=== PATIENT | male | born 1975 | race Two or more races ===

== ENCOUNTER 2020-09-11 15:27 | Outpatient (REF) | payer OTHER, SELFPAY ==
[2020-09-11 17:03] LABS: MANUAL DIFF FLAG NO
[2020-09-11 17:04] LABS: Basophils Absolute Auto 0.1 X10*3/uL (0.0-0.2); Basophils Percent Auto 0.7 % (0-2); Eosinophils Absolute Auto 0.2 X10*3/uL (0.0-0.4); Hemoglobin 14.4 g/dl (14.0-18.0); Imm Gran Abs Auto 0.04 X10*3/uL (0.00-0.03); Imm Gran Pct Auto 0.5 % (0.0-0.4); Lymphocytes Absolute Auto 2.8 X10*3/uL (1.2-4.9); Lymphocytes Percent Auto 37.5 % (20-40); Mean Corpuscular HGB Conc 33.5 g/dl (31.0-36.0); Mean Corpuscular Hemoglobin 28.1 pg (27.0-33.0); Mean Corpuscular Volume 83.8 fL (80-98); Mean Platelet Volume 10.4 fL (9.4-12.4); Monocytes Absolute Auto 0.6 X10*3/uL (0.1-1.2); Monocytes Percent Auto 8.3 % (2-11); Neutrophils Absolute Auto 3.8 X10*3/uL (2.0-8.3); Platelet Count 240 X10*3/uL (160-400); Red Blood Count 5.13 X10*6/uL (4.60-5.80); White Blood Count 7.4 X10*3/uL (4.8-10.8)
[2020-09-11 17:16] LABS: Estimated Average Glucose 286 mg/dL; Hemoglobin A1c % 11.6 %
[2020-09-11 17:28] LABS: Creatinine Urine 49.24 mg/dL
[2020-09-11 17:48] LABS: Vitamin D 25-OH Total 15.2 ng/mL (>30)
[2020-09-11 17:51] LABS: Vitamin B12 398 pg/mL (200-900)
[2020-09-11 17:52] LABS: Alanine Aminotransferase 38 U/L (0-40); Alkaline Phosphatase 160 U/L (39-117); Anion Gap 14 (12-20); Aspartate Amino Transferase 23 U/L (5-37); Bilirubin Total 0.4 mg/dL (0.0-1.0); Blood Urea Nitrogen 13 mg/dL (9-16); Calcium 8.5 mg/dL (8.4-10.2); Carbon Dioxide 25 mmol/L (22-29); Chloride 98 mmol/L (96-108); Cholesterol 179 mg/dL; Estimated Glomerular Filt Rate > 60; Glucose Fasting 486 mg/dL (60-99); HDL Cholesterol 27 mg/dL; Potassium 3.8 mmol/l (3.3-5.1); Sodium 133 mmol/L (135-145); Total Protein 7.3 g/dL (6.5-8.0); Triglycerides 754 mg/dL
[2020-09-12 22:13] LABS: LDL Cholesterol Direct 67 mg/dL (<100)
== END 2020-09-11 15:28 | disposition home or self-care (01) ==
LOC: HO.LABR 15:27
PROVIDERS: Visit Provider Internal Medicine Endocrinology, Diabetes & Metabolism
DX: E11.42 Type 2 diabetes mellitus with diabetic polyneuropathy (principal)
CPT/HCPCS: 36415; 80053; 80061; 82043; 82306; 82607; 83036; 83721; 85025

== ENCOUNTER 2020-10-10 13:29 | Emergency (ER) | payer OTHER, SELFPAY ==
[2020-10-10 16:08] VITALS: BP 141/77; PULSE 93; RESP 20; TEMP 36.8; O2SAT 96; BMI 34.5
--- NOTE | 2020-10-10 16:30 | ED_ITS ---
HPI - Dental/Oral General Chief complaint: Dental/Oral Stated complaint: FACIAL SWELLING Time Seen by Provider: 10/10/20 16:30 History of Present Illness HPI Narrative: Patient is a 45-year-old male presents today with having pain to the lower right molar number 32. Complaining of increasing pain over last 3 days. Swelling to the area. Patient has some dental work done by his dentist in the past. No fever no chills no systemic complaints. Tolerated PO. No change in voice. Otherwise well. Came in mainly for pain control. MD Complaint: tooth pain Related Data Previous Rx's Medication Instructions Recorded cholecalciferol (vitamin D3) 125 125 mcg PO DAILY 30 Days #30 cap 09/12/20 mcg (5,000 unit) capsule ibuprofen 400 mg PO Q6H PRN #20 tab 10/10/20 oxycodone-acetaminophen [Percocet] 1 tab PO Q6H #7 tab 10/10/20 penicillin V potassium 500 mg PO TID #21 tab 10/10/20 Allergies Allergy/AdvReac Type Severity Reaction Status Date / Time No Known Allergies Allergy Verified 10/10/20 16:12 Review of Systems Review of Systems: Constitutional: No Weight loss, No Fever, No Chills, No Night Sweats, No Fatigue, No Malaise ENT/Mouth: No Hearing loss, No Ear Pain, No Nasal Congestion, No Sinus Pain, No Hoarseness, No sore throat, No Rhinorrhea, No Swallowing Difficulty. Positive dental pain Eyes: No Eye Pain, No Swelling, No Redness, No Foreign Body, No Discharge, No Vision Changes Cardiovascular: No Chest Pain, No SOB, No Dyspnea on Exertion, No Orthopnea, No Edema, No Palpitations Respiratory: No Cough, No Sputum, No Wheezing, No Smoke Exposure, No Dyspnea Gastrointestinal: No Nausea, No Vomiting, No Diarrhea, No Constipation, No abdominal Pain, No Hematochezia, No Melena Genitourinary: no irregular bleeding, No Dysuria, No Urinary Frequency, No Hematuria, No Urinary Incontinence, No Urgency, No Flank Pain, No Urinary Flow Changes, No Hesitancy Musculoskeletal: No joint pain, No Myalgias, No Joint Swelling Skin: No Skin Lesions, No rash Neuro: No Weakness, No Numbness, No Paresthesias, No Loss of Consciousness, No Dizziness, No Headache Psych: No Anxiety/Panic, No Depression, No SI/HI/AH/VH, No Social Issues, Heme/Lymph: No Bruising, No Bleeding,No Lymphadenopathy Endocrine: No Polyuria, No Polydipsia, No Temperature Intolerance [facility] Past Medical History Attestation statement: The following information was validated with the patient. Medical History Diabetes Social History Social History Advance Directives: No Advance Directives Information Provided: No Physical Exam Vital Signs: Vital Signs: Last Vital Signs Temp 98.2 F 10/10/20 16:08 Pulse 93 10/10/20 16:08 Resp 20 10/10/20 16:08 BP 141/77 H 10/10/20 16:08 Pulse Ox 96 10/10/20 16:08 Body Mass Index 34.5 Appearance: Alert. Oriented X3. No acute distress. Eyes: Pupils equal, round and reactive to light. ENT: Pharynx normal. positive cavity noted in the tooth number 32. there is localized inflammation in the area. There is no abscess is palpable. The floor of the mouth is nontender no mass palpable. Posterior pharynx is normal. Neck: Normal inspection. Neck supple. No lymph nodes noted. No crepitus CVS: Normal heart rate and rhythm. Pulses normal. Normal S1 and S2 Respiratory: No respiratory distress. Breath sounds normal. No Wheezing. No rales Abdomen: Soft and nontender. No rigidity. No distention. good BS x4 Skin: Skin warm and dry. Normal skin color. Normal skin turgor. Extremities: No lower extremity edema. Neurovascular intact to all extremities. No Lacerations. No Rash Neuro: Oriented X 3. No motor deficit. No sensory deficit. Moving all extermities. No slurred speech Procedures Procedure Narrative Procedure Narrative: Landmarks were identified. 3 cc of 0.5% Marcaine was used. The inferior alveolar block was applied to the right lower jaw area. Good anesthesia was achieved. No bleeding no complications MDM - Dental/Oral MDM Narrative Medical decision making narrative: Patient wants a shot for his pain. We will go ahead and given inferior alveolar block to the area. Will have patient closely follow-up with his dentist tomorrow. Will give penicillin and additional Motrin for pain. Currently in stable condition. Discharge Plan Discharge Clinical Impression: Dental caries Patient Disposition: Home, Self-Care Instructions: Toothache (ED) Prescriptions: New ibuprofen 400 mg tablet 400 mg PO Q6H PRN (Reason: pain) Qty: 20 RF: 0 oxycodone-acetaminophen [Percocet] 5-325 mg tablet 1 tab PO Q6H Qty: 7 RF: 0 penicillin V potassium 500 mg tablet 500 mg PO TID Qty: 21 RF: 0 No Action cholecalciferol (vitamin D3) 125 mcg (5,000 unit) capsule 125 mcg PO DAILY 30 Days Qty: 30 RF: 3 Referrals: Physician,None [Primary Care Provider] - 1 day ( Follow-up with your dentist tomorrow) Print Language: Portuguese
[2020-10-10 17:19] VITALS: PULSE 98; RESP 16; TEMP 36.4; O2SAT 99
== END 2020-10-10 17:30 | disposition home or self-care (01) ==
PROVIDERS: Emergency Provider Emergency Medicine Emergency Medical Services
DX: K02.9 Dental caries, unspecified (principal); Z79.899 Other long term (current) drug therapy
CPT/HCPCS: 99283

== ENCOUNTER 2020-12-27 14:30 | Outpatient (REF) | payer OTHER, SELFPAY ==
[2020-12-27 17:06] LABS: Hematocrit 41.9 % (42-52); Hemoglobin 14.5 g/dl (14.0-18.0); Mean Corpuscular HGB Conc 34.6 g/dl (31.0-36.0); Mean Corpuscular Hemoglobin 28.7 pg (27.0-33.0); Mean Corpuscular Volume 82.8 fL (80-98); Mean Platelet Volume 10.6 fL (9.4-12.4); Platelet Count 229 X10*3/uL (160-400); Red Blood Count 5.06 X10*6/uL (4.60-5.80); Red Cell Distribution Width 12.9 % (11.0-16.0); White Blood Count 9.2 X10*3/uL (4.8-10.8)
[2020-12-27 17:34] LABS: Alanine Aminotransferase 50 U/L (0-40); Albumin Level 4.2 g/dL (3.5-5.0); Alkaline Phosphatase 102 U/L (39-117); Anion Gap 14 (12-20); Aspartate Amino Transferase 36 U/L (5-37); Bilirubin Total 0.8 mg/dL (0.0-1.0); Blood Urea Nitrogen 14 mg/dL (9-16); Calcium 8.7 mg/dL (8.4-10.2); Carbon Dioxide 26 mmol/L (22-29); Chloride 104 mmol/L (96-108); Cholesterol 147 mg/dL; Estimated Average Glucose 237 mg/dL; Estimated Glomerular Filt Rate > 60; Glucose Fasting 171 mg/dL (60-99); HDL Cholesterol 33 mg/dL; Hemoglobin A1c % 9.9 %; LDL Cholesterol Calculated 55 mg/dl; Potassium 3.8 mmol/l (3.3-5.1); Sodium 140 mmol/L (135-145); Total Protein 7.4 g/dL (6.5-8.0); Triglycerides 298 mg/dL
[2020-12-27 17:56] LABS: Vitamin D 25-OH Total 15.3 ng/mL (>30)
[2020-12-28 03:48] LABS: LDL Cholesterol Direct 73 mg/dL (<100)
== END 2020-12-27 14:31 | disposition home or self-care (01) ==
LOC: HO.LAB 14:30
PROVIDERS: Visit Provider Internal Medicine Endocrinology, Diabetes & Metabolism
DX: E11.65 Type 2 diabetes mellitus with hyperglycemia (principal); E11.42 Type 2 diabetes mellitus with diabetic polyneuropathy; E11.21 Type 2 diabetes mellitus with diabetic nephropathy; E55.9 Vitamin D deficiency, unspecified; E78.5 Hyperlipidemia, unspecified; I10 Essential (primary) hypertension; Z79.84 Long term (current) use of oral hypoglycemic drugs; Z79.899 Other long term (current) drug therapy
CPT/HCPCS: 36415; 80053; 80061; 82306; 82947; 83036; 83721; 85027; 99212

== ENCOUNTER → 2021-01-25 08:02 | Outpatient (BNVA) | payer OTHER, SELFPAY | PROVIDERS: Visit Provider Internal Medicine Endocrinology, Diabetes & Metabolism | CPT/HCPCS: Q3014 ==

== ENCOUNTER 2021-04-16 09:12 | Outpatient (REF) | payer OTHER, SELFPAY | END 2021-04-16 09:13 | disposition home or self-care (01) | LOC: HO.LAB 09:12 | PROVIDERS: Visit Provider Internal Medicine | DX: Z20.822 Contact with and (suspected) exposure to COVID-19 (principal) | CPT/HCPCS: C9803; U0003; U0005 ==

== ENCOUNTER 2021-05-27 15:38 | Emergency (ER) | payer OTHER, SELFPAY ==
--- NOTE | ~2021-05-27 | XR_ITS ---
EXAMINATION: XR CHEST CLINICAL INFORMATION: Chest pain COMPARISON: Previous chest x-ray most recent November 2019 TECHNIQUE: Frontal view of the chest was obtained. FINDINGS: The cardiac and mediastinal contours are normal. The lungs are clear. There is no pleural effusion or pneumothorax. There are mild degenerative changes of the spine. XR/XR chest 1V IMPRESSION: No evidence for acute disease in chest.
--- NOTE | 2021-05-27 15:46 | ECG_ITS ---
Test Reason : CHEST PAIN Blood Pressure : / mmHG Vent. Rate : 087 BPM Atrial Rate : 087 BPM P-R Int : 156 ms QRS Dur : 090 ms QT Int : 372 ms P-R-T Axes : 038 -22 033 degrees QTc Int : 447 ms Normal sinus rhythm Normal ECG When compared with ECG of 29-DEC-2019 16:42, No significant change was found Referred By: Generic ED Physician Electronically Signed By:SUMA ROSEN MD
[2021-05-27 15:47] VITALS: BP 139/75; PULSE 89; RESP 18; TEMP 36.8; O2SAT 97; BMI 37.8
[2021-05-27 15:57] LABS: Basophils Percent Auto 0.3 % (0-2); Eosinophils Absolute Auto 0.2 X10*3/uL (0.0-0.4); Eosinophils Percent Auto 1.8 % (0-4); Hematocrit 39.5 % (42-52); Hemoglobin 13.7 g/dl (14.0-18.0); Imm Gran Abs Auto 0.06 X10*3/uL (0.00-0.03); Imm Gran Pct Auto 0.5 % (0.0-0.4); Lymphocytes Absolute Auto 3.8 X10*3/uL (1.2-4.9); Lymphocytes Percent Auto 30.9 % (20-40); MANUAL DIFF FLAG NO; Mean Corpuscular HGB Conc 34.7 g/dl (31.0-36.0); Mean Corpuscular Hemoglobin 29.5 pg (27.0-33.0); Mean Corpuscular Volume 85.1 fL (80-98); Mean Platelet Volume 10.1 fL (9.4-12.4); Monocytes Percent Auto 7.9 % (2-11); Neutrophils Absolute Auto 7.2 X10*3/uL (2.0-8.3); Neutrophils Percent Auto 58.6 % (45-73); Platelet Count 224 X10*3/uL (160-400); Red Blood Count 4.64 X10*6/uL (4.60-5.80); Red Cell Distribution Width 13.2 % (11.0-16.0); White Blood Count 12.3 X10*3/uL (4.8-10.8)
[2021-05-27 16:24] LABS: Anion Gap 13 (12-20); Blood Urea Nitrogen 19 mg/dL (9-16); Calcium 9.2 mg/dL (8.4-10.2); Carbon Dioxide 24 mmol/L (22-29); Chloride 106 mmol/L (96-108); Creatinine Clr Calc Pharmacy 108.5; Estimated Glomerular Filt Rate > 60; Glucose Random 179 mg/dL (60-115); Sodium 139 mmol/L (135-145)
[2021-05-27 16:34] LABS: Troponin-I High Sensitivity 8.7 ng/L (<3.5-35.0)
--- NOTE | 2021-05-27 21:18 | ED_ITS ---
HPI - Chest Pain General Chief Complaint: Chest Pain Stated Complaint: chest pain Time Seen by Provider: 05/27/21 21:03 History of Present Illness HPI narrative: Patient is a 46-year-old male history of diabetes, hypertension. Presents today with having chest pain on the right side. It is fairly constant it is sharp in nature. Patient claims it is worse with bending to the right. Denies any worsening with ambulation. No diaphoresis. No fever no chills no cough no congestion or upper respiratory from flu symptoms. No recent travel. No leg swelling. No history of blood clots. The pain is been going on for 2 days. Related Data Home Medications Medication Instructions Recorded Confirmed alcohol swabs 0 pad TOPICAL 12/27/20 01/25/21 blood sugar diagnostic #10 ea 12/27/20 01/25/21 lancets 33 gauge #100 ea 12/27/20 01/25/21 bupropion HCl 150 mg 24 hr tablet, 150 mg PO DAILY tab 01/25/21 01/25/21 extended release Previous Rx's Medication Instructions Recorded ibuprofen 400 mg PO Q6H PRN #20 tab 10/10/20 oxycodone-acetaminophen [Percocet] 1 tab PO Q6H #7 tab 10/10/20 pen needle, diabetic 32 gauge x #100 ea 10/12/20 atorvastatin 20 mg tablet 20 mg PO DAILY 30 Days #30 tab 12/27/20 butenafine 1 % topical cream 1 appl TOPICAL BID 14 Days #30 g 12/27/20 dulaglutide 1.5 mg/0.5 mL 1.5 mg SUBCUT QWEEK 30 Days #2.5 ml 12/27/20 subcutaneous pen injector metformin 500 mg tablet,extended 500 mg PO BID 30 Days #60 tab 12/27/20 release 24 hr cholecalciferol (vitamin D3) 125 125 mcg PO DAILY 30 Days #30 cap 12/31/20 mcg (5,000 unit) capsule clotrimazole 1 % topical cream 1 appl TOPICAL BID 14 Days #45 g 01/02/21 insulin regular hum U-500 conc See Rx Instructions SUBCUT .Twice 01/25/21 a day 30 Days #15 ml blood sugar diagnostic #100 ea 02/05/21 lancets 33 gauge #100 ea 02/05/21 lisinopril 10 mg tablet 10 mg PO DAILY 30 Days #30 tab 02/11/21 ibuprofen 400 mg PO Q6H PRN #20 tab 05/27/21 Allergies Allergy/AdvReac Type Severity Reaction Status Date / Time No Known Allergies Allergy Verified 10/10/20 16:12 Review of Systems Review of Systems: Constitutional: No Weight loss, No Fever, No Chills, No Night Sweats, No Fatigue, No Malaise ENT/Mouth: No Hearing loss, No Ear Pain, No Nasal Congestion, No Sinus Pain, No Hoarseness, No sore throat, No Rhinorrhea, No Swallowing Difficulty Eyes: No Eye Pain, No Swelling, No Redness, No Foreign Body, No Discharge, No Vision Changes Cardiovascular: Positive chest pain, no shortness of breath no diaphoresis Respiratory: No Cough, No Sputum, No Wheezing, No Smoke Exposure, No Dyspnea Gastrointestinal: No Nausea, No Vomiting, No Diarrhea, No Constipation, No abdominal Pain, No Hematochezia, No Melena Genitourinary: no irregular bleeding, No Dysuria, No Urinary Frequency, No Hematuria, No Urinary Incontinence, No Urgency, No Flank Pain, No Urinary Flow Changes, No Hesitancy Musculoskeletal: No joint pain, No Myalgias, No Joint Swelling Skin: No Skin Lesions, No rash Neuro: No Weakness, No Numbness, No Paresthesias, No Loss of Consciousness, No Dizziness, No Headache Psych: No Anxiety/Panic, No Depression, No SI/HI/AH/VH, No Social Issues, Heme/Lymph: No Bruising, No Bleeding,No Lymphadenopathy Endocrine: No Polyuria, No Polydipsia, No Temperature Intolerance PMFSH Past Medical History Attestation statement: The following information was validated with the patient. Medical History Diabetes Diabetes type 2, uncontrolled Diabetic nephropathy associated with type 2 diabetes mellitus Diabetic polyneuropathy associated with type 2 diabetes mellitus Disc herniation Dyslipidemia Essential hypertension senior care (current) use of insulin Tinea pedis Vitamin D deficiency Surgical History History of ear surgery Hx of knee surgery Family History Family History Father Diabetes mellitus Heart disease Stroke Mother Epilepsy Social History Social History Alcohol intake: never Advance Directives: No Advance Directives Information Provided: Yes Physical Exam Vital Signs: Vital Signs: Last Vital Signs Temp 98.3 F 05/27/21 15:47 Pulse 89 05/27/21 15:47 Resp 18 05/27/21 15:47 BP 139/75 05/27/21 15:47 Pulse Ox 97 05/27/21 15:47 Body Mass Index 37.8 Appearance: Alert. Oriented X3. No acute distress. Eyes: Pupils equal, round and reactive to light. ENT: Pharynx normal. Neck: Normal inspection. Neck supple. No lymph nodes noted. No crepitus CVS: Normal heart rate and rhythm. Pulses normal. Normal S1 and S2 Respiratory: No respiratory distress. Breath sounds normal. No Wheezing. No rales Abdomen: Soft and nontender. No rigidity. No distention. good BS x4 Skin: Skin warm and dry. Normal skin color. Normal skin turgor. Extremities: No lower extremity edema. Neurovascular intact to all extremities. No Lacerations. No Rash Neuro: Oriented X 3. No motor deficit. No sensory deficit. Moving all extermities. No slurred speech MDM - Chest Pain MDM Narrative Medical decision making narrative: patient's chest x-ray showed no focal infiltrate. Patient's troponin was negative. We will get a 2nd set. Patient's EKG showed a sinus pattern no acute ST segment elevation. Patient does have 2 risk factors. He is 46 years old but history not consistent with [place]. Troponin negative. Heart score is still less than 3. Will discharge patient home if 2nd set enzymes negative. No risk factors for pulmonary emboli. No pneumonia noted on x-ray. No rib fractures noted on x-ray. No pneumothorax noted. Lab Data Result diagrams: 05/27/21 15:50 05/27/21 15:50 Labs: Lab Results 05/27/21 05/27/21 05/27/21 Range/Units 15:50 15:50 15:50 WBC 12.3 H (4.8-10.8) X10*3/uL RBC 4.64 (4.60-5.80) X10*6/uL Hgb 13.7 L (14.0-18.0) g/dl Hct 39.5 L (42-52) % MCV 85.1 (80-98) fL MCH 29.5 (27.0-33.0) pg MCHC 34.7 (31.0-36.0) g/dl RDW 13.2 (11.0-16.0) % Plt Count 224 (160-400) X10*3/uL MPV 10.1 (9.4-12.4) fL Immature Gran % (Auto) 0.5 H (0.0-0.4) % Neut % (Auto) 58.6 (45-73) % Lymph % (Auto) 30.9 (20-40) % Noble % (Auto) 7.9 (2-11) % Eos % (Auto) 1.8 (0-4) % Baso % (Auto) 0.3 (0-2) % Lymph # (Auto) 3.8 (1.2-4.9) X10*3/uL Noble # (Auto) 1.0 (0.1-1.2) X10*3/uL Eos # (Auto) 0.2 (0.0-0.4) X10*3/uL Baso # (Auto) 0.0 (0.0-0.2) X10*3/uL Abs Immat Gran (auto) 0.06 H (0.00-0.03) X10*3/uL Absolute Neuts (auto) 7.2 (2.0-8.3) X10*3/uL Absolute Nucleated RBC 0.000 (0.0-0.012) X10*3/uL Nucleated RBC % (auto) 0.0 (0.0-0.2) /100WBC Sodium 139 (135-145) mmol/L Potassium 4.0 (3.3-5.1) mmol/L Chloride 106 (96-108) mmol/L Carbon Dioxide 24 (22-29) mmol/L Anion Gap 13 (12-20) BUN 19 H (9-16) mg/dL Creatinine 1.08 (0.5-1.4) mg/dL Estim Creat Clear Calc 108.5 Estimated GFR > 60 Random Glucose 179 H (60-115) mg/dL Calcium 9.2 (8.4-10.2) mg/dL Troponin I High Sens 8.7 (<3.5-35.0) ng/L 05/27/ Range/Units 21:28 WBC (4.8-10.8) X10*3/uL RBC (4.60-5.80) X10*6/uL Hgb (14.0-18.0) g/dl Hct (42-52) % MCV (80-98) fL MCH (27.0-33.0) pg MCHC (31.0-36.0) g/dl RDW (11.0-16.0) % Plt Count (160-400) X10*3/uL MPV (9.4-12.4) fL Immature Gran % (Auto) (0.0-0.4) % Neut % (Auto) (45-73) % Lymph % (Auto) (20-40) % Noble % (Auto) (2-11) % Eos % (Auto) (0-4) % Baso % (Auto) (0-2) % Lymph # (Auto) (1.2-4.9) X10*3/uL Noble # (Auto) (0.1-1.2) X10*3/uL Eos # (Auto) (0.0-0.4) X10*3/uL Baso # (Auto) (0.0-0.2) X10*3/uL Abs Immat Gran (auto) (0.00-0.03) X10*3/uL Absolute Neuts (auto) (2.0-8.3) X10*3/uL Absolute Nucleated RBC (0.0-0.012) X10*3/uL Nucleated RBC % (auto) (0.0-0.2) /100WBC Sodium (135-145) mmol/L Potassium (3.3-5.1) mmol/L Chloride (96-108) mmol/L Carbon Dioxide (22-29) mmol/L Anion Gap (12-20) BUN (9-16) mg/dL Creatinine (0.5-1.4) mg/dL Estim Creat Clear Calc Estimated GFR Random Glucose (60-115) mg/dL Calcium (8.4-10.2) mg/dL Troponin I High Sens 7.6 (<3.5-35.0) ng/L Discharge Plan Discharge Clinical Impression: Chest pain Patient Disposition: Home, Self-Care Instructions: Chest Pain (ED) Prescriptions: New ibuprofen 400 mg tablet 400 mg PO Q6H PRN (Reason: pain) Qty: 20 RF: 0 No Action (DME) pen needle, diabetic [BD Dianelys 2nd Gen Pen Needle] 32 gauge x 5/32 needle See Rx Instructions .MEDSUPPLY Qty: 100 RF: 4 cholecalciferol (vitamin D3) 125 mcg (5,000 unit) capsule 125 mcg PO DAILY 30 Days Qty: 30 RF: 3 clotrimazole [Lotrimin AF (clotrimazole)] 1 % cream 1 appl topical BID 14 Days Qty: 45 RF: 1 (DME) FreeStyle Lite Strips Strip See Rx Instructions .ROUTE .MEDSUPPLY Qty: 100 RF: 3 (DME) lancets [TRUEplus Lancets] 33 gauge misc See Rx Instructions .ROUTE .MEDSUPPLY Qty: 100 RF: 3 lisinopril 10 mg tablet 10 mg PO DAILY 30 Days Qty: 30 RF: 4 ibuprofen 400 mg tablet 400 mg PO Q6H PRN (Reason: pain) Qty: 20 RF: 0 oxycodone-acetaminophen [Percocet] 5-325 mg tablet 1 tab PO Q6H Qty: 7 RF: 0 insulin regular hum U-500 conc 500 unit/mL (3 mL) insulin pen See Rx Instructions subcut .Twice a day 30 Days Qty: 15 RF: 6 (DME) lancets 33 gauge misc See Rx Instructions ea .ROUTE .MEDSUPPLY Qty: 100 RF: 0 alcohol swabs Pads, Medicated 0 pad topical RF: 0 (DME) FreeStyle Lite Strips Strip See Rx Instructions ea Not Applicable .MEDSUPPLY Qty: 10 RF: 0 atorvastatin 20 mg tablet 20 mg PO DAILY 30 Days Qty: 30 RF: 5 dulaglutide 1.5 mg/0.5 mL pen injector 1.5 mg subcut QWEEK 30 Days Qty: 2.5 RF: 6 metformin 500 mg tablet extended release 24 hr 500 mg PO BID 30 Days Qty: 60 RF: 6 butenafine [Lotrimin Ultra] 1 % cream 1 appl topical BID 14 Days Qty: 30 RF: 1 bupropion HCl 150 mg tablet extended release 24 hr 150 mg PO DAILY RF: 0 Referrals: Physician,Unknown [Primary Care Provider] - 2 days Print Language: Venezuelan
--- NOTE | 2021-05-27 21:28 | PC.NURSE ---
pt to room on monitor with MD at bedside. Repeat Trop obtained to lab. Will continue to monitor pt.
[2021-05-27 22:03] LABS: Troponin-I High Sensitivity 7.6 ng/L (<3.5-35.0)
== END 2021-05-27 22:23 | disposition home or self-care (01) ==
PROVIDERS: Emergency Provider Emergency Medicine Emergency Medical Services
DX: R07.9 Chest pain, unspecified (principal); E11.9 Type 2 diabetes mellitus without complications; I10 Essential (primary) hypertension; Z79.4 Long term (current) use of insulin; Z79.899 Other long term (current) drug therapy
CPT/HCPCS: 36415; 71045; 80048; 84484; 85025; 93005; 99283

== ENCOUNTER 2021-07-18 14:56 | Emergency (ER) | payer OTHER, SELFPAY ==
--- NOTE | ~2021-07-18 | US_ITS ---
EXAMINATION: US VENOUS ULTRASOUND WITH DOPPLER LOWER EXTREMITY, RIGHT CLINICAL INFORMATION: Calf pain COMPARISON: None TECHNIQUE: Ultrasound of the deep veins is performed from the hip to the calf with compression sonography and color and pulse Doppler assessment. Spectral analysis with color-flow imaging is performed. FINDINGS: There is normal venous compression and respiratory variation and augmented flow. The visualized common femoral vein, superficial femoral vein, profunda femoral vein, popliteal vein, and the trifurcation region shows no evidence of deep venous thrombosis. There is no significant popliteal fossa cyst. If the patient's symptoms persist, followup ultrasound in 5 days 7 days might be of value to exclude proximal propagation from a non-visualized calf vein. US/US venous duplex LE RT IMPRESSION: No DVT demonstrated in the right lower extremity.
--- NOTE | ~2021-07-18 | XR_ITS ---
EXAMINATION: XR CHEST CLINICAL INFORMATION: Cough COMPARISON: Chest radiographs 05/27/2021, 12/29/2019, 04/21/2019 TECHNIQUE: Portable upright AP view of the chest was obtained. FINDINGS: There is likely a small cysts are at the right lateral base similar to prior studies. The lungs otherwise clear. There is no hyperinflation, lobar or segmental airspace consolidation, or groundglass opacity. The heart is normal in size and the hilar and mediastinal contours are unremarkable. No visible acute bony abnormality. XR/XR chest 1V IMPRESSION: Small scar right lateral base similar to prior studies. Lungs otherwise clear.
[2021-07-18 15:02] VITALS: BP 124/73; BP 97/65; PULSE 85; PULSE 90; RESP 20; TEMP 36.4; O2SAT 96; O2SAT 99; BMI 38.4
[2021-07-18 15:19] VITALS: BP 101/66; PULSE 90; RESP 20
--- NOTE | 2021-07-18 15:23 | ECG_ITS ---
Test Reason : DIZZINESS Blood Pressure : / mmHG Vent. Rate : 089 BPM Atrial Rate : 089 BPM P-R Int : 144 ms QRS Dur : 090 ms QT Int : 392 ms P-R-T Axes : 047 -10 040 degrees QTc Int : 476 ms Normal sinus rhythm Normal ECG When compared with ECG of 27-MAY-2021 15:45, No significant change was found Referred By: Generic ED Physician Electronically Signed By:NANCI BROWN
--- NOTE | 2021-07-18 15:27 | PC.NURSE ---
Pt vomited small amount of bile. Will order fluids and zofran. While vomiting pt noted to be pale/diaphoretic. EKG being obtained at this time
[2021-07-18] MEDS: ondansetron HCL 4 MG/2 ML VIAL IVPUSH (15:35)
[2021-07-18] MEDS: 0.9 % Sodium Chloride 1,000 ML 999 ML IV (15:35)
[2021-07-18 15:42] LABS: MANUAL DIFF FLAG NO
[2021-07-18 15:43] LABS: Basophils Percent Auto 0.2 % (0-2); Hematocrit 46.5 % (42-52); Hemoglobin 15.9 g/dl (14.0-18.0); Imm Gran Abs Auto 0.31 X10*3/uL (0.00-0.03); Imm Gran Pct Auto 1.5 % (0.0-0.4); Lymphocytes Absolute Auto 1.7 X10*3/uL (1.2-4.9); Lymphocytes Percent Auto 8.2 % (20-40); Mean Corpuscular HGB Conc 34.2 g/dl (31.0-36.0); Mean Corpuscular Hemoglobin 28.6 pg (27.0-33.0); Mean Corpuscular Volume 83.6 fL (80-98); Mean Platelet Volume 10.8 fL (9.4-12.4); Monocytes Absolute Auto 1.1 X10*3/uL (0.1-1.2); Monocytes Percent Auto 5.4 % (2-11); Neutrophils Absolute Auto 17.8 X10*3/uL (2.0-8.3); Neutrophils Percent Auto 84.7 % (45-73); Platelet Count 261 X10*3/uL (160-400); Red Blood Count 5.56 X10*6/uL (4.60-5.80); Red Cell Distribution Width 13.2 % (11.0-16.0)
[2021-07-18 16:13] LABS: Anion Gap 18 (12-20); Blood Urea Nitrogen 18 mg/dL (9-16); Carbon Dioxide 22 mmol/L (22-29); Chloride 107 mmol/L (96-108); Creatinine Clr Calc Pharmacy 61.5; Estimated Glomerular Filt Rate 38; Glucose Random 109 mg/dL (60-115); Sodium 143 mmol/L (135-145)
[2021-07-18 16:15] LABS: Troponin-I High Sensitivity 5.1 ng/L (<3.5-35.0)
--- NOTE | 2021-07-18 16:21 | ED.GENADULT ---
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 Patient was instructed by his primary doctor to increase his lisinopril from 10 mg daily to 20 mg daily and today is the 1st day patient is taking 20 mg of lisinopril, patient felt generalized weakness, patient felt also that he is going to faint and patient fainted in the rain for unknown time, patient feels a lot of cramps in his right side of his chest, and right lower extremities. Patient emergency department after received 1 L of normal saline he feels better, patient is able to ambulate in the emergency department. Patient found to have elevated leukocytosis patient declined any fever, only complain of cough for the past few weeks. Related Data Home Medications Medication Instructions Recorded Confirmed alcohol swabs 0 pad TOPICAL 12/27/20 01/25/21 blood sugar diagnostic #10 ea 12/27/20 01/25/21 lancets 33 gauge #100 ea 12/27/20 01/25/21 bupropion HCl 150 mg 24 hr tablet, 150 mg PO DAILY tab 01/25/21 01/25/21 extended release Previous Rx's Medication Instructions Recorded ibuprofen 400 mg tablet 400 mg PO Q6H PRN #20 tab 10/10/20 oxycodone-acetaminophen 5 mg-325 1 tab PO Q6H #7 tab 10/10/20 mg tablet (Percocet) pen needle, diabetic 32 gauge x #100 ea 10/12/20 (BD Dianelys 2nd Gen Pen Needle) atorvastatin 20 mg tablet 20 mg PO DAILY 30 Days #30 tab 12/27/20 butenafine 1 % topical cream 1 appl TOPICAL BID 14 Days #30 g 12/27/20 (Lotrimin Ultra) dulaglutide 1.5 mg/0.5 mL 1.5 mg SUBCUT QWEEK 30 Days #2.5 ml 12/27/20 subcutaneous pen injector metformin 500 mg tablet,extended 500 mg PO BID 30 Days #60 tab 12/27/20 release 24 hr cholecalciferol (vitamin D3) 125 125 mcg PO DAILY 30 Days #30 cap 12/31/20 mcg (5,000 unit) capsule clotrimazole 1 % topical cream 1 appl TOPICAL BID 14 Days #45 g 01/02/21 (Lotrimin AF (clotrimazole)) insulin regular hum U-500 conc See Rx Instructions SUBCUT .Twice 01/25/21 a day 30 Days #15 ml blood sugar diagnostic (FreeStyle #100 ea 02/05/21 Lite Strips) lancets 33 gauge (TRUEplus Lancets) #100 ea 02/05/21 lisinopril 10 mg tablet 10 mg PO DAILY 30 Days #30 tab 02/11/21 ibuprofen 400 mg tablet 400 mg PO Q6H PRN #20 tab 05/27/21 Allergies Allergy/AdvReac Type Severity Reaction Status Date / Time No Known Allergies Allergy Verified 10/10/20 16:12 Review of Systems Review of Systems: All other systems are reviewed and are negative Constitutional: Reports as per HPI and Reports no additional constitutional complaints Eyes: Reports as per HPI and Reports no additional eye complaints Reports system reviewed and no additional complaints, except as documented Cardiovascular: Reports as per HPI and Reports no additional cardiovascular complaints Respiratory: Reports as per HPI and Reports no additional respiratory complaints Gastrointestinal: Reports as per HPI and Reports no additional gastrointestinal complaints Genitourinary: Reports no additional female genitourinary complaints Musculoskeletal: Reports no additional musculoskeletal complaints Skin/Breast: Reports system reviewed and no additional complaints, except as docu Psychiatric: Reports no additional psychiatric complaints Endocrine: Reports no additional endocrine complaints Hematologic/Lymphatic: Reports no additional hematologic/lymphatic complaints Allergic/Immunologic: Reports no additional allergic/immunologic complaints Reports system reviewed and no additional complaints, except as documented and Reports Abnormal speech present [facility] Past Medical History Medical History Diabetes Diabetes type 2, uncontrolled Diabetic nephropathy associated with type 2 diabetes mellitus Diabetic polyneuropathy associated with type 2 diabetes mellitus Disc herniation Dyslipidemia Essential hypertension 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 Tinea pedis Vitamin D deficiency Surgical History History of ear surgery Hx of knee surgery Family History Family History Father Diabetes mellitus Heart disease Stroke Mother Epilepsy Social History Social History Alcohol intake: never Patient Tobacco Use Status: Never used Tobacco Use of substances other than those prescribed or required for medical reasons: No Advance Directives: No Advance Directives Information Provided: No Physical Exam Vital Signs: Vital Signs: Last Vital Signs Temp 97.6 F 07/18/21 15:02 Pulse 89 07/18/21 18:25 Resp 16 07/18/21 18:25 BP 120/64 07/18/21 18:25 Pulse Ox 94 07/18/21 18:25 Body Mass Index 38.4 Vital signs have been reviewed as appeared to be correct. Blood pressure normal. Heart rate normal. Respiration rate normal. Temperature normal. Oxygen saturation normal. Appearance: Alert. Oriented X3. No acute distress. Head: Normal external exam. Normocephalic. Atraumatic. No Sharif signs noted. No raccoon eyes noted Eyes: PERRLA. EOMI. Conjunctiva and sclera normal. Eyelids normal. ENT: TM's Normal. Pharynx normal. Uvula midline. Moist mucous membranes. No trismus noted. No drooling noted. No muffled voice noted. Neck: Normal inspection. Neck supple. FROM. No adenopathy. Thyroid Normal. No meningeal signs. No neck mass noted. CVS: Normal heart rate and rhythm. Heart sound normal. No murmurs noted. Pulses normal throughout. Respiratory: No respiratory distress. Painless inspiration. Breath sounds normal. No wheezes/rales/rhonchi noted. Chest nontender. No accessory muscle usage noted or decreased air movement noted. Abdomen: Soft and nontender. Bowel sounds normal in all 4 quadrants. No distention noted. No organomegaly noted. No visible injury noted. Back: No CVA tenderness. Full range of motion noted. Skin: Skin warm and dry. Normal skin color. Normal skin turgor. No rashes/lesions/lacerations noted. Extremities: No lower extremity edema. Extremities exhibit normal range of motion. Extremities nontender. Neuro: Oriented X 3. Cranial nerve exam: II-XII are grossly intact No motor deficit. No sensory deficit. Reflexes normal. Course Course Course Narrative: Assessment and plan. 46-year-old male came in with syncopal episode after he had likely postural hypotension after PCP increased his lisinopril from 10 mg to 20 mg p.o. patient was leukocytosis nothing to explain it except stress. Patient been having cramps in the right lower extremities ultrasound showed no DVT. Patient will be discharged home and follow-up with PCP. Slightly elevated kidney function test was discussed with the patient to follow-up with PCP. Patient was instructed to resume 10 mg of lisinopril daily and discussed with his primary doctor for not taking the extra 10 mg daily. Medical Decision Making Lab Data Lab results reviewed: Yes I reviewed the patient's lab results. Result diagrams: 07/18/21 15:37 07/18/21 15:37 Labs: Lab Results 07/18/21 07/18/21 07/18/21 Range/Units 15:37 15:37 15:37 WBC 21.0 H (4.8-10.8) X10*3/uL RBC 5.56 (4.60-5.80) X10*6/uL Hgb 15.9 (14.0-18.0) g/dl Hct 46.5 (42-52) % MCV 83.6 (80-98) fL MCH 28.6 (27.0-33.0) pg MCHC 34.2 (31.0-36.0) g/dl RDW 13.2 (11.0-16.0) % Plt Count 261 (160-400) X10*3/uL MPV 10.8 (9.4-12.4) fL Immature Gran % (Auto) 1.5 H (0.0-0.4) % Neut % (Auto) 84.7 H (45-73) % Lymph % (Auto) 8.2 L (20-40) % Nelson % (Auto) 5.4 (2-11) % Eos % (Auto) 0.0 (0-4) % Baso % (Auto) 0.2 (0-2) % Lymph # (Auto) 1.7 (1.2-4.9) X10*3/uL Nelson # (Auto) 1.1 (0.1-1.2) X10*3/uL Eos # (Auto) 0.0 (0.0-0.4) X10*3/uL Baso # (Auto) 0.0 (0.0-0.2) X10*3/uL Abs Immat Gran (auto) 0.31 H (0.00-0.03) X10*3/uL Absolute Neuts (auto) 17.8 H (2.0-8.3) X10*3/uL Absolute Nucleated RBC 0.000 (0.0-0.012) X10*3/uL Nucleated RBC % (auto) 0.0 (0.0-0.2) /100WBC Sodium 143 (135-145) mmol/L Potassium 4.0 (3.3-5.1) mmol/L Chloride 107 (96-108) mmol/L Carbon Dioxide 22 (22-29) mmol/L Anion Gap 18 (12-20) BUN 18 H (9-16) mg/dL Creatinine 1.92 H (0.5-1.4) mg/dL Estim Creat Clear Calc 61.5 Estimated GFR 38 Random Glucose 109 D (60-115) mg/dL Calcium 10.8 H D (8.4-10.2) mg/dL Total Bilirubin 0.5 (0.0-1.0) mg/dL Direct Bilirubin 0.2 (0.0-0.5) mg/dL AST 34 (5-37) U/L ALT 44 H (0-40) U/L Alkaline Phosphatase 94 (39-117) U/L Troponin I High Sens 5.1 (<3.5-35.0) ng/L Total Protein 8.5 H (6.5-8.0) g/dL Albumin 4.8 (3.5-5.0) g/dL Lipase 44 (8-78) U/L Urine Color Urine Appearance Urine pH (5.0-8.0) Ur Specific [place] (1.005-1.025) Urine Protein (NEG-TRACE) MG/DL Urine Glucose (UA) (NEG) MG/DL Urine Ketones (NEG) MG/DL Urine Blood (NEG) Urine Nitrite (NEG) Ur Leukocyte Esterase (NEG) Urine RBC (0) /HPF Urine WBC (0-4) /HPF Ur Squamous Epith Cells /LPF Urine Bacteria /LPF 07/18/21 Range/Units 16:38 WBC (4.8-10.8) X10*3/uL RBC (4.60-5.80) X10*6/uL Hgb (14.0-18.0) g/dl Hct (42-52) % MCV (80-98) fL MCH (27.0-33.0) pg MCHC (31.0-36.0) g/dl RDW (11.0-16.0) % Plt Count (160-400) X10*3/uL MPV (9.4-12.4) fL Immature Gran % (Auto) (0.0-0.4) % Neut % (Auto) (45-73) % Lymph % (Auto) (20-40) % Nelson % (Auto) (2-11) % Eos % (Auto) (0-4) % Baso % (Auto) (0-2) % Lymph # (Auto) (1.2-4.9) X10*3/uL Nelson # (Auto) (0.1-1.2) X10*3/uL Eos # (Auto) (0.0-0.4) X10*3/uL Baso # (Auto) (0.0-0.2) X10*3/uL Abs Immat Gran (auto) (0.00-0.03) X10*3/uL Absolute Neuts (auto) (2.0-8.3) X10*3/uL Absolute Nucleated RBC (0.0-0.012) X10*3/uL Nucleated RBC % (auto) (0.0-0.2) /100WBC Sodium (135-145) mmol/L Potassium (3.3-5.1) mmol/L Chloride (96-108) mmol/L Carbon Dioxide (22-29) mmol/L Anion Gap (12-20) BUN (9-16) mg/dL Creatinine (0.5-1.4) mg/dL Estim Creat Clear Calc Estimated GFR Random Glucose (60-115) mg/dL Calcium (8.4-10.2) mg/dL Total Bilirubin (0.0-1.0) mg/dL Direct Bilirubin (0.0-0.5) mg/dL AST (5-37) U/L ALT (0-40) U/L Alkaline Phosphatase (39-117) U/L Troponin I High Sens (<3.5-35.0) ng/L Total Protein (6.5-8.0) g/dL Albumin (3.5-5.0) g/dL Lipase (8-78) U/L Urine Color LEONIDAS Urine Appearance HAZY Urine pH 5.5 (5.0-8.0) Ur Specific [place] >= 1.030 H (1.005-1.025) Urine Protein 2+ H (NEG-TRACE) MG/DL Urine Glucose (UA) 100 H (NEG) MG/DL Urine Ketones 15 (NEG) MG/DL Urine Blood NEG (NEG) Urine Nitrite NEG (NEG) Ur Leukocyte Esterase NEG (NEG) Urine RBC 0-2 (0) /HPF Urine WBC 0-2 (0-4) /HPF Ur Squamous Epith Cells 2+ /LPF Urine Bacteria NONE /LPF Imaging Data Chest x-ray: Radiologist's impression: Small scar right lateral base similar to prior studies. Lungs otherwise clear. ? Right lower extremities ultrasound: Radiologist's impression: No DVT. ECG Data Interpretation: Normal sinus rhythm at 89 beats per minute, normal intervals, no ST-T changes. Discharge Plan Discharge Clinical Impression: Orthostatic hypotension, Acute kidney insufficiency Patient Disposition: Home, Self-Care Instructions: Syncope (ED) Additional Instructions: Take only 1 pill (10 mg) lisinopril your blood pressure medication daily and please discusse with your primary doctor. Prescriptions: No Action (DME) pen needle, diabetic [BD Dianelys 2nd Gen Pen Needle] 32 gauge x 5/32 needle See Rx Instructions .MEDSUPPLY Qty: 100 RF: 4 cholecalciferol (vitamin D3) 125 mcg (5,000 unit) capsule 125 mcg PO DAILY 30 Days Qty: 30 RF: 3 clotrimazole [Lotrimin AF (clotrimazole)] 1 % cream 1 appl topical BID 14 Days Qty: 45 RF: 1 (DME) FreeStyle Lite Strips Strip See Rx Instructions .ROUTE .MEDSUPPLY Qty: 100 RF: 3 (DME) lancets [TRUEplus Lancets] 33 gauge misc See Rx Instructions .ROUTE .MEDSUPPLY Qty: 100 RF: 3 lisinopril 10 mg tablet 10 mg PO DAILY 30 Days Qty: 30 RF: 4 ibuprofen 400 mg tablet 400 mg PO Q6H PRN (Reason: pain) Qty: 20 RF: 0 oxycodone-acetaminophen [Percocet] 5-325 mg tablet 1 tab PO Q6H Qty: 7 RF: 0 ibuprofen 400 mg tablet 400 mg PO Q6H PRN (Reason: pain) Qty: 20 RF: 0 insulin regular hum U-500 conc 500 unit/mL (3 mL) insulin pen See Rx Instructions subcut .Twice a day 30 Days Qty: 15 RF: 6 (DME) lancets 33 gauge misc See Rx Instructions ea .ROUTE .MEDSUPPLY Qty: 100 RF: 0 alcohol swabs Pads, Medicated 0 pad topical RF: 0 (DME) FreeStyle Lite Strips Strip See Rx Instructions ea Not Applicable .MEDSUPPLY Qty: 10 RF: 0 atorvastatin 20 mg tablet 20 mg PO DAILY 30 Days Qty: 30 RF: 5 dulaglutide 1.5 mg/0.5 mL pen injector 1.5 mg subcut QWEEK 30 Days Qty: 2.5 RF: 6 metformin 500 mg tablet extended release 24 hr 500 mg PO BID 30 Days Qty: 60 RF: 6 butenafine [Lotrimin Ultra] 1 % cream 1 appl topical BID 14 Days Qty: 30 RF: 1 bupropion HCl 150 mg tablet extended release 24 hr 150 mg PO DAILY RF: 0 Referrals: [facility] [Primary Care Provider] - 2 days
[2021-07-18 16:28] LABS: Calcium 10.8 mg/dL (8.4-10.2)
[2021-07-18 16:31] VITALS: BP 103/56; PULSE 83; RESP 16; O2SAT 98
[2021-07-18 16:44] LABS: Color Urine AMBER; Glucose Urine UA 100 MG/DL (NEG); Leukocyte Esterase Urine NEG (NEG); Nitrite Urine NEG (NEG); PH 5.5 (5.0-8.0); Specific Gravity - Urine >= 1.030 (1.005-1.025); UACC Culture Trigger NO; Urine Blood NEG (NEG); Urine Ketones 15 MG/DL (NEG); Urine Protein 2+ MG/DL (NEG-TRACE)
[2021-07-18 16:45] LABS: Appearance Urine HAZY
[2021-07-18] MEDS: 0.9 % Sodium Chloride 1,000 ML 999 ML IVCONT (16:50)
[2021-07-18 16:51] LABS: RBC Urine 0-2 /HPF (0); Squamous Epithelial Cell Urine 2+ /LPF; WBC Urine 0-2 /HPF (0-4)
[2021-07-18 16:53] VITALS: BP 123/68; PULSE 89; RESP 16; O2SAT 100
[2021-07-18 16:53] LABS: Alanine Aminotransferase 44 U/L (0-40); Albumin Level 4.8 g/dL (3.5-5.0); Alkaline Phosphatase 94 U/L (39-117); Aspartate Amino Transferase 34 U/L (5-37); Bilirubin Direct 0.2 mg/dL (0.0-0.5); Bilirubin Total 0.5 mg/dL (0.0-1.0); Lipase 44 U/L (8-78); Total Protein 8.5 g/dL (6.5-8.0)
--- NOTE | 2021-07-18 16:53 | PC.NURSE ---
Additional NS bolus started. Pt ambulatory to bathroom limp gait on right side. Neuros unchanged since initial assessment. No further vomiting noted. at bedside. VSS
[2021-07-18 18:25] VITALS: BP 120/64; PULSE 89; RESP 16; O2SAT 94
== END 2021-07-18 21:03 | disposition home or self-care (01) ==
PROVIDERS: Emergency Provider Emergency Medicine
DX: I95.1 Orthostatic hypotension (principal); N28.9 Disorder of kidney and ureter, unspecified; R42 Dizziness and giddiness; E11.9 Type 2 diabetes mellitus without complications; I10 Essential (primary) hypertension; Z79.4 Long term (current) use of insulin
CPT/HCPCS: 36415; 71045; 80048; 80076; 81001; 83690; 84484; 85025; 93005; 93971; 96361; 96374; 99284; 99285; J2405

== ENCOUNTER → 2021-11-19 13:25 | Outpatient (BNVA) | payer OTHER, SELFPAY | PROVIDERS: Visit Provider Urology | DX: E11.69 Type 2 diabetes mellitus with other specified complication (principal); N52.1 Erectile dysfunction due to diseases classified elsewhere | CPT/HCPCS: Q3014 ==

== ENCOUNTER → 2022-03-04 12:57 | Outpatient (BNVA) | payer OTHER, SELFPAY | PROVIDERS: Visit Provider Nurse Practitioner Gerontology | DX: E11.65 Type 2 diabetes mellitus with hyperglycemia (principal); E11.42 Type 2 diabetes mellitus with diabetic polyneuropathy; E11.21 Type 2 diabetes mellitus with diabetic nephropathy; E78.5 Hyperlipidemia, unspecified; E55.9 Vitamin D deficiency, unspecified; I10 Essential (primary) hypertension; R23.4 Changes in skin texture; Z79.4 Long term (current) use of insulin | CPT/HCPCS: 82947; 83036; 99212 ==

== ENCOUNTER → 2022-05-06 14:06 | Outpatient (BNVA) | payer OTHER, SELFPAY | PROVIDERS: Visit Provider Registered Nurse Diabetes Educator | DX: E11.69 Type 2 diabetes mellitus with other specified complication (principal); N52.1 Erectile dysfunction due to diseases classified elsewhere | CPT/HCPCS: 99211 ==

== ENCOUNTER 2022-07-11 16:34 | Emergency (ER) | payer OTHER, SELFPAY ==
--- NOTE | ~2022-07-11 | CT_ITS ---
EXAMINATION: CT ABDOMEN AND PELVIS WITHOUT CONTRAST CLINICAL INFORMATION: Right upper quadrant pain. Rule out biliary etiology or kidney stone COMPARISON: CT abdomen and pelvis 04/20/2019 TECHNIQUE: Multidetector volumetric imaging was performed from the superior aspect of the liver through the pubic symphysis. Sagittal and coronal reformatted images were obtained on the technologist's workstation. This CT examination was performed using dose optimization techniques as appropriate, variously including the following: *Automated exposure control *Adjustment of mA and/or kV according to patient size (this includes techniques or standardized protocols for targeted exams where dose is matched to indication/reason for exam; i.e. extremities or head) *Use of iterative reconstruction technique DLP: 747 mGy-cm FINDINGS: LUNG BASES: 5 mm right middle lobe pulmonary nodule, series 4-9. Area was obscured on prior CT by airspace opacity. Sub-4 mm calcified bibasilar granulomas. Minimal basilar atelectasis. LIVER, GALLBLADDER, AND BILIARY TREE: Mild hepatic hypoattenuation suggesting mild steatosis. No liver lesion. No morphologic features of cirrhosis. The gallbladder is unremarkable with no evidence of radiopaque gallstones, gallbladder wall thickening, or obvious pericholecystic inflammatory changes. PANCREAS: Unremarkable. SPLEEN: Normal size. Small calcified splenic granuloma. No other splenic lesion. ADRENAL GLANDS: Unremarkable. KIDNEYS AND URETERS: 2 small nonobstructing right renal calculi, 2 mm upper pole calculus and 3 mm right lower pole calculus. 4 mm left mid to lower pole nonobstructing renal calculus. No ureteral calculi. No hydronephrosis. No perinephric stranding. Subtle small low-density focus in the posterior mid to upper pole left kidney, unchanged likely a tiny cyst. BLADDER: Unremarkable. GASTROINTESTINAL TRACT: The small and large bowel are unremarkable. The appendix is unremarkable. No ascites or free air. ABDOMINAL WALL: Possible small fat-containing left inguinal hernia. LYMPH NODES: Mildly enlarged portacaval lymph nodes, measuring 1.1 cm in short axis, nonspecific and unchanged. No additional lymphadenopathy. VASCULAR: Scant vascular calcification. Normal caliber abdominal aorta. PELVIC VISCERA: Unremarkable. OSSEOUS STRUCTURES: No acute fracture or suspicious osseous lesion. Mild multilevel degenerative disc disease. CT/CT abdomen pelvis wo con IMPRESSION: 1. Small nonobstructing bilateral renal calculi. No ureteral calculi or hydronephrosis. 2. Mild hepatic steatosis. 3. Unremarkable appearance of the gallbladder. No biliary ductal dilation. 4. No acute intra-abdominal process identified. 5. Small 5 mm right middle lobe pulmonary nodule. If high risk for primary lung malignancy, consider optional low-dose chest CT follow-up in 12 months time per Fleischner Society guidelines. If low risk, no follow-up required. Fleischner guidelines were followed.
[2022-07-11 16:52] VITALS: BP 111/58; PULSE 76; RESP 28; O2SAT 97; BMI 32.5
--- NOTE | 2022-07-11 17:11 | ED_ITS ---
HPI - General Adult General Chief complaint: General Medical Stated complaint: syncopal episode Time Seen by Provider: 07/11/22 16:52 Source: patient and family ([employer], patient's son who speaks Kyrgyz) Mode of arrival: EMS Limitations: language barrier (Latvian speaking only, rubber splicer used) History of Present Illness HPI narrative: 47-year-old male who presents emergency department for evaluation of a near syncopal episode, abdominal pain, nausea, vomiting and diarrhea. Patient states that he felt sick last night at around 23:00 hours. He states he developed abdominal pain he points to his epigastric area when asked to localize the pain. He states the pain is been a sharp, constant pain which is 10/10. The pain does not radiate shoulder, back or flank. He states that he woke up this morning at 05:00 hours he had nausea with multiple episodes of vomiting. He then went to a friend's house to help her with her yard work. He states that from 0730 till 11 30 hours he was working outside, he did not have breakfast, lunch or fluid to drink while he was working. He states that he was walking up the stairs in his friend's house when he felt lightheaded and dizzy as if he was going to pass out. He states that he lowered himself to the floor, he did not lose consciousness but had nausea and vomited multiple times. An ambulance was called and he was brought to the emergency department for evaluation. The patient is a diabetic and his glucose monitor had a reading of 133 and this was confirmed by the paramedics as well. MD complaint: Abdominal pain Onset (ago): hour(s) (18) Location: abdomen Radiation: non-radiation Severity: severe Severity scale (1-10): 10 Quality: sharp Pain Consistency: constant Relieving factors: none Exacerbating factors: none Associated symptoms: fever/chills (Subjective since last night), loss of appetite, nausea/vomiting and syncope (Near syncope prior to arrival) Treatments prior to arrival: none Related Data Home Medications Medication Instructions Recorded Confirmed alcohol swabs 0 pad topical 12/27/20 03/04/22 blood sugar diagnostic #10 ea 12/27/20 03/04/22 lancets 33 gauge #100 ea 12/27/20 03/04/22 bupropion HCl 150 mg 24 hr tablet, 150 mg PO DAILY 01/25/21 03/04/22 extended release Previous Rx's Medication Instructions Recorded oxycodone-acetaminophen 5 mg-325 1 tab PO Q6H #7 tabs 10/10/ mg tablet (Percocet) atorvastatin 20 mg tablet 20 mg PO DAILY 30 days #30 tabs 12/27/20 butenafine 1 % topical cream 1 appl topical BID 14 days #30 12/27/20 (Lotrimin Ultra) grams clotrimazole 1 % topical cream 1 appl topical BID 2 weeks #45 01/02/21 (Lotrimin AF (clotrimazole)) grams lisinopril 10 mg tablet 10 mg PO DAILY 30 days #30 tabs 02/11/21 ibuprofen 400 mg tablet 400 mg PO Q6H PRN pain #20 tabs 05/27/21 lancets 33 gauge (TRUEplus Lancets) #100 ea 08/07/21 insulin degludec 200 unit/mL (3 120 unit (0.6 mL) subcut DAILY 30 10/11/21 mL) subcutaneous pen (Tresiba #18 mL FlexTouch U-200 insulin) pen needle, diabetic 32 gauge x #150 ea 10/11/21 (BD Dianelys 2nd Gen Pen Needle) metformin 500 mg tablet,extended 500 mg PO BID 30 days #60 tabs 11/25/21 release 24 hr blood sugar diagnostic (FreeStyle #100 ea 03/04/22 Lite Strips) cholecalciferol (vitamin D3) 125 125 mcg PO DAILY 30 days #30 caps 03/04/22 mcg (5,000 unit) capsule dulaglutide 0.75 mg/0.5 mL 0.75 mg (0.5 mL) subcut QWEEK #2 mL 03/04/22 subcutaneous pen injector ([employer]) flash glucose scanning reader #1 ea 03/04/22 (FreeStyle Agnes 2 [place]) flash glucose sensor (FreeStyle #2 ea 03/04/22 Agnes 2 Sensor kit) insulin aspart U-100 100 unit/mL 40 unit (0.4 mL) subcut TID 90 03/04/22 (3 mL) subcutaneous pen (Novolog #110 mL Flexpen U-100 Insulin aspart) omeprazole 20 mg capsule,delayed 20 mg PO DAILY 30 days #30 caps 07/11/22 release ondansetron 4 mg disintegrating 4 mg PO Q6-8H PRN nausea and 07/11/22 tablet vomiting #14 tabs Allergies Allergy/AdvReac Type Severity Reaction Status Date / Time No Known Allergies Allergy Verified 03/04/22 13:30 Review of Systems Review of Systems: Yes all other systems are reviewed and are negative [facility] Past Medical History [facility] Narrative: Social history: The patient denies tobacco use. He denies alcohol use. He states that he smokes marijuana every night to help with his insomnia and his diabetic neuropathy pain. Medical History Diabetes Diabetes type 2, uncontrolled Diabetic nephropathy associated with type 2 diabetes mellitus Diabetic polyneuropathy associated with type 2 diabetes mellitus Disc herniation Dyslipidemia Essential hypertension long-term (current) use of insulin Tinea pedis Vitamin D deficiency Surgical History History of ear surgery Hx of knee surgery Family History Family History Father Diabetes mellitus Heart disease Stroke Mother Epilepsy Social History Social History Household Members: Family Alcohol intake: never Patient Tobacco Use Status: Never used Tobacco Substance Use Type: Marijuana Advance Directives: No Advance Directives Information Provided: No Physical Exam ED Vital Signs: Vital Signs - 24 hr 07/11/22 16:52 07/11/22 17:13 Temperature 96.9 F Pulse Rate 76 Respiratory Rate 28 H Blood Pressure 111/58 L Pulse Oximetry 97 Oxygen Delivery Method Nasal Cannula BMI result Body Mass Index 32.5 Const General: cooperative and no acute distress Orientation/consciousness: oriented to person and oriented to place Limitations: no limitations HENMT Head: Yes normal to inspection, Yes normocephalic and Yes atraumatic Ears: external ears normal General nose exam: Normal external nose present Face and sinus: Yes normal facial exam Mouth: Normal oral and palatal mucosa present Throat: Yes posterior oropharynx normal Eyes General: appearance normal, both eyes and all related structures Pupils: Equal, round and reactive pupils present Neck Neck: Yes normal visual inspection, Yes no lymphadenopathy, Yes trachea midline and Yes supple Chest Chest palpation & inspection: normal inspection of the chest and normal palpation of entire chest wall Resp Effort & Inspection: normal respiratory effort and able to speak in complete sentences Auscultation: clear to auscultation bilaterally Cardio Rate: regular rate Rhythm: regular rhythm Heart sounds: S1 normal heart sound present, S2 normal heart sound present and no murmurs GI Inspection: Yes normal to inspection Palpation (GI): Soft to palpation, Tenderness to palpation present (GI) in the epigastrum (Moderate) and no guarding Auscultation: normal bowel sounds General: Yes no CVA tenderness Back/Spine/Pelvis Back: no CVA tenderness Skin General skin exam: no rashes or lesions noted Neuro General: oriented to person and oriented to place Cranial nerves: Yes CN's II-XII intact bilaterally and Yes Equal, round and reactive pupils present Cognition (Neuro): normal cognition Motor exam (neuro): 5/5 motor strength present throughout Extrem General: Yes normal to inspection Psych Appearance: grossly normal Speech and movement: Normal speech and movement present Affect: normal affect Attitude: cooperative Thought process: Normal thought process present Thought content: Normal thought content present Course Course Course Narrative: 47-year-old male who presents emergency department for evaluation of epigastric pain which began last night around 23:00 hours associated with nausea vomiting subjective fever and chills . Patient also had nausea and vomiting this morning with persistent abdominal pain, he worked outside for multiple hours and then had a near syncopal episode when he was walking up stairs. At the time my evaluation the patient is complaining of nausea and epigastric pain which is a constant, sharp pain. Patient's vital signs did reveal blood pressure of 111/58 and respiratory rate of 28 otherwise were unremarkable. Patient does have epigastric tenderness otherwise exam was unremarkable. I did order a CBC, CMP, troponin, lipase, urinalysis, COVID-19 A. I will obtain an EKG and a CT scan of the abdomen pelvis without contrast. Patient was treated with Toradol 15 mg IV, Zofran 4 mg IV and normal saline IV x1 L. 2152: Patient's laboratory evaluation was unremarkable. COVID-[address] scan of the abdomen pelvis did not reveal a clear cause for the patient's symptoms patient most likely has gastritis/esophagitis causing his symptoms. Patient did not eat food today and was dehydrated this causes near syncopal episode. Patient be started on Prilosec and Zofran. He was given printed and verbal instructions and discharged home. Medical Decision Making Lab Data Result diagrams: 07/11/22 18:05 07/11/22 18:05 Labs: Lab Results 07/11/22 07/11/22 07/11/22 Range/Units 18:05 18:05 18:05 WBC 13.3 H (4.8-10.8) X10*3/uL RBC 5.35 (4.60-5.80) X10*6/uL Hgb 15.3 (14.0-18.0) g/dl Hct 44.1 (42.0-52.0) % MCV 82.4 (80.0-98.0) fL MCH 28.6 (27.0-33.0) pg MCHC 34.7 (31.0-36.0) g/dl RDW 13.5 (11.0-16.0) % Plt Count 230 (160-400) X10*3/uL MPV 9.9 (9.4-12.4) fL Immature Gran % (Auto) 1.1 H (0.0-0.4) % Neut % (Auto) 84.3 H (45-73) % Lymph % (Auto) 9.9 L (20-40) % [place] % (Auto) 4.2 (2-11) % Eos % (Auto) 0.1 (0-4) % Baso % (Auto) 0.4 (0-2) % Lymph # (Auto) 1.3 (1.2-4.9) X10*3/uL [place] # (Auto) 0.6 (0.1-1.2) X10*3/uL Eos # (Auto) 0.0 (0.0-0.4) X10*3/uL Baso # (Auto) 0.1 (0.0-0.2) X10*3/uL Abs Immat Gran (auto) 0.14 H (0.00-0.03) X10*3/uL Absolute Neuts (auto) 11.2 H (2.0-8.3) x10*3/uL Absolute Nucleated RBC 0.000 (0.0-0.012) X10*3/uL Nucleated RBC % (auto) 0.0 (0.0-0.2) /100WBC Sodium 141 (135-145) mmol/L Potassium 4.4 (3.3-5.1) mmol/L Chloride 106 (96-108) mmol/L Carbon Dioxide 23 (22-29) mmol/L Anion Gap 16 (12-20) BUN 14 (9-16) mg/dL Creatinine 0.90 (0.5-1.4) mg/dL Estim Creat Clear Calc 119.4 Estimated GFR > 60 Random Glucose 143 H (60-115) mg/dL Calcium 8.8 D (8.4-10.2) mg/dL Total Bilirubin 0.4 (0.0-1.0) mg/dL AST 19 D (5-37) U/L ALT 23 (0-40) U/L Alkaline Phosphatase 70 D (39-117) U/L Troponin I High Sens < 3.5 (<3.5-35.0) ng/L Total Protein 7.6 (6.5-8.0) g/dL Albumin 4.2 (3.5-5.0) g/dL Lipase 107 H (8-78) U/L Urine Color Urine Appearance Urine pH (5.0-8.0) Ur Specific [place] (1.005-1.025) Urine Protein (NEG-TRACE) MG/DL Urine Glucose (UA) (NEG) MG/DL Urine Ketones (NEG) MG/DL Urine Blood (NEG) Urine Nitrite (NEG) Ur Leukocyte Esterase (NEG) Urine RBC (0) /HPF Urine WBC (0-4) /HPF Ur Squamous Epith Cells /LPF Urine Bacteria /LPF COVID-19 (DARRYN) (Negative) COVID-19 Clin Com 07/11/22 07/11/22 Range/Units 18:05 18:27 WBC (4.8-10.8) X10*3/uL RBC (4.60-5.80) X10*6/uL Hgb (14.0-18.0) g/dl Hct (42.0-52.0) % MCV (80.0-98.0) fL MCH (27.0-33.0) pg MCHC (31.0-36.0) g/dl RDW (11.0-16.0) % Plt Count (160-400) X10*3/uL MPV (9.4-12.4) fL Immature Gran % (Auto) (0.0-0.4) % Neut % (Auto) (45-73) % Lymph % (Auto) (20-40) % [place] % (Auto) (2-11) % Eos % (Auto) (0-4) % Baso % (Auto) (0-2) % Lymph # (Auto) (1.2-4.9) X10*3/uL [place] # (Auto) (0.1-1.2) X10*3/uL Eos # (Auto) (0.0-0.4) X10*3/uL Baso # (Auto) (0.0-0.2) X10*3/uL Abs Immat Gran (auto) (0.00-0.03) X10*3/uL Absolute Neuts (auto) (2.0-8.3) x10*3/uL Absolute Nucleated RBC (0.0-0.012) X10*3/uL Nucleated RBC % (auto) (0.0-0.2) /100WBC Sodium (135-145) mmol/L Potassium (3.3-5.1) mmol/L Chloride (96-108) mmol/L Carbon Dioxide (22-29) mmol/L Anion Gap (12-20) BUN (9-16) mg/dL Creatinine (0.5-1.4) mg/dL Estim Creat Clear Calc Estimated GFR Random Glucose (60-115) mg/dL Calcium (8.4-10.2) mg/dL Total Bilirubin (0.0-1.0) mg/dL AST (5-37) U/L ALT (0-40) U/L Alkaline Phosphatase (39-117) U/L Troponin I High Sens (<3.5-35.0) ng/L Total Protein (6.5-8.0) g/dL Albumin (3.5-5.0) g/dL Lipase (8-78) U/L Urine Color YELLOW Urine Appearance CLEAR Urine pH 7.5 (5.0-8.0) Ur Specific [place] 1.015 (1.005-1.025) Urine Protein 2+ H (NEG-TRACE) MG/DL Urine Glucose (UA) NEG (NEG) MG/DL Urine Ketones 15 (NEG) MG/DL Urine Blood NEG (NEG) Urine Nitrite NEG (NEG) Ur Leukocyte Esterase NEG (NEG) Urine RBC 0 (0) /HPF Urine WBC 0 (0-4) /HPF Ur Squamous Epith Cells 1+ /LPF Urine Bacteria NONE /LPF COVID-19 (DARRYN) Negative (Negative) COVID-19 Clin Com See Note Discharge Plan Discharge Clinical Impression: Gastritis Qualifiers: Gastritis type: other gastritis Chronicity: acute Gastritis bleeding: without bleeding Qualified Code(s): K29.00 - Acute gastritis without bleeding Patient Disposition: Home, Self-Care Instructions: Gastritis (ED) Additional Instructions: Your symptoms are most likely caused by inflammation of your stomach and your food tube (gastritis and esophagitis). Take Prilosec (omeprazole) 20 mg pills, 1 pill once a day for 1 month. This medication shuts off your acid production and let us the inflammation in your esophagus and stomach heal. Take Zofran ODT 4 mg pills, 1 pill dissolved in your mouth every 8 hours as needed for nausea and vomiting. Your blood work was unremarkable. Your COVID-19 test was negative[address] Your CT scan of your abdomen pelvis did not reveal any clear cause for your pain. There are 3 incidental findings that you will need to follow-up with her doctor to look into further (fatty liver, bilateral kidney stones and pulmonary nodule in the right lung which will need follow-up in 6 months). The radiology impression is at the bottom of the Section in you should review this with your doctor at your next visit. Follow-up with your doctor in 2 days. Please return to the emergency department if your symptoms get worse or if you develop any symptoms that are concerning to you. IMPRESSION: 1. Small nonobstructing bilateral renal calculi. No ureteral calculi or hydronephrosis. 2. Mild hepatic steatosis. 3. Unremarkable appearance of the gallbladder. No biliary ductal dilation. 4. No acute intra-abdominal process identified. 5. Small 5 mm right middle lobe pulmonary nodule. If high risk for primary lung malignancy, consider optional low-dose chest CT follow-up in 12 months time per Fleischner Society guidelines. If low risk, no follow-up required. Fleischner guidelines were followed. Dictated By:Vincent Gonzalez Prescriptions: New omeprazole 20 mg capsule,delayed release(DR/EC) 20 mg PO DAILY 30 Days Qty: 30 0RF ondansetron 4 mg tablet,disintegrating 4 mg PO Q6-8H PRN (Reason: nausea and vomiting) Qty: 14 0RF No Action clotrimazole [Lotrimin AF (clotrimazole)] 1 % cream 1 appl topical BID 14 Days Qty: 45 1RF lisinopril 10 mg tablet 10 mg PO DAILY 30 Days Qty: 30 4RF (DME) lancets [TRUEplus Lancets] 33 gauge misc See Rx Instructions .ROUTE .MEDSUPPLY Qty: 100 0RF Rx Instructions: As directed 4 x/day Tresiba FlexTouch U-200 200 unit/mL (3 mL) insulin pen 120 unit subcut DAILY 30 Days Qty: 18 6RF (DME) pen needle, diabetic [BD Dianelys 2nd Gen Pen Needle] 32 gauge x needle See Rx Instructions .MEDSUPPLY Qty: 150 11RF Rx Instructions: four times a day metformin 500 mg tablet extended release 24 hr 500 mg PO BID 30 Days Qty: 60 6RF oxycodone-acetaminophen [Percocet] 5-325 mg tablet 1 tab PO Q6H Qty: 7 0RF ibuprofen 400 mg tablet 400 mg PO Q6H PRN (Reason: pain) Qty: 20 0RF (DME) lancets 33 gauge misc See Rx Instructions .ROUTE .MEDSUPPLY Qty: 100 Rx Instructions: As directed alcohol swabs Pads, Medicated 0 pad topical (DME) FreeStyle Lite Strips Strip See Rx Instructions Not Applicable .MEDSUPPLY Qty: 10 Rx Instructions: As directed atorvastatin 20 mg tablet 20 mg PO DAILY 30 Days Qty: 30 5RF butenafine [Lotrimin Ultra] 1 % cream 1 appl topical BID 14 Days Qty: 30 1RF Rx Instructions: apply to cleansed affected area and immediate surrounding areas bupropion HCl 150 mg tablet extended release 24 hr 150 mg PO DAILY cholecalciferol (vitamin D3) 125 mcg (5,000 unit) capsule 125 mcg PO DAILY 30 Days Qty: 30 3RF (DME) FreeStyle Lite Strips Strip See Rx Instructions .ROUTE .MEDSUPPLY Qty: 100 11RF Rx Instructions: As directed four times a day Trulicity 0.75 mg/0.5 mL pen injector 0.75 mg subcut QWEEK Qty: 2 6RF (DME) FreeStyle Agnes 2 [place] Misc See Rx Instructions .ROUTE .MEDSUPPLY Qty: 1 0RF Rx Instructions: As directed (DME) FreeStyle Agnes 2 Sensor Kit See Rx Instructions .ROUTE .MEDSUPPLY Qty: 2 11RF Rx Instructions: As directed every 2 weeks insulin aspart U-100 [Novolog Flexpen U-100 Insulin] 100 unit/mL (3 mL) insulin pen 40 unit subcut TID 90 Days Qty: 110 2RF
[2022-07-11 17:13] VITALS: TEMP 36.1
--- NOTE | 2022-07-11 17:30 | ECG_ITS ---
Test Reason : syncope Blood Pressure : / mmHG Vent. Rate : 069 BPM Atrial Rate : 069 BPM P-R Int : 158 ms QRS Dur : 094 ms QT Int : 424 ms P-R-T Axes : 053 -10 056 degrees QTc Int : 454 ms Normal sinus rhythm Normal ECG When compared with ECG of 18-JUL-2021 15:32, No significant change was found Referred By: Adolfo Devries Electronically Signed By:ANDREAS CONDE
[2022-07-11 18:12] LABS: MANUAL DIFF FLAG NO
[2022-07-11] MEDS: 0.9 % Sodium Chloride 1,000 ML 999 ML IV (18:12)
[2022-07-11] MEDS: Famotidine/PF 20 MG/2 ML VIAL IVPUSH (18:12)
[2022-07-11] MEDS: ondansetron HCL 4 MG/2 ML VIAL IVPUSH (18:12)
[2022-07-11] MEDS: Ketorolac Tromethamine 15 MG/ML VIAL IVPUSH (18:12)
[2022-07-11 18:18] LABS: Basophils Absolute Auto 0.1 X10*3/uL (0.0-0.2); Basophils Percent Auto 0.4 % (0-2); Eosinophils Percent Auto 0.1 % (0-4); Hematocrit 44.1 % (42.0-52.0); Hemoglobin 15.3 g/dl (14.0-18.0); Imm Gran Abs Auto 0.14 X10*3/uL (0.00-0.03); Imm Gran Pct Auto 1.1 % (0.0-0.4); Lymphocytes Absolute Auto 1.3 X10*3/uL (1.2-4.9); Lymphocytes Percent Auto 9.9 % (20-40); Mean Corpuscular HGB Conc 34.7 g/dl (31.0-36.0); Mean Corpuscular Hemoglobin 28.6 pg (27.0-33.0); Mean Corpuscular Volume 82.4 fL (80.0-98.0); Mean Platelet Volume 9.9 fL (9.4-12.4); Monocytes Absolute Auto 0.6 X10*3/uL (0.1-1.2); Monocytes Percent Auto 4.2 % (2-11); Neutrophils Absolute Auto 11.2 x10*3/uL (2.0-8.3); Neutrophils Percent Auto 84.3 % (45-73); Platelet Count 230 X10*3/uL (160-400); Red Blood Count 5.35 X10*6/uL (4.60-5.80); Red Cell Distribution Width 13.5 % (11.0-16.0); White Blood Count 13.3 X10*3/uL (4.8-10.8)
[2022-07-11 18:30] LABS: COVID-19 Test Negative (Negative)
[2022-07-11 18:31] LABS: Alanine Aminotransferase 23 U/L (0-40); Albumin Level 4.2 g/dL (3.5-5.0); Alkaline Phosphatase 70 U/L (39-117); Anion Gap 16 (12-20); Aspartate Amino Transferase 19 U/L (5-37); Bilirubin Total 0.4 mg/dL (0.0-1.0); Blood Urea Nitrogen 14 mg/dL (9-16); Calcium 8.8 mg/dL (8.4-10.2); Carbon Dioxide 23 mmol/L (22-29); Chloride 106 mmol/L (96-108); Creatinine Clr Calc Pharmacy 119.4; Estimated Glomerular Filt Rate > 60; Glucose Random 143 mg/dL (60-115); Lipase 107 U/L (8-78); Potassium 4.4 mmol/L (3.3-5.1); Sodium 141 mmol/L (135-145); Total Protein 7.6 g/dL (6.5-8.0)
[2022-07-11 18:33] LABS: Appearance Urine CLEAR; Color Urine YELLOW; Glucose Urine UA NEG (NEG); Leukocyte Esterase Urine NEG (NEG); Nitrite Urine NEG (NEG); PH 7.5 (5.0-8.0); Specific Gravity - Urine 1.015 (1.005-1.025); UACC Culture Trigger NO; Urine Blood NEG (NEG); Urine Ketones 15 MG/DL (NEG); Urine Protein 2+ MG/DL (NEG-TRACE)
[2022-07-11 18:37] LABS: Troponin-I High Sensitivity < 3.5 ng/L (<3.5-35.0)
[2022-07-11 18:48] LABS: RBC Urine 0 /HPF (0); Squamous Epithelial Cell Urine 1+ /LPF; WBC Urine 0 /HPF (0-4)
== END 2022-07-11 23:18 | disposition home or self-care (01) ==
PROVIDERS: Emergency Provider Emergency Medicine Emergency Medical Services
DX: K29.00 Acute gastritis without bleeding (principal); R10.13 Epigastric pain; E11.9 Type 2 diabetes mellitus without complications; I10 Essential (primary) hypertension; E78.5 Hyperlipidemia, unspecified; Z20.822 Contact with and (suspected) exposure to COVID-19; Z79.02 Long term (current) use of antithrombotics/antiplatelets; Z79.4 Long term (current) use of insulin; Z79.899 Other long term (current) drug therapy; R93.5 Abnormal findings on diagnostic imaging of other abdominal regions, including retroperitoneum; K76.0 Fatty (change of) liver, not elsewhere classified; N20.0 Calculus of kidney; R91.1 Solitary pulmonary nodule
CPT/HCPCS: 74176; 80053; 81001; 83690; 84484; 85025; 87635; 93005; 96374; 96375; 99284; J1885; J2405

== ENCOUNTER 2022-08-13 14:24 | Outpatient (REF) | payer OTHER, SELFPAY ==
--- NOTE | ~2022-08-13 | XR_ITS ---
EXAMINATION: XR ANKLE, LEFT CLINICAL INFORMATION: Pain COMPARISON: None TECHNIQUE: AP, lateral, and mortise views of the left ankle. FINDINGS: Bone alignment is normal. No fracture or dislocation is seen. The ankle mortise is normal. 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 There are small calcaneal spurs. Soft tissues are otherwise normal. XR/XR ankle LT min 3V IMPRESSION: Normal left ankle. Small calcaneal spurs. 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
== END 2022-08-13 14:25 | disposition home or self-care (01) ==
LOC: HO.XRAY 14:24
PROVIDERS: PCP General Practice; Visit Provider General Practice
DX: M25.572 Pain in left ankle and joints of left foot (principal)
CPT/HCPCS: 73610

== ENCOUNTER 2022-08-26 15:51 | Outpatient (RCR) | payer OTHER, SELFPAY | END 2022-09-26 16:07 | disposition home or self-care (01) | LOC: HO.PT 15:51 | PROVIDERS: PCP General Practice; Visit Provider General Practice | DX: M54.9 Dorsalgia, unspecified (principal) | CPT/HCPCS: 97110; 97161 ==

== ENCOUNTER → 2022-11-28 11:09 | Outpatient (BNVA) | payer OTHER, SELFPAY | PROVIDERS: PCP General Practice; Visit Provider Urology | DX: E11.69 Type 2 diabetes mellitus with other specified complication (principal); N52.1 Erectile dysfunction due to diseases classified elsewhere; N20.0 Calculus of kidney | CPT/HCPCS: 99212 ==

== ENCOUNTER 2023-06-22 14:35 | Outpatient (AMB) | payer OTHER, SELFPAY ==
--- NOTE | 2023-06-22 14:41 | MHC.OFFVIS ---
Intake Intake Visit Reasons: Stones- 6m follow up Intake Note: Patient presents for follow up nephrolithiasis/erectile dysfunction Urology Medications: tadalafil Blood Thinner: none Patient Carrier Required: Yes Patient Carrier Name: [place] Accompanied by: Self / Same As Patient Allergies No Known Allergies Allergy (Verified 06/22/23 20:00) Medication List - Last Reconciled 06/22/23 by ORLANDO Whitaker alcohol swabs 0 pad topical allopurinol 100 mg PO QAM atorvastatin 20 mg PO DAILY 30 days blood sugar diagnostic As directed blood sugar diagnostic (FreeStyle Lite Strips) As directed four times a day bupropion HCl 150 mg PO DAILY butenafine 1% (Lotrimin Ultra) 1 appl topical BID 14 days cholecalciferol (vitamin D3) 125 mcg PO DAILY 30 days clotrimazole 1% (Lotrimin AF (clotrimazole)) 1 appl topical BID 2 weeks dulaglutide (Trulicity) 0.75 mg (0.5 mL) subcut QWEEK dulaglutide (Trulicity) mg subcut flash glucose scanning reader (AloricaStyle Agnes 2 Lemmon) As directed flash glucose sensor (FreeStyle Agnes 2 Sensor kit) As directed every 2 weeks ibuprofen 400 mg PO Q6H PRN insulin aspart U-100 (Novolog FlexPen U-100 Insulin aspart) 40 units (0.4 mL) subcut TID 90 days insulin degludec (Tresiba FlexTouch U-200 insulin) 120 units (0.6 mL) subcut DAILY 30 days lancets As directed lancets (TRUEplus Lancets) As directed 4 x/day lisinopril 10 mg PO DAILY 30 days metformin ER 500 mg PO BID 30 days omeprazole 20 mg PO DAILY 30 days ondansetron 4 mg PO Q6-8H PRN oxycodone-acetaminophen 5-325 mg (Percocet) 1 tab PO Q6H pen needle, diabetic (BD Dianelys 2nd Gen Pen Needle) four times a day tadalafil 5 mg PO DAILY PRN 90 days HPI HPI Comments History of Present Illness Details Laron is a very pleasant Yakut-speaking patient of Dr. Mccray. He has a past medical history of diabetes type 2, diabetic neuropathy associated with type 2 diabetes, disc herniation, dyslipidemia, essential hypertension, and vitamin-D deficiency. He presents to the office today for follow-up of his erectile dysfunction and history of nephrolithiasis. In discussion with the patient today he reports to be doing and feeling well. When asked he reports no improvement in erectile dysfunction on current low-dose Cialis daily. Discussed at length importance of managing diabetes for improvement in erectile dysfunction and overall health and well-being. Discussed adequate sleep, weight management, and daily exercise in relation to improvement in erectile dysfunction and overall health and well-being. Patient reports at times having having low libido however reports this to be infrequent at times. However he does have a hard time maintaining and obtaining erections. He otherwise denies any issues with his urination. When asked he denies urinary urgency, urinary frequency, incontinence, nocturia, hematuria, dysuria, foul smelling urine, changes to urinary stream, flank pain, fever, and or chills. He is happy with his current voiding parameters. Discussed obtaining testosterone free and total, PSA, and renal ultrasound for further assessment evaluation. Also discussed increase in tadalafil as well as on demand therapy. Patient reports having trialed Viagra p.r.n. on demand with no improvement and erectile dysfunction. Discussed at length correlation of uncontrolled diabetes and erectile dysfunction. Discussed possible need for penile injection therapy for erectile dysfunction. Discussed penile implant however patient will need to lower A1c. This was discussed with the patient at length. In office urinalysis results reviewed with the patient today. PREVIOUS OFFICE VISIT Nephrolithiasis Had been seen in emergency room 07/21 Imaging - CT scan small 3 mm bilateral stones Erectile dysfunction in setting of insulin-dependent diabetes ? Long-term ED ?Diabetic ?On combination diabetes therapy ?Diabetes not well controlled with HbA1c of 8.8. Not suitable candidate for prostatic until HbA1c under better control. ? Symptoms have been present for/since?a number of years? Procedure(s)/Diagnosis causing dysfunction include?diabetes.? At this time he experiences erections?are partial and adequate for vaginal penetration, that undergo rapid detumesence after penetration, TOÑA 8-11 Moderate ED.? Nocturnal erections?do not occur.? Currently they are?in a stable relationship.? Associated problems? hypertension ?Yes ? diabetes ?Yes ? dyslipidemia ?Yes ? depression ?No ? stress ?No ? decreased libido ?No ? pelvic surgery ?No ? Overall he is ?is not satisfied with the current management.? 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 Tinea pedis Vitamin D deficiency Surgical History History of ear surgery Hx of knee surgery Family History Father Diabetes mellitus Heart disease Stroke Mother Epilepsy Social History Household Members: Family Alcohol intake: never Patient Tobacco Use Status: Never used Tobacco Substance Use Type: Marijuana Review of Systems Const Reports as per HPI Eyes Reports no additional complaints ENT Reports no additional complaints Card Reports as per HPI Resp Reports no additional complaints GI Reports no additional complaints Reports as per HPI Musc Reports no additional complaints Neuro Reports no additional complaints Psych Reports no additional complaints Endo Reports as per HPI Alejandro/Lymph Reports no additional complaints Aller/Immun Reports no additional complaints Physical Exam Const General: cooperative, healthy appearing, comfortable, no acute distress, well developed, alert and awake Nutritional Appearance: overweight Orientation/consciousness: patient oriented x3 Limitations: no limitations HEENT Head: Yes normal to inspection, Yes normocephalic and Yes atraumatic Ears: hearing grossly normal bilaterally Eyes General: appearance normal, both eyes and all related structures Neck Neck: Yes normal visual inspection and Yes trachea midline Chest Chest palpation & inspection: normal inspection of the chest Resp Effort & Inspection: normal respiratory effort and able to speak in complete sentences Cardio Rate: regular rate GI Inspection: Yes normal to inspection General: Yes no CVA tenderness Back/Spine/Pelvis Back: no CVA tenderness Skin General skin exam: no rashes or lesions noted Neuro General: patient oriented x3 Extrem General: Yes normal to inspection Psych Appearance: grossly normal and well kempt Mental Status: mental status grossly normal Speech and movement: Normal speech and movement present and Clear speech present Affect: normal affect Attitude: cooperative Thought process: Normal thought process present Thought content: Normal thought content present Insight: Fair insight present (Psych) Judgement: Fair judgement present (Psych) Results AMB Urinalysis, Automated UA Leukoctes 0 Riley/uL Last Edit by Chef Surfing on 06/22/23 14:49 UA Nitrite Last Edit by Chef Surfing on 06/22/23 14:49 UA Urobilinogen 0.2 mg/dL Last Edit by Chef Surfing on 06/22/23 14:49 UA Protein 15 mg/dL Last Edit by Chef Surfing on 06/22/23 14:49 UA pH 6.0 Last Edit by Chef Surfing on 06/22/23 14:49 UA Blood 0 Allen/uL Last Edit by Chef Surfing on 06/22/23 14:49 UA Specific [place] 1.030 Last Edit by Chef Surfing on 06/22/23 14:49 UA Ketone Last Edit by Chef Surfing on 06/22/23 14:49 UA Bilirubin 0 mg/dL Last Edit by Chef Surfing on 06/22/23 14:49 UA Glucose 0 mg/dL Last Edit by Chef Surfing on 06/22/23 14:49 Results Reviewed Results Reviewed: Laboratory Last Values Urine pH (Auto) 6.0 06/22/23 14:43 Specific [place] (Auto) 1.030 06/22/23 14:43 Urine Protein (Auto) 15 mg/dL 06/22/23 14:43 Glucose (UA)(Auto) 0 mg/dL 06/22/23 14:43 Urine Blood (Auto) 0 Allen/uL 06/22/23 14:43 Urine Bilirubin (Auto) 0 mg/dL 06/22/23 14:43 Urine Urobilinogen (Auto) 0.2 mg/dL 06/22/23 14:43 Leukocyte Esterase (Auto) 0 Riley/uL 06/22/23 14:43 Assessment & Plan Assessment & Plan (1) Nephrolithiasis: Code(s): N20.0 - Calculus of kidney (2) Erectile dysfunction associated with type 2 diabetes mellitus: Code(s): E11.69 - Type 2 diabetes mellitus with other specified complication; N52.1 - Erectile dysfunction due to diseases classified elsewhere (3) Low libido: Code(s): R68.82 - Decreased libido Plan In office urinalysis results reviewed with the patient today. Will obtain testosterone free and total and PSA for further assessment evaluation. Will obtain renal ultrasound for further assessment evaluation. Discussed at length affects of diabetes in relation to erectile dysfunction as well as overall health and well-being. Discussed patient is a poor candidate for penile prosthesis due to elevated A1c Discussed referral to dietitian/brush clearing laborer for further assessment evaluation as well as assistance with overall better eating habits in relation to uncontrolled diabetes. Patient denies any urinary issues or concerns at this time. Patient reports he is happy with current voiding parameters. Follow-up in 1-2 months with imaging and labs to be completed prior; or sooner with any issues, concerns, and or questions. Orders: Orders Testosterone, Free/Total Today E11.69 - Type 2 diabetes mellitus with other specified complication, N52.1 - Erectile dysfunction due to diseases classified elsewhere Prostate Specific Antigen Today E11.69 - Type 2 diabetes mellitus with other specified complication, N52.1 - Erectile dysfunction due to diseases classified elsewhere US renal BI Today N20.0 - Calculus of kidney AMB Urinalysis Automated Today Z13.9 - Encounter for screening, unspecified Patient Instructions: The patient had an opportunity to ask questions regarding the treatment plan. All questions were answered. Physical exam, labs, and imaging were discussed and reviewed in detail. As well as risks, benefits, and discussion of treatment choices. No major barriers to understanding were identified. The patient expressed understanding and agreement with the above treatment plan. The patient was made aware they should contact our office by phone for worsening of their current condition, the appearance of new symptoms, or with any questions or concerns. Compliance is encouraged with any medications and follow up testing that is ordered. It is a privilege to be allowed the opportunity to participate in? your urological care.? Again, if you have any questions or concerns If you have any questions or concerns please do not hesitate to contact me. The office is [phone]. This note is constructed using voice recognition software. While every effort has been made to ensure accuracy waste management specialist errors may have been included. Yours sincerely, ORLANDO Whitaker Coding Level of Care Code Est Pt Level 4 (72618) Diagnoses Nephrolithiasis N20.0 Erectile dysfunction associated with type 2 diabetes mellitus E11.69; N52.1 Low libido R68.82 Time Spent (min) 40
== END 2023-06-22 15:38 | disposition home or self-care (01) ==
PROVIDERS: PCP General Practice; Visit Provider Nurse Practitioner Family
DX: N20.0 Calculus of kidney (principal); E11.69 Type 2 diabetes mellitus with other specified complication; N52.1 Erectile dysfunction due to diseases classified elsewhere; R68.82 Decreased libido
CPT/HCPCS: 99214

== ENCOUNTER → 2023-06-22 14:35 | Outpatient (BNVA) | payer OTHER, SELFPAY | PROVIDERS: PCP General Practice; Visit Provider Nurse Practitioner Family | DX: E11.69 Type 2 diabetes mellitus with other specified complication (principal); N52.1 Erectile dysfunction due to diseases classified elsewhere; R68.82 Decreased libido; N20.0 Calculus of kidney | CPT/HCPCS: 99212 ==

== ENCOUNTER 2023-06-25 06:47 | Outpatient (REF) | payer OTHER, SELFPAY ==
[2023-06-25 08:40] LABS: Prostate Specific Antigen 0.35 ng/mL (<0.05-4.0)
[2023-06-30 12:28] LABS: Testosterone, Free 40.6 pg/mL (35.0-155.0); Testosterone, Total 203 ng/dL (250-1100)
== END 2023-06-25 06:48 | disposition home or self-care (01) ==
LOC: HO.LAB 06:47
PROVIDERS: PCP General Practice; Visit Provider Nurse Practitioner Family
DX: Z12.5 Encounter for screening for malignant neoplasm of prostate (principal); E11.69 Type 2 diabetes mellitus with other specified complication; N52.1 Erectile dysfunction due to diseases classified elsewhere
CPT/HCPCS: 36415; 84153; 84402; 84403

== ENCOUNTER 2023-06-26 19:21 | Emergency (ER) | payer OTHER, SELFPAY ==
--- NOTE | 2023-06-26 19:45 | ECG_ITS ---
Test Reason : CHEST PAIN Blood Pressure : / mmHG Vent. Rate : 098 BPM Atrial Rate : 098 BPM P-R Int : 134 ms QRS Dur : 086 ms QT Int : 358 ms P-R-T Axes : 063 -02 056 degrees QTc Int : 457 ms Normal sinus rhythm Normal ECG When compared with ECG of 11-JUL-2022 18:21, No significant change was found Referred By: Michelle Krishnamurthy Electronically Signed By:SUMA ROSEN MD
[2023-06-26 19:47] VITALS: BP 133/82; BP 136/78; PULSE 85; PULSE 90; RESP 12; TEMP 36.4; O2SAT 98; BMI 35.1
[2023-06-26 19:51] VITALS: BP 133/82; PULSE 85; RESP 20; TEMP 36.4; O2SAT 98
[2023-06-26 20:33] LABS: Eosinophils Absolute Auto 0.1 X10*3/uL (0.0-0.4); Eosinophils Percent Auto 0.4 % (0-4); Imm Gran Pct Auto 0.6 % (0.0-0.4); MANUAL DIFF FLAG SCAN; Mean Corpuscular Volume 82.8 fL (80.0-98.0); PLT CLUMP 1; SCAN SMEAR FLAG 1
[2023-06-26 20:35] LABS: Basophils Absolute Auto 0.1 X10*3/uL (0.0-0.2); Basophils Percent Auto 0.4 % (0-2); Hematocrit 42.9 % (42.0-52.0); Hemoglobin 14.6 g/dl (14.0-18.0); Imm Gran Abs Auto 0.08 X10*3/uL (0.00-0.03); Lymphocytes Absolute Auto 1.6 X10*3/uL (1.2-4.9); Lymphocytes Percent Auto 11.7 % (20-40); Mean Corpuscular Hemoglobin 28.2 pg (27.0-33.0); Mean Platelet Volume 10.4 fL (9.4-12.4); Monocytes Percent Auto 7.5 % (2-11); Neutrophils Percent Auto 79.4 % (45-73); Red Blood Count 5.18 X10*6/uL (4.60-5.80)
[2023-06-26 20:41] LABS: Glucose, Whole Blood 269 mg/dL (60-115)
[2023-06-26] MEDS: 0.9 % Sodium Chloride 1,000 ML 999 ML IV (20:44)
[2023-06-26 20:46] LABS: COVID-19 Test Negative (Negative); IDNOW Serial# 08D9AD1C
[2023-06-26] MEDS: ondansetron HCL 4 MG/2 ML VIAL IVPUSH (20:46)
[2023-06-26 20:47] LABS: Alanine Aminotransferase 35 U/L (0-40); Albumin Level 4.3 g/dL (3.5-5.0); Alkaline Phosphatase 82 U/L (39-117); Anion Gap 21 (12-20); Aspartate Amino Transferase 29 U/L (5-37); Bilirubin Total 0.5 mg/dL (0.0-1.0); Blood Urea Nitrogen 24 mg/dL (9-16); Calcium 9.9 mg/dL (8.4-10.2); Carbon Dioxide 17 mmol/L (22-29); Chloride 108 mmol/L (96-108); Creatinine Clr Calc Pharmacy 92.8; Estimated Glomerular Filt Rate > 60; Glucose Random 248 mg/dL (60-115); Magnesium 2.1 mg/dL (1.6-2.6); Potassium 3.9 mmol/L (3.3-5.1); Sodium 142 mmol/L (135-145); Total Protein 8.1 g/dL (6.5-8.0)
[2023-06-26 20:53] LABS: Platelet Count 198 X10*3/uL (160-400); Troponin-I High Sensitivity 4.5 ng/L (<3.5-35.0); White Blood Count 13.8 X10*3/uL (4.8-10.8)
[2023-06-26 20:54] LABS: SLIDE REVIEW VERIFIED
[2023-06-26 22:24] VITALS: BP 118/70; PULSE 90; RESP 17; TEMP 36.9; O2SAT 95
[2023-06-27 00:55] VITALS: BP 131/75; PULSE 85; RESP 17; TEMP 36.8; O2SAT 97
[2023-06-27 01:21] LABS: Appearance Urine Clear; Color Urine Yellow; Glucose Urine UA 100 mg/dL (Negative); Leukocyte Esterase Urine Negative (Negative); Nitrite Urine Negative (Negative); PH 6.5 (5.0-9.0); Specific Gravity - Urine >= 1.030 (1.005-1.025); UMIC TRIGGER UACC YES; Urine Blood Negative (Negative); Urine Ketones 15 mg/dL (Negative); Urine Protein 30 (1+) mg/dL (Neg-Trace)
--- NOTE | 2023-06-27 01:49 | ED_ITS ---
HPI - Weakness General Chief complaint: Weakness Stated complaint: heat exhaustion, dizzy per ems Time Seen by Provider: 06/27/23 01:37 Source: patient Mode of arrival: EMS Limitations: no limitations History of Present Illness HPI Narrative: Patient comes in the emergency room complaining of nausea vomiting and diffuse body pains. Patient states that earlier today he was doing heavy lifting and [employer] work. Patient has chest pain or shortness of breath. Patient complaining of right rib pain that is been present for 2-3 months. Patient states that he ran out of water while working in the [employer]. Patient did not pass out. Denies any other injury. Related Data Home Medications Medication Instructions Recorded Confirmed alcohol swabs 0 pad topical 12/27/20 03/04/22 blood sugar diagnostic #10 ea 12/27/20 03/04/22 lancets 33 gauge #100 ea 12/27/20 03/04/22 bupropion HCl 150 mg 24 hr tablet, 150 mg PO DAILY 01/25/21 03/04/22 extended release allopurinol 100 mg tablet 100 mg PO QAM 06/22/23 dulaglutide 1.5 mg/0.5 mL mg subcut 06/22/23 subcutaneous pen injector (Silatronix) Previous Rx's Medication Instructions Recorded oxycodone-acetaminophen 5 mg-325 1 tab PO Q6H #7 tabs 10/10/20 mg tablet (Percocet) atorvastatin 20 mg tablet 20 mg PO DAILY 30 days #30 tabs 12/27/20 butenafine 1 % topical cream 1 appl topical BID 14 days #30 12/27/20 (Lotrimin Ultra) grams clotrimazole 1 % topical cream 1 appl topical BID 2 weeks #45 01/02/21 (Lotrimin AF (clotrimazole)) grams lisinopril 10 mg tablet 10 mg PO DAILY 30 days #30 tabs 02/11/21 ibuprofen 400 mg tablet 400 mg PO Q6H PRN pain #20 tabs 05/27/21 lancets 33 gauge (TRUEplus Lancets) #100 ea 08/07/21 pen needle, diabetic 32 gauge x #150 ea 10/11/21 (BD Dianelys 2nd Gen Pen Needle) metformin 500 mg tablet,extended 500 mg PO BID 30 days #60 tabs 11/25/21 release 24 hr blood sugar diagnostic (FreeStyle #100 ea 03/04/22 Lite Strips) cholecalciferol (vitamin D3) 125 125 mcg PO DAILY 30 days #30 caps 03/04/22 mcg (5,000 unit) capsule dulaglutide 0.75 mg/0.5 mL 0.75 mg (0.5 mL) subcut QWEEK #2 mL 03/04/22 subcutaneous pen injector (TrulicLibraryThing) flash glucose scanning reader #1 ea 03/04/22 (FreeStyle Agnes 2 Gilmer) flash glucose sensor (FreeStyle #2 ea 03/04/22 Agnes 2 Sensor kit) insulin aspart U-100 100 unit/mL 40 unit (0.4 mL) subcut TID 90 03/04/22 (3 mL) subcutaneous pen (Novolog days #110 mL FlexPen U-100 Insulin aspart) omeprazole 20 mg capsule,delayed 20 mg PO DAILY 30 days #30 caps 07/11/22 release ondansetron 4 mg disintegrating 4 mg PO Q6-8H PRN nausea and 07/11/22 tablet vomiting #14 tabs insulin degludec 200 unit/mL (3 120 unit (0.6 mL) subcut DAILY 30 10/27/22 mL) subcutaneous pen (Tresiba #18 mL FlexTouch U-200 insulin) tadalafil 5 mg tablet 5 mg PO DAILY PRN sexual activity 11/28/22 90 days #90 tabs ondansetron 4 mg disintegrating 4 mg PO Q6H PRN nausea and 06/27/23 tablet vomiting #10 tabs Allergies Allergy/AdvReac Type Severity Reaction Status Date / Time No Known Allergies Allergy Verified 06/22/23 20:00 Review of Systems Review of Systems: Constitutional : No Weight loss, No Fever, No Chills, No Night Sweats, No Fatigue, complaining of malaise and diffuse muscular pains ENT/Mouth : No Hearing loss, No Ear Pain, No Nasal Congestion, No Sinus Pain, No Hoarseness, No sore throat, No Rhinorrhea, No Swallowing Difficulty Eyes: No Eye Pain, No Swelling, No Redness, No Foreign Body, No Discharge, No Vision Changes Cardiovascular : No Chest Pain, No SOB, No Dyspnea on Exertion, No Orthopnea, No Edema, No Palpitations Respiratory : No Cough, No Sputum, No Wheezing, No Smoke Exposure, No Dyspnea Gastrointestinal : Complaining of nausea vomiting, No Diarrhea, No Constip ation, No abdominal Pain, No Hematochezia, No Melena Genitourinary : no irregular bleeding, No Dysuria, No Urinary Frequency, No Hematuria, No Urinary Incontinence, No Urgency, No Flank Pain, No Urinary Flow Changes, No Hesitancy Musculoskeletal : No joint pain, No Myalgias, No Joint Swelling Skin : No Skin Lesions, No rash Neuro : No Weakness, No Numbness, No Paresthesias, No Loss of Consciousness, No Dizziness, No Headache Psych : No Anxiety/Panic, No Depression, No SI/HI/AH/VH, No Social Issues, Heme/Lymph: No Bruising, No Bleeding,No Lymphadenopathy Endocrine : No Polyuria, No Polydipsia, No Temperature Intolerance PMFSH Past Medical History Medical History Diabetes Diabetes type 2, uncontrolled Diabetic nephropathy associated with type 2 diabetes mellitus Diabetic polyneuropathy associated with type 2 diabetes mellitus Disc herniation Dyslipidemia Essential hypertension 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 Tinea pedis Vitamin D deficiency Surgical History History of ear surgery Hx of knee surgery Family History Family History Father Diabetes mellitus Heart disease Stroke Mother Epilepsy Social History Social History Household Members: Family Alcohol intake: never Patient Tobacco Use Status: Never used Tobacco Smoked in Last 30 Days: No Use of substances other than those prescribed or required for medical reasons: Yes Substance Use Type: Marijuana Advance Directives: No Advance Directives Information Provided: Yes Physical Exam Vital Signs: Vital Signs: Last Vital Signs Temp 98.3 F 06/27/23 00:55 Pulse 85 06/27/23 00:55 Resp 17 06/27/23 00:55 BP 131/75 06/27/23 00:55 Pulse Ox 97 06/27/23 00:55 O2 Del Method Room Air 06/27/23 00:55 BMI result Body Mass Index 35.1 Const: Other: Appearance: Alert. Oriented X3. No acute distress. Eyes: Pupils equal, round and reactive to light. ENT: Pharynx normal. Neck: Normal inspection. Neck supple. No lymph nodes noted. No crepitus CVS: Normal heart rate and rhythm. Pulses normal. Normal S1 and S2, mild pain to palpation over the intercostal muscles in the lateral aspect of the chest on the right Respiratory: No respiratory distress. Breath sounds normal. No Wheezing. No rales Abdomen: Soft and nontender. No rigidity. No distention. Skin: Skin warm and dry. Normal skin color. Normal skin turgor. Extremities: No lower extremity edema. No Lacerations. No Rash Neuro: Oriented X 3. No motor deficit. No sensory deficit. Moving all extremities. No slurred speech. CN 2 through 12 grossly intact Psych: calm, cooperative, normal affect Medications Administered Discontinued Medications Generic Name Dose Route Start Last Admin Trade Name Freq PRN Reason Stop Dose Admin Sodium Chloride 1,000 mls @ 999 mls/hr 06/26/23 20:45 06/26/23 20:44 Ns IV 06/26/23 21:45 999 mls/hr .Q1H1M CAMRON Administration Ondansetron HCl 4 mg 06/26/23 20:37 06/26/23 20:46 Ondansetron Hcl 4 Mg/2 Ml Vial IVPUSH 06/26/23 20:38 4 mg ONCE ONE Administration Medical Decision Making Medical Decision Making [facility] Narrative: -my interpretation of the labs: Patient has chronic leukocytosis, CPK 676, creatinine normal. Patient has mild rhabdo without renal involvement. -patient was given IV fluids, Zofran. Patient feels much better, back to baseline and ready to be discharged. -initially when patient came in, patient looked dehydrated, had diffuse pains, severe rhabdo was expected. Admission was considered -my interpretation of EKG: Normal sinus flow, heart rate 98, is no ST segment depression elevation, no T-wave inversion, QTC 457 Differential Diagnosis Differential Diagnoses: The differential diagnosis associated with the presentation includes (Rhabdomyolysis, musculoskeletal pain/injury, ACS) Admission/Observation Consideration of admission/observation: Escalation of care including admission/observation considered Lab Data [facility] Lab Attestation statement: I reviewed the patient's lab results. 06/26/23 20:27 06/26/23 20:28 Labs: Lab Results 06/26/23 06/26/23 06/26/23 Range/Units 20:25 20:27 20:27 WBC 13.8 H (4.8-10.8) X10*3/uL RBC 5.18 (4.60-5.80) X10*6/uL Hgb 14.6 (14.0-18.0) g/dl Hct 42.9 (42.0-52.0) % MCV 82.8 (80.0-98.0) fL MCH 28.2 (27.0-33.0) pg MCHC 34.0 (31.0-36.0) g/dl RDW 13.0 (11.0-16.0) % Plt Count 198 (160-400) X10*3/uL MPV 10.4 (9.4-12.4) fL Immature Gran % (Auto) 0.6 H (0.0-0.4) % Neut % (Auto) 79.4 H (45-73) % Lymph % (Auto) 11.7 L (20-40) % [place] % (Auto) 7.5 (2-11) % Eos % (Auto) 0.4 (0-4) % Baso % (Auto) 0.4 (0-2) % Lymph # (Auto) 1.6 (1.2-4.9) X10*3/uL [place] # (Auto) 1.0 (0.1-1.2) X10*3/uL Eos # (Auto) 0.1 (0.0-0.4) X10*3/uL Baso # (Auto) 0.1 (0.0-0.2) X10*3/uL Abs Immat Gran (auto) 0.08 H (0.00-0.03) X10*3/uL Absolute Neuts (auto) 11.0 H (2.0-8.3) x10*3/uL Absolute Nucleated RBC 0.000 (0.0-0.012) X10*3/uL Nucleated RBC % (auto) 0.0 (0.0-0.2) /100WBC Smear Tech's Comments VERIFIED Sodium (135-145) mmol/L Potassium (3.3-5.1) mmol/L Chloride (96-108) mmol/L Carbon Dioxide (22-29) mmol/L Anion Gap (12-20) BUN (9-16) mg/dL Creatinine (0.5-1.4) mg/dL Estim Creat Clear Calc Estimated GFR POC Glucose (60-115) mg/dL Random Glucose (60-115) mg/dL Calcium (8.4-10.2) mg/dL Magnesium (1.6-2.6) mg/dL Total Bilirubin (0.0-1.0) mg/dL AST (5-37) U/L ALT (0-40) U/L Alkaline Phosphatase (39-117) U/L Total Creatine Kinase (38-174) U/L Troponin I High Sens 4.5 (<3.5-35.0) ng/L Total Protein (6.5-8.0) g/dL Albumin (3.5-5.0) g/dL Urine Color Urine Appearance Urine pH (5.0-9.0) Ur Specific [place] (1.005-1.025) Urine Protein (Neg-Trace) mg/dL Urine Glucose (UA) (Negative) mg/dL Urine Ketones (Negative) mg/dL Urine Blood (Negative) Urine Nitrite (Negative) Ur Leukocyte Esterase (Negative) COVID-19 (DARRYN) Negative (Negative) COVID-19 Clin Com See Note 06/26/23 06/26/23 06/27/23 Range/Units 20:28 20:38 01:16 WBC (4.8-10.8) X10*3/uL RBC (4.60-5.80) X10*6/uL Hgb (14.0-18.0) g/dl Hct (42.0-52.0) % MCV (80.0-98.0) fL MCH (27.0-33.0) pg MCHC (31.0-36.0) g/dl RDW (11.0-16.0) % Plt Count (160-400) X10*3/uL MPV (9.4-12.4) fL Immature Gran % (Auto) (0.0-0.4) % Neut % (Auto) (45-73) % Lymph % (Auto) (20-40) % [place] % (Auto) (2-11) % Eos % (Auto) (0-4) % Baso % (Auto) (0-2) % Lymph # (Auto) (1.2-4.9) X10*3/uL [place] # (Auto) (0.1-1.2) X10*3/uL Eos # (Auto) (0.0-0.4) X10*3/uL Baso # (Auto) (0.0-0.2) X10*3/uL Abs Immat Gran (auto) (0.00-0.03) X10*3/uL Absolute Neuts (auto) (2.0-8.3) x10*3/uL Absolute Nucleated RBC (0.0-0.012) X10*3/uL Nucleated RBC % (auto) (0.0-0.2) /100WBC Smear Tech's Comments Sodium 142 (135-145) mmol/L Potassium 3.9 (3.3-5.1) mmol/L Chloride 108 (96-108) mmol/L Carbon Dioxide 17 L (22-29) mmol/L Anion Gap 21 H (12-20) BUN 24 H (9-16) mg/dL Creatinine 1.19 (0.5-1.4) mg/dL Estim Creat Clear Calc 92.8 Estimated GFR > 60 POC Glucose 269 H (60-115) mg/dL Random Glucose 248 H (60-115) mg/dL Calcium 9.9 D (8.4-10.2) mg/dL Magnesium 2.1 (1.6-2.6) mg/dL Total Bilirubin 0.5 (0.0-1.0) mg/dL AST 29 (5-37) U/L ALT 35 (0-40) U/L Alkaline Phosphatase 82 (39-117) U/L Total Creatine Kinase 676 H (38-174) U/L Troponin I High Sens (<3.5-35.0) ng/L Total Protein 8.1 H (6.5-8.0) g/dL Albumin 4.3 (3.5-5.0) g/dL Urine Color Yellow Urine Appearance Clear Urine pH 6.5 (5.0-9.0) Ur Specific [place] >= 1.030 H (1.005-1.025) Urine Protein 30 (1+) H (Neg-Trace) mg/dL Urine Glucose (UA) 100 H (Negative) mg/dL Urine Ketones 15 (Negative) mg/dL Urine Blood Negative (Negative) Urine Nitrite Negative (Negative) Ur Leukocyte Esterase Negative (Negative) COVID-19 (DARRYN) (Negative) COVID-19 Clin Com Critical Care Time Critical Care Time Critical Care Time: Yes Total Critical Care Time: 60 Attestation: I have personally provided critical care time. Time includes review of lab data, radiology results, discussion with consultants, and monitoring for potential decompensation. Intervention performed as documented. Discharge Plan Discharge Clinical Impression: Acute dehydration, Exertional rhabdomyolysis Patient Disposition: Home, Self-Care Instructions: Dehydration (ED), Rhabdomyolysis (ED) Additional Instructions: Please drink plenty fluids with electrolytes such as Gatorade, Powerade or Pedialyte. Please follow-up with your primary care physician tomorrow. If you have any worsening or new symptoms, please return to the emergency room or call 911 Prescriptions: New ondansetron 4 mg tablet,disintegrating 4 mg PO Q6H PRN (Reason: nausea and vomiting) Qty: 10 0RF No Action clotrimazole [Lotrimin AF (clotrimazole)] 1 % cream 1 appl topical BID 14 Days Qty: 45 1RF lisinopril 10 mg tablet 10 mg PO DAILY 30 Days Qty: 30 4RF (DME) lancets [TRUEplus Lancets] 33 gauge misc See Rx Instructions .ROUTE .MEDSUPPLY Qty: 100 0RF Rx Instructions: As directed 4 x/day (DME) pen needle, diabetic [BD Dianelys 2nd Gen Pen Needle] 32 gauge x 5/32 needle See Rx Instructions .MEDSUPPLY Qty: 150 11RF Rx Instructions: four times a day metformin 500 mg tablet extended release 24 hr 500 mg PO BID 30 Days Qty: 60 6RF Tresiba FlexTouch U-200 200 unit/mL (3 mL) insulin pen 120 unit subcut DAILY 30 Days Qty: 18 0RF oxycodone-acetaminophen [Percocet] 5-325 mg tablet 1 tab PO Q6H Qty: 7 0RF ibuprofen 400 mg tablet 400 mg PO Q6H PRN (Reason: pain) Qty: 20 0RF omeprazole 20 mg capsule,delayed release(DR/EC) 20 mg PO DAILY 30 Days Qty: 30 0RF ondansetron 4 mg tablet,disintegrating 4 mg PO Q6-8H PRN (Reason: nausea and vomiting) Qty: 14 0RF (DME) lancets 33 gauge misc See Rx Instructions .ROUTE .MEDSUPPLY Qty: 100 Rx Instructions: As directed alcohol swabs Pads, Medicated 0 pad topical (DME) FreeStyle Lite Strips Strip See Rx Instructions Not Applicable .MEDSUPPLY Qty: 10 Rx Instructions: As directed atorvastatin 20 mg tablet 20 mg PO DAILY 30 Days Qty: 30 5RF butenafine [Lotrimin Ultra] 1 % cream 1 appl topical BID 14 Days Qty: 30 1RF Rx Instructions: apply to cleansed affected area and immediate surrounding areas bupropion HCl 150 mg tablet extended release 24 hr 150 mg PO DAILY cholecalciferol (vitamin D3) 125 mcg (5,000 unit) capsule 125 mcg PO DAILY 30 Days Qty: 30 3RF (DME) FreeStyle Lite Strips Strip See Rx Instructions .ROUTE .MEDSUPPLY Qty: 100 11RF Rx Instructions: As directed four times a day Trulicity 0.75 mg/0.5 mL pen injector 0.75 mg subcut QWEEK Qty: 2 6RF (DME) FreeStyle Agnes 2 Gilmer Misc See Rx Instructions .ROUTE .MEDSUPPLY Qty: 1 0RF Rx Instructions: As directed (DME) FreeStyle Agnes 2 Sensor Kit See Rx Instructions .ROUTE .MEDSUPPLY Qty: 2 11RF Rx Instructions: As directed every 2 weeks insulin aspart U-100 [Novolog FlexPen U-100 Insulin] 100 unit/mL (3 mL) insulin pen 40 unit subcut TID 90 Days Qty: 110 2RF tadalafil 5 mg tablet 5 mg PO DAILY PRN (Reason: sexual activity) 90 Days Qty: 90 1RF Rx Instructions: Daily medication Trulicity 1.5 mg/0.5 mL pen injector subcut allopurinol 100 mg tablet 100 mg PO QAM
[2023-06-27 02:02] LABS: Bacteria Urine None Seen (None Seen); RBC Urine 0-2 /HPF (0-2); Squamous Epithelial Cell Urine 0-2 /HPF (0-2); WBC Urine 0-5 /HPF (0-5)
[2023-06-27 03:08] VITALS: BP 140/73; PULSE 79; RESP 17; TEMP 36.8; O2SAT 97
== END 2023-06-27 03:40 | disposition home or self-care (01) ==
PROVIDERS: Physician Assistant Medical; Emergency Provider Emergency Medicine; PCP General Practice
DX: R07.89 Other chest pain (principal); R42 Dizziness and giddiness; M79.10 Myalgia, unspecified site; Z20.822 Contact with and (suspected) exposure to COVID-19; Z20.828 Contact with and (suspected) exposure to other viral communicable diseases; Z79.899 Other long term (current) drug therapy
CPT/HCPCS: 80053; 81001; 82550; 82947; 83735; 84484; 85025; 87635; 93005; 96374; 99284; 99285; J2405

== ENCOUNTER → 2023-06-26 19:45 | Outpatient (BNV) | payer OTHER, SELFPAY | PROVIDERS: Emergency Provider Emergency Medicine; PCP General Practice; Visit Provider Internal Medicine Cardiovascular Disease | DX: R07.9 Chest pain, unspecified (principal) | CPT/HCPCS: 93010 ==

== ENCOUNTER 2023-07-13 16:42 | Outpatient (REF) | payer OTHER, SELFPAY ==
[2023-07-14 02:38] LABS: Alanine Aminotransferase 29 U/L (0-40); Albumin Level 4.4 g/dL (3.5-5.0); Alkaline Phosphatase 76 U/L (39-117); Anion Gap 12 (12-20); Aspartate Amino Transferase 31 U/L (5-37); Bilirubin Total 0.5 mg/dL (0.0-1.0); Blood Urea Nitrogen 16 mg/dL (9-16); Calcium 8.9 mg/dL (8.4-10.2); Carbon Dioxide 23 mmol/L (22-29); Chloride 109 mmol/L (96-108); Estimated Glomerular Filt Rate > 60; Glucose Random 108 mg/dL (60-115); Potassium 3.8 mmol/L (3.3-5.1); Sodium 140 mmol/L (135-145); Total Protein 7.8 g/dL (6.5-8.0); Uric Acid 6.5 mg/dL (3.4-7.0)
[2023-07-18 21:39] LABS: CK-BB None Detected (None Detected); CK-MB 0 % (<5); CK-MM 96 % (95-100); Creatine Kinase Isoenzyme Itrp MACRO CK TYPE 1; Creatine Kinase,Total,Serum 750 U/L (44-196)
== END 2023-07-13 16:43 | disposition home or self-care (01) ==
LOC: HO.HHCL 16:42
PROVIDERS: Visit Provider General Practice
DX: M10.9 Gout, unspecified (principal); M62.82 Rhabdomyolysis
CPT/HCPCS: 36415; 80053; 82552; 84550

== ENCOUNTER 2023-07-16 10:59 | Emergency (ER) | payer OTHER, SELFPAY ==
--- NOTE | ~2023-07-16 | US_ITS ---
EXAMINATION: US ABDOMEN LIMITED CLINICAL INFORMATION: Acute right upper quadrant pain. COMPARISON: CT scan of the abdomen and pelvis dated 11/18/2022. TECHNIQUE: Real-time imaging of the right upper quadrant abdominal viscera. FINDINGS: PANCREAS: Visualized portions unremarkable. LIVER: Diffuse increased echotexture without focal abnormality. GALLBLADDER: Unremarkable. COMMON BILE DUCT: Normal in caliber measuring 0.4 cm in diameter. RIGHT KIDNEY: 11.1 cm. Unremarkable. FREE FLUID: None. US/US abdomen limited IMPRESSION: Hepatic steatosis without other significant abnormality.
--- NOTE | ~2023-07-16 | XR_ITS ---
EXAMINATION: XR CHEST CLINICAL INFORMATION: Acute right chest pain. COMPARISON: None available. TECHNIQUE: Frontal view of the chest was obtained. FINDINGS: No significant abnormality is noted involving the heart, lungs, mediastinum, bony thorax or soft tissues. XR/XR chest 1V IMPRESSION: Unremarkable chest examination.
--- NOTE | 2023-07-16 11:01 | ECG_ITS ---
Test Reason : CHEST PAIN Blood Pressure : / mmHG Vent. Rate : 076 BPM Atrial Rate : 076 BPM P-R Int : 160 ms QRS Dur : 086 ms QT Int : 382 ms P-R-T Axes : 053 -24 055 degrees QTc Int : 429 ms Normal sinus rhythm Normal ECG When compared with ECG of 26-JUN-2023 20:01, No significant change was found Referred By: Generic ED Physician Electronically Signed By:NANCI BROWN
[2023-07-16 11:28] VITALS: BP 138/82; PULSE 90; RESP 19; TEMP 36.5; O2SAT 100; BMI 33.6
--- NOTE | 2023-07-16 11:28 | PC.NURSE ---
pt coming in with nausea and vomiting. pt cool and clammy skin. pinpoint pupils. pt hx of diabetes. pt reports smoking marijuana last night. pt reporting upper right quadrant pain. pt drowsy but abusable by name.
[2023-07-16 11:31] LABS: Glucose, Whole Blood 174 mg/dL (60-115)
[2023-07-16 11:49] LABS: MANUAL DIFF FLAG NO
[2023-07-16 11:50] LABS: Basophils Percent Auto 0.4 % (0-2); Eosinophils Percent Auto 0.4 % (0-4); Hematocrit 44.4 % (42.0-52.0); Hemoglobin 15.7 g/dl (14.0-18.0); Imm Gran Abs Auto 0.03 X10*3/uL (0.00-0.03); Imm Gran Pct Auto 0.3 % (0.0-0.4); Lymphocytes Absolute Auto 1.7 X10*3/uL (1.2-4.9); Lymphocytes Percent Auto 16.4 % (20-40); Mean Corpuscular HGB Conc 35.4 g/dl (31.0-36.0); Mean Corpuscular Volume 81.9 fL (80.0-98.0); Mean Platelet Volume 9.7 fL (9.4-12.4); Monocytes Absolute Auto 0.6 X10*3/uL (0.1-1.2); Monocytes Percent Auto 5.4 % (2-11); Neutrophils Absolute Auto 7.9 x10*3/uL (2.0-8.3); Neutrophils Percent Auto 77.1 % (45-73); Platelet Count 252 X10*3/uL (160-400); Red Blood Count 5.42 X10*6/uL (4.60-5.80); Red Cell Distribution Width 13.2 % (11.0-16.0); White Blood Count 10.2 X10*3/uL (4.8-10.8)
--- NOTE | 2023-07-16 11:51 | ED_ITS ---
HPI - Nausea/Vomiting/Diarrhea General Chief complaint: Nausea/Vomiting/Diarrhea Stated complaint: chest pain/ type 2 diabetic / Vomiting Time Seen by Provider: 07/16/23 11:39 Source: patient Limitations: no limitations History of Present Illness HPI Narrative: 48-year-old male presents with abdominal pain, nausea, vomiting. Symptoms sta rted 2 weeks ago. The symptoms are intermittent. There is no clear relieving or exacerbating features. The symptoms are currently severe. Patient reports that his pain is in the right upper quadrant right lower chest. The pain does not radiate. Patient is unable to describe pain but does feel occasional cramping. He denies any diarrhea, constipation. He denies any blood in the urine. Denies any frequency your urgency or dysuria. He denies any blood in stool or melanotic stool. Denies any blood in vomitus. Patient admits to using marijuana. Related Data Home Medications Medication Instructions Recorded Confirmed alcohol swabs 0 pad topical 12/27/20 03/04/22 blood sugar diagnostic #10 ea 12/27/20 03/04/22 lancets 33 gauge #100 ea 12/27/20 03/04/22 bupropion HCl 150 mg 24 hr tablet, 150 mg PO DAILY 01/25/21 03/04/22 extended release allopurinol 100 mg tablet 100 mg PO QAM 06/22/23 dulaglutide 1.5 mg/0.5 mL mg subcut 06/22/23 subcutaneous pen injector ([facility]) Previous Rx's Medication Instructions Recorded oxycodone-acetaminophen 5 mg-325 1 tab PO Q6H #7 tabs 10/10/ mg tablet (Percocet) atorvastatin 20 mg tablet 20 mg PO DAILY 30 days #30 tabs 12/27/20 butenafine 1 % topical cream 1 appl topical BID 14 days #30 12/27/20 (Lotrimin Ultra) grams clotrimazole 1 % topical cream 1 appl topical BID 2 weeks #45 01/02/21 (Lotrimin AF (clotrimazole)) grams lisinopril 10 mg tablet 10 mg PO DAILY 30 days #30 tabs 02/11/21 ibuprofen 400 mg tablet 400 mg PO Q6H PRN pain #20 tabs 05/27/21 lancets 33 gauge (TRUEplus Lancets) #100 ea 08/07/21 pen needle, diabetic 32 gauge x #150 ea 10/11/21 (BD Dianelys 2nd Gen Pen Needle) metformin 500 mg tablet,extended 500 mg PO BID 30 days #60 tabs 11/25/21 release 24 hr blood sugar diagnostic (FreeStyle #100 ea 03/04/22 Lite Strips) cholecalciferol (vitamin D3) 125 125 mcg PO DAILY 30 days #30 caps 03/04/22 mcg (5,000 unit) capsule dulaglutide 0.75 mg/0.5 mL 0.75 mg (0.5 mL) subcut QWEEK #2 mL 03/04/22 subcutaneous pen injector ([employer]) flash glucose scanning reader #1 ea 03/04/22 (FreeStyle Agnes 2 Hennessey) flash glucose sensor (FreeStyle #2 ea 03/04/22 Agnes 2 Sensor kit) insulin aspart U-100 100 unit/mL 40 unit (0.4 mL) subcut TID 90 03/04/22 (3 mL) subcutaneous pen (Novolog #110 mL FlexPen U-100 Insulin aspart) omeprazole 20 mg capsule,delayed 20 mg PO DAILY 30 days #30 caps 07/11/22 release ondansetron 4 mg disintegrating 4 mg PO Q6-8H PRN nausea and 07/11/22 tablet vomiting #14 tabs insulin degludec 200 unit/mL (3 120 unit (0.6 mL) subcut DAILY 30 10/27/22 mL) subcutaneous pen (Tresiba #18 mL FlexTouch U-200 insulin) tadalafil 5 mg tablet 5 mg PO DAILY PRN sexual activity 11/28/22 90 days #90 tabs ondansetron 4 mg disintegrating 4 mg PO Q6H PRN nausea and 06/27/23 tablet vomiting #10 tabs cyclobenzaprine 10 mg tablet 10 mg PO TID PRN muscle spasm #10 07/16/23 tabs naproxen 500 mg tablet 500 mg PO BID PRN pain #14 tabs 07/16/23 ondansetron 4 mg disintegrating 4 mg PO Q6H PRN nausea and 07/16/23 tablet vomiting #10 tabs Allergies Allergy/AdvReac Type Severity Reaction Status Date / Time No Known Allergies Allergy Verified 06/22/23 20:00 Review of Systems Review of Systems: CONSTITUTIONAL: Denies weight loss, fever and chills. HEENT: Denies changes in vision and hearing. RESPIRATORY: Denies SOB and cough. CV: Denies palpitations + CP. GI: + abdominal pain, nausea, vomiting : Denies dysuria and urinary frequency. MSK: Denies myalgia and joint pain. SKIN: Denies rash and pruritus. NEUROLOGICAL: Denies headache and syncope. PSYCHIATRIC: Denies recent changes in mood. Denies anxiety and depression. All other ROS are negative unless in HPI PMFSH Past Medical History Medical History Diabetes Diabetes type 2, uncontrolled Diabetic nephropathy associated with type 2 diabetes mellitus Diabetic polyneuropathy associated with type 2 diabetes mellitus Disc herniation Dyslipidemia Essential hypertension intermediate frame tender (current) use of insulin Tinea pedis Vitamin D deficiency Surgical History History of ear surgery Hx of knee surgery Family History Family History Father Diabetes mellitus Heart disease Stroke Mother Epilepsy Social History Social History Household Members: Family Alcohol intake: never Patient Tobacco Use Status: Never used Tobacco Substance Use Type: Marijuana Advance Directives: No Physical Exam Vital Signs: Vital Signs: Last Vital Signs Temp 97.7 F 07/16/23 11:28 Pulse 72 07/16/23 14:48 Resp 14 07/16/23 14:48 BP 145/72 H 07/16/23 14:48 Pulse Ox 99 07/16/23 14:48 O2 Del Method Room Air 07/16/23 14:48 O2 Flow Rate 2 07/16/23 12:05 BMI result Body Mass Index 33.6 GEN: Well developed, + acute distress, alert, oriented HEENT: Normocephalic, atraumatic, normal external ears, nose appears normal, no oropharyngeal edema or exudates Eyes: Normal to appearance Neck: Supple, no lymphadenopathy Respiratory: Talks in complete sentences, no respiratory distress, clear to auscultation bilaterally Cardiovascular: Regular rate and rhythm, no murmurs rubs or gallops Abdomen: Soft, right upper quadrant tenderness, nondistended, no guarding, no rebound Back: No CVA tenderness Extremities: No clubbing cyanosis or edema Neurologic: No focal neurologic deficits, cranial nerves 2-12 intact, strength is 5/5 bilaterally Skin: No rash Chest: Right lower anterior chest wall tenderness Course Reevaluation(s) Reevaluation #1: Patient became somnolent desaturated into the 70s. Will tried Narcan. Time: 12:02 Reevaluation #2: Patient's pain is controlled at this time. He describes the pain as a very sharp muscle cramps that comes and goes. He was told recently had a muscle tear of the chest wall. He was wondering if that had something to do with his symptoms. Patient's oxygen saturation for the last 30 minutes even while sleeping of maintain normally. He is alert, oriented. He is appropriate. Will discharge patient on analgesia, muscle relaxers and close follow-up. Time: 15:40 Medications Administered Discontinued Medications Generic Name Dose Route Start Last Admin Trade Name Freq PRN Reason Stop Dose Admin Famotidine 20 mg 07/16/23 11:48 07/16/23 11:54 Famotidine/Pf 20 Mg/2 Ml Vial IVPUSH 07/16/23 11:49 20 mg ONCE ONE Administration Ketorolac Tromethamine 15 mg 07/16/23 11:48 07/16/23 11:54 Ketorolac Tromethamine 15 Mg/Ml Vial IVPUSH 07/16/23 11:49 15 mg ONCE ONE Administration Naloxone HCl 4 mg 07/16/23 11:59 07/16/23 12:03 Naloxone Hcl Nasal 4 Mg Deloit NOSTRILALT 07/16/23 12:00 4 mg ONCE ONE Administration Ondansetron HCl 4 mg 07/16/23 11:48 07/16/23 11:54 Ondansetron Hcl 4 Mg/2 Ml Vial IVPUSH 07/16/23 11:49 4 mg ONCE ONE Administration Medical Decision Making Medical Decision Making MDM Narrative: 48-year-old male presents with abdominal pain, nausea, vomiting. Examination re vealed distress, diaphoretic. He has right upper quadrant tenderness questionable Carrillo sign, right lower chest wall tenderness to palpation. Differential is broad including acute cholecystitis, renal colic, diverticulitis, colitis, IBD, IBS, pancreatitis, pneumonia, musculoskeletal chest pain, pneumothorax. She will obtain an ultrasound of the right upper quadrant. Will obtain a chest x-ray of the to rule out. EKG reveals no acute ischemic changes. Will check laboratory analysis to rule out other differential diagnoses as well. Consider other imaging studies if needed. With may need to admit depending on his clinical picture and interpretation and medical data. Differential Diagnosis Differential Diagnoses: The differential diagnosis associated with the presentation includes (Above) Admission/Observation Consideration of admission/observation: Escalation of care including admission/observation considered Lab Data MDM Lab Attestation statement: I reviewed the patient's lab results. 07/16/23 11:41 07/16/23 11:41 Labs: Lab Results 07/16/23 07/16/23 07/16/23 Range/Units 11:27 11:41 11:41 WBC 10.2 (4.8-10.8) X10*3/uL RBC 5.42 (4.60-5.80) X10*6/uL Hgb 15.7 (14.0-18.0) g/dl Hct 44.4 (42.0-52.0) % MCV 81.9 (80.0-98.0) fL MCH 29.0 (27.0-33.0) pg MCHC 35.4 (31.0-36.0) g/dl RDW 13.2 (11.0-16.0) % Plt Count 252 D (160-400) X10*3/uL MPV 9.7 (9.4-12.4) fL Immature Gran % (Auto) 0.3 (0.0-0.4) % Neut % (Auto) 77.1 H (45-73) % Lymph % (Auto) 16.4 L (20-40) % Brule % (Auto) 5.4 (2-11) % Eos % (Auto) 0.4 (0-4) % Baso % (Auto) 0.4 (0-2) % Lymph # (Auto) 1.7 (1.2-4.9) X10*3/uL Brule # (Auto) 0.6 (0.1-1.2) X10*3/uL Eos # (Auto) 0.0 (0.0-0.4) X10*3/uL Baso # (Auto) 0.0 (0.0-0.2) X10*3/uL Abs Immat Gran (auto) 0.03 (0.00-0.03) X10*3/uL Absolute Neuts (auto) 7.9 (2.0-8.3) x10*3/uL Absolute Nucleated RBC 0.000 (0.0-0.012) X10*3/uL Nucleated RBC % (auto) 0.0 (0.0-0.2) /100WBC Sodium 140 (135-145) mmol/L Potassium 3.6 (3.3-5.1) mmol/L Chloride 104 (96-108) mmol/L Carbon Dioxide 26 (22-29) mmol/L Anion Gap 14 (12-20) BUN 14 (9-16) mg/dL Creatinine 1.04 (0.5-1.4) mg/dL Estim Creat Clear Calc 104.0 Estimated GFR > 60 POC Glucose 174 H (60-115) mg/dL Random Glucose 158 H (60-115) mg/dL Calcium 10.1 D (8.4-10.2) mg/dL Total Bilirubin 0.7 (0.0-1.0) mg/dL Direct Bilirubin 0.3 (0.0-0.5) mg/dL AST 27 (5-37) U/L ALT 27 (0-40) U/L Alkaline Phosphatase 78 (39-117) U/L Troponin I High Sens (<3.5-35.0) ng/L Total Protein 8.6 H (6.5-8.0) g/dL Albumin 4.6 (3.5-5.0) g/dL Lipase 65 (8-78) U/L Urine Color Urine Appearance Urine pH (5.0-9.0) Ur Specific [place] (1.005-1.025) Urine Protein (Neg-Trace) mg/dL Urine Glucose (UA) (Negative) mg/dL Urine Ketones (Negative) mg/dL Urine Blood (Negative) Urine Nitrite (Negative) Ur Leukocyte Esterase (Negative) 07/16/23 07/16/23 Range/Units 11:41 15:30 WBC (4.8-10.8) X10*3/uL RBC (4.60-5.80) X10*6/uL Hgb (14.0-18.0) g/dl Hct (42.0-52.0) % MCV (80.0-98.0) fL MCH (27.0-33.0) pg MCHC (31.0-36.0) g/dl RDW (11.0-16.0) % Plt Count (160-400) X10*3/uL MPV (9.4-12.4) fL Immature Gran % (Auto) (0.0-0.4) % Neut % (Auto) (45-73) % Lymph % (Auto) (20-40) % Brule % (Auto) (2-11) % Eos % (Auto) (0-4) % Baso % (Auto) (0-2) % Lymph # (Auto) (1.2-4.9) X10*3/uL Brule # (Auto) (0.1-1.2) X10*3/uL Eos # (Auto) (0.0-0.4) X10*3/uL Baso # (Auto) (0.0-0.2) X10*3/uL Abs Immat Gran (auto) (0.00-0.03) X10*3/uL Absolute Neuts (auto) (2.0-8.3) x10*3/uL Absolute Nucleated RBC (0.0-0.012) X10*3/uL Nucleated RBC % (auto) (0.0-0.2) /100WBC Sodium (135-145) mmol/L Potassium (3.3-5.1) mmol/L Chloride (96-108) mmol/L Carbon Dioxide (22-29) mmol/L Anion Gap (12-20) BUN (9-16) mg/dL Creatinine (0.5-1.4) mg/dL Estim Creat Clear Calc Estimated GFR POC Glucose (60-115) mg/dL Random Glucose (60-115) mg/dL Calcium (8.4-10.2) mg/dL Total Bilirubin (0.0-1.0) mg/dL Direct Bilirubin (0.0-0.5) mg/dL AST (5-37) U/L ALT (0-40) U/L Alkaline Phosphatase (39-117) U/L Troponin I High Sens < 2.7 (<3.5-35.0) ng/L Total Protein (6.5-8.0) g/dL Albumin (3.5-5.0) g/dL Lipase (8-78) U/L Urine Color Dark Yellow Urine Appearance Clear Urine pH 6.0 (5.0-9.0) Ur Specific [place] >= 1.030 H (1.005-1.025) Urine Protein 100 (2+) H (Neg-Trace) mg/dL Urine Glucose (UA) Negative (Negative) mg/dL Urine Ketones 40 (Negative) mg/dL Urine Blood Negative (Negative) Urine Nitrite Negative (Negative) Ur Leukocyte Esterase Negative (Negative) Independent Interpretation I performed an independent interpretation of an: EKG (Will sinus rhythm heart rate 76, normal intervals, no acute ST elevations depressions), Plain X-Ray (Chest no acute cardiopulmonary disease) and Ultrasound (No acute abnormality limited ultrasound) Radiology Impression Discussion of test interpretation with radiology: I have reviewed the radiologist's reading. Radiologist Impression: EXAMINATION: US ABDOMEN LIMITED CLINICAL INFORMATION: Acute right upper quadrant pain. COMPARISON: CT scan of the abdomen and pelvis dated 11/18/2022. TECHNIQUE: Real-time imaging of the right upper quadrant abdominal viscera. FINDINGS: PANCREAS: Visualized portions unremarkable. LIVER: Diffuse increased echotexture without focal abnormality. GALLBLADDER: Unremarkable. COMMON BILE DUCT: Normal in caliber measuring 0.4 cm in diameter. RIGHT KIDNEY: 11.1 cm. Unremarkable. FREE FLUID: None. IMPRESSION: Hepatic steatosis without other significant abnormality. Prescription Management I considered prescription management with: Pain Medication Chronic Conditions Patient?s care impacted by: Diabetes Critical Care Time Critical Care Time Critical Care Time: Yes Total Critical Care Time: 45 Attestation: Approximately 45 minutes of critical care time was spent on this patient comes direct patient care, reassessment, interpretation and medical data, intervention and potentially life-threatening or severe morbidity associated condition. This is all outside of any medical procedure. Distal time was spent with medical data interpretation, documentation. Discharge Plan Discharge Clinical Impression: Abdominal pain Patient Disposition: Home, Self-Care Instructions: Abdominal Pain (ED) Prescriptions: New naproxen 500 mg tablet 500 mg PO BID PRN (Reason: pain) Qty: 14 0RF cyclobenzaprine 10 mg tablet 10 mg PO TID PRN (Reason: muscle spasm) Qty: 10 0RF ondansetron 4 mg tablet,disintegrating 4 mg PO Q6H PRN (Reason: nausea and vomiting) Qty: 10 0RF No Action clotrimazole [Lotrimin AF (clotrimazole)] 1 % cream 1 appl topical BID 14 Days Qty: 45 1RF lisinopril 10 mg tablet 10 mg PO DAILY 30 Days Qty: 30 4RF (DME) lancets [TRUEplus Lancets] 33 gauge misc See Rx Instructions .ROUTE .MEDSUPPLY Qty: 100 0RF Rx Instructions: As directed 4 x/day (DME) pen needle, diabetic [BD Dianelys 2nd Gen Pen Needle] 32 gauge x /32 needle See Rx Instructions .MEDSUPPLY Qty: 150 11RF Rx Instructions: four times a day metformin 500 mg tablet extended release 24 hr 500 mg PO BID 30 Days Qty: 60 6RF Tresiba FlexTouch U-200 200 unit/mL (3 mL) insulin pen 120 unit subcut DAILY 30 Days Qty: 18 0RF oxycodone-acetaminophen [Percocet] 5-325 mg tablet 1 tab PO Q6H Qty: 7 0RF ibuprofen 400 mg tablet 400 mg PO Q6H PRN (Reason: pain) Qty: 20 0RF omeprazole 20 mg capsule,delayed release(DR/EC) 20 mg PO DAILY 30 Days Qty: 30 0RF ondansetron 4 mg tablet,disintegrating 4 mg PO Q6-8H PRN (Reason: nausea and vomiting) Qty: 14 0RF ondansetron 4 mg tablet,disintegrating 4 mg PO Q6H PRN (Reason: nausea and vomiting) Qty: 10 0RF (DME) lancets 33 gauge misc See Rx Instructions .ROUTE .MEDSUPPLY Qty: 100 Rx Instructions: As directed alcohol swabs Pads, Medicated 0 pad topical (DME) FreeStyle Lite Strips Strip See Rx Instructions Not Applicable .MEDSUPPLY Qty: 10 Rx Instructions: As directed atorvastatin 20 mg tablet 20 mg PO DAILY 30 Days Qty: 30 5RF butenafine [Lotrimin Ultra] 1 % cream 1 appl topical BID 14 Days Qty: 30 1RF Rx Instructions: apply to cleansed affected area and immediate surrounding areas bupropion HCl 150 mg tablet extended release 24 hr 150 mg PO DAILY cholecalciferol (vitamin D3) 125 mcg (5,000 unit) capsule 125 mcg PO DAILY 30 Days Qty: 30 3RF (DME) FreeStyle Lite Strips Strip See Rx Instructions .ROUTE .MEDSUPPLY Qty: 100 11RF Rx Instructions: As directed four times a day Trulicity 0.75 mg/0.5 mL pen injector 0.75 mg subcut QWEEK Qty: 2 6RF (DME) FreeStyle Agnes 2 Hennessey Misc See Rx Instructions .ROUTE .MEDSUPPLY Qty: 1 0RF Rx Instructions: As directed (DME) FreeStyle Agnes 2 Sensor Kit See Rx Instructions .ROUTE .MEDSUPPLY Qty: 2 11RF Rx Instructions: As directed every 2 weeks insulin aspart U-100 [Novolog FlexPen U-100 Insulin] 100 unit/mL (3 mL) insulin pen 40 unit subcut TID 90 Days Qty: 110 2RF tadalafil 5 mg tablet 5 mg PO DAILY PRN (Reason: sexual activity) 90 Days Qty: 90 1RF Rx Instructions: Daily medication Trulicity 1.5 mg/0.5 mL pen injector subcut allopurinol 100 mg tablet 100 mg PO QAM Referrals: Gemma Mccray MD [Primary Care Provider] - 2 days
[2023-07-16] MEDS: Famotidine/PF 20 MG/2 ML VIAL IVPUSH (11:54)
[2023-07-16] MEDS: Ketorolac Tromethamine 15 MG/ML VIAL IVPUSH (11:54)
[2023-07-16] MEDS: ondansetron HCL 4 MG/2 ML VIAL IVPUSH (11:54)
[2023-07-16 12:02] VITALS: PULSE 54; O2SAT 77
--- NOTE | 2023-07-16 12:02 | PC.NURSE ---
pt desat to 77%o2. put pt on 5L nasal cannula pt sating at 97%.
[2023-07-16] MEDS: Naloxone HCl Nasal 4 MG SPRAY NOSTRILALT (12:03)
--- NOTE | 2023-07-16 12:04 | PC.NURSE ---
pt o2 sat 100% 5L nasal cannula. narcan given
[2023-07-16 12:05] VITALS: BP 132/72; PULSE 59; RESP 17; O2SAT 100
--- NOTE | 2023-07-16 12:06 | PC.NURSE ---
respiratory at bedside, pt put on capanography 2L
[2023-07-16 12:07] LABS: Alanine Aminotransferase 27 U/L (0-40); Albumin Level 4.6 g/dL (3.5-5.0); Alkaline Phosphatase 78 U/L (39-117); Anion Gap 14 (12-20); Aspartate Amino Transferase 27 U/L (5-37); Bilirubin Direct 0.3 mg/dL (0.0-0.5); Bilirubin Total 0.7 mg/dL (0.0-1.0); Blood Urea Nitrogen 14 mg/dL (9-16); Calcium 10.1 mg/dL (8.4-10.2); Carbon Dioxide 26 mmol/L (22-29); Chloride 104 mmol/L (96-108); Estimated Glomerular Filt Rate > 60; Glucose Random 158 mg/dL (60-115); Lipase 65 U/L (8-78); Potassium 3.6 mmol/L (3.3-5.1); Sodium 140 mmol/L (135-145); Total Protein 8.6 g/dL (6.5-8.0)
--- NOTE | 2023-07-16 12:10 | PC.NURSE ---
not much improvement after the narcan, pt continuos on being very drowsy, wakes up to touch respiration ranges from 11-13 and capnography at 38 and sating 100% on 2l, sinus on the monitor at 56
[2023-07-16 12:15] LABS: Troponin-I High Sensitivity < 2.7 ng/L (<3.5-35.0)
[2023-07-16 12:59] VITALS: BP 136/73; PULSE 62; RESP 16; O2SAT 100
--- NOTE | 2023-07-16 12:59 | PC.NURSE ---
pt arousable to name, but becomes drowsy after conversation is over. vss. o2 100 2L nasal cannula. normal sinus on tele.
--- NOTE | 2023-07-16 13:18 | PC.NURSE ---
daughter at bedside. update given to daughter.
[2023-07-16 14:48] VITALS: BP 145/72; PULSE 72; RESP 14; O2SAT 99
[2023-07-16 15:38] LABS: Appearance Urine Clear; Color Urine Dark Yellow; Glucose Urine UA Negative (Negative); Leukocyte Esterase Urine Negative (Negative); Nitrite Urine Negative (Negative); Specific Gravity - Urine >= 1.030 (1.005-1.025); UMIC TRIGGER UACC YES; Urine Blood Negative (Negative); Urine Ketones 40 mg/dL (Negative); Urine Protein 100 (2+) mg/dL (Neg-Trace)
[2023-07-16 15:40] LABS: Bacteria Urine None Seen (None Seen); Hyaline Casts Urine 0-2 /LPF (0-2); RBC Urine 0-2 /HPF (0-2); Squamous Epithelial Cell Urine 0-2 /HPF (0-2); WBC Urine 0-5 /HPF (0-5)
[2023-07-16 15:45] LABS: Amphetamine Screen Urine Not Detected (Not Detect); Barbiturates, Urine Not Detected (Not Detect); Benzodiazepines Screen Urine Not Detected (Not Detect); Cannabinoid Screen Urine POSITIVE (Not Detect); Cocaine Screen Urine Not Detected (Not Detect); Fentanyl, urine Not Detected (Not Detect); Opiate Screen Urine Not Detected (Not Detect); Phencyclidine Screen Urine Not Detected (Not Detect)
--- NOTE | 2023-07-16 16:07 | PC.NURSE ---
pt a&ox3. respirations even and unlabored. pt reports no pain at this time. pt alert and answering questions. o2 sats 98%.
[2023-07-18 09:49] LABS: Acetone NONE DETECTED (NONE DETECTED); Analysis performed on: WHOLE BLOOD; Ethyl Alcohol g/dL (%) NONE DETECTED g/dL(%) (NONE DETECTED); Ethyl Alcohol mg/dL NONE DETECTED (NONE DETECTED); Isopropanol NONE DETECTED (NONE DETECTED)
[2023-07-25 14:34] LABS: Methyl Alcohol NONE DETECTED
== END 2023-07-16 16:10 | disposition home or self-care (01) ==
PROVIDERS: Physician Assistant Medical; Emergency Provider Emergency Medicine; PCP General Practice
DX: R10.11 Right upper quadrant pain (principal); R11.2 Nausea with vomiting, unspecified; I10 Essential (primary) hypertension; E11.9 Type 2 diabetes mellitus without complications; E78.5 Hyperlipidemia, unspecified; F12.90 Cannabis use, unspecified, uncomplicated; Z79.899 Other long term (current) drug therapy; Z79.4 Long term (current) use of insulin
CPT/HCPCS: 36415; 71045; 76705; 80048; 80076; 80307; 80320; 81001; 82947; 83690; 84484; 85025; 93005; 96374; 96375; 99284; 99285; J1885; J2405

== ENCOUNTER 2023-07-24 16:49 | Outpatient (REF) | payer OTHER, SELFPAY ==
[2023-07-24 18:04] LABS: Appearance Urine Clear; Color Urine Yellow; Glucose Urine UA Negative (Negative); Leukocyte Esterase Urine Negative (Negative); Nitrite Urine Negative (Negative); Specific Gravity - Urine 1.025 (1.005-1.025); Urine Blood Negative (Negative); Urine Ketones Negative (Negative); Urine Protein Negative (Neg-Trace)
[2023-07-24 19:16] LABS: Alanine Aminotransferase 28 U/L (0-40); Albumin Level 4.1 g/dL (3.5-5.0); Alkaline Phosphatase 77 U/L (39-117); Anion Gap 12 (12-20); Aspartate Amino Transferase 30 U/L (5-37); Bilirubin Total < 0.5 mg/dL (0.0-1.0); Blood Urea Nitrogen 15 mg/dL (9-16); Calcium 9.6 mg/dL (8.4-10.2); Carbon Dioxide 29 mmol/L (22-29); Chloride 106 mmol/L (96-108); Estimated Glomerular Filt Rate > 60; Glucose Random 75 mg/dL (60-115); Potassium 3.8 mmol/L (3.3-5.1); Sodium 143 mmol/L (135-145); Total Protein 7.5 g/dL (6.5-8.0)
[2023-07-31 19:38] LABS: CK-BB None Detected (None Detected); CK-MB 0 % (<5); CK-MM 97 % (95-100); Creatine Kinase Isoenzyme Itrp MACRO CK TYPE 1; Creatine Kinase,Total,Serum 442 U/L (44-196)
== END 2023-07-24 16:50 | disposition home or self-care (01) ==
LOC: HO.HHCL 16:49
PROVIDERS: Visit Provider General Practice
DX: M62.82 Rhabdomyolysis (principal)
CPT/HCPCS: 36415; 80053; 81003; 82552

== ENCOUNTER 2023-08-07 14:28 | Outpatient (AMB) | payer OTHER, SELFPAY ==
--- NOTE | 2023-08-07 14:33 | A.OFFVIS_ITS ---
Intake Intake Visit Reasons: 2 month us/labs Intake Note: Patient presents for follow up erectile dysfunction (psa 0.35) (test 203) Urology Medications: tadalafil Blood Thinner: none Insurance Plan Specialist Required: Yes Insurance Plan Specialist Name: Padma Accompanied by: Self / Same As Patient Allergies No Known Allergies Allergy (Verified 08/07/23 15:19) Medication List - Last Reconciled 08/07/23 by ORLANDO Whitaker alcohol swabs 0 pad topical allopurinol 100 mg PO QAM atorvastatin 20 mg PO DAILY 30 days blood sugar diagnostic As directed blood sugar diagnostic (FreeStyle Lite Strips) As directed four times a day bupropion HCl 150 mg PO DAILY butenafine 1% (Lotrimin Ultra) 1 appl topical BID 14 days cholecalciferol (vitamin D3) 125 mcg PO DAILY 30 days clotrimazole 1% (Lotrimin AF (clotrimazole)) 1 appl topical BID 2 weeks cyclobenzaprine 10 mg PO TID PRN dulaglutide (Trulicity) 0.75 mg (0.5 mL) subcut QWEEK dulaglutide (Trulicity) mg subcut flash glucose scanning reader ([employer] Agnes 2 Enterprise) As directed flash glucose sensor (FreeStyle Agnes 2 Sensor kit) As directed every 2 weeks ibuprofen 400 mg PO Q6H PRN insulin aspart U-100 (Novolog FlexPen U-100 Insulin aspart) 40 units (0.4 mL) subcut TID 90 days insulin degludec (Tresiba FlexTouch U-200 insulin) 120 units (0.6 mL) subcut DAILY 30 days lancets As directed lancets (TRUEplus Lancets) As directed 4 x/day lisinopril 10 mg PO DAILY 30 days metformin ER 500 mg PO BID 30 days naproxen 500 mg PO BID PRN omeprazole 20 mg PO DAILY 30 days ondansetron 4 mg PO Q6-8H PRN ondansetron 4 mg PO Q6H PRN ondansetron 4 mg PO Q6H PRN oxycodone-acetaminophen 5-325 mg (Percocet) 1 tab PO Q6H pen needle, diabetic (BD Dianelys 2nd Gen Pen Needle) four times a day tadalafil 5 mg PO DAILY PRN 90 days HPI HPI Comments History of Present Illness Details Laron is a very pleasant Estonian-speaking patient of Dr. Mccray. He has a past medical history of diabetes type 2, diabetic neuropathy associated with type 2 diabetes, disc herniation, dyslipidemia, essential hypertension, and vitamin-D deficiency. He presents to the office today for follow-up of his erectile dysfunction and history of nephrolithiasis. Of note, patient was seen approximately 6 weeks ago at which time a renal ultrasound was ordered as well as labs for further assessment evaluation. However, in discussion with the patient today he reports to not have had imaging and or labs performed due to his ongoing other health issues. He reports to be following up with his PCP regarding right upper quadrant and rib pain he has been experiencing for over a month now. Discussed and stressed the importance of obtaining labs and imaging for further assessment evaluation as well as to be able to better assist the patient with urological concerns he has reported. When asked he continues to report no improvement in erectile dysfunction however he has not initiated low- dose Cialis daily as discussed and prescribed. Discussed at length importance of managing diabetes for improvement in erectile dysfunction and overall health and well-being. Discussed adequate sleep, weight management, and daily exercise in relation to improvement in erectile dysfunction and overall health and well- being. Patient reports at times having low libido however reports this to be infrequent at times. However he does have a hard time maintaining and obtaining erections. He otherwise denies any issues with his urination. When asked he denies urinary urgency, urinary frequency, incontinence, nocturia, hematuria, dysuria, foul smelling urine, changes to urinary stream, flank pain, fever, and or chills. He is happy with his current voiding parameters. Discussed obtaining testosterone free and total after low dose cialis treatment for 3 months as well as obtaining renal ultrasound for further assessment evaluation given patient's history of nephrolithiasis. Discussed at length correlation of uncontrolled diabetes and erectile dysfunction. Discussed possible need for penile injection therapy for erectile dysfunction. Discussed penile implant however patient will need to lower A1c. This was discussed with the patient at length. In office urinalysis results reviewed with the patient today. PSA 06/21--0.4 Total Testosterone 06/21--203 PREVIOUS OFFICE VISIT-------- Nephrolithiasis Had been seen in emergency room 07/21 Imaging - CT scan small 3 mm bilateral stones Erectile dysfunction in setting of insulin-dependent diabetes ? Long-term ED ?Diabetic ?On combination diabetes therapy ?Diabetes not well controlled with HbA1c of 8.8. Not suitable candidate for prostatic until HbA1c under better control. ? Symptoms have been present for/since?a number of years? Procedure(s)/Diagnosis causing dysfunction include?diabetes.? At this time he experiences erections?are partial and adequate for vaginal penetration, that undergo rapid detumesence after penetration, TOÑA 8- Moderate ED.? Nocturnal erections?do not occur.? Currently they are?in a stable relationship.? Associated problems? hypertension ?Yes ? diabetes ?Yes ? dyslipidemia ?Yes ? depression ?No ? stress ?No ? decreased libido ?No ? pelvic surgery ?No ? Overall he is ?is not satisfied with the current management.? 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 Diabetes type 2, uncontrolled Diabetes Surgical History Hx of knee surgery History of ear surgery Family History Father Diabetes mellitus Heart disease Stroke Mother Epilepsy Social History Household Members: Family Alcohol intake: never Patient Tobacco Use Status: Never used Tobacco Substance Use Type: Marijuana Review of Systems Const Reports as per HPI Eyes Reports no additional complaints ENT Reports no additional complaints Card Reports as per HPI Resp Reports no additional complaints GI Reports no additional complaints Reports as per HPI Musc Reports no additional complaints Neuro Reports no additional complaints Psych Reports no additional complaints Endo Reports as per HPI Alejandro/Lymph Reports no additional complaints Aller/Immun Reports no additional complaints Physical Exam Const General: cooperative, healthy appearing, comfortable, no acute distress, well developed, alert and awake Nutritional Appearance: overweight Orientation/consciousness: patient oriented x3 Limitations: no limitations HEENT Head: Yes normal to inspection, Yes normocephalic and Yes atraumatic Ears: hearing grossly normal bilaterally Eyes General: appearance normal, both eyes and all related structures Neck Neck: Yes normal visual inspection and Yes trachea midline Chest Chest palpation & inspection: normal inspection of the chest Resp Effort & Inspection: normal respiratory effort and able to speak in complete sentences Cardio Rate: regular rate GI Inspection: Yes normal to inspection General: Yes no CVA tenderness Back/Spine/Pelvis Back: no CVA tenderness Skin General skin exam: no rashes or lesions noted Neuro General: patient oriented x3 Extrem General: Yes normal to inspection Psych Appearance: grossly normal and well kempt Mental Status: mental status grossly normal Speech and movement: Normal speech and movement present and Clear speech present Affect: normal affect Attitude: cooperative Thought process: Normal thought process present Thought content: Normal thought content present Insight: Fair insight present (Psych) Judgement: Fair judgement present (Psych) Results AMB Urinalysis, Automated UA Leukoctes 0 Riley/uL Last Edit by Damien Lee on 08/07/23 15:01 UA Nitrite Negative Last Edit by [employer] Jesus on 08/07/23 15:01 UA Urobilinogen 0.2 mg/dL Last Edit by [facility] [facility] [employer] [facility] Lee on 08/07/23 15:01 UA Protein 30 mg/dL Last Edit by Damien Lee on 08/07/23 15:01 UA pH 5.5 Last Edit by [facility] [facility] Lee on 08/07/23 15:01 UA Blood 0 Allen/uL Last Edit by [employer] Lee on 08/07/23 15:01 UA Specific Jolon 1.030 Last Edit by Damien Lee on 08/07/23 15:01 UA Ketone Negative Last Edit by Damien Lee on 08/07/23 15:01 UA Bilirubin 0 mg/dL Last Edit by Damien Salehmarion on 08/07/23 15:01 UA Glucose 0 mg/dL Last Edit by Damien Salehmarion on 08/07/23 15:01 Results Reviewed Results Reviewed: Laboratory Last Values Urine pH (Auto) 5.5 08/07/23 14:54 Specific Jolon (Auto) 1.030 08/07/23 14:54 Urine Protein (Auto) 30 mg/dL 08/07/23 14:54 Glucose (UA)(Auto) 0 mg/dL 08/07/23 14:54 Urine Ketones (Auto) Negative 08/07/23 14:54 Urine Blood (Auto) 0 Allen/uL 08/07/23 14:54 Urine Nitrite (Auto) Negative 08/07/23 14:54 Urine Bilirubin (Auto) 0 mg/dL 08/07/23 14:54 Urine Urobilinogen (Auto) 0.2 mg/dL 08/07/23 14:54 Leukocyte Esterase (Auto) 0 Riley/uL 08/07/23 14:54 Assessment & Plan Assessment & Plan (1) Hypogonadism in male: Code(s): E29.1 - Testicular hypofunction (2) Low libido: Code(s): R68.82 - Decreased libido (3) Erectile dysfunction associated with type 2 diabetes mellitus: Code(s): E11.69 - Type 2 diabetes mellitus with other specified complication; N52.1 - Erectile dysfunction due to diseases classified elsewhere Plan In office urinalysis results reviewed with the patient today; as noted above. Recent PSA and testosterone results from last office visit reviewed with the patient today. Start low-dose 5 mg Cialis daily Will reassess testosterone free and total in 3 months with initiation of low- dose Cialis daily. Will obtain renal ultrasound for further assessment evaluation. Discussed at length affects of diabetes in relation to erectile dysfunction as well as overall health and well-being. Discussed patient is a poor candidate for penile prosthesis due to elevated A1c Patient denies any urinary issues or concerns at this time. Patient reports he is happy with current voiding parameters. Follow up in 3 months with labs and imaging to be completed prior; or sooner with any issues, concerns, and or questions. Orders: Orders AMB Urinalysis Automated 08/07/23 Z13.9 - Encounter for screening, unspecified Testosterone, Free/Total 3 Months E29.1 - Testicular hypofunction Medications: Refilled tadalafil Daily medication 5 mg PO DAILY 90 days PRN 90 tabs 1RF sexual activity E11.69 - Type 2 diabetes mellitus with other specified complication, N52.1 - Erectile dysfunction due to diseases classified elsewhere Coding Level of Care Code Est Pt Level 3 (54649) Diagnoses Hypogonadism in male E29.1 Low libido R68.82 Erectile dysfunction associated with type 2 diabetes mellitus E11.69; N52.1
== END 2023-08-07 15:24 | disposition home or self-care (01) ==
PROVIDERS: PCP General Practice; Visit Provider Nurse Practitioner Family
DX: Z13.9 Encounter for screening, unspecified (principal)
CPT/HCPCS: 99213

== ENCOUNTER → 2023-08-07 14:28 | Outpatient (BNVA) | payer OTHER, SELFPAY | PROVIDERS: PCP General Practice; Visit Provider Nurse Practitioner Family | DX: E29.1 Testicular hypofunction (principal); R68.82 Decreased libido; E11.69 Type 2 diabetes mellitus with other specified complication; N25.1 Nephrogenic diabetes insipidus | CPT/HCPCS: 81003; 99212 ==

== ENCOUNTER 2023-08-24 16:18 | Outpatient (REF) | payer OTHER, SELFPAY ==
--- NOTE | ~2023-08-24 | XR_ITS ---
EXAMINATION: XR RIBS, RIGHT CLINICAL INFORMATION: Pain COMPARISON: 07/16/2023 TECHNIQUE: A frontal chest and 4 views of the right ribs were obtained. FINDINGS: Lungs are clear. No consolidation, pneumothorax, or pleural effusion. The cardiomediastinal silhouette and pulmonary vasculature are normal. Osseous structures are unremarkable. Ribs are intact. No fractures are identified. XR/XR ribs RT min 3V w CXR1V IMPRESSION: Unremarkable examination.
== END 2023-08-24 16:19 | disposition home or self-care (01) ==
LOC: HO.HHCX 16:18
PROVIDERS: Visit Provider Internal Medicine
DX: R07.82 Intercostal pain (principal); R07.89 Other chest pain
CPT/HCPCS: 71101

== ENCOUNTER 2023-09-03 14:11 | Outpatient (REF) | payer OTHER, SELFPAY | END 2023-09-03 14:12 | disposition home or self-care (01) | LOC: HO.MAMMO 14:11 | PROVIDERS: PCP Internal Medicine; Visit Provider Internal Medicine | DX: N64.4 Mastodynia (principal) | CPT/HCPCS: 76642; 77062; 77066 ==

== ENCOUNTER → 2023-09-03 14:30 | Outpatient (BNV) | payer OTHER, SELFPAY | PROVIDERS: PCP Internal Medicine; Visit Provider Radiology Diagnostic Radiology | DX: R92.313 Mammographic fatty tissue density, bilateral breasts (principal); N64.4 Mastodynia | CPT/HCPCS: 76642; 77062; 77066 ==

== ENCOUNTER 2023-09-16 09:41 | Outpatient (REF) | payer OTHER, SELFPAY ==
--- NOTE | ~2023-09-16 | CT_ITS ---
EXAMINATION: CT ABDOMEN AND PELVIS WITHOUT AND WITH CONTRAST CLINICAL INFORMATION: Right upper quadrant abdominal pain. COMPARISON: Abdominal ultrasound 07/16/2023. CT abdomen and pelvis 07/11/2022. TECHNIQUE: Multidetector volumetric imaging was performed of the abdomen and pelvis before and after the IV administration of 85 mL of Omnipaque 350 intravenous contrast. Sagittal and coronal reformatted images were obtained on the technologist's workstation. This CT examination was performed using dose optimization techniques as appropriate, variously including the following: *Automated exposure control *Adjustment of mA and/or kV according to patient size (this includes techniques or standardized protocols for targeted exams where dose is matched to indication/reason for exam; i.e. extremities or head) *Use of iterative reconstruction technique DLP: 1228 mGy-cm FINDINGS: LUNG BASES: Calcified granuloma right lung base. No follow-up imaging is recommended as per Fleischner Society guidelines per LIVER, GALLBLADDER, AND BILIARY TREE: The liver and spleen are similar attenuation on noncontrast imaging. There is no suspicious liver mass. No biliary ductal dilatation . The gallbladder is contracted. No radiopaque gallstones. PANCREAS: No discrete pancreatic mass. No pancreatic ductal dilatation SPLEEN: Normal, no mass. ADRENAL GLANDS: Normal, no mass. KIDNEYS AND URETERS: Symmetric nephrograms. 2 mm nonobstructing calculus lower pole right kidney 10.6 cm from posterolateral skin surface. 3 mm nonobstructing calculus lower pole left kidney 8.8 cm from posterolateral skin surface. No hydroureteronephrosis. No suspicious renal mass. Simple cyst in the mid left kidney for which no follow-up imaging is recommended. BLADDER: The bladder is decompressed and not well evaluated. No bladder calculus or discrete mass. GASTROINTESTINAL TRACT: The small bowel is normal in caliber. The appendix appears normal. The large bowel is normal in caliber. No acute inflammatory changes ABDOMINAL WALL: No significant hernia is appreciated. LYMPH NODES: No lymphadenopathy. VASCULAR: Mild aortoiliac atherosclerosis. No aortic aneurysm. PELVIC VISCERA: Unremarkable OSSEOUS STRUCTURES: Moderate degenerative changes in the lower thoracic spine. Mild degenerative changes in the lumbar spine. CT/CT abdomen pelvis wo/w IV con IMPRESSION: Bilateral nonobstructing renal calculi. Fleischner guidelines were followed.
[2023-09-16] MEDS: iohexoL 350 MG/ML 75 ML INFUS..BTL 85 ML IV (10:15)
== END 2023-09-16 09:42 | disposition home or self-care (01) ==
LOC: HO.CT 09:41
PROVIDERS: PCP Internal Medicine; Visit Provider General Practice
DX: R10.11 Right upper quadrant pain (principal); M62.82 Rhabdomyolysis
CPT/HCPCS: 74178; Q9967

== ENCOUNTER 2023-10-05 16:52 | Outpatient (REF) | payer OTHER, SELFPAY ==
[2023-10-05 18:11] LABS: Anion Gap 11 (12-20); Blood Urea Nitrogen 15 mg/dL (9-16); Calcium 9.3 mg/dL (8.4-10.2); Carbon Dioxide 28 mmol/L (22-29); Chloride 104 mmol/L (96-108); Estimated Glomerular Filt Rate > 60; Glucose Random 181 mg/dL (60-115); Potassium 3.8 mmol/L (3.3-5.1); Sodium 139 mmol/L (135-145)
== END 2023-10-05 16:53 | disposition home or self-care (01) ==
LOC: HO.HHCL 16:52
PROVIDERS: Visit Provider General Practice
DX: E11.65 Type 2 diabetes mellitus with hyperglycemia (principal); Z79.4 Long term (current) use of insulin
CPT/HCPCS: 36415; 80048; 82550; 84550

== ENCOUNTER 2023-10-19 07:21 | Outpatient (REF) | payer OTHER, SELFPAY | END 2023-10-19 07:22 | disposition home or self-care (01) | LOC: HO.LAB 07:21 | PROVIDERS: PCP General Practice; Visit Provider Nurse Practitioner Family | DX: Z13.89 Encounter for screening for other disorder (principal) | CPT/HCPCS: 36415; 84402; 84403 ==

== ENCOUNTER 2023-11-10 14:02 | Outpatient (AMB) | payer OTHER, SELFPAY ==
[2023-11-10 14:06] VITALS: BP 132/70; PULSE 83; TEMP 36.6; O2SAT 98; BMI 35.6
--- NOTE | 2023-11-10 14:06 | MHC.OFFVIS ---
Intake Vital Signs 11/10/23 14:06 Height 5 ft 9 in Weight 241 lb 6.499 oz BMI 35.6 BP 132/70 Blood Pressure Location Rt brachial Position Sitting Pulse 83 Pulse Source Pulse Oximeter Temp 97.9 F Temp Source Skin Pulse Oximetry (%) 98 Oxygen Delivery Method Room Air Intake Visit Reasons: non-traumatic rhabdomyolysis Intake Note: New patient presents to office today for non-traumatic rhabdomyolysis. No prior eye technician. Psychological Assistant Required: Yes Psychological Assistant Language: Marketing Information Analyst Name: Sae [email or web address] Information Interpreted: clinical only Allergies No Known Allergies Allergy (Verified 08/07/23 15:19) HPI HPI Comments History of Present Illness Details Mr. Larry, 48-year-old male, is a very pleasant Lithuanian-speaking patient. He has a medical history of diabetes type 2, diabetic neuropathy associated with type 2 diabetes, disc herniation, dyslipidemia, essential hypertension, nephrolithiasis and vitamin-D deficiency. He presents to the office today for evaluation markedly elevated CK, muscle pain and weakness. He reports that approximately 2 weeks ago he went to the ER because he was having headaches and heat all over his body. He had body aches and was not able to lift his hands above his head. At the ER he was tested positive for COVID, given an IV to relax my muscle and then sent home. Since then he has improved and is able to lift his hand over his head but they feel weak and fatigue when he left or carries objects over 10 lbs. The AC joints and lateral elbows are the areas that lucio and hurts the most. He feels he is getting weaker, especially in upper arms and feels tired most days. When asked, patient denies Raynaud's phenomenon, butterfly rash on face or other rashes. He reports his hand and feet gets dry, calloused and cracks in the winter months. He denies photosensitivity - getting sick or developing a rash from being out in the sun; denies blood or froth in urine. He does have increased urination sometimes at night. Patient denies hx of SOB or chest pain. Patient denies hx of Carditis or Pleuritis. Patient denies any history of DVT/PE. The patient reports never have had to take aspirin or a blood thinner. Denies fevers, unexplained weight-loss or weight-gain. Denies: thinning hair or hair loss. Denies: dry, itchy eyes, red burning eyes needing steroids to treat; dry mouth, mouth sores or ulcers; nose bleed; ringing in the ear Denies blood or mucous in stool; nausea, vomiting and diarrhea, difficulty swallowing or heartburn. For the some time, he has been having right upper quadrant abdominal/Hypochondriac pain. Denies morning stiffness lasting more than 20 mins. 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 Diabetes type 2, uncontrolled Diabetes Surgical History Hx of knee surgery History of ear surgery Family History (Updated 11/10/23 @ 14:08 by PABLO Fernandez) Father Diabetes mellitus Heart disease Stroke Arthritis Mother Epilepsy Social History (Updated 11/10/23 @ 14:09 by PABLO Fernandez) Household Members: Spouse, Family and Children Alcohol intake: never Patient Tobacco Use Status: Never used Tobacco Substance Use Type: Marijuana Current occupational status: unemployed Physical Exam Vital Signs: Last Vital Signs Temp 97.9 F 11/10/23 14:06 Pulse 83 11/10/23 14:06 BP 132/70 11/10/23 14:06 Pulse Ox 98 11/10/23 14:06 Oxygen Delivery Method Room Air 11/10/23 14:06 BMI result Body Mass Index 35.6 APPEARANCE: Patient in acute distress secondary to right upper quadrant pain, facial wincing and gaurding. Adequately groomed EYES no redness, pupils equal and reactive to light, eyelids normal EARS:? External ear normal, canal clear and tympanic membrane normal. NOSE/SINUS:? Airflow through both nares, no nasal discharge, no bleeding THROAT:? Oral mucosa moist, no ulcerations NECK:? No thyromegaly or masses, no adenopathy, trachea midline. HEART:? Regular rhythm, S1-S2 heard, no murmurs, rubs or gallops. LUNG:? Clear to percussion and auscultation ABD:? Normal bowel sounds, no organomegaly, masses. Marked tenderness right upper quandrant/Hypochndriac region, tenderness to flanks. EXTREMITIES:? No edema, no calf tenderness, normal peripheral pulses. NEURO:? Oriented and alert x3.? No focal weakness.? Reflexes symmetric.? Gait antalgic SKIN:? Dryness, cracked, fissures on fingers and left great toe. No objective signs of Raynaud's phenomenon. JOINT EXAM: Cervical Spine:.? Full range of motion without pain; no tenderness. Thoracic Spine:.? No scoliosis.? No tenderness on palpation. Lumbar Spine:.? Alignment normal.? Full range of motion without pain, no tenderness. Chest Wall:.? No tenderness, swelling, increased warmth or erythema. Hands:.? Normal pain-free range of motion without tenderness, swelling, increased warmth or erythema. Able to make a full fist and has a good project economist strength. Wrists:.? Normal pain-free range of motion without tenderness, swelling, increased warmth or erythema. Elbows:. Decreased range of motion with pain. marked tenderness and swelling, to bilateral lateral epicondyle. no warmth or erythema Shoulders:.?? Full range of motion without pain. No tenderness, weakness, swelling, increased warmth or erythema. Able to lift arms above head. decreased strength may be due to pain at [place]. Hips:.? Full range of motion with mild pain. Hip bursa:.? No tenderness. Knees:.?? Normal pain-free range of motion without tenderness, swelling, increased warmth or erythema.? There is no effusion or crepitation Ankles:.? Normal pain-free range of motion without tenderness, swelling, increased warmth or erythema. Feet:.? Normal pain-free range of motion without tenderness, swelling, increased warmth or erythema. Tender points:? No tenderness to digital palpation at the occiput, trapezius, second rib, lateral epicondyle, knees, greater trochanter and gluteal area bilaterally. ? Results Reviewed Results Reviewed: Laboratory Tests 06/26/23 07/13/23 07/24/23 20:28 16:47 16:51 Total Creatine Kinase 676 H 750 H 442 H 10/05/23 11/10/23 16:56 15:44 Total Creatine Kinase 1189 H 306 H Assessment & Plan Assessment & Plan (1) Non-traumatic rhabdomyolysis: Code(s): M62.82 - Rhabdomyolysis (2) Elevated CK: Code(s): R74.8 - Abnormal levels of other serum enzymes (3) Upper extremity weakness: Code(s): R29.898 - Other symptoms and signs involving the musculoskeletal system (4) Pain in joint involving multiple sites: Code(s): M25.50 - Pain in unspecified joint (5) Abdominal tenderness in flank: Code(s): R10.819 - Abdominal tenderness, unspecified site Plan #Non-Traumatic Rhabdo/Elevated CK/Weakness: Based on the medical and lab records that I have personally reviewed, the patient had CK =200 the 1st available recording of the elevated CK was May 2023. Since then it has remained elevated with fluctuations. The available liver and Kidney studies have been within normal limits and so has his ESR and CRP. Given the elevation in the CK, and complaint of muscle weakness and fatigue, it is reasonable to assume there is an active myopathic processes. I will do some additional evaluation to to determine if this is autoimmune, inflammatory or drug-induced. Among the differentials are nontraumatic rhabdomyolysis, polymyositis/dermatomyositis. Patient was admitted to ER on 10/17/2023 and CK was 658 down from 1189(10/05/2023). Based on CK I had ordered and patient obtain after visit, at the time of this writing, the CK is further trended down to 306. Upon review of his ER records, Patient comes in the emergency room complaining of nausea vomiting and diffuse body pains. 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 Patient has chest pain or shortness of breath. Patient complaining of right rib pain that is been present for 2-3 months. Patient states that he ran out of water while working in the Echodiod. Patient did not pass out. Denies any other injury. At this time I am considering this to be nontraumatic rhabdomyolysis secondary to dehydration. Nontraumatic rhabdomyolysis causes can also include the use of alcohol or illegal drugs such as heroin, cocaine or amphetamines. However, the patient denies use of all these. This could also be due to statin use. I have instructed the patient to hold atorvastatin for now. I will obtain additional labs, muscle biopsy, EMG studies and CT of the abdomen to evaluate further and rule out inflammatory or autoimmune process. I have also reiterated to him to keep hydrated which he also admits he has not be drinking enough water daily, whereby some days has none. #Abdominal Tenderness in Flank: Patient sees Urology for History of Kidney stones which he has currently bilaterally. He denies associated urinary symptoms. He has upcoming appointment with Urology. I will order a CT of the abdomen. Orders: Orders Aldolase 11/10/23 R29.898 - Other symptoms and signs involving the musculoskeletal system, R74.8 - Abnormal levels of other serum enzymes Erythrocyte Sedimentation Rate 11/10/23 R29.898 - Other symptoms and signs involving the musculoskeletal system, R74.8 - Abnormal levels of other serum enzymes ANCA Vasculitides 11/10/23 R29.898 - Other symptoms and signs involving the musculoskeletal system, R74.8 - Abnormal levels of other serum enzymes Complement C3 11/10/23 R29.898 - Other symptoms and signs involving the musculoskeletal system, R74.8 - Abnormal levels of other serum enzymes C Reactive Protein 11/10/23 R29.898 - Other symptoms and signs involving the musculoskeletal system, R74.8 - Abnormal levels of other serum enzymes Creatine Kinase Total 11/10/23 R29.898 - Other symptoms and signs involving the musculoskeletal system, R74.8 - Abnormal levels of other serum enzymes Complete Blood Count Auto Diff 11/10/23 R29.898 - Other symptoms and signs involving the musculoskeletal system, R74.8 - Abnormal levels of other serum enzymes T Spot TB 11/10/23 R29.898 - Other symptoms and signs involving the musculoskeletal system, R74.8 - Abnormal levels of other serum enzymes UA w Microscopic 11/10/23 R29.898 - Other symptoms and signs involving the musculoskeletal system, R74.8 - Abnormal levels of other serum enzymes Other Ref Test - Misc 11/10/23 R29.898 - Other symptoms and signs involving the musculoskeletal system, R74.8 - Abnormal levels of other serum enzymes Lactate Dehydrogenase 11/10/23 R29.898 - Other symptoms and signs involving the musculoskeletal system, R74.8 - Abnormal levels of other serum enzymes NE electromyogram (EMG) 11/10/23 R29.898 - Other symptoms and signs involving the musculoskeletal system, R74.8 - Abnormal levels of other serum enzymes Cyclic Citrullinated Peptide 11/10/23 M25.50 - Pain in unspecified joint LILIAN Reflex Titer and Pattern 11/10/23 R29.898 - Other symptoms and signs involving the musculoskeletal system, R74.8 - Abnormal levels of other serum enzymes Complement C4 11/10/23 R29.898 - Other symptoms and signs involving the musculoskeletal system, R74.8 - Abnormal levels of other serum enzymes Comprehensive Met. Panel 11/10/23 R29.898 - Other symptoms and signs involving the musculoskeletal system, R74.8 - Abnormal levels of other serum enzymes Thyroid Stimulating Hormone 11/10/23 R29.898 - Other symptoms and signs involving the musculoskeletal system, R74.8 - Abnormal levels of other serum enzymes Hepatitis A,B,C Profile 11/10/23 R29.898 - Other symptoms and signs involving the musculoskeletal system, R74.8 - Abnormal levels of other serum enzymes Uric Acid 11/10/23 R29.898 - Other symptoms and signs involving the musculoskeletal system, R74.8 - Abnormal levels of other serum enzymes Rheumatoid Factor 11/10/23 M25.50 - Pain in unspecified joint CT abdomen wo/w IV con 11/10/23 R10.819 - Abdominal tenderness, unspecified site, R74.8 - Abnormal levels of other serum enzymes Referrals General Surgery Referral R29.898 - Other symptoms and signs involving the musculoskeletal system, R74.8 - Abnormal levels of other serum enzymes Medications: On Hold atorvastatin Hold Comment: Doctor's Order 20 mg PO DAILY 30 days 30 tabs 5RF E78.5 - Hyperlipidemia, unspecified Coding Level of Care Code Est Pt Level 5 (44256) Diagnoses Non-traumatic rhabdomyolysis M62.82 Elevated CK R74.8 Upper extremity weakness R29.898 Pain in joint involving multiple sites M25.50 Abdominal tenderness in flank R10.819
== END 2023-11-10 15:15 | disposition home or self-care (01) ==
LOC: HO.RHE 14:02
PROVIDERS: PCP General Practice; Visit Provider Nurse Practitioner Family
DX: M62.82 Rhabdomyolysis (principal); R74.8 Abnormal levels of other serum enzymes; R29.898 Other symptoms and signs involving the musculoskeletal system; M25.50 Pain in unspecified joint; R10.819 Abdominal tenderness, unspecified site
CPT/HCPCS: 99214

== ENCOUNTER 2023-11-10 14:02 | Outpatient (REF) | payer OTHER, SELFPAY ==
[2023-11-10 15:47] LABS: MANUAL DIFF FLAG NO
[2023-11-10 17:03] LABS: Basophils Absolute Auto 0.1 X10*3/uL (0.0-0.2); Basophils Percent Auto 0.6 % (0-2); Eosinophils Absolute Auto 0.1 X10*3/uL (0.0-0.4); Eosinophils Percent Auto 1.5 % (0-4); Hematocrit 41.2 % (42.0-52.0); Hemoglobin 14.2 g/dl (14.0-18.0); Imm Gran Abs Auto 0.03 X10*3/uL (0.00-0.03); Imm Gran Pct Auto 0.4 % (0.0-0.4); Lymphocytes Absolute Auto 2.9 X10*3/uL (1.2-4.9); Lymphocytes Percent Auto 36.4 % (20-40); Mean Corpuscular HGB Conc 34.5 g/dl (31.0-36.0); Mean Corpuscular Hemoglobin 28.9 pg (27.0-33.0); Mean Corpuscular Volume 83.9 fL (80.0-98.0); Mean Platelet Volume 10.1 fL (9.4-12.4); Monocytes Absolute Auto 0.7 X10*3/uL (0.1-1.2); Neutrophils Absolute Auto 4.2 x10*3/uL (2.0-8.3); Neutrophils Percent Auto 52.1 % (45-73); Platelet Count 219 X10*3/uL (160-400); Red Blood Count 4.91 X10*6/uL (4.60-5.80); Red Cell Distribution Width 12.6 % (11.0-16.0)
[2023-11-10 17:40] LABS: Alanine Aminotransferase 27 U/L (0-40); Albumin Level 4.2 g/dL (3.5-5.0); Alkaline Phosphatase 96 U/L (39-117); Anion Gap 12 (12-20); Aspartate Amino Transferase 20 U/L (5-37); Bilirubin Total 0.3 mg/dL (0.0-1.0); Blood Urea Nitrogen 14 mg/dL (9-16); C Reactive Protein 0.21 mg/dL (< or = 0.50); Calcium 9.3 mg/dL (8.4-10.2); Carbon Dioxide 25 mmol/L (22-29); Chloride 104 mmol/L (96-108); Estimated Glomerular Filt Rate > 60; Glucose Random 276 mg/dL (60-115); Lactate Dehydrogenase 173 U/L (118-273); Potassium 3.9 mmol/L (3.3-5.1); Sodium 137 mmol/L (135-145); Total Protein 7.8 g/dL (6.5-8.0); Uric Acid 4.1 mg/dL (3.4-7.0)
[2023-11-10 17:47] LABS: Thyroid Stimulating Hormone 0.98 uIU/mL (0.32-4.0)
[2023-11-10 18:00] LABS: Erythrocyte Sedimentation Rate 12 MM/HR (0-15)
[2023-11-10 20:22] LABS: Rheumatoid Factor < 13.0 IU/mL (<15.0)
[2023-11-11 08:42] LABS: HBS Num1 1.75 mIU/mL (0-7.99); HBc Num1 0.37 S/CO (0.00-0.79); HBsAGNum1 0.29 S/CO (0.00-0.99); Hepatitis A Antibody IgM 0.25 Index (0-0.79); Hepatitis B Core Antibody Nonreactive (Nonreactive); Hepatitis B Surface Antigen Negative (Negative); ~HepC Num1 0.63 S/CO (0.00-0.79); ~Hepatitis A Antibody IgM Nonreactive (Nonreactive); ~Hepatitis B Surface Antibody NONREACTIVE (Nonreactive); ~Hepatitis C Antibody Nonreactive (Nonreactive)
[2023-11-11 14:54] LABS: Myeloperoxidase Antibody <1.0 AI; Proteinase 3 PR3 Antibodies <1.0 AI
[2023-11-12 11:23] LABS: Complement C3 94 mg/dL (82-185)
[2023-11-12 13:29] LABS: Cyclic Citrullinated Peptide <16 UNITS
[2023-11-13 07:59] LABS: TS Negative Control Passed; TS Panel A 2; TS Panel B 0; TS Positive Control Passed; TSpotTB Negative (Negative)
[2023-11-13 08:23] LABS: Anti Nuclear Antibody Screen NEGATIVE (NEGATIVE)
[2023-11-15 11:24] LABS: Aldolase 5.9 U/L (<=8.1)
== END 2023-11-10 14:03 | disposition home or self-care (01) ==
LOC: HO.LAB 14:02
PROVIDERS: PCP General Practice; Visit Provider Nurse Practitioner Family
DX: R29.898 Other symptoms and signs involving the musculoskeletal system (principal); M25.50 Pain in unspecified joint; M62.82 Rhabdomyolysis; R74.8 Abnormal levels of other serum enzymes; R10.819 Abdominal tenderness, unspecified site; E78.5 Hyperlipidemia, unspecified
CPT/HCPCS: 80053; 82085; 82550; 83516; 83520; 83615; 84182; 84443; 84550; 85025; 85652; 86021; 86038; 86140; 86160; 86200; 86235; 86431; 86481; 86704; 86706; 86709; 86803; 87340; 99212

== ENCOUNTER 2023-11-20 13:37 | Outpatient (REF) | payer OTHER, SELFPAY ==
[2023-11-20 15:22] LABS: Alanine Aminotransferase 22 U/L (0-40); Albumin Level 4.3 g/dL (3.5-5.0); Alkaline Phosphatase 89 U/L (39-117); Anion Gap 11 (12-20); Aspartate Amino Transferase 19 U/L (5-37); Bilirubin Total 0.4 mg/dL (0.0-1.0); Blood Urea Nitrogen 14 mg/dL (9-16); Calcium 9.7 mg/dL (8.4-10.2); Carbon Dioxide 29 mmol/L (22-29); Chloride 104 mmol/L (96-108); Estimated Glomerular Filt Rate > 60; Glucose Random 92 mg/dL (60-115); Potassium 3.7 mmol/L (3.3-5.1); Sodium 140 mmol/L (135-145)
[2023-11-20 15:52] LABS: Appearance Urine Clear; Color Urine Dark Yellow; Glucose Urine UA Negative (Negative); Leukocyte Esterase Urine Trace (Negative); Nitrite Urine Negative (Negative); Specific Gravity - Urine 1.025 (1.005-1.025); UMIC TRIGGER UA YES; Urine Blood Negative (Negative); Urine Ketones Trace mg/dL (Negative); Urine Protein 30 (1+) mg/dL (Neg-Trace)
[2023-11-20 15:57] LABS: Bacteria Urine None Seen (None Seen); Hyaline Casts Urine 0-2 /LPF (0-2); Squamous Epithelial Cell Urine 0-2 /HPF (0-2); WBC Urine 0-5 /HPF (0-5)
== END 2023-11-20 13:38 | disposition home or self-care (01) ==
LOC: HO.LAB 13:37
PROVIDERS: Absent Provider Nurse Practitioner Family; PCP General Practice; Visit Provider Nurse Practitioner Family
DX: R74.8 Abnormal levels of other serum enzymes (principal); R29.898 Other symptoms and signs involving the musculoskeletal system
CPT/HCPCS: 36415; 80053; 81001

== ENCOUNTER 2023-11-25 13:21 | Outpatient (AMB) | payer OTHER, SELFPAY ==
[2023-11-25 13:24] VITALS: BP 132/78; PULSE 82; BMI 33.8
--- NOTE | 2023-11-25 13:24 | MHC.OFFVIS ---
Intake Vital Signs 11/25/23 13:24 Height 5 ft 9 in Weight 229 lb BMI 33.8 BP 132/78 Blood Pressure Location Lt brachial Position Sitting Pulse 82 Intake Visit Reasons: Discuss muscle bx Intake Note: This patient presents for to discuss muscle biopsy. Patient c/o; reports pain, reports limited ROM, right breast. Academic Interventionist Required: Yes Academic Interventionist Language: Product Safety Technical Assistant Name: Shaun Information Interpreted: non-clinical & clinical Accompanied by: Other Relationship Allergies No Known Allergies Allergy (Verified 11/25/23 13:34) Medication List - Last Reconciled 11/25/23 by Chevy Omalley MD alcohol swabs 0 pad topical allopurinol 100 mg PO QAM atorvastatin 20 mg PO DAILY 30 days blood sugar diagnostic As directed blood sugar diagnostic (FreeStyle Lite Strips) As directed four times a day bupropion HCl 150 mg PO DAILY butenafine 1% (Lotrimin Ultra) 1 appl topical BID 14 days cholecalciferol (vitamin D3) 125 mcg PO DAILY 30 days clotrimazole 1% (Lotrimin AF (clotrimazole)) 1 appl topical BID 2 weeks cyclobenzaprine 10 mg PO TID PRN diclofenac sodium 1% topical BID dulaglutide (Trulicity) mg subcut flash glucose scanning reader (CellfireStyle Agnes 2 Kismet) As directed flash glucose sensor (FreeStyle Agnes 2 Sensor kit) As directed every 2 weeks ibuprofen 400 mg PO Q6H PRN insulin aspart U-100 (Novolog FlexPen U-100 Insulin aspart) 40 units (0.4 mL) subcut TID 90 days insulin degludec (Tresiba FlexTouch U-200 insulin) 120 units (0.6 mL) subcut DAILY 30 days ketoconazole 2% topical lancets As directed lancets (TRUEplus Lancets) As directed 4 x/day lisinopril 5 mg PO DAILY metformin ER 500 mg PO BID 30 days naproxen 250 mg PO BID omeprazole 20 mg PO DAILY 30 days ondansetron 4 mg PO Q6H PRN oxycodone-acetaminophen 5-325 mg (Percocet) 1 tab PO Q6H pen needle, diabetic (BD Dianelys 2nd Gen Pen Needle) four times a day tadalafil 5 mg PO DAILY PRN 90 days tamsulosin mg PO DAILY triamcinolone acetonide 0.1% 1 appl topical BID-TID HPI Discuss muscle bx HPI Details 48-year-old male referred for a muscle biopsy. He is being followed by the [facility] just because of muscle weakness. Been to the emergency room more than a month ago because of had aches, malaise, along with weakness of his upper extremities. He had difficulty with lifting his arms above the shoulder level at that time. He says he felt weak and fatigued as well. He has creatinine levels were markedly elevated. This was 1189 although this had improved to 306 2 weeks ago. He has had elevated creatinine kinase since May,. According to his , he has had problems with weakness, malaise for over a year now. 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 Diabetes type 2, uncontrolled Diabetes Surgical History Hx of knee surgery History of ear surgery Family History Father Diabetes mellitus Heart disease Stroke Arthritis Mother Epilepsy Social History Household Members: Spouse, Family and Children Alcohol intake: never Patient Tobacco Use Status: Never used Tobacco Substance Use Type: Marijuana Current occupational status: unemployed Review of Systems Const Denies chills and Denies fever(s) Card Denies chest pain, Denies dyspnea and Denies dyspnea on exertion Resp Denies cough, Denies dyspnea and Denies dyspnea on exertion GI Denies hematochezia and Denies change in bowel habits Denies hematuria and Denies difficulty urinating Musc Denies back pain, Reports myalgias, Reports arthralgias, Denies limited range of motion and Reports muscle weakness Neuro Denies focal weakness and Denies convulsions Psych Denies depression and Denies mood swings Physical Exam Vital Signs: Last Vital Signs Pulse 82 11/25/23 13:24 BP 132/78 11/25/23 13:24 BMI result Body Mass Index 33.8 Const General: comfortable and no acute distress Orientation/consciousness: patient oriented x3 Neck Neck: Yes no lymphadenopathy Resp Auscultation: clear to auscultation bilaterally Cardio Rhythm: regular rhythm GI Palpation (GI): Soft to palpation, nontender and no guarding Neuro Other: No obvious motor or sensory deficits; he is able to move all extremities General: patient oriented x3 Assessment & Plan Assessment & Plan (1) Rhabdomyolysis: Code(s): M62.82 - Rhabdomyolysis Plan: He has had this chronic rhabdomyolysis, along with muscle weakness mostly of the upper extremities. His mill machinist had recommended a muscle biopsy as part of workup for his rhabdomyolysis. I explained to him the technique of muscle biopsy under anesthesia. We are planning to do so biopsy of the left biceps as he appears to have more weakness with the arms than the legs. I discussed the risks including but not limited to bleeding, infection, postop pain, poor healing, as well as the benefits and alternatives. This will be done under anesthesia. I explained to him what to expect postoperatively. Coding Level of Care Code New Pt Level 3 (58903) Diagnoses Rhabdomyolysis M62.82
== END 2023-11-25 13:54 | disposition home or self-care (01) ==
PROVIDERS: PCP General Practice; Referring Provider Nurse Practitioner Family; Visit Provider Surgery
DX: M62.82 Rhabdomyolysis (principal)
CPT/HCPCS: 99203

== ENCOUNTER → 2023-11-25 13:21 | Outpatient (BNVA) | payer OTHER, SELFPAY | PROVIDERS: PCP General Practice; Referring Provider Nurse Practitioner Family; Visit Provider Surgery | DX: M62.82 Rhabdomyolysis (principal) | CPT/HCPCS: 99202 ==

== ENCOUNTER 2023-12-24 07:35 | Outpatient (REF) | payer OTHER, SELFPAY ==
--- NOTE | ~2023-12-24 | CT_ITS ---
EXAMINATION: CT ABDOMEN WITHOUT AND WITH CONTRAST CLINICAL INFORMATION: Abnormal serum enzymes. COMPARISON: 09/16/2023 and 07/11/2022 TECHNIQUE: Contiguous axial thin section helical images of the abdomen were performed before and after the administration of oral contrast and 85 mL of Omnipaque 350 intravenous contrast. The data set was reformatted in the coronal and sagittal planes and reviewed on an independent workstation. This CT examination was performed using dose optimization techniques as appropriate, variously including the following: *Automated exposure control *Adjustment of mA and/or kV according to patient size (this includes techniques or standardized protocols for targeted exams where dose is matched to indication/reason for exam; i.e. extremities or head) *Use of iterative reconstruction technique DLP: 691 mGy-cm FINDINGS: LUNG BASES: 5 mm right middle lobe nodule on image 1 of series 8. This nodule has been stable since 07/11/2022. LIVER, GALLBLADDER, AND BILIARY TREE: The liver is enlarged and diffusely decreased in attenuation. No biliary ductal dilatation. The gallbladder is unremarkable. PANCREAS: No ductal dilatation. SPLEEN: Not enlarged. ADRENAL GLANDS AND KIDNEYS: No adrenal mass. Kidneys are symmetric in size and enhancement. 5 mm nonobstructing calculus mid to lower pole left kidney. 4 mm nonobstructing calculus lower pole right kidney. 2 mm nonobstructing calculus midpole right kidney. No hydronephrosis or perinephric stranding. BOWEL LOOPS: The stomach is underdistended. Imaged loops of small and large bowel are not obstructed. LYMPH NODES: Subcentimeter little hepatis and retroperitoneal lymph nodes. VASCULAR: Normal caliber abdominal aorta. BONES: No destructive bone lesions. CT/CT abdomen wo/w IV con IMPRESSION: Bilateral nonobstructing renal calculi. No hydronephrosis. Hepatomegaly and hepatic steatosis. Stable 5 mm right middle lobe pulmonary nodule.
[2023-12-24] MEDS: iohexoL 350 MG/ML 100 ML INFUS..BTL IV (08:23)
--- NOTE | 2023-12-24 14:50 | EMG_ITS ---
Chief complaint: Cymro-speaking patient. History of diabetes type 2, diabetic neuropathy associated with type 2 diabetes, disc herniation, dyslipidemia, essential hypertension, nephrolithiasis and vitamin-D deficiency. Presented with markedly elevated CK, muscle pain and weakness. Bilateral arm pain and weakness. Reason for referral: Evaluate for myopathy Referred by: Crystal Mercado CYCLE LIAISON Procedure done: Bilateral upper extremities/bilateral lower extremity NCS; right upper extremity/right lower extremity needle EMG Precautions and/or limitations: Cymro speaking, seen with typer The limb temperature was monitored continuously and remained between 32-36 degrees C during the performance of the NCS. Nerve Conduction Studies Anti Sensory Summary Table ?Stim Site NR Onset (ms) Norm Onset (ms) Peak (ms) Norm Peak (ms) O-P Amp (?V) Norm O-P Amp Site1 Site2 Delta-0 (ms) Dist (cm) Edwardo (m/s) Norm Edwardo (m/s) Left Median Anti Sensory (2nd Digit) Wrist ? 3.8 4.9 <3.6 10.4 >10 Wrist 2nd Digit 3.8 14.0 37 Right Median Anti Sensory (2nd Digit) Wrist ? 3.8 5.4 <3.6 7.4 >10 Wrist 2nd Digit 3.8 14.0 37 Right Radial Anti Sensory (Thumb) Forearm ? 1.4 1.9 <3.1 8.6 Forearm Thumb 1.4 0.0 Left Sural Anti Sensory (Lat Mall) Calf ? 3.1 4.0 <4.0 15.1 >5.0 Calf Lat Mall 3.1 14.0 45 Right Sural Anti Sensory (Lat Mall) Calf ? 2.2 3.2 <4.0 6.7 >5.0 Calf Lat Mall 2.2 14.0 64 Left Ulnar Anti Sensory (5th Digit) Wrist ? 2.2 3.4 <3.7 11.2 >15.0 Wrist 5th Digit 2.2 14.0 64 Right Ulnar Anti Sensory (5th Digit) Wrist ? 1.9 3.1 <3.7 15.5 >15.0 Wrist 5th Digit 1.9 14.0 74 Motor Summary Table ?Stim Site NR Onset (ms) Norm Onset (ms) O-P Amp (mV) Norm O-P Amp iAmp (mV) Amp (1st) (%) Site1 Site2 Delta-0 (ms) Dist (cm) Edwardo (m/s) Norm Edwardo (m/s) Left Median Motor (Abd Poll Brev) Wrist ? 5.2 <3.9 7.0 >4.5 8.8 100.0 Elbow Wrist 4.8 23.0 48 >45 Elbow ? 10.0 5.4 6.7 77.1 Right Median Motor (Abd Poll Brev) Wrist ? 5.7 <3.9 11.5 >4.5 13.4 100.0 Elbow Wrist 4.6 23.0 50 >45 Elbow ? 10.3 10.7 12.7 93.0 Left Peroneal Motor (Ext Dig Brev) Ankle ? 4.9 <4.0 4.6 >2.5 5.6 100.0 Ankle Ext Dig Brev 4.9 0.0 B Fib ? 12.6 6.3 7.6 137.0 B Fib Ankle 7.7 36.0 47 >40 Poplt ? 13.8 6.4 7.6 139.1 Poplt B Fib 1.2 5.0 42 >40 Right Peroneal Motor (Ext Dig Brev) Ankle ? 4.4 <4.0 7.2 >2.5 9.4 100.0 Ankle Ext Dig Brev 4.4 0.0 B Fib ? 12.8 5.1 6.4 70.8 B Fib Ankle 8.4 35.0 42 >40 Poplt ? 13.8 5.7 7.2 79.2 Poplt B Fib 1.0 5.0 50 >40 Right Tibial Motor (Abd Leal Brev) Ankle ? 4.6 <5 6.4 >2.5 9.4 100.0 Ankle Abd Leal Brev 4.6 0.0 Knee ? 13.8 0.7 1.1 10.9 Knee Ankle 9.2 44.0 48 >40 Left Ulnar Motor (Abd Dig Minimi) Wrist ? 3.0 <3.0 7.9 >5 10.6 100.0 B Elbow Wrist 4.0 22.0 55 >45 B Elbow ? 7.0 7.2 9.7 91.1 A Elbow B Elbow 1.9 10.0 53 >45 A Elbow ? 8.9 6.5 9.1 82.3 Right Ulnar Motor (Abd Dig Minimi) Wrist ? 2.9 <3.0 8.5 >5 11.2 100.0 B Elbow Wrist 4.1 22.0 54 >45 B Elbow ? 7.0 8.0 10.5 94.1 A Elbow B Elbow 1.8 10.0 56 >45 A Elbow ? 8.8 7.6 10.1 89.4 EMG ?Side Muscle Nerve Root Ins Act Fibs Psw Amp Dur Poly Recrt Int Pat Comment Right 1stDorInt Ulnar C8-T1 Nml Nml Nml Nml Nml 0 Nml Complete Right FlexCarRad Median C6-7 Nml Nml Nml Nml Nml 0 Nml Complete Right Biceps Musculocut C5-6 Nml Nml Nml Nml Nml 0 Nml Complete Right Triceps Radial C6-7-8 Nml Nml Nml Nml Nml 0 Nml Complete Right Deltoid Axillary C5-6 Nml Nml Nml Nml Nml 0 Nml Complete Right AbdHallucis MedPlantar S1-2 Nml Nml Nml Nml Nml 0 Nml Complete Right AntTibialis Dp Br Peron L4-5 Nml Nml Nml Nml Nml 0 Nml Complete Right PostTibialis Tibial L5, S1 Nml Nml Nml Nml Nml 0 Nml Complete Right MedGastroc Tibial S1-2 Nml Nml Nml Decr Nml 0 Rapid Complete Right VastusMed Femoral L2-4 Nml Nml Nml Decr Nml 0 Rapid Complete Paraspinal EMG ?Side Muscle Nerve Root Ins Act Fibs Psw Comment Right Cervical Upper Rami Nml Nml Nml Right Cervical Mid Rami Nml Nml Nml Right Cervical Lower Rami Nml Nml Nml Right Lumbar Upper Rami Nml Nml Nml Right Lumbar Mid Rami Nml Nml Nml Right Lumbar Lower Rami Nml Nml Nml FINDINGS: Bilateral median motor nerves showed prolonged distal latency, normal amplitude and normal conduction velocity. Bilateral peroneal nerves showed prolonged distal latency, normal amplitude and normal conduction velocity. No conduction block seen Right tibial nerve showed normal distal latency, drop in amplitude proximally and normal conduction velocity. Bilateral median sensory nerves showed prolonged peak latency. All other nerves tested were within normal. Concentric needle EMG was performed in selected muscles of the right upper extremity, lower extremity, cervical paraspinals, lumbar paraspinals. Study revealed signs of electric abnormalities as shown in the table below. No abnormal spontaneous activity seen on any muscles tested. Small size MUAPs seen on right vastus medialis and medial gastrocnemius, question early recruitment pattern. IMPRESSION: 1. This is an abnormal study. 2. There is electrodiagnostic findings suggestive for a myopathic process. 3. Incidental finding of bilateral median neuropathy at the wrist, consistent with Carpal Tunnel Syndrome. CLINICAL COMMENT: Muscle biopsy would help with diagnosis. Please do biopsy on left upper or left lower extremity, not on the right where EMG was done. Thank you for your kind referral. Adrienne Early MD, FREDO Board Certified, [place] [employer] and [employer] (ABPMR) Board Certified, [place] [employer] Electro[employer]ostic [employer] (ABEM) CODIN [id number] x2 MTDD
== END 2023-12-24 07:36 | disposition home or self-care (01) ==
LOC: HO.CT 07:35
PROVIDERS: PCP General Practice; Visit Provider Nurse Practitioner Family
DX: R29.898 Other symptoms and signs involving the musculoskeletal system (principal); R74.8 Abnormal levels of other serum enzymes; R10.819 Abdominal tenderness, unspecified site
CPT/HCPCS: 74170; 95886; 95913; Q9967

== ENCOUNTER → 2023-12-24 14:50 | Outpatient (BNV) | payer OTHER, SELFPAY | PROVIDERS: PCP General Practice; Visit Provider Physical Medicine & Rehabilitation | DX: G56.03 Carpal tunnel syndrome, bilateral upper limbs (principal); G72.89 Other specified myopathies | CPT/HCPCS: 95886; 95913 ==

== ENCOUNTER 2023-12-29 06:05 | Day surgery (SDC) | payer OTHER, SELFPAY ==
[2023-12-25 11:20] VITALS: BMI 34.4
[2023-12-29 06:34] VITALS: BP 167/77; PULSE 86; RESP 16; TEMP 36.6; O2SAT 98; BMI 35.5
[2023-12-29 06:56] LABS: Glucose, Whole Blood 178 mg/dL (60-115)
--- NOTE | 2023-12-29 07:21 | MHC.SHP ---
Pre-Procedural Eval Section A - 24 Hr Update-Section A only Date of Service: 12/29/23 Section B - Complete if H&P > 30 days Chief Complaint: Rhabdomyolysis Details of Present Illness: Has had has had muscle weakness, elevated creatinine kinase, presumed rhabdomyolysis referred for muscle biopsy by neurology Relevant Family History (Specify if Yes): No Relevant Social History: None Present Medications: see Short Stay Collaborative assessment Medical History: Significant History (Diabetes, hypertension, neuropathy, dyslipidemia) Allergies: Allergies Allergy/AdvReac Type Severity Reaction Status Date / Time No Known Allergies Allergy Verified 12/29/23 06:25 Review of Systems Sugical H&P ROS: Negative: Constitution, Cardiovascular, Respiratory, Neurological, Psychiatric, Hem-Onc, Allergic/Immunologic, Gastrointestinal, Genitourinary, Musculoskeletal, Integumentary, Endocrine and Eyes/Ears/Nose/Throat Exam Surgical H&P Exam: Normal: HEENT, Normal: Heart, Normal: Lungs, Normal: Extremities, Normal: Abdomen, Normal: Skin and Normal: Neurological Exam Comment: Chronic muscle weakness Plan Diagnosis/Plan: Unchanged I have reviewed the history and physical and performed a pertinent physical examination on my patient. No changes have occurred unless specified. Time Spent With Patient Time: Total time managing care of this patient today ____ minutes.
--- NOTE | 2023-12-29 07:24 | P.CONAN_ITS ---
HPI - Anesthesia Eval Consult details Narrative: for muscle biopsy PMFSH Active Problems Active Problems: All Active Problems (Updated 11/25/23 @ 13:54 by Chevy Omalley MD) Rhabdomyolysis (Acute) Abdominal pain (Acute) Abdominal tenderness in flank (Acute) Pain in joint involving multiple sites (Acute) Upper extremity weakness (Acute) Elevated CK (Acute) Hypogonadism in male (Acute) Low libido (Acute) Nephrolithiasis (Acute) Cracked skin on feet (Acute) Erectile dysfunction associated with type 2 diabetes mellitus (Acute) Tinea pedis (Acute) Essential hypertension (Acute) Vitamin D deficiency (Acute) Dyslipidemia (Acute) Diabetic nephropathy associated with type 2 diabetes mellitus (Acute) Diabetic polyneuropathy associated with type 2 diabetes mellitus (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 (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) Diabetes type 2, uncontrolled (Acute) Past Medical History Medical History Rhabdomyolysis Abdominal tenderness in flank Pain in joint involving multiple sites Upper extremity weakness Elevated CK Disc herniation Tinea pedis Essential hypertension Vitamin D deficiency Dyslipidemia Diabetic nephropathy associated with type 2 diabetes mellitus Diabetic polyneuropathy associated with type 2 diabetes mellitus 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 Diabetes type 2, uncontrolled Diabetes Family History Family History Father Diabetes mellitus Heart disease Stroke Arthritis Mother Epilepsy Family history of problems with anesthesia: No Surgical History Surgical History Hx of knee surgery History of ear surgery History of Problems with Anesthesia: No Social History Social History Household Members: Spouse, Family and Children Alcohol intake: never Patient Tobacco Use Status: Former Tobacco user Quit Date: 2009 Tobacco use type: Cigarette Smoked in Last 30 Days: No Use of substances other than those prescribed or required for medical reasons: Yes Substance Use Type: Marijuana Substance Use Frequency: Daily Are you DNR?: No Advance Directives: No Advance Directives Information Provided: Yes Current occupational status: unemployed Meds Allergies Allergy/AdvReac Type Severity Reaction Status Date / Time No Known Allergies Allergy Verified 12/29/23 06:25 Home Medications Medication Instructions Recorded Confirmed Last Taken Type alcohol swabs 0 pad topical 12/27/20 11/25/23 Unknown History blood sugar diagnostic #10 ea 12/27/20 11/25/23 Unknown History lancets 33 gauge #100 ea 12/27/20 11/25/23 Unknown History bupropion HCl 150 mg 24 hr tablet, 150 mg PO DAILY 01/25/21 11/25/23 Unknown History extended release allopurinol 100 mg tablet 100 mg PO QAM 06/22/23 11/25/23 Unknown History dulaglutide 1.5 mg/0.5 mL mg subcut 06/22/23 11/25/23 12/15/23 History subcutaneous pen injector (Trulicity) diclofenac sodium 1 % topical gel topical BID 11/10/23 11/25/23 Unknown History ketoconazole 2 % shampoo topical 11/10/23 11/25/23 Unknown History lisinopril 5 mg tablet 5 mg PO DAILY 11/10/23 11/25/23 12/22/23 History naproxen 250 mg tablet 250 mg PO BID 11/10/23 11/25/23 12/22/23 History tamsulosin 0.4 mg capsule mg PO DAILY 11/10/23 11/25/23 Unknown History triamcinolone acetonide 0.1 % 1 appl topical BID-TID 11/10/23 11/25/23 Unknown History topical cream Exam Height,Weight and Vital Signs: Height 5 ft 9 in Weight 109.044 kg Last Vital Signs Temp 97.8 F 12/29/23 06:34 Pulse 86 12/29/23 06:34 Resp 16 12/29/23 06:34 BP 167/77 H 12/29/23 06:34 Pulse Ox 98 12/29/23 06:34 O2 Del Method Room Air 12/29/23 06:34 Pertinent Lab Results Pertinent Lab Results: Laboratory Tests 12/29/23 06:22 POC Glucose 178 H Airway Mallampati Class: II TM Dist: <=3cm Neck ROM: Full Loose/Missing/Broken Teeth: No Heart: ok Lungs: ok Assessment and Plan Assessment Anesthesia Assessment: Anesthesia Plan Discussed Final Anesthetic Review Family History of Problems with Anesthesia: No History of Problems with Anesthesia: No NPO: Yes ASA Class: III Final Preanesthetic Review: No Changes in Pt Med Stat, Meds/Allgs Chart Reviewed, Consent Obtained/Reviewed and Anes Risks/Benef Reviewed Patient Risk: Intermediate Procedure Risk: Low Anesthetic Plan Anesthetic Plan: MAC: and Agree w/ Assess. and Plan Disposition: Standard PACU
--- NOTE | 2023-12-29 07:45 | PC.NURSE ---
Patient ate small amount of nutella at 1am due to low blood sugar of 50. Blood sugar now stable. Dr. White and Dr. Ronquillo made aware. Okay to proceed. Patient also voiced in preop that he stopped all of his medications bedsides insulin for a week due to confusion of which ones to stop and which ones to continue. Okay to proceed per anesthesia.
--- NOTE | 2023-12-29 08:15 | P.OP_ITS ---
Operative Note Operative Note Date of Service: 12/29/23 Narrative: Preop diagnosis: Muscle weakness, elevated creatinine kinase levels Postop diagnosis: The same Procedure: Muscle biopsy, left biceps, under anesthesia Surgeon: Chevy Omalley MD Addictions Recovery Specialist: LARY Hdez The patient is a 48-year-old male referred by the neurologist for muscle biopsy because of muscle weakness and rhabdomyolysis. He understood the technique of the planned procedure as well as the risks, benefits, and alternatives He was brought to the operating room and placed supine under monitored anesthesia care. The left biceps area was prepped and draped in the usual sterile fashion. A surgical time-out was done. The patient received cefazolin 2 g IV preoperatively I made a short incision on the skin using a blade 15. This was carried down with electrocautery through the full-thickness of the skin and subcutaneous fat until I visualized the fascia. The fascia was incised. The muscle fibers of the biceps were identified and we proceeded to isolate a 1 cm band of these muscles. I applied right angle clamps proximal and distal. I divided this muscle fibers and position this on the muscle biopsy clamp. I irrigated. I tied both divided ends of the muscle fibers with Polysorb 3-0 ties. Hemostasis was confirmed. I closed the fascia with a running Polysorb 3- 0 stitch The subcutaneous layer was reapposed with Polysorb 3-0 interrupted sutures. Skin closure was achieved with Polysorb 4-0 subcuticular running sutures. Dressings were applied. The area was infiltrated with Marcaine 0.5% for postop analgesia. The procedure was completed. The patient tolerated procedure well. There were no immediate complications. Initial and final counts of sponges and instruments were correct. Estimated blood loss was less than 5 cc. The patient was transferred to the recovery room with stable vital signs.
[2023-12-29 08:26] VITALS: BP 152/83; PULSE 99; RESP 18; TEMP 36.3; O2SAT 97
[2023-12-29] MEDS: oxyCODONE HCl Immed Release 5 MG TABLET PO (08:40)
[2023-12-29 08:41] VITALS: BP 137/84; PULSE 84; RESP 20; TEMP 36.6; O2SAT 97
[2023-12-29] MEDS: Acetaminophen 325 MG TABLET 650 MG PO (08:42)
== END 2023-12-29 09:27 | disposition home or self-care (01) ==
PROVIDERS: PCP General Practice; Visit Provider Surgery
PROC: (CPT 20205; principal; 2023-12-29 07:30)
DX: M62.82 Rhabdomyolysis (principal); M62.81 Muscle weakness (generalized); R74.8 Abnormal levels of other serum enzymes; I10 Essential (primary) hypertension; E11.21 Type 2 diabetes mellitus with diabetic nephropathy; E11.42 Type 2 diabetes mellitus with diabetic polyneuropathy; Z79.4 Long term (current) use of insulin; Z79.84 Long term (current) use of oral hypoglycemic drugs; Z79.85 Long-term (current) use of injectable non-insulin antidiabetic drugs; Z79.899 Other long term (current) drug therapy; Z79.1 Long term (current) use of non-steroidal anti-inflammatories (NSAID); F12.90 Cannabis use, unspecified, uncomplicated
CPT/HCPCS: 20205; 82947; 88300; 88305; 88313; 88319; 88348; J0690; J2250; J2704; J2795; J3010

== ENCOUNTER → 2023-12-29 06:05 | Outpatient (BNV) | payer OTHER, SELFPAY | PROVIDERS: PCP General Practice; Visit Provider Surgery | DX: M62.82 Rhabdomyolysis (principal) | CPT/HCPCS: 20205 ==

== ENCOUNTER 2024-01-11 13:49 | Outpatient (AMB) | payer OTHER, SELFPAY ==
--- NOTE | 2024-01-11 13:51 | A.OFFVIS_ITS ---
Intake Vital Signs 01/11/24 13:57 Height 5 ft 9 in BP 146/79 H Blood Pressure Location Rt brachial Position Sitting Pulse 99 Intake Visit Reasons: S/P muscle bx Lt bicep Intake Note: This patient presents for a post-op assessment status post muscle biopsy of the left bicep. Pt c/o; reports no complaints at this time. Game Operator Required: Yes Game Operator Language: Tourist Information Officer Name: Shaun Information Interpreted: non-clinical & clinical Accompanied by: Spouse Allergies No Known Allergies Allergy (Verified 01/11/24 13:52) HPI S/P muscle bx Lt bicep HPI Details He underwent biopsy of the left biceps last 12/29/2023 for question of myositis. He tolerated procedure well. He denies significant complaints at this time. [facility] Medical History Rhabdomyolysis Abdominal tenderness in flank Pain in joint involving multiple sites Upper extremity weakness Elevated CK Disc herniation Tinea pedis Essential hypertension Vitamin D deficiency Dyslipidemia Diabetic nephropathy associated with type 2 diabetes mellitus Diabetic polyneuropathy associated with type 2 diabetes mellitus halfway (current) use of insulin Diabetes type 2, uncontrolled Diabetes Surgical History History of biopsy (~12/29/23) Hx of knee surgery History of ear surgery Family History Father Diabetes mellitus Heart disease Stroke Arthritis Mother Epilepsy Social History Household Members: Spouse, Family and Children Alcohol intake: never Patient Tobacco Use Status: Former Tobacco user Quit Date: 2009 Tobacco use type: Cigarette Substance Use Type: Marijuana Current occupational status: unemployed Review of Systems Const Denies chills and Denies fever(s) Physical Exam Const General: comfortable and no acute distress Resp Effort & Inspection: normal respiratory effort and No prolonged expiratory phase Extrem Other: Excision site on the left biceps area is well healed, no signs of infection Assessment & Plan Assessment & Plan (1) Rhabdomyolysis: Code(s): M62.82 - Rhabdomyolysis Plan: Status post muscle biopsy. Incision is well healed. His sutures are subcuticular. The final path report is still pending. 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 Coding Level of Care Code Global (32231) Diagnoses Rhabdomyolysis M62.82
[2024-01-11 13:57] VITALS: BP 146/79; PULSE 99
== END 2024-01-11 14:03 | disposition home or self-care (01) ==
PROVIDERS: PCP General Practice; Visit Provider Surgery
DX: M62.82 Rhabdomyolysis (principal)
CPT/HCPCS: 99212

== ENCOUNTER → 2024-01-11 13:49 | Outpatient (BNVA) | payer OTHER, SELFPAY | PROVIDERS: PCP General Practice; Visit Provider Surgery | DX: M62.82 Rhabdomyolysis (principal) | CPT/HCPCS: 99212 ==

== ENCOUNTER 2024-01-29 09:57 | Outpatient (REF) | payer OTHER, SELFPAY ==
--- NOTE | ~2024-01-29 | US_ITS ---
EXAMINATION: US RETROPERITONEAL LIMITED (RENAL ONLY) CLINICAL INFORMATION: Calculus of kidney. COMPARISON: CT abdomen 12/24/2023. Ultrasound abdomen limited 07/16/2023. Ultrasound abdomen complete 10/07/2019. TECHNIQUE: Real-time imaging of the kidneys. FINDINGS: RIGHT KIDNEY: 13.5 x 7.2 x 6.6 cm (SAG x AP x TRV). The kidney is normal in size, contour, and echogenicity. Renal cortical thickness is normal. No calculi or focal parenchymal lesions. No hydronephrosis. LEFT KIDNEY: 12.4 x 7.5 x 5.6 cm (SAG x AP x TRV). The kidney is normal in size, contour, and echogenicity. Renal cortical thickness is normal. No renal calculi or hydronephrosis. There is cyst in the lateral aspect of left kidney parenchyma measured 1.0 cm US/US renal BI IMPRESSION: Nonvisualization of nephrolithiasis..
== END 2024-01-29 09:58 | disposition home or self-care (01) ==
LOC: HO.US 09:57
PROVIDERS: PCP General Practice; Visit Provider Nurse Practitioner Family
DX: N20.0 Calculus of kidney (principal)
CPT/HCPCS: 76775

== ENCOUNTER 2024-02-29 09:55 | Outpatient (REF) | payer OTHER, SELFPAY ==
[2024-02-29 11:49] LABS: Alanine Aminotransferase 41 U/L (0-40); Albumin Level 4.2 g/dL (3.5-5.0); Alkaline Phosphatase 89 U/L (39-117); Anion Gap 13 (12-20); Aspartate Amino Transferase 66 U/L (5-37); Bilirubin Total 0.4 mg/dL (0.0-1.0); Blood Urea Nitrogen 17 mg/dL (9-16); Calcium 9.5 mg/dL (8.4-10.2); Carbon Dioxide 25 mmol/L (22-29); Chloride 109 mmol/L (96-108); Estimated Glomerular Filt Rate > 60; Glucose Random 94 mg/dL (60-115); Sodium 143 mmol/L (135-145); Total Protein 7.8 g/dL (6.5-8.0)
[2024-03-03 19:52] LABS: CK-BB None Detected (None Detected); CK-MB 2 % (<5); CK-MM 94 % (95-100); Creatine Kinase Isoenzyme Itrp MACRO CK TYPE 1; Creatine Kinase,Total,Serum 2521 U/L (44-196)
== END 2024-02-29 09:56 | disposition home or self-care (01) ==
LOC: HO.HHCL 09:55
PROVIDERS: Visit Provider General Practice
DX: M62.82 Rhabdomyolysis (principal)
CPT/HCPCS: 36415; 80053; 82552

== ENCOUNTER 2024-03-11 09:25 | Outpatient (AMB) | payer OTHER, SELFPAY ==
--- NOTE | 2024-03-11 09:28 | MHC.OFFVIS ---
Vital Signs 03/11/24 09:41 Height 5 ft 9 in Weight 240 lb 11.916 oz BMI 35.5 BP 110/62 Blood Pressure Location Rt brachial Position Sitting Pulse 98 Pulse Source Pulse Oximeter Pulse Oximetry (%) 96 Oxygen Delivery Method Room Air Intake Visit Reasons: Myopathy, Elevated CK. Weakness Intake Note: Patient presents to office today to review abnormal labs. Safety Manager Required: Yes Safety Manager Language: Circulation Director Name: Yvrose [id number] Accompanied by: Self / Same As Patient Allergies No Known Allergies Allergy (Verified 03/11/24 09:36) HPI Comments Details: Mr. Larry 49-year-old male returns for follow-up for evaluation of highly elevated CK, muscle pain and weakness. He continue with upper extremity pain and weakness and more specifically swelling to his lateral elbows. He has been meeting with his PCP whom is also monitoring this process. Since last visit: --rash around neck for 1 week. First occurred some years ago, returned 1 week ago. --swelling to bilateral lateral elbow --started using inhaler pump for wheezing, sometimes very tired and feels like he needs more air. --Bilateral flank pain, very sensitive to touch, and very painful with cough and sneeze --New elevation in AST/ALT, CT shows Enlarged and fatty liver on CT Scan --Kidney US with no adverse findings for the Kidney Initial History 10/2023: Mr. Larry, 48-year-old male, is a very pleasant Hungarian-speaking patient. He has a medical history of diabetes type 2, diabetic neuropathy associated with type 2 diabetes, disc herniation, dyslipidemia, essential hypertension, nephrolithiasis and vitamin-D deficiency. He presents to the office today for evaluation markedly elevated CK, muscle pain and weakness. He reports that approximately 2 weeks ago he went to the ER because he was having headaches and heat all over his body. He had body aches and was not able to lift his hands above his head. At the ER he was tested positive for COVID, given an IV to relax my muscle and then sent home. Since then he has improved and is able to lift his hand over his head but they feel weak and fatigue when he left or carries objects over 10 lbs. The AC joints and lateral elbows are the areas that lucio and hurts the most. He feels he is getting weaker, especially in upper arms and feels tired most days. When asked, patient denies Raynaud's phenomenon, butterfly rash on face or other rashes. He reports his hand and feet gets dry, calloused and cracks in the winter months. He denies photosensitivity - getting sick or developing a rash from being out in the sun; denies blood or froth in urine. He does have increased urination sometimes at night. Patient denies hx of SOB or chest pain. Patient denies hx of Carditis or Pleuritis. Patient denies any history of DVT/PE. The patient reports never have had to take aspirin or a blood thinner. Denies fevers, unexplained weight-loss or weight-gain. Denies: thinning hair or hair loss. Denies: dry, itchy eyes, red burning eyes needing steroids to treat; dry mouth, mouth sores or ulcers; nose bleed; ringing in the ear Denies blood or mucous in stool; nausea, vomiting and diarrhea, difficulty swallowing or heartburn. For the some time, he has been having right upper quadrant abdominal/Hypochondriac pain. Denies morning stiffness lasting more than 20 mins. Nephrolithiasis Had been seen in emergency room 07/21 Imaging - CT scan small 3 mm bilateral stones [facility] [place] Medical History (Updated 03/11/24 @ 15:50 by CLEMENTINA Chappell-) Rash and nonspecific skin eruption Dermatomyositis with myopathy, adult onset Rhabdomyolysis Abdominal tenderness in flank Pain in joint involving multiple sites Upper extremity weakness Elevated CK Disc herniation Tinea pedis Essential hypertension Vitamin D deficiency Dyslipidemia Diabetic nephropathy associated with type 2 diabetes mellitus Diabetic polyneuropathy associated with type 2 diabetes mellitus intermediate (current) use of insulin Diabetes type 2, uncontrolled Diabetes Surgical History History of biopsy (~12/29/23) Hx of knee surgery History of ear surgery Family History Father Diabetes mellitus Heart disease Stroke Arthritis Mother Epilepsy Social History Household Members: Spouse, Family and Children Alcohol intake: never Patient Tobacco Use Status: Former Tobacco user Quit Date: 2009 Tobacco use type: Cigarette Substance Use Type: Marijuana Current occupational status: unemployed Review of Systems Const All systems reviewed & are unremarkable except as noted in HPI and below Physical Exam Vital Signs: Last Vital Signs Pulse 98 03/11/24 09:41 BP 110/62 03/11/24 09:41 Pulse Ox 96 03/11/24 09:41 Oxygen Delivery Method Room Air 03/11/24 09:41 BMI result Body Mass Index 35.5 APPEARANCE: No acute distress Adequately groomed and nourished EYES no redness, pupils equal and reactive to light, eyelids normal EARS:? External ear normal, canal clear and tympanic membrane normal. NOSE/SINUS:? Airflow through both nares, no nasal discharge, no bleeding THROAT:? Oral mucosa moist, no ulcerations NECK:? No thyromegaly or masses, no adenopathy, trachea midline. HEART:? Regular rhythm, S1-S2 heard, no murmurs, rubs or gallops. LUNG:? Clear to percussion and auscultation ABD:? Normal bowel sounds, no organomegaly, masses. Marked tenderness right upper quandrant/Hypochndriac region, tenderness to flanks. EXTREMITIES:? No edema, no calf tenderness, normal peripheral pulses. NEURO:? Oriented and alert x3.? No focal weakness.? Reflexes symmetric.? Gait antalgic SKIN:? Rash in Shawl presentation occurring form around upper chest, none to the back or shoulders. Dryness, cracked, fissures on fingers and left great toe. Tender to palpation at flanks/hurts with cough and sneeze No objective signs of Raynaud's phenomenon. JOINT EXAM: Cervical Spine:.? Full range of motion without pain; no tenderness. Thoracic Spine:.? No scoliosis.? No tenderness on palpation. Lumbar Spine:.? Alignment normal.? Full range of motion without pain, no tenderness. Chest Wall:.? No tenderness, swelling, increased warmth or erythema. Hands:.? Normal pain-free range of motion without tenderness, swelling, increased warmth or erythema. 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 Wrists:.? Normal pain-free range of motion without tenderness, swelling, increased warmth or erythema. Elbows:. Decreased range of motion with pain. marked tenderness and swelling, to bilateral lateral epicondyle. no warmth or erythema Shoulders:.?? Full range of motion without pain. No tenderness, weakness, swelling, increased warmth or erythema. Able to lift arms above head. decreased strength may be due to pain at albows. Hips:.? Full range of motion with mild pain. Hip bursa:.? No tenderness. Knees:.?? Normal pain-free range of motion without tenderness, swelling, increased warmth or erythema.? There is no effusion or crepitation Ankles:.? Normal pain-free range of motion without tenderness, swelling, increased warmth or erythema. Feet:.? Normal pain-free range of motion without tenderness, swelling, increased warmth or erythema. Tender points:? No tenderness to digital palpation at the occiput, trapezius, second rib, lateral epicondyle, knees, greater trochanter and gluteal area bilaterally. ? Results Reviewed Results Reviewed: EXAMINATION: CT ABDOMEN WITHOUT AND WITH CONTRAST CLINICAL INFORMATION: Abnormal serum enzymes. COMPARISON: 09/16/2023 and 07/11/2022 TECHNIQUE: Contiguous axial thin section helical images of the abdomen were performed before and after the administration of oral contrast and 85 mL of Omnipaque 350 intravenous contrast. The data set was reformatted in the coronal and sagittal planes and reviewed on an independent workstation. This CT examination was performed using dose optimization techniques as appropriate, variously including the following: *Automated exposure control *Adjustment of mA and/or kV according to patient size (this includes techniques or standardized protocols for targeted exams where dose is matched to indication/reason for exam; i.e. extremities or head) *Use of iterative reconstruction technique DLP: 691 mGy-cm FINDINGS: LUNG BASES: 5 mm right middle lobe nodule on image 1 of series 8. This nodule has been stable since 07/11/2022. LIVER, GALLBLADDER, AND BILIARY TREE: The liver is enlarged and diffusely decreased in attenuation. No biliary ductal dilatation. The gallbladder is unremarkable. PANCREAS: No ductal dilatation. SPLEEN: Not enlarged. ADRENAL GLANDS AND KIDNEYS: No adrenal mass. Kidneys are symmetric in size and enhancement. 5 mm nonobstructing calculus mid to lower pole left kidney. 4 mm nonobstructing calculus lower pole right kidney. 2 mm nonobstructing calculus midpole right kidney. No hydronephrosis or perinephric stranding. BOWEL LOOPS: The stomach is underdistended. Imaged loops of small and large bowel are not obstructed. LYMPH NODES: Subcentimeter little hepatis and retroperitoneal lymph nodes. VASCULAR: Normal caliber abdominal aorta. BONES: No destructive bone lesions. CT/CT abdomen wo/w IV con IMPRESSION: Bilateral nonobstructing renal calculi. No hydronephrosis. Hepatomegaly and hepatic steatosis. Stable 5 mm right middle lobe pulmonary nodule. EXAMINATION: US RETROPERITONEAL LIMITED (RENAL ONLY) CLINICAL INFORMATION: Calculus of kidney. COMPARISON: CT abdomen 12/24/2023. Ultrasound abdomen limited 07/16/2023. Ultrasound abdomen complete 10/07/2019. TECHNIQUE: Real-time imaging of the kidneys. FINDINGS: RIGHT KIDNEY: 13.5 x 7.2 x 6.6 cm (SAG x AP x TRV). The kidney is normal in size, contour, and echogenicity. Renal cortical thickness is normal. No calculi or focal parenchymal lesions. No hydronephrosis. LEFT KIDNEY: 12.4 x 7.5 x 5.6 cm (SAG x AP x TRV). The kidney is normal in size, contour, and echogenicity. Renal cortical thickness is normal. No renal calculi or hydronephrosis. There is cyst in the lateral aspect of left kidney parenchyma measured 1.0 cm US/US renal BI IMPRESSION: Nonvisualization of nephrolithiasis.. Laboratory Tests 02/29/24 09:58 AST 66 H ALT 41 H Total Creatine Kinase 2521 H CK-MM (CK-3) 94 L CK-BB (CK-1) None Detected CK Isoenzymes Interp MACRO CK TYPE 1 Total Protein 7.8 Albumin 4.2 Assessment & Plan Assessment & Plan (1) Non-traumatic rhabdomyolysis: Code(s): M62.82 - Rhabdomyolysis (2) Elevated CK: Code(s): R74.8 - Abnormal levels of other serum enzymes Category: Medical (3) Upper extremity weakness: Code(s): R29.898 - Other symptoms and signs involving the musculoskeletal system Category: Medical (4) Abdominal tenderness in flank: Code(s): R10.819 - Abdominal tenderness, unspecified site Category: Medical (5) Dermatomyositis with myopathy, adult onset: Code(s): M33.12 - Other dermatomyositis with myopathy Category: Medical (6) Diabetes type 2, uncontrolled: Code(s): E11.65 - Type 2 diabetes mellitus with hyperglycemia Category: Medical Qualifiers: Glycemic state: with hyperglycemia Qualified Code(s): E11.65 - Type 2 diabetes mellitus with hyperglycemia (7) Rash and nonspecific skin eruption: Code(s): R21 - Rash and other nonspecific skin eruption Category: Medical Plan #Dermatomyositis:CK>2000: At this time, I will start treatment for polymyositis dermatomyositis with Prednisone. On PE today patient has rash around his chest and neck mimicking a Shawl (helitropic)rash. He had started to treat with topical creams. Recent labs for his CK is greater than 2000. The patient did not initially present with a rash and had denied and occurrence. His CK was initially less than a 1000, except for the time he was sick with COVID. He is currently on inhaler due to wheezing and short of breath. He also continues with persistent of bilateral flank pain, which hurts to the touch. However imaging has ruled out kidney and pancreatic pathology and stones. I will start him at 60 mg of prednisone. It is concerning given that he has T2DM. We discussed that he will need to adjust the insulin Novolog accordingly to compensate for blood sugar spikes. I know his concerned, especially since he has recently gained control. He does have glucose monitoring device so hopefully that will continue to be helpful. I reiterate the patient the importance of monitoring his blood sugar and adjust insulin as needed. I will reach out to primary to discuss further. Dermatomyositis sometimes can be seen in the context of malignancy. Therefore, I recommend any relevant screenings to evaluate. Patient denies colonoscopy. Initial assessment: 10/2023 #Non-Traumatic Rhabdo/Elevated CK/Weakness: Based on the medical and lab records that I have personally reviewed, the patient had CK =200 the 1st available recording of the elevated CK was May 2023. Since then it has remained elevated with fluctuations. The available liver and Kidney studies have been within normal limits and so has his ESR and CRP. Given the elevation in the CK, and complaint of muscle weakness and fatigue, it is reasonable to assume there is an active myopathic processes. I will do some additional evaluation to to determine if this is autoimmune, inflammatory or drug-induced. Among the differentials are nontraumatic rhabdomyolysis, polymyositis/dermatomyositis. Patient was admitted to ER on 10/17/2023 and CK was 658 down from 1189(10/05/2023). Based on CK I had ordered and patient obtain after visit, at the time of this writing, the CK is further trended down to 306. Upon review of his ER records, Patient comes in the emergency room complaining of nausea vomiting and diffuse body pains. Patient states that earlier today he was doing heavy lifting and yd work. Patient has chest pain or shortness of breath. Patient complaining of right rib pain that is been present for 2-3 months. Patient states that he ran out of water while working in the yd. Patient did not pass out. Denies any other injury. At this time I am considering this to be nontraumatic rhabdomyolysis secondary to dehydration. Nontraumatic rhabdomyolysis causes can also include the use of alcohol or illegal drugs such as heroin, cocaine or amphetamines. However, the patient denies use of all these. This could also be due to statin use. I have instructed the patient to hold atorvastatin for now. I will obtain additional labs, muscle biopsy, EMG studies and CT of the abdomen to evaluate further and rule out inflammatory or autoimmune process. I have also reiterated to him to keep hydrated which he also admits he has not be drinking enough water daily, whereby some days has none. #Abdominal Tenderness in Flank: Patient sees Urology for History of Kidney stones which he has currently bilaterally. He denies associated urinary symptoms. He has upcoming appointment with Urology. I will order a CT of the abdomen. Orders: Orders C Reactive Protein 03/11/24 M33.12 - Other dermatomyositis with myopathy Erythrocyte Sedimentation Rate 03/11/24 M33.12 - Other dermatomyositis with myopathy Creatine Kinase Total 03/11/24 M33.12 - Other dermatomyositis with myopathy Medications: New prednisone orally daily; 3 tablets per day x 7 days 2 tablets per day x 7 days 1 1/2 tablet per day 90 tabs 0RF M62.82 - Rhabdomyolysis, M33.12 - Other dermatomyositis with myopathy Coding Level of Care Code Est Pt Level 4 (09774) Diagnoses Non-traumatic rhabdomyolysis M62.82 Elevated CK R74.8 Upper extremity weakness R29.898 Abdominal tenderness in flank R10.819 Dermatomyositis with myopathy, adult onset M33.12 Uncontrolled type 2 diabetes mellitus with hyperglycemia E11.65 Glycemic state: with hyperglycemia Rash and nonspecific skin eruption R21
[2024-03-11 09:41] VITALS: BP 110/62; PULSE 98; O2SAT 96; BMI 35.5
== END 2024-03-11 10:04 | disposition home or self-care (01) ==
LOC: HO.RHE 09:25
PROVIDERS: PCP General Practice; Visit Provider Nurse Practitioner Family
DX: M62.82 Rhabdomyolysis (principal); R74.8 Abnormal levels of other serum enzymes; R29.898 Other symptoms and signs involving the musculoskeletal system; R10.819 Abdominal tenderness, unspecified site; M33.12 Other dermatomyositis with myopathy; E11.65 Type 2 diabetes mellitus with hyperglycemia; R21 Rash and other nonspecific skin eruption
CPT/HCPCS: 99214

== ENCOUNTER → 2024-03-11 09:25 | Outpatient (BNVA) | payer OTHER, SELFPAY | PROVIDERS: PCP General Practice; Visit Provider Nurse Practitioner Family | DX: R74.8 Abnormal levels of other serum enzymes (principal); M62.82 Rhabdomyolysis; R29.898 Other symptoms and signs involving the musculoskeletal system; R10.819 Abdominal tenderness, unspecified site; R21 Rash and other nonspecific skin eruption; M33.12 Other dermatomyositis with myopathy; E11.65 Type 2 diabetes mellitus with hyperglycemia | CPT/HCPCS: 99212 ==

== ENCOUNTER 2024-03-31 06:38 | Outpatient (REF) | payer OTHER, SELFPAY ==
[2024-03-31 07:50] LABS: C Reactive Protein 0.21 mg/dL (< or = 0.50)
[2024-03-31 08:00] LABS: Erythrocyte Sedimentation Rate 8 MM/HR (0-15)
[2024-04-04 19:14] LABS: Testosterone, Free 42.1 pg/mL (35.0-155.0); Testosterone, Total 184 ng/dL (250-1100)
== END 2024-03-31 06:39 | disposition home or self-care (01) ==
LOC: HO.LAB 06:38
PROVIDERS: Nurse Practitioner Family; PCP General Practice; Visit Provider Nurse Practitioner Family
DX: M33.12 Other dermatomyositis with myopathy (principal); E29.1 Testicular hypofunction
CPT/HCPCS: 36415; 82550; 84402; 84403; 85652; 86140

== ENCOUNTER 2024-05-10 08:15 | Outpatient (AMB) | payer OTHER, SELFPAY ==
--- NOTE | 2024-05-10 08:40 | A.OFFVIS_ITS ---
Vital Signs 05/10/24 08:50 Height 5 ft 9 in Weight 230 lb 2.601 oz BMI 34.0 BP 130/80 Blood Pressure Location Rt brachial Position Sitting Pulse 81 Pulse Source Pulse Oximeter Pulse Oximetry (%) 96 Oxygen Delivery Method Room Air Intake Visit Reasons: Myopathy Intake Note: Patient last seen 03/11/24, presents today for myopathy follow up and test results. Union Representative Required: Yes Union Representative Language: Historic Clothing And Costume Maker Name: Alfonzo [id number] Accompanied by: Self / Same As Patient Allergies No Known Allergies Allergy (Verified 05/10/24 08:51) HPI Comments Details: Mr. Larry 49-year-old male returns for follow-up for evaluation of highly elevated CK, muscle pain and weakness, Myopathy. He has been on a prednisone taper since mid February. He does feel improved on the prednisone but is concerned about uncontrolled blood sugar. He is now taking the prednisone only as needed . He continues with upper extremity pain but he only feels weakness if he tries to lift over 50lbs. His PCP whom is also monitoring this process. The rash to his neck is fading. 03/11/2024: Mr. Larry 49-year-old male returns for follow-up for evaluation of highly elevated CK, muscle pain and weakness. He continue with upper extremity pain and weakness and more specifically swelling to his lateral elbows. He has been meeting with his PCP whom is also monitoring this process. Since last visit: --rash around neck for 1 week. First occurred some years ago, returned 1 week ago. --swelling to bilateral lateral elbow --started using inhaler pump for wheezing, sometimes very tired and feels like he needs more air. --Bilateral flank pain, very sensitive to touch, and very painful with cough and sneeze --New elevation in AST/ALT, CT shows Enlarged and fatty liver on CT Scan --Kidney US with no adverse findings for the Kidney Initial History 10/2023: Mr. Larry, 48-year-old male, is a very pleasant Italian-speaking patient. He has a medical history of diabetes type 2, diabetic neuropathy associated with type 2 diabetes, disc herniation, dyslipidemia, essential hypertension, nephrolithiasis and vitamin-D deficiency. He presents to the office today for evaluation markedly elevated CK, muscle pain and weakness. He reports that approximately 2 weeks ago he went to the ER because he was having headaches and heat all over his body. He had body aches and was not able to lift his hands above his head. At the ER he was tested positive for COVID, given an IV to relax my muscle and then sent home. Since then he has improved and is able to lift his hand over his head but they feel weak and fatigue when he left or carries objects over 10 lbs. The AC joints and lateral elbows are the areas that lucio and hurts the most. He feels he is getting weaker, especially in upper arms and feels tired most days. When asked, patient denies Raynaud's phenomenon, butterfly rash on face or other rashes. He reports his hand and feet gets dry, calloused and cracks in the winter months. He denies photosensitivity - getting sick or developing a rash from being out in the sun; denies blood or froth in urine. He does have increased urination sometimes at night. Patient denies hx of SOB or chest pain. Patient denies hx of Carditis or Pleuritis. Patient denies any history of DVT/PE. The patient reports never have had to take aspirin or a blood thinner. Denies fevers, unexplained weight-loss or weight-gain. Denies: thinning hair or hair loss. Denies: dry, itchy eyes, red burning eyes needing steroids to treat; dry mouth, mouth sores or ulcers; nose bleed; ringing in the ear Denies blood or mucous in stool; nausea, vomiting and diarrhea, difficulty swallowing or heartburn. For the some time, he has been having right upper quadrant abdominal/Hypochondriac pain. Denies morning stiffness lasting more than 20 mins. Nephrolithiasis Had been seen in emergency room 07/21 Imaging - CT scan small 3 mm bilateral stones [facility] Medical History (Updated 05/10/24 @ 10:03 by CLEMENTINA Chappell-) Rash and nonspecific skin eruption Dermatomyositis with myopathy, adult onset Rhabdomyolysis Abdominal tenderness in flank Pain in joint involving multiple sites Upper extremity weakness Elevated CK Disc herniation Tinea pedis Essential hypertension Vitamin D deficiency Dyslipidemia Diabetic nephropathy associated with type 2 diabetes mellitus Diabetic polyneuropathy associated with type 2 diabetes 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 Diabetes type 2, uncontrolled Diabetes Surgical History History of biopsy (~12/29/23) Hx of knee surgery History of ear surgery Family History Father Diabetes mellitus Heart disease Stroke Arthritis Mother Epilepsy Social History Household Members: Spouse, Family and Children Alcohol intake: never Patient Tobacco Use Status: Former Tobacco user Tobacco use type: Cigarette Substance Use Type: Marijuana Current occupational status: unemployed Physical Exam Vital Signs: Last Vital Signs Pulse 81 05/10/24 08:50 BP 130/80 05/10/24 08:50 Pulse Ox 96 05/10/24 08:50 Oxygen Delivery Method Room Air 05/10/24 08:50 BMI result Body Mass Index 34.0 APPEARANCE: No acute distress Adequately groomed and nourished EYES no redness, eyelids normal EARS:? External ear normal, canal clear and tympanic membrane normal. NOSE/SINUS:? Airflow through both nares, no nasal discharge, no bleeding THROAT:? Oral mucosa moist, no ulcerations NECK:? No thyromegaly or masses, no adenopathy, trachea midline. HEART:? Regular rhythm, S1-S2 heard, no murmurs, rubs or gallops. LUNG:? Clear to percussion and auscultation ABD:? Normal bowel sounds, no organomegaly, masses. Marked tenderness right upper quandrant/Hypochndriac region, tenderness to flanks. EXTREMITIES:? No edema, no calf tenderness, normal peripheral pulses. NEURO:? Oriented and alert x3.? No focal weakness.? Reflexes symmetric.? Gait normal SKIN:? Rash in Shawl presentation occurring form around upper chest, none to the back or shoulders. Dryness, cracked, fissures on fingers and left great toe. Tender to palpation at flanks/hurts with cough and sneeze No objective signs of Raynaud's phenomenon. JOINT EXAM: Cervical Spine:.? Full range of motion without pain; no tenderness. Thoracic Spine:.? No scoliosis.? No tenderness on palpation. Lumbar Spine:.? Alignment normal.? Full range of motion without pain, no tenderness. Chest Wall:.? No tenderness, swelling, increased warmth or erythema. Hands:.? Normal pain-free range of motion without tenderness, swelling, increased warmth or erythema. Able to make a full fist and has a good clinical research manager strength. Wrists:.? Normal pain-free range of motion without tenderness, swelling, increased warmth or erythema. Elbows:. Improved range of motion with slight pain. marked tenderness and swelling, to bilateral lateral epicondyle now resolved. no warmth or erythema. Forearm not painful on palpation Shoulders:.?? Full range of motion without pain. No tenderness, weakness, swelling, increased warmth or erythema. Able to lift arms above head. decreased strength may be due to pain at albows. Hips:.? Full range of motion with mild pain. Hip bursa:.? No tenderness. Knees:.?? Normal pain-free range of motion without tenderness, swelling, increased warmth or erythema.? There is no effusion or crepitation Ankles:.? Normal pain-free range of motion without tenderness, swelling, increased warmth or erythema. Feet:.? Normal pain-free range of motion without tenderness, swelling, increased warmth or erythema. Tender points:? No tenderness to digital palpation at the occiput, trapezius, second rib, lateral epicondyle, knees, greater trochanter and gluteal area bilaterally. ? Results Reviewed Results Reviewed: Laboratory Tests 03/31/24 06:49 Total Creatine Kinase 697 H Assessment & Plan Assessment & Plan (1) Dermatomyositis with myopathy, adult onset: Code(s): M33.12 - Other dermatomyositis with myopathy Category: Medical (2) Rash and nonspecific skin eruption: Code(s): R21 - Rash and other nonspecific skin eruption Category: Medical (3) Rhabdomyolysis: Code(s): M62.82 - Rhabdomyolysis Category: Medical Qualifiers: Rhabdomyolysis type: non-traumatic Qualified Code(s): M62.82 - Rhabdomyolysis (4) Non-traumatic rhabdomyolysis: Code(s): M62.82 - Rhabdomyolysis (5) Elevated CK: Code(s): R74.8 - Abnormal levels of other serum enzymes Category: Medical (6) Upper extremity weakness: Code(s): R29.898 - Other symptoms and signs involving the musculoskeletal system Category: Medical (7) Diabetes type 2, uncontrolled: Code(s): E11.65 - Type 2 diabetes mellitus with hyperglycemia Category: Medical Qualifiers: Glycemic state: with hyperglycemia Qualified Code(s): E11.65 - Type 2 diabetes mellitus with hyperglycemia Plan #Dermatomyositis/Rhabdo/Rash:CK>2000: His diagnosis still remains unclear at this time. The rash was more fungal than the shawl rash typically associated with DM. We had started treatment with Prednisone at last visit. On PE today patient the rash is still around his chest and neck mimicking a Shawl (helitropic)rashm but less prominent compared to last visit. There is no other concerning rash. We will need updated labs, most recent labs (03/30/24), his CK was in the 600s. He is stronger on exam today but does whince when with active resistance during exam. T2DM: He is taking the prednisone as needed at this time. I know the prednisone is concerning given that he has T2DM. His insulin Novolog was adjus magdalene per patient accordingly to compensate for blood sugar spikes. I know his concerned, especially since he has recently gained control. He does have glucose monitoring device so hopefully that will continue to be helpful. I reiterate the patient the importance of monitoring his blood sugar and adjust insulin as needed. Initial assessment: 10/2023 #Non-Traumatic Rhabdo/Elevated CK/Weakness: Based on the medical and lab records that I have personally reviewed, the patient had CK =200 the 1st available recording of the elevated CK was May 2023. Since then it has remained elevated with fluctuations. The available liver and Kidney studies have been within normal limits and so has his ESR and CRP. Given the elevation in the CK, and complaint of muscle weakness and fatigue, it is reasonable to assume there is an active myopathic processes. I will do some additional evaluation to to determine if this is autoimmune, inflammatory or drug-induced. Among the differentials are nontraumatic rhabdomyolysis, polymyositis/dermatomyositis. Patient was admitted to ER on 10/17/2023 and CK was 658 down from 1189(10/05/2023). Based on CK I had ordered and patient obtain after visit, at the time of this writing, the CK is further trended down to 306. Upon review of his ER records, Patient comes in the emergency room complaining of nausea vomiting and diffuse body pains. Patient states that earlier today he was doing heavy lifting and yd work. Patient has chest pain or shortness of breath. Patient complaining of right rib pain that is been present for 2-3 months. Patient states that he ran out of water while working in the yd. Patient did not pass out. Denies any other injury. At this time I am considering this to be nontraumatic rhabdomyolysis secondary to dehydration. Nontraumatic rhabdomyolysis causes can also include the use of alcohol or illegal drugs such as heroin, cocaine or amphetamines. However, the patient denies use of all these. This could also be due to statin use. I have instructed the patient to hold atorvastatin for now. I will obtain additional labs, muscle biopsy, EMG studies and CT of the abdomen to evaluate further and rule out inflammatory or autoimmune process. I have also reiterated to him to keep hydrated which he also admits he has not be drinking enough water daily, whereby some days has none. #Abdominal Tenderness in Flank: Patient sees Urology for History of Kidney stones which he has currently bilaterally. He denies associated urinary symptoms. He has upcoming appointment with Urology. I will order a CT of the abdomen. Orders: Orders Erythrocyte Sedimentation Rate Today M33.12 - Other dermatomyositis with myopathy, R21 - Rash and other nonspecific skin eruption Creatine Kinase Total Today M33.12 - Other dermatomyositis with myopathy, R21 - Rash and other nonspecific skin eruption Immunofixation Pnl, Serum Today M33.12 - Other dermatomyositis with myopathy, R21 - Rash and other nonspecific skin eruption Complete Blood Count Auto Diff Today M33.12 - Other dermatomyositis with myopathy, R21 - Rash and other nonspecific skin eruption Comprehensive Met. Panel Today M33.12 - Other dermatomyositis with myopathy, R21 - Rash and other nonspecific skin eruption C Reactive Protein Today M33.12 - Other dermatomyositis with myopathy, R21 - Rash and other nonspecific skin eruption Immunoglobulins,IgG IgA IgM Today M33.12 - Other dermatomyositis with myopathy, R21 - Rash and other nonspecific skin eruption Protein Electrophoresis, Serum Today M33.12 - Other dermatomyositis with myopathy, R21 - Rash and other nonspecific skin eruption Medications: Discontinued prednisone Discontinued Reason: Patient Completed Course orally daily; 3 tablets per day x 7 days 2 tablets per day x 7 days 1 1/2 tablet per day 90 tabs 0RF M33.12 - Other dermatomyositis with myopathy, M62.82 - Rhabdomyolysis Coding Level of Care Code Est Pt Level 4 (16900) Complex EM visit Add On G2211 Diagnoses Dermatomyositis with myopathy, adult onset M33.12 Rash and nonspecific skin eruption R21 Non-traumatic rhabdomyolysis M62.82 Rhabdomyolysis type: non-traumatic Non-traumatic rhabdomyolysis M62.82 Elevated CK R74.8 Upper extremity weakness R29.898 Uncontrolled type 2 diabetes mellitus with hyperglycemia E11.65 Glycemic state: with hyperglycemia
[2024-05-10 08:50] VITALS: BP 130/80; PULSE 81; O2SAT 96; BMI 34.0
== END 2024-05-10 10:14 | disposition home or self-care (01) ==
LOC: HO.RHE 08:15
PROVIDERS: PCP General Practice; Visit Provider Nurse Practitioner Family
DX: M33.12 Other dermatomyositis with myopathy (principal); R21 Rash and other nonspecific skin eruption; R74.8 Abnormal levels of other serum enzymes; R29.898 Other symptoms and signs involving the musculoskeletal system; E11.65 Type 2 diabetes mellitus with hyperglycemia
CPT/HCPCS: 99214; G2211

== ENCOUNTER → 2024-05-10 08:15 | Outpatient (BNVA) | payer OTHER, SELFPAY | PROVIDERS: PCP General Practice; Visit Provider Nurse Practitioner Family | DX: M33.12 Other dermatomyositis with myopathy (principal); M62.82 Rhabdomyolysis; R21 Rash and other nonspecific skin eruption; R74.8 Abnormal levels of other serum enzymes; R29.898 Other symptoms and signs involving the musculoskeletal system; E11.65 Type 2 diabetes mellitus with hyperglycemia | CPT/HCPCS: 99212 ==

== ENCOUNTER 2024-05-10 10:26 | Outpatient (REF) | payer OTHER, SELFPAY ==
[2024-05-10 10:58] LABS: MANUAL DIFF FLAG NO
[2024-05-10 11:11] LABS: Basophils Absolute Auto 0.1 X10*3/uL (0.0-0.2); Basophils Percent Auto 0.5 % (0-2); Eosinophils Absolute Auto 0.2 X10*3/uL (0.0-0.4); Eosinophils Percent Auto 2.5 % (0-4); Imm Gran Abs Auto 0.03 X10*3/uL (0.00-0.03); Imm Gran Pct Auto 0.3 % (0.0-0.4); Lymphocytes Absolute Auto 2.9 X10*3/uL (1.2-4.9); Lymphocytes Percent Auto 31.2 % (20-40); Mean Corpuscular HGB Conc 34.1 g/dl (31.0-36.0); Mean Corpuscular Hemoglobin 29.2 pg (27.0-33.0); Mean Corpuscular Volume 85.4 fL (80.0-98.0); Mean Platelet Volume 9.6 fL (9.4-12.4); Monocytes Absolute Auto 0.8 X10*3/uL (0.1-1.2); Monocytes Percent Auto 8.2 % (2-11); Neutrophils Absolute Auto 5.3 x10*3/uL (2.0-8.3); Neutrophils Percent Auto 57.3 % (45-73); Platelet Count 247 X10*3/uL (160-400); Red Cell Distribution Width 12.8 % (11.0-16.0); White Blood Count 9.2 X10*3/uL (4.8-10.8)
[2024-05-10 12:03] LABS: Erythrocyte Sedimentation Rate 14 MM/HR (0-15)
[2024-05-10 12:28] LABS: Alanine Aminotransferase 26 U/L (0-40); Albumin Level 4.2 g/dL (3.5-5.0); Alkaline Phosphatase 88 U/L (39-117); Anion Gap 11 (12-20); Aspartate Amino Transferase 21 U/L (5-37); Bilirubin Total 0.2 mg/dL (0.0-1.0); Blood Urea Nitrogen 13 mg/dL (9-16); C Reactive Protein 0.43 mg/dL (< or = 0.50); Calcium 9.4 mg/dL (8.4-10.2); Carbon Dioxide 29 mmol/L (22-29); Chloride 103 mmol/L (96-108); Estimated Glomerular Filt Rate > 60; Glucose Random 185 mg/dL (60-115); Sodium 139 mmol/L (135-145); Total Protein 7.5 g/dL (6.5-8.0)
[2024-05-12 15:18] LABS: IgA 378 mg/dL (47-310); IgG 1338 mg/dL (600-1640); IgM 101 mg/dL (50-300)
[2024-05-13 17:03] LABS: Prot Elec - Alpha1 0.3 g/dL (0.2-0.3); Prot Elec - Alpha2 0.7 g/dL (0.5-0.9); Prot Elec - Beta 1 0.5 g/dL (0.4-0.6); Prot Elec - Beta 2 0.4 g/dL (0.2-0.5); Prot Elec - Gamma 1.2 g/dL (0.8-1.7); Prot Elec - Total Protein 7.1 g/dL (6.1-8.1)
== END 2024-05-10 10:27 | disposition home or self-care (01) ==
LOC: HO.10HDL 10:26
PROVIDERS: Visit Provider Nurse Practitioner Family
DX: M33.12 Other dermatomyositis with myopathy (principal); R21 Rash and other nonspecific skin eruption
CPT/HCPCS: 36415; 80053; 82550; 82784; 84165; 85025; 85652; 86140; 86334

== ENCOUNTER 2024-06-21 08:20 | Outpatient (AMB) | payer OTHER, SELFPAY ==
--- NOTE | 2024-06-21 08:32 | MHC.OFFVIS ---
Intake Visit Reasons: follow up/US/Labs(set) Intake Note: Patient presents today for follow up on: Erectile Dysfunction, ultrasound and lab results Imaging completed: 01/29/24 Testosterone: 184 Free Testosterone: 42.1 Urology Medications: tadalafil Blood Thinner: none Office Rental Clerk Required: Yes Office Rental Clerk Name: [id number] Accompanied by: Self / Same As Patient Allergies No Known Allergies Allergy (Verified 06/21/24 20:26) Medication List - Last Reconciled 06/21/24 by ORLANDO Whitaker albuterol sulfate 90 mcg/actuation (Ventolin HFA) inhalation alcohol swabs 0 pad topical allopurinol 100 mg PO QAM atorvastatin 20 mg PO DAILY 30 days blood sugar diagnostic As directed blood sugar diagnostic (FreeStyle Lite Strips) As directed four times a day bupropion HCl XL 150 mg PO DAILY butenafine 1% (Lotrimin Ultra) 1 appl topical BID 14 days cholecalciferol (vitamin D3) 125 mcg PO DAILY 30 days clotrimazole 1% (Lotrimin AF (clotrimazole)) 1 appl topical BID 2 weeks cyclobenzaprine 10 mg PO TID PRN diclofenac sodium 1% topical BID dulaglutide (Trulicity) mg subcut flash glucose scanning reader (Vee24Style Agnes 2 [place]) As directed flash glucose sensor (FreeStyle Agnes 2 Sensor kit) As directed every 2 weeks ibuprofen 400 mg PO Q6H PRN insulin aspart U-100 (Novolog FlexPen U-100 Insulin aspart) 40 units (0.4 mL) subcut TID 90 days insulin degludec (Tresiba FlexTouch U-200 insulin) 120 units (0.6 mL) subcut DAILY 30 days ketoconazole 2% topical lancets As directed lancets (TRUEplus Lancets) As directed 4 x/day lisinopril 5 mg PO DAILY metformin ER 500 mg PO BID 30 days naproxen 250 mg PO BID omeprazole 20 mg PO DAILY 30 days ondansetron 4 mg PO Q6H PRN pen needle, diabetic (BD Dianelys 2nd Gen Pen Needle) four times a day prednisone 10 mg PO Q OTHER DAY tadalafil 5 mg PO DAILY PRN 90 days tamsulosin mg PO DAILY tramadol 25 mg PO Q6H PRN triamcinolone acetonide 0.1% 1 appl topical BID-TID HPI Comments Details: Laron is a very pleasant 49 year old Malay-speaking patient of Dr. Mccray. He has a past medical history of diabetes type 2, diabetic neuropathy associated with type 2 diabetes, disc herniation, dyslipidemia, essential hypertension, and vitamin-D deficiency. He presents to the office today for follow-up of his erectile dysfunction, hypogonadism and nephrolithiasis. In discussion with the patient today he continues to report issues with obtaining and maintaining his erections. He reports noting no improvement with low-dose Cialis daily with p.r.n. additional dosing for on demand sexual activity. Discussed at length potential causes of erectile dysfunction. Discussed at length importance of managing diabetes for improvement in erectile dysfunction and overall health and well-being. Discussed adequate sleep, weight management, and daily exercise in relation to improvement in erectile dysfunction and overall health and well-being. He otherwise denies any issues with his urination. When asked he denies urinary urgency, urinary frequency, incontinence, nocturia, hematuria, dysuria, foul smelling urine, changes to urinary stream, flank pain, fever, and or chills. He is happy with his current voiding parameters. Discussed at length correlation of uncontrolled diabetes and erectile dysfunction. Discussed possible need for penile injection therapy for erectile dysfunction. Discussed penile implant however patient will need to lower A1c. This was discussed with the patient at length. In office urinalysis results reviewed with the patient today. Recent renal imaging results reviewed with the patient today bilateral kidneys with no calculi and or hydronephrosis. There is a cyst in the lateral aspect of the left kidney measuring 1.0 cm. Labs are as follows: PSA: 06/21 0.4 Total Testosterone: 06/21 203, 04/22 184 Free Testosterone:06/21 40.6, 04/22 42.1 PREVIOUS OFFICE VISIT Nephrolithiasis Had been seen in emergency room 07/21 Imaging - CT scan small 3 mm bilateral stones Erectile dysfunction in setting of insulin-dependent diabetes ? Long-term ED ?Diabetic ?On combination diabetes therapy ?Diabetes not well controlled with HbA1c of 8.8. Not suitable candidate for prostatic until HbA1c under better control. ? Symptoms have been present for/since?a number of years? Procedure(s)/Diagnosis causing dysfunction include?diabetes.? At this time he experiences erections?are partial and adequate for vaginal penetration, that undergo rapid detumesence after penetration, TOÑA 8-11 Moderate ED.? Nocturnal erections?do not occur.? Currently they are?in a stable relationship.? Associated problems? hypertension ?Yes ? diabetes ?Yes ? dyslipidemia ?Yes ? depression ?No ? stress ?No ? decreased libido ?No ? pelvic surgery ?No ? Overall he is ?is not satisfied with the current management.? Therapeutic plan includes?the management of his diabetes to HBA1c less than 7.5% [facility] Medical History Rash and nonspecific skin eruption Dermatomyositis with myopathy, adult onset Rhabdomyolysis Abdominal tenderness in flank Pain in joint involving multiple sites Upper extremity weakness Elevated CK Disc herniation Tinea pedis Essential hypertension Vitamin D deficiency Dyslipidemia Diabetic nephropathy associated with type 2 diabetes mellitus Diabetic polyneuropathy associated with type 2 diabetes mellitus long term (current) use of insulin Diabetes type 2, uncontrolled Diabetes Surgical History History of biopsy (~12/29/23) Hx of knee surgery History of ear surgery Family History Father Diabetes mellitus Heart disease Stroke Arthritis Mother Epilepsy Social History Household Members: Spouse, Family and Children Alcohol intake: never Patient Tobacco Use Status: Former Tobacco user Tobacco use type: Cigarette Substance Use Type: Marijuana Current occupational status: unemployed Review of Systems Const Reports as per HPI Eyes Reports no additional complaints ENT Reports no additional complaints Card Reports as per HPI Resp Reports no additional complaints GI Reports no additional complaints Reports as per HPI Musc Reports no additional complaints Neuro Reports no additional complaints Psych Reports no additional complaints Endo Reports as per HPI Alejandro/Lymph Reports no additional complaints Aller/Immun Reports no additional complaints Physical Exam Const General: cooperative, healthy appearing, comfortable, no acute distress, well developed, alert and awake Nutritional Appearance: overweight Orientation/consciousness: patient oriented x3 Limitations: no limitations HEENT Head: Yes normal to inspection, Yes normocephalic and Yes atraumatic Ears: hearing grossly normal bilaterally Eyes General: appearance normal, both eyes and all related structures Neck Neck: Yes normal visual inspection and Yes trachea midline Chest Chest palpation & inspection: normal inspection of the chest Resp Effort & Inspection: normal respiratory effort and able to speak in complete sentences Cardio Rate: regular rate GI Inspection: Yes normal to inspection General: Yes no CVA tenderness Back/Spine/Pelvis Back: no CVA tenderness Skin General skin exam: no rashes or lesions noted Neuro General: patient oriented x3 Extrem General: Yes normal to inspection Psych Appearance: grossly normal and well kempt Mental Status: mental status grossly normal Speech and movement: Normal speech and movement present and Clear speech present Affect: normal affect Attitude: cooperative Thought process: Normal thought process present Thought content: Normal thought content present Insight: Fair insight present (Psych) Judgement: Fair judgement present (Psych) Results AMB Urinalysis, Automated UA Leukoctes 0 Riley/uL Last Edit by [employer] on 06/21/24 08:46 UA Nitrite Negative Last Edit by [employer] on 06/21/24 08:46 UA Urobilinogen 0.2 mg/dL Last Edit by [employer] on 06/21/24 08:46 UA Protein 30 mg/dL Last Edit by [employer] on 06/21/24 08:46 UA pH 6.0 Last Edit by [employer] on 06/21/24 08:46 UA Blood 0 Allen/uL Last Edit by [employer] on 06/21/24 08:46 UA Specific Mccomb 1.025 Last Edit by [employer] on 06/21/24 08:46 UA Ketone Negative Last Edit by Damien Theresemarion on 06/21/24 08:46 UA Bilirubin 0 mg/dL Last Edit by Damien Theresemarion on 06/21/24 08:46 UA Glucose 500 mg/dL Last Edit by Damien Theresemarion on 06/21/24 08:46 Results Reviewed Results Reviewed: Laboratory Last Values Urine pH (Auto) 6.0 06/21/24 08:41 Specific Mccomb (Auto) 1.025 06/21/24 08:41 Urine Protein (Auto) 30 mg/dL 06/21/24 08:41 Glucose (UA)(Auto) 500 mg/dL 06/21/24 08:41 Urine Ketones (Auto) Negative 06/21/24 08:41 Urine Blood (Auto) 0 Allen/uL 06/21/24 08:41 Urine Nitrite (Auto) Negative 06/21/24 08:41 Urine Bilirubin (Auto) 0 mg/dL 06/21/24 08:41 Urine Urobilinogen (Auto) 0.2 mg/dL 06/21/24 08:41 Leukocyte Esterase (Auto) 0 Riley/uL 06/21/24 08:41 Date of Service: 01/29/24 Procedure(s): US renal BI FINDINGS: RIGHT KIDNEY: 13.5 x 7.2 x 6.6 cm (SAG x AP x TRV). The kidney is normal in size, contour, and echogenicity. Renal cortical thickness is normal. No calculi or focal parenchymal lesions. No hydronephrosis. LEFT KIDNEY: 12.4 x 7.5 x 5.6 cm (SAG x AP x TRV). The kidney is normal in size, contour, and echogenicity. Renal cortical thickness is normal. No renal calculi or hydronephrosis. There is cyst in the lateral aspect of left kidney parenchyma measured 1.0 cm IMPRESSION: Nonvisualization of nephrolithiasis.. Assessment & Plan Assessment & Plan (1) Hypogonadism in male: Code(s): E29.1 - Testicular hypofunction Category: Medical (2) Low libido: Code(s): R68.82 - Decreased libido Category: Medical (3) Nephrolithiasis: Code(s): N20.0 - Calculus of kidney Category: Medical (4) Erectile dysfunction associated with type 2 diabetes mellitus: Code(s): E11.69 - Type 2 diabetes mellitus with other specified complication; N52.1 - Erectile dysfunction due to diseases classified elsewhere Category: Medical Plan In office urinalysis results reviewed with the patient today; as noted above. Discussed at length potential causes of hypogonadism, erectile dysfunction, and nephrolithiasis. Discussed, educated, and stressed the importance of management of diabetes for urological issues as well as overall health and well-being. Discussed further treatment options for hypogonadism as well as erectile dysfunction; this was discussed at length; risks and benefits of these interventions were discussed; all questions were answered. He currently denies any bothersome urinary issues. He reports be happy with current voiding parameters. Will obtain SHBG, testosterone free and total, prolactin, FSH, LH, estradiol, and A1c for further assessment evaluation. Follow-up in 1-3 months with labs to be completed prior; or sooner with any issues, concerns, and or questions. Orders: Orders Sex Hormone Binding Globulin Today E29.1 - Testicular hypofunction Testosterone, Free/Total Today E29.1 - Testicular hypofunction Prolactin Today E29.1 - Testicular hypofunction Follicle Stimulating Hormone Today E29.1 - Testicular hypofunction Lutenizing Hormone Today E29.1 - Testicular hypofunction Estradiol Ultra Sensitive Today E29.1 - Testicular hypofunction AMB Urinalysis Automated Today Z13.9 - Encounter for screening, unspecified Hemoglobin A1c Today E11.9 - Type 2 diabetes mellitus without complications Patient Instructions: The patient had an opportunity to ask questions regarding the treatment plan. All questions were answered. Physical exam, labs, and imaging were discussed and reviewed in detail. As well as risks, benefits, and discussion of treatment choices. No major barriers to understanding were identified. The patient expressed understanding and agreement with the above treatment plan. The patient was made aware they should contact our office by phone for worsening of their current condition, the appearance of new symptoms, or with any questions or concerns. Compliance is encouraged with any medications and follow up testing that is ordered. It is a privilege to be allowed the opportunity to participate in? your urological care.? Again, if you have any questions or concerns If you have any questions or concerns please do not hesitate to contact me. The office is [phone]. This note is constructed using voice recognition software. While every effort has been made to ensure accuracy weight tester errors may have been included. Yours sincerely, CLEMENTINA Whitaker-TERRY Coding Level of Care Code Est Pt Level 4 (61201) Diagnoses Hypogonadism in male E29.1 Low libido R68.82 Nephrolithiasis N20.0 Erectile dysfunction associated with type 2 diabetes mellitus E11.69; N52.1 Time Spent (min) 30
== END 2024-06-21 09:37 | disposition home or self-care (01) ==
PROVIDERS: PCP General Practice; Visit Provider Nurse Practitioner Family
DX: E29.1 Testicular hypofunction (principal); R68.82 Decreased libido; N20.0 Calculus of kidney; E11.69 Type 2 diabetes mellitus with other specified complication; N52.1 Erectile dysfunction due to diseases classified elsewhere; Z13.9 Encounter for screening, unspecified
CPT/HCPCS: 99214

== ENCOUNTER → 2024-06-21 08:20 | Outpatient (BNVA) | payer OTHER, SELFPAY | PROVIDERS: PCP General Practice; Visit Provider Nurse Practitioner Family | DX: E29.1 Testicular hypofunction (principal); R68.82 Decreased libido; N20.0 Calculus of kidney; E11.69 Type 2 diabetes mellitus with other specified complication; N52.1 Erectile dysfunction due to diseases classified elsewhere | CPT/HCPCS: 81003; 99212 ==

== ENCOUNTER 2024-09-05 07:34 | Outpatient (REF) | payer OTHER, SELFPAY ==
[2024-09-05 08:40] LABS: Estimated Average Glucose 237 mg/dL; Hemoglobin A1C 308.9555 umol/L; Hemoglobin A1c % 9.9 % (<6.0); Total Hemoglobin (HGBA1C) 3645.8338 umol/L
[2024-09-06 08:49] LABS: Sex Hormone Binding Globulin 17 nmol/L (10-50)
[2024-09-06 09:04] LABS: Follicle Stimulating Hormone 8.7 mIU/mL (1.4-12.8); Lutenizing Hormone 5.8 mIU/mL (1.5-9.3); Prolactin 6.5 ng/mL (2.0-18.0)
[2024-09-12 02:19] LABS: Estradiol Ultra Sensitive 24 pg/mL (< OR = 29)
[2024-09-12 14:57] LABS: Testosterone, Free 45.6 pg/mL (35.0-155.0); Testosterone, Total 200 ng/dL (250-1100)
== END 2024-09-05 07:35 | disposition home or self-care (01) ==
LOC: HO.LAB 07:34
PROVIDERS: PCP General Practice; Visit Provider Nurse Practitioner Family
DX: E29.1 Testicular hypofunction (principal); E11.9 Type 2 diabetes mellitus without complications
CPT/HCPCS: 36415; 82670; 83001; 83002; 83036; 84146; 84270; 84402; 84403

== ENCOUNTER 2024-10-03 11:28 | Outpatient (AMB) | payer OTHER, SELFPAY ==
--- NOTE | 2024-10-03 11:32 | MHC.OFFVIS ---
Intake Visit Reasons: 3 month follow up/ Labs Intake Note: Patient presents today for follow up on: Erectile Dysfunction, Hypogonadism Testosterone: 200 Free Testosterone: 45.6 HGB A1C: 9.9 Urology Medications: tadalafil, tamsulosin Blood Thinner: none Process Planner Required: Yes Process Planner Name: [id number] Accompanied by: Self / Same As Patient Allergies No Known Allergies Allergy (Verified 10/03/24 20:36) Medication List - Last Reconciled 10/03/24 by ORLANDO Whitaker albuterol sulfate 90 mcg/actuation (Ventolin HFA) inhalation alcohol swabs 0 pad topical allopurinol 100 mg PO QAM atorvastatin 20 mg PO DAILY 30 days blood sugar diagnostic As directed blood sugar diagnostic (FreeStyle Lite Strips) As directed four times a day bupropion HCl XL 150 mg PO DAILY butenafine 1% (Lotrimin Ultra) 1 appl topical BID 14 days cholecalciferol (vitamin D3) 125 mcg PO DAILY 30 days clotrimazole 1% (Lotrimin AF (clotrimazole)) 1 appl topical BID 2 weeks cyclobenzaprine 10 mg PO TID PRN diclofenac sodium 1% topical BID dulaglutide (Trulicity) mg subcut flash glucose scanning reader (Tangible PlayStyle Agnes 2 [place]) As directed flash glucose sensor (FreeStyle Agnes 2 Sensor kit) As directed every 2 weeks ibuprofen 400 mg PO Q6H PRN insulin aspart U-100 (Novolog FlexPen U-100 Insulin aspart) 40 units (0.4 mL) subcut TID 90 days insulin degludec (Tresiba FlexTouch U-200 insulin) 120 units (0.6 mL) subcut DAILY 30 days ketoconazole 2% topical lancets As directed lancets (TRUEplus Lancets) As directed 4 x/day lisinopril 5 mg PO DAILY metformin ER 500 mg PO BID 30 days naproxen 250 mg PO BID omeprazole 20 mg PO DAILY 30 days ondansetron 4 mg PO Q6H PRN pen needle, diabetic (BD Dianelys 2nd Gen Pen Needle) four times a day prednisone 10 mg PO Q OTHER DAY tadalafil 5 mg PO DAILY PRN 90 days tamsulosin 0.4 mg PO DAILY 90 days testosterone 1 packet transdermal DAILY 30 days tramadol 25 mg PO Q6H PRN triamcinolone acetonide 0.1% 1 appl topical BID-TID HPI Comments Details: Laron is 49 year old Greenlandic-speaking patient of Dr. Mccray. He has a past medical history of diabetes type 2, diabetic neuropathy associated with type 2 diabetes, disc herniation, dyslipidemia, essential hypertension, and vitamin-D deficiency. He presents to the office today for follow-up of his erectile dysfunction, hypogonadism and nephrolithiasis. In discussion with the patient today he continues to report issues with obtaining and maintaining his erections. He reports noting no improvement with low-dose Cialis daily with p.r.n. additional dosing for on demand sexual activity. Discussed at length potential causes of erectile dysfunction. Discussed at length importance of managing diabetes for improvement in erectile dysfunction and overall health and well-being. Discussed adequate sleep, weight management, and daily exercise in relation to improvement in erectile dysfunction and overall health and well-being. He otherwise denies any issues with his urination. When asked he denies urinary urgency, urinary frequency, incontinence, nocturia, hematuria, dysuria, foul smelling urine, changes to urinary stream, flank pain, fever, and or chills. He is happy with his current voiding parameters. Discussed at length correlation of uncontrolled diabetes and erectile dysfunction. Discussed further treatment options to include penile injection therapy verses penile implant however most recent A1c 09/22 9.9. This was discussed with the patient at length. In office urinalysis results reviewed with the patient today. Previous imaging 02/20 as patient with a history of nephrolithiasis noted bilateral kidneys with no calculi and or hydronephrosis. There is a cyst in the lateral aspect of the left kidney measuring 1.0 cm. Labs are as follows: PSA: 06/21 0.4 Total Testosterone: 06/21 203, 04/22 184, 09/22 200 Free Testosterone:06/21 40.6, 04/22 42.1, 09/22 45.6 Estradiol 09/22 24 FSH 09/22 8.7 LH 09/22 5.8 Prolactin 09/22 6.5 SHBG 09/22 17 PREVIOUS OFFICE VISIT Nephrolithiasis Had been seen in emergency room 07/21 Imaging - CT scan small 3 mm bilateral stones Erectile dysfunction in setting of insulin-dependent diabetes ? Long-term ED ?Diabetic ?On combination diabetes therapy ?Diabetes not well controlled with HbA1c of 8.8. Not suitable candidate for prostatic until HbA1c under better control. ? Symptoms have been present for/since?a number of years? Procedure(s)/Diagnosis causing dysfunction include?diabetes.? At this time he experiences erections?are partial and adequate for vaginal penetration, that undergo rapid detumesence after penetration, TOÑA 8- Moderate ED.? Nocturnal erections?do not occur.? Currently they are?in a stable relationship.? Associated problems? hypertension ?Yes ? diabetes ?Yes ? dyslipidemia ?Yes ? depression ?No ? stress ?No ? decreased libido ?No ? pelvic surgery ?No ? Overall he is ?is not satisfied with the current management.? 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 Diabetes type 2, uncontrolled Diabetes Surgical History History of biopsy (~12/29/23) Hx of knee surgery History of ear surgery Family History Father Diabetes mellitus Heart disease Stroke Arthritis Mother Epilepsy Social History Household Members: Spouse, Family and Children Alcohol intake: never Patient Tobacco Use Status: Former Tobacco user Tobacco use type: Cigarette Substance Use Type: Marijuana Current occupational status: unemployed Review of Systems Const Reports as per HPI Eyes Reports no additional complaints ENT Reports no additional complaints Card Reports as per HPI Resp Reports no additional complaints GI Reports no additional complaints Reports as per HPI Musc Reports no additional complaints Neuro Reports no additional complaints Psych Reports no additional complaints Endo Reports as per HPI Alejandro/Lymph Reports no additional complaints Aller/Immun Reports no additional complaints Physical Exam Const General: cooperative, healthy appearing, comfortable, no acute distress, well developed, alert and awake Nutritional Appearance: overweight Orientation/consciousness: patient oriented x3 Limitations: no limitations HEENT Head: Yes normal to inspection, Yes normocephalic and Yes atraumatic Ears: hearing grossly normal bilaterally Eyes General: appearance normal, both eyes and all related structures Neck Neck: Yes normal visual inspection and Yes trachea midline Chest Chest palpation & inspection: normal inspection of the chest Resp Effort & Inspection: normal respiratory effort and able to speak in complete sentences Cardio Rate: regular rate GI Inspection: Yes normal to inspection General: Yes no CVA tenderness Back/Spine/Pelvis Back: no CVA tenderness Skin General skin exam: no rashes or lesions noted Neuro General: patient oriented x3 Extrem General: Yes normal to inspection Psych Appearance: grossly normal and well kempt Mental Status: mental status grossly normal Speech and movement: Normal speech and movement present and Clear speech present Affect: normal affect Attitude: cooperative Thought process: Normal thought process present Thought content: Normal thought content present Insight: Fair insight present (Psych) Judgement: Fair judgement present (Psych) Results AMB Urinalysis, Automated UA Leukoctes 0 Riley/uL Last Edit by Damien Lee on 10/03/24 11:44 UA Nitrite Last Edit by Damien Lee on 10/03/24 11:44 UA Urobilinogen 0.2 mg/dL Last Edit by Damien Lee on 10/03/24 11:44 UA Protein 0 mg/dL Last Edit by Damien Lee on 10/03/24 11:44 UA pH 6.0 Last Edit by Damien Lee on 10/03/24 11:44 UA Blood 0 Allen/uL Last Edit by Briansergiomarycarmen Salehmarion on 10/03/24 11:44 UA Specific Colbert 1.010 Last Edit by Briansergiomarycarmen Salehmarion on 10/03/24 11:44 UA Ketone Negative Last Edit by Rosendomarycarmen Theresemarion on 10/03/24 11:44 UA Bilirubin 0 mg/dL Last Edit by Damien Salehmarion on 10/03/24 11:44 UA Glucose 1000 mg/dL Last Edit by Rosendomarycarmen Theresemarion on 10/03/24 11:44 Results Reviewed Results Reviewed: Laboratory Last Values Urine pH (Auto) 6.0 10/03/24 11:41 Specific Colbert (Auto) 1.010 10/03/24 11:41 Urine Protein (Auto) 0 mg/dL 10/03/24 11:41 Glucose (UA)(Auto) 1000 mg/dL 10/03/24 11:41 Urine Ketones (Auto) Negative 10/03/24 11:41 Urine Blood (Auto) 0 Allen/uL 10/03/24 11:41 Urine Bilirubin (Auto) 0 mg/dL 10/03/24 11:41 Urine Urobilinogen (Auto) 0.2 mg/dL 10/03/24 11:41 Leukocyte Esterase (Auto) 0 Riley/uL 10/03/24 11:41 Assessment & Plan Assessment & Plan (1) Hypogonadism in male: Code(s): E29.1 - Testicular hypofunction Category: Medical (2) Low libido: Code(s): R68.82 - Decreased libido Category: Medical (3) Erectile dysfunction associated with type 2 diabetes mellitus: Code(s): E11.69 - Type 2 diabetes mellitus with other specified complication; N52.1 - Erectile dysfunction due to diseases classified elsewhere Category: Medical (4) Nephrolithiasis: Code(s): N20.0 - Calculus of kidney Category: Medical Plan In office urinalysis results reviewed with the patient today; as noted above. Recent hypogonadism labs reviewed with the patient today; as noted above. Continue Flomax Continue low-dose Cialis 5 mg daily Discussed at length potential causes of hypogonadism and erectile dysfunction Discussed, educated, and stressed the importance of management of diabetes for urological issues as well as overall health and well-being. Discussed further treatment options for hypogonadism as well as erectile dysfunction; this was discussed at length; risks and benefits of these interventions were discussed; all questions were answered. Start testosterone as discussed and prescribed. He currently denies any bothersome urinary issues. He reports be happy with current voiding parameters. Will obtain PSA, CBC, testosterone, and free testosterone in 3 months Follow-up in 3 months with labs to be completed prior; or sooner with any issues, concerns, and or questions. Orders: Orders Testosterone, Free/Total 3 Months E11.69 - Type 2 diabetes mellitus with other specified complication, N52.1 - Erectile dysfunction due to diseases classified elsewhere AMB Urinalysis Automated Today Z13.9 - Encounter for screening, unspecified Complete Blood Count no Diff 3 Months E29.1 - Testicular hypofunction Prostate Specific Antigen 3 Months E29.1 - Testicular hypofunction Medications: New testosterone 1 packet transdermal DAILY 150 grams 5RF 30 days Changed From tamsulosin PO DAILY To tamsulosin 0.4 mg PO DAILY 90 caps 0RF 90 days Refilled tadalafil Daily medication 5 mg PO DAILY PRN 90 tabs 1RF sexual activity 90 days E11.69 - Type 2 diabetes mellitus with other specified complication, N52.1 - Erectile dysfunction due to diseases classified elsewhere Patient Instructions: The patient had an opportunity to ask questions regarding the treatment plan. All questions were answered. Physical exam, labs, and imaging were discussed and reviewed in detail. As well as risks, benefits, and discussion of treatment choices. No major barriers to understanding were identified. The patient expressed understanding and agreement with the above treatment plan. The patient was made aware they should contact our office by phone for worsening of their current condition, the appearance of new symptoms, or with any questions or concerns. Compliance is encouraged with any medications and follow up testing that is ordered. It is a privilege to be allowed the opportunity to participate in? your urological care.? Again, if you have any questions or concerns If you have any questions or concerns please do not hesitate to contact me. The office is [phone]. This note is constructed using voice recognition software. While every effort has been made to ensure accuracy sales marketing coordinator errors may have been included. Yours sincerely, ORLANDO Whitaker Coding Level of Care Code Est Pt Level 4 (67530) Complex EM visit Add On G2211 Diagnoses Hypogonadism in male E29.1 Low libido R68.82 Erectile dysfunction associated with type 2 diabetes mellitus E11.69; N52.1 Nephrolithiasis N20.0 Time Spent (min) 35
== END 2024-10-03 12:09 | disposition home or self-care (01) ==
LOC: HO.HUSH 11:29
PROVIDERS: PCP General Practice; Visit Provider Nurse Practitioner Family
DX: E29.1 Testicular hypofunction (principal); R68.82 Decreased libido; E11.69 Type 2 diabetes mellitus with other specified complication; N52.1 Erectile dysfunction due to diseases classified elsewhere; N20.0 Calculus of kidney; Z13.9 Encounter for screening, unspecified
CPT/HCPCS: 99214; G2211

== ENCOUNTER → 2024-10-03 11:28 | Outpatient (BNVA) | payer OTHER, SELFPAY | PROVIDERS: PCP General Practice; Visit Provider Nurse Practitioner Family | DX: E29.1 Testicular hypofunction (principal); E11.69 Type 2 diabetes mellitus with other specified complication; N52.1 Erectile dysfunction due to diseases classified elsewhere; N20.0 Calculus of kidney; R68.82 Decreased libido | CPT/HCPCS: 81003; 99212 ==

== ENCOUNTER 2024-12-30 09:48 | Outpatient (REF) | payer OTHER, SELFPAY ==
--- OUTSIDE RECORDS SUMMARY | 2024-12-30 10:28 | XMS_ITS | Encounter Summary ---
Author Organization [facility] Address [address] [place] [address] Care Team Providers Care Fleet Operations Manager Name Role Phone Gemma Mccray MD Primary Care Provider [phone] Reason for Visit * Reason Onset Date Comments PCP Appt 04/09/2023 Encounter Details Date Type Department Care Team (Late st Contact Info) Description 04/09/2023 Telephone [facility] [address] [place] [address] Gemma Mccray MD [address] [place] [address] PCP Appt Social History Tobacco Use Types Packs/Day Years Used Date Smoking Tobacco: Never Smokeless Tobacco: Never Alcohol Use Standard Drinks/Week Comments Never 0 (1 standard drink = 0.6 oz pur e alcohol) Sex and Gender Information Value Date Recorded Sex Assigned at Male 09/29/2022 10:21 AM EDT Legal Sex Male 10:21 AM EDT Gender Identity Male 09/29/2022 10:21 AM EDT Sexual Orientation Straight 09/29/2022 10 :21 AM EDT documented as of this encounter Plan of Treatment Upcoming Encounters Date Type Department Care Team (Late st Contact Info) Description 12/30/2024 11:30 AM EST Medication Management [facility] [address] [place] [address] Ivis Jauregui, PharmD [address] [place] [address] 04/10/2025 9:00 AM EDT Office Visit [facility] [address] [place], [place] [phone] Crystal De Santiago, OD [address] [place] [address] documented as of this encounter Visit Diagnoses Not on filedocumented in this encounter Care Teams Fleet Operations Manager Relationship Specialty Start Date End Date Gemma Mccray MD [address] [place] [address] PCP - General Family Medicine 10/10/20 documented as of this encounter
--- OUTSIDE RECORDS SUMMARY | 2024-12-30 10:28 | XMS_ITS | Encounter Summary ---
Author Organization [employer] Address [address] [place] [address] Care Team Providers Care Lead Sales Consultant Name Role Phone Gemma Mccray MD Primary Care Provider [phone] Reason for Visit * Reason Onset Date Comments Appointment Request 01/20/2024 Encounter Details Date Type Department Care Team ([facility] st Contact Info) Description 01/20/2024 Telephone [facility] [address], [place] [phone] Gemma Mccray MD [address] [place], [place] [phone] Appointment Request Social History Tobacco Use Types Packs/Day Years Used Date Smoking Tobacco: Never Smokeless Tobacco: Never Alcohol Use Standard Drinks/Week Comments Never 0 (1 standard drink = 0.6 oz pur e alcohol) Depression Answer Date Recorded Patient Health Questionnaire-9 Score 10 07/13/2023 Housing Stability Answer Date Recorded What is your housing situation today? I have leftykathy lentz 09/22/[address] you li ve. Do you have problems with any of the following? None of the above 09/22/2023 Food Insecurity Answer Date Recorded Within the past 12 months, y ou worried that your food would run out before you got money to buy more: Never True 09/22/2023 Within the past 12 months,th e food you bought just didn't last and you didn't have enough money to get more: Never True Transportation Answer Date Recorded In the past 12 months, has l ack of transportation kept you from medical appts, meetings, work or from getting things needed for daily living? Yes, it has kept me from medical appointments or getting medications. 09/08/2023 Utilities Answer Date Recorded In the past 12 months, has t he electric, gas, oil or water company threatened to shut off services in your home? No 09/22/2023 Depression Answer Date Recorded Patient Health Questionnaire-2 Score 4 07/13/2023 Sex and Gender Information Value Date Recorded Sex Assigned at Male 09/29/2022 10:21 AM EDT Legal Sex Male 10:21 AM EDT Gender Identity Male 09/29/2022 10:21 AM EDT Sexual Orientation Straight 09/29/2022 10 :21 AM EDT documented as of this encounter Miscellaneous Notes * Telephone Encounter - Olman Swain - 01/20/2024 1:48 PM EST Tc from pt requesting an appt with PCP for a follow up in regards for his Shoulder surgery and would also like to discuss upcoming test . Please contact pt @ [phone] documented in this encounter Plan of Treatment Upcoming Encounters Date Type Department Care Team (Late st Contact Info) Description 12/30/2024 11:30 AM EST Medication Management [facility] [address] [place] [address] Ivis Jauregui, PharmD [address] [place] [address] 04/10/2025 9:00 AM EDT Office Visit [facility] OPTOMETRY [address] [place] [address] Crystal De Santiago, OD [address] [place] [address] documented as of this encounter Visit Diagnoses Not on filedocumented in this encounter Additional Health Concerns Assessment Noted Time PHQ-9 Depression Total Score: 10 023 3:51 PM EDT documented as of this encounter Care Teams Lead Sales Consultant Relationship Specialty Start Date End Date Gemma Mccray MD [address] [place] [address] PCP - General Family Medicine 10/10/20 documented as of this encounter
--- OUTSIDE RECORDS SUMMARY | 2024-12-30 10:28 | XMS_ITS | Encounter Summary ---
Author Organization [employer] [facility] Address [address] [place] [address] Care Team Providers Care Staff Field Engineer Name Role Phone Gemma Mccray MD Primary Care Provider [phone] Encounter Details Date Type Department Care Team (Late Contact Info) Description 07/16/2023 Orders Only [facility] MED[facility] [address], [place] [phone] Gemma Mccray MD [address] [place] [address] Social History Tobacco Use Types Packs/Day Years Used Date Smoking Tobacco: Never Smokeless Tobacco: Never Alcohol Use Standard Drinks/Week Comments Never 0 (1 standard drink = 0.6 oz pur e alcohol) Depression Answer Date Recorded Patient Health Questionnaire-9 Score 10 07/13/2023 Depression Answer Date Recorded Patient Health Questionnaire-2 Score 4 07/13/2023 Sex and Gender Information Value Date Recorded Sex Assigned at Male 09/29/2022 10:21 AM EDT Legal Sex Male 10:21 AM EDT Gender Identity Male 09/29/2022 10:21 AM EDT Sexual Orientation Straight 09/29/2022 10 :21 AM EDT documented as of this encounter Plan of Treatment Upcoming Encounters Date Type Department Care Team (Late Contact Info) Description 12/30/2024 11:30 AM EST Medication Management [facility] [address] [place] [address] Ivis Jauregui, PharmD [address] [place] [address] 04/10/2025 9:00 AM EDT Office Visit [facility] OPTOM[facility] [address] [place] [id number] Crystal De Santiago, OD [address] [place] [address] documented as of this encounter Procedures Procedure Name Priority Date/Time Associated Diagnosis Comments URINALYSIS, COMPLETE, WITH REFLEX TO CULTURE Routine 07/16/2023 3:30 PM EDT DRUG MONITOR, PANEL 1, SCREEN, URINE Routine 07/16/2023 3:30 PM EDT VOLATILES Routine 07/16/2023 11:41 AM EDT documented in this encounter Results * (ABNORMAL) Drug Monitoring, Panel 1, Screen, Urine (07/16/2023 3:30 PM EDT) Opiate Screen Urine Not Detected Not Detect [facility] Comment:Opiate cut-off is 30 0 ng/mL.Positive results are unconfirmed and should not be used fornon-medical purposes. Barbiturates, Urine Not Detected Not Detect [facility] Comment:Barbiturate cut-off is 200 ng/mL.Positive results are unconfirmed and should not be used fornon-medical purposes. Phencyclidine Screen Urine Not Detected Not Detect [facility] Comment:Phencyclidine cut-of f is 25 ng/mL.Positive results are unconfirmed and should not be used fornon-medical purposes. Amphetamine Screen Urine Not Detected Not Detect [facility] Comment:Amphetamine cut-off is 1000 ng/mL.Positive results are unconfirmed and should not be used fornon-medical purposes. Benzodiazepines Screen Urine Not Detected Not Detect [facility] Comment:Benzodiazepine cut-o ff is 200 ng/mL.Positive results are unconfirmed and should not be used fornon-medical purposes. Cocaine Screen Urine Not Detected Not Detect [facility] Comment:Cocaine cut-off is 3 00 ng/mL.Positive results are unconfirmed and should not be used fornon-medical purposes. Cannabinoid Screen Urine POSITIVE(A) Not Detect [facility] Comment:Cannabinoid cut-off is 50 ng/mL.Positive results are unconfirmed and should not be used fornon-medical purposes. FENTANYL URINE Not Detected Not Detect [facility] Comment:Fentanyl cut-off is 1 ng/mL.Positive results are unconfirmed and should not be used fornon-medical purposes. 07/16/2023 3:30 PM EDT 07/16/2023 3:32 PM EDT [facility] External Provider LAB URI NE ORDERABLES Final Result [facility] [address] [place] [address] [phone] * (ABNORMAL) Urinalysis, Complete, with Reflex to Culture (07/16/2023 3:30 PM EDT) Color Urine Dark Yellow [facility] Appearance Urine Clear [facility] PH 6.0 5.0 - 9.0 [facility] Glucose Urine UA Negative Negative mg/dL [facility] Urine Blood Negative Negative [facility] Specific Antoine - Urine >=1.030(H) 1.005 - 1.025 [facility] Urine Protein 100 (2+)(A) Neg-Trace mg/dL [facility] Urine Ketones 40 Negative mg/dL [facility] Nitrite Urine Negative Negative [facility] Leukocyte Esterase Urine Negative Negative [facility] RBC Urine 0-2 0 - 2 /HPF [facility] Urine WBC 0-5 0 - 5 /HPF [facility] Urine Squamous Epithelial Cell 0-2 0 - 2 /HPF [facility] Urine Bacteria None Seen None Seen [facility] Hyaline Casts, Urine 0-2 0 - 2 /LPF [facility] 07/16/2023 3:30 PM EDT 07/16/2023 3:32 PM EDT Narrative [facility] - 07/16/2023 3:47 PM EDT [id number], Clean Catch [facility] External Provider LAB URI NE ORDERABLES Final Result [facility] [address] [place] [address] [phone] * Volatiles (07/16/2023 11:41 AM EDT) Alcohol, Methyl NONE DETECTED [facility] Comment:Reportable Limit: 5 mg/dLThis test was developed and its analytical performancecharacteristics have been determined by [employer]. It has not been cleared or approved by theFDA. This assay has been validated pursuant to the CLIAregulations and is used for clinical purposes. Alcohol, Ethyl NONE DETECTED NONE DETECTED mg/dL [facility] Comment:100 mg/dL = 0.100 g% (g/dL)Reportable Limit: 10 mg/dLThis test was developed and its analytical performancecharacteristics have been determined by [employer]. It has not been cleared or approved by theFDA. This assay has been validated pursuant to the CLIAregulations and is used for clinical purposes. Alcohol, Ethyl NONE DETECTED NONE DETECTED g/dL(%) [facility] Comment:Reportable limit: 0. 010 g/dLThis test was developed and its analytical performancecharacteristics have been determined by [employer]. It has not been cleared or approved by theFDA. This assay has been validated pursuant to the CLIAregulations and is used for clinical purposes. ACETONE NONE DETECTED NONE DETECTED mg/dL [facility] Comment:Reportable Limit: 5 mg/dLThis test was developed and its analytical performancecharacteristics have been determined by [employer]. It has not been cleared or approved by theFDA. This assay has been validated pursuant to the CLIAregulations and is used for clinical purposes. Alcohol, Isopropyl NONE DETECTED NONE DETECTED mg/dL [facility] Comment:Reportable Limit: 5 mg/dLThis test was developed and its analytical performancecharacteristics have been determined by [employer]. It has not been cleared or approved by theFDA. This assay has been validated pursuant to the CLIAregulations and is used for clinical purposes. Volatile Analysis Performed On: WHOLE BLOOD [facility] Comment:THIS TEST WAS PERFOR MED AT:[employer] [place] [phone] BOWERS MD 07/16/2023 11:4 1 AM EDT 07/16/2023 11:46 AM EDT us [facility] External Provider LAB BLO OD ORDERABLES Final Result [facility] [address] [place] [address] [phone] documented in this encounter Visit Diagnoses Not on filedocumented in this encounter Additional Health Concerns Assessment Noted Time PHQ-9 Depression Total Score: 10 07/13/ 023 3:51 PM EDT documented as of this encounter Care Teams Staff Field Engineer Relationship Specialty Start Date End Date Gemma Mccray MD [address] [place] [phone] PCP - General Family Medicine 10/10/20 documented as of this encounter
--- OUTSIDE RECORDS SUMMARY | 2024-12-30 10:28 | XMS_ITS | Encounter Summary ---
Author Organization [employer] [facility] Address [address] [place] [address] Care Team Providers Care Pediatrics Physician Name Role Phone Gemma Mccray MD Primary Care Provider [phone] Encounter Details Date Type Department Care Team (Latest Contact Info) Description 04/05/2019 Abstract [facility] Dental, Provider, DDS Social History Tobacco Use Types Packs/Day Years Used Date Smoking Tobacco: Never Assessed Sex and Gender Information Value Date Recorded Sex Assigned at Male 09/29/2022 10:21 AM EDT Legal Sex Male 10:21 AM EDT Gender Identity Male 09/29/2022 10:21 AM EDT Sexual Orientation Straight 09/29/2022 10 :21 AM EDT documented as of this encounter Plan of Treatment Upcoming Encounters Date Type Department Care Team (Late st Contact Info) Description 12/30/2024 11:30 AM EST Medication Management [facility] MEDICINE [address] [place] [address] Ivis Jauregui, PharmD [address] [place] [address] 04/10/2025 9:00 AM EDT Office Visit [facility] [address] [place] [address] Crystal De Santiago, OD [address] [place] [address] documented as of this encounter Visit Diagnoses Not on filedocumented in this encounter Care Teams Pediatrics Physician Relationship Specialty Start Date End Date Gemma Mccray MD [address] [place] [address] PCP - General Family Medicine 10/10/20 documented as of this encounter
--- OUTSIDE RECORDS SUMMARY | 2024-12-30 10:28 | XMS_ITS | Clinical Summary ---
Author Organization [employer] [facility] [facility] Address [address] [place] [address] Care Team Providers Care Encyclopedia Research Worker Name Role Phone Unavailable Primary Care Provider Unavailabl e Social History Tobacco Use Types Packs/Day Years Used Date Smoking Tobacco: Never Assessed Sex and Gender Information Value Date Recorded Sex Assigned at Not on file Gender Identity Not on file Sexual Orientation Not on file Plan of Treatment Health Maintenance Due Date Last Done Comments DTaP,Tdap,and Td Vaccines (1 - Tdap) 02/15/1995 Hepatitis B Vaccines (1 of 3 - 19+ 3-dose series) 02/15/1995 Cholesterol Screening (Lipid Panel) 11/02/2022 Colorectal Cancer Screening: Colonoscopy 11/02/2022 Depression Screening 11/02/2022 HIV Screening 11/02/2022 Hepatitis C Screening 11/02/2022 Social Influencers of Health Screening 11/02/2022 COVID-19 Vaccine (2023-2 5 season) 2024 Influenza Vaccine (#1) 2024 HIB Vaccines Aged Out No longer eligi ble based on patient's age to complete this topic HPV Vaccines Aged Out No longer eligi ble based on patient's age to complete this topic Hepatitis A Vaccines Aged Out No long er eligible based on patient's age to complete this topic IPV Vaccines Aged Out No longer eligi ble based on patient's age to complete this topic MMR Vaccines Aged Out No longer eligi ble based on patient's age to complete this topic Meningococcal ACWY Vaccine Aged Out N o longer eligible based on patient's age to complete this topic Pneumococcal Vaccine: Pediat rics (0 to 5 Years) and At-Risk Patients (6 to 64 Years) Aged Out No longer eligible b ased on patient's age to complete this topic RSV Immunization Patients Un ed 20 months Aged Out No longer eligible b ased on patient's age to complete this topic Varicella Vaccines Aged Out No longer eligible based on patient's age to complete this topic
--- OUTSIDE RECORDS SUMMARY | 2024-12-30 10:28 | XMS_ITS | Encounter Summary ---
Author Organization [facility] Address [address] [place] [address] Care Team Providers Care Upper Caser Name Role Phone Gemma Mccray MD Primary Care Provider [phone] Reason for Referral * Imaging (Routine) - Closed Specialty Diagnoses / Procedures Referred By Contac t Referred To Contact Radiology Diagnoses Right upper quadrant abdominal pain Procedures CT Abdomen Pelvis w/ and w/o Contrast Gemma Mccray MD [address] [place] [address] Phone: tel: fax: [address] Phone: tel: fax: Referral ID Status Reason Start Date Expiration Date Visits Re quested Visits Authorized [id number] Closed 08/14/2023 08/13/2024 1 1 Encounter Details Date Type Department Care Team (Late st Contact Info) Description 08/14/2023 Orders Only [facility] [address] [place], [place] [phone] Gemma Mccray MD [address], [place] [phone] Right upper quadrant abdominal pain (Primary Dx) Social History Tobacco Use Types Packs/Day Years [...] as of this encounter Miscellaneous Notes * Result Encounter Note - Kamila Sidhu MD - 08/14/2023 8:48 AM EDT Results are c/w gynecomastia which is likely related to previous ETOH intake, unlikely to be the cause of ml at recent visit with me. He is to fu with PCP re gynecomastia, only if painful. * Result Encounter Note - Kamila Sidhu MD - 08/14/2023 8:48 AM EDT US and mammogram are c/w gynecomastia which turns to be tender at times. No evidence of malignancy.Still the reason for his CP was most likely muscular. Patient can fu with PCP at upcoming appt. No need for urgent call re this dx. * Result Encounter Note - Kamila Sidhu MD - 08/14/2023 8:[address] scan of abd/pelvis on 09/16 showed small kidney stones which had been suspected by PCP a their recent appt. Please call patient to see how is he doing re back pain/urine sxs and have him fu with PCP, he had cancelled yesterday's appt. Please fu with PCP for addtl POC documented in this encounter Plan of Treatment Upcoming Encounters Date Type Department Care Team (Late st Contact Info) Description 12/30/2024 11:30 AM EST Medication Management [facility] [address] [place] [address] Ivis Jauregui, PharmD [address] [place] [address] 04/10/2025 9:00 AM EDT Office Visit [facility] [address] [place] [address] Crystal De Santiago, OD [address] [place] [address] documented as of this encounter Procedures Procedure Name Priority Date/Time Associated Diagnosis Comments CT ABDOMEN PELVIS W AND WO CONTRAST Routine 09/16/2023 10:26 AM EDT Right upper quadrant abdominal pain BI US BREAST COMPLETE RIGHT Routine 09/03/2023 3:38 PM EDT BI MAMMOGRAM DIAGNOSTIC TOMOSYNTHESIS BILATERAL Routine 09/03/2023 3:10 PM EDT documented in this encounter Results * CT Abdomen Pelvis w/ and w/o Contrast (09/16/2023 10:26 AM EDT) Anatomical Region Laterality Modality Body, Pelvis, Abdomen Computed T omography 09/16/2023 10:2 6 AM EDT Narrative 09/22/2023 10:08 AM EDT ? [facility] ?[address] ?[place] [address] ? [address] Scan Report ? Signed ? Patient: Laron Riley ?MR#: ?? [id number] ? : 1975 ?Acct:[id number] ? Age/Sex: 48 / M ?ADM Date: 10/18/23 ? Loc: HO.CT ? Attending Dr: Gemma Mccray MD ? Ordering Physician: Gemma Mccray ?? Date of Service: 09/16/23 ?? Procedure(s): CT abdomen pelvis wo/w IV con ?? Accession Number(s): [id number] ? cc: Kamila Sidhu MD; Gemma Mccray ? EXAMINATION: ?? CT ABDOMEN AND PELVIS WITHOUT AND WITH CONTRAST ? CLINICAL INFORMATION: ?? Right upper quadrant abdominal pain. ? COMPARISON: ?? Abdominal ultrasound 07/16/2023. CT abdomen and pelvis 07/11/2022. ? TECHNIQUE: ?? Multidetector volumetric imaging was performed of the abdomen and ?? pelvis before and after the IV administration of 85 mL of Omnipaque 350 ?? intravenous contrast. Sagittal and coronal reformatted images were ?? obtained on the technologist's workstation. ? This CT examination was performed using dose optimization techniques as ?? appropriate, variously including the following: ?? *Automated exposure control ?? *Adjustment of mA and/or kV according to patient size (this includes ?? techniques or standardized protocols for targeted exams where dose is ?? matched to indication/reason for exam; i.e. extremities or head) ?? *Use of iterative reconstruction technique ? DLP: ?? 1228 mGy-cm ? FINDINGS: ?? LUNG BASES: Calcified granuloma right lung base. No follow-up imaging ?? is recommended as per Fleischner Society guidelines per ? LIVER, GALLBLADDER, AND BILIARY TREE: The liver and spleen are similar ?? attenuation on noncontrast imaging. There is no suspicious liver mass. ?? No biliary ductal dilatation . The gallbladder is contracted. No ?? radiopaque gallstones. ? PANCREAS: No discrete pancreatic mass. No pancreatic ductal dilatation ? SPLEEN: Normal, no mass. ? ADRENAL GLANDS: Normal, no mass. ? KIDNEYS AND URETERS: Symmetric nephrograms. 2 mm nonobstructing ?? calculus lower pole right kidney 10.6 cm from posterolateral skin ?? surface. 3 mm nonobstructing calculus lower pole left kidney 8.8 cm ?? from posterolateral skin surface. No hydroureteronephrosis. No ?? suspicious renal mass. Simple cyst in the mid left kidney for which no ?? follow-up imaging is recommended. ? BLADDER: The bladder is decompressed and not well evaluated. No bladder ?? calculus or discrete mass. ? GASTROINTESTINAL TRACT: The small bowel is normal in caliber. The ?? appendix appears normal. The large bowel is normal in caliber. No acute ?? inflammatory changes ? ABDOMINAL WALL: No significant hernia is appreciated. ? LYMPH NODES: No lymphadenopathy. ? VASCULAR: Mild aortoiliac atherosclerosis. No aortic aneurysm. ? PELVIC VISCERA: Unremarkable ? OSSEOUS STRUCTURES: Moderate degenerative changes in the lower thoracic ?? spine. Mild degenerative changes in the lumbar spine. ? CT/CT abdomen pelvis wo/w IV con ?? IMPRESSION: ?? Bilateral nonobstructing renal calculi. ? Fleischner guidelines were followed. ? Dictated By: ?Mundo Thayer MD ? Signed By: ?<Electronically signed by Mundo Thayer MD in OV> ?09/22/23 1004 ? DD/ 1026 ? TD/TT: ? Event Decorator And Designer: JK ? Procedure Note Donpashater, Image - 09/22/[address] [place] [address] [address] Scan Report Signed Patient: Laron RileyMR#: [id number] : 1975Acct:[id number] Age/Sex: 48 / MADM Date: 09/16/23 Loc: HO.CT Attending Dr: Gemma Mccray MD Ordering Physician: Gemma Mccray Date of Service: 09/16/23 Procedure(s): CT abdomen pelvis wo/w IV con Accession Number(s): [id number] cc: Kamila Sidhu MD; Gemma Mccray EXAMINATION: CT ABDOMEN AND PELVIS WITHOUT AND WITH CONTRAST CLINICAL INFORMATION: Right upper quadrant abdominal pain. COMPARISON: Abdominal ultrasound 07/16/2023. CT abdomen and pelvis 07/11/2022. TECHNIQUE: Multidetector volumetric imaging was performed of the abdomen and pelvis before and after the IV administration of 85 mL of Omnipaque 350 intravenous contrast. Sagittal and coronal reformatted images were obtained on the technologist's workstation. This CT examination was performed using dose optimization techniques as appropriate, variously including the following: *Automated exposure control *Adjustment of mA and/or kV according to patient size (this includes techniques or standardized protocols for targeted exams where dose is matched to indication/reason for exam; i.e. extremities or head) *Use of iterative reconstruction technique DLP: 1228 mGy-cm FINDINGS: LUNG BASES: Calcified granuloma right lung base. No follow-up imaging is recommended as per Fleischner Society guidelines per LIVER, GALLBLADDER, AND BILIARY TREE: The liver and spleen are similar attenuation on noncontrast imaging. There is no suspicious liver mass. No biliary ductal dilatation . The gallbladder is contracted. No radiopaque gallstones. PANCREAS: No discrete pancreatic mass. No pancreatic ductal dilatation SPLEEN: Normal, no mass. ADRENAL GLANDS: Normal, no mass. KIDNEYS AND URETERS: Symmetric nephrograms. 2 mm nonobstructing calculus lower pole right kidney 10.6 cm from posterolateral skin surface. 3 mm nonobstructing calculus lower pole left kidney 8.8 cm from posterolateral skin surface. No hydroureteronephrosis. No suspicious renal mass. Simple cyst in the mid left kidney for which no follow-up imaging is recommended. BLADDER: The bladder is decompressed and not well evaluated. No bladder calculus or discrete mass. GASTROINTESTINAL TRACT: The small bowel is normal in caliber. The appendix appears normal. The large bowel is normal in caliber. No acute inflammatory changes ABDOMINAL WALL: No significant hernia is appreciated. LYMPH NODES: No lymphadenopathy. VASCULAR: Mild aortoiliac atherosclerosis. No aortic aneurysm. PELVIC VISCERA: Unremarkable OSSEOUS STRUCTURES: Moderate degenerative changes in the lower thoracic spine. Mild degenerative changes in the lumbar spine. CT/CT abdomen pelvis wo/w IV con IMPRESSION: Bilateral nonobstructing renal calculi. Fleischner guidelines were followed. Dictated By: Mundo Thayer MD Signed By: <Electronically signed by Mundo Thayer MD in OV> 09/22/23 1004 DD/ 1026 TD/TT: Event Decorator And Designer: ROQUE us Gemma Mccray MD IMG CT PROCEDURES Final Result * BI US Breast Complete Right (09/03/2023 3:38 PM EDT) Anatomical Region Laterality Modality Breast Right Ultrasound 09/03/2023 3:38 PM EDT Narrative 09/03/2023 5:37 PM EDT ? [facility] ? [address] ?[place] [address] ? Ultrasound Report ? Signed ? Patient: Haseeb Mendenhall,Latter-Day ?MR#: ?? [id number] ? : 1975 ?Acct:[id number] ? Age/Sex: 48 / M ?ADM Date: 09/03/23 ? Loc: HO.MAMMO ? Attending Dr: Kamila Sidhu MD ? Ordering Physician: Kamila Sidhu MD ?? Date of Service: 09/03/23 ?? Procedure(s): US breast RT limited mamm only ?? Accession Number(s): [id number] ? cc: Kamila Sidhu MD ? EXAMINATION: ?? MM DIAGNOSTIC DIGITAL BREAST TOMOSYNTHESIS, BILATERAL ?? US BREAST LIMITED, RIGHT ? MAMMOGRAPHY: ?? CLINICAL INFORMATION: ? Right breast pain and swelling, 48-year-old male. ? COMPARISON: ?? Mammography: None. ? TECHNIQUE: ?? Digital breast tomosynthesis is performed in both the craniocaudal and ?? mediolateral oblique views along with computer-aided detection (CAD). ?? Synthesized 2D images are generated from the tomosynthesis. ? FINDINGS: ?? The breasts are almost entirely fatty (ACR BI-RADS breast composition ?? Category a). ? There is moderate right and mild left retroareolar breast tissue ?? development consistent with benign male gynecomastia. ??There are no ?? suspicious masses, suspicious grouped calcifications, or areas of ?? architectural distortion in either breast. ? ULTRASOUND: ?? CLINICAL INFORMATION: ?? Right breast pain and swelling, 48-year-old male. ? COMPARISON: ?? None ? TECHNIQUE: ?? Targeted sonographic right breast evaluation was performed using a high ?? frequency linear transducer. Images of the left breast were obtained ?? for comparison purposes. Selected archived documentation. ? FINDINGS: ? RIGHT BREAST: There is normal moderate breast tissue development in the ?? retroareolar region. Findings are consistent with benign male ?? gynecomastia. No mass, cystic abnormality, abnormal shadowing, or edema ?? within the soft tissue planes. ? LEFT BREAST: There is normal mild breast tissue development in the ?? retroareolar region. No mass, cystic abnormality, abnormal shadowing, ?? or edema within the soft tissue planes. ? US/US breast RT limited mamm only ?? IMPRESSION: ?? There is no evidence of malignancy in either breast. ? There is moderate right and mild left benign male gynecomastia. ? Recommend clinical management. ? OVERALL ASSESSMENT: ?? Mammography: BI-RADS 2 - Benign Findings ?? Ultrasound: BI-RADS 2 - Benign Findings ? RECOMMENDATION: ?? 1. Patient should be managed based on the clinical impression. ? Results were provided to the patient at time of visit by the ?? technologist. ? Dictated By: ?Samm Yu MD ? Signed By: ?<Electronically signed by Samm Yu MD in OV> ?10/23 1733 ? DD/ 1538 ? TD/TT: ? Event Decorator And Designer: ? Procedure Note Donpashater, Image - 09/03/[address] [place] [address] Ultrasound Report Signed Patient: Laron RileyMR#: [id number] : 1975Acct:[id number] Age/Sex: 48 / MADM Date: 09/03/23 Loc: HO.MAMMO Attending Dr: Kamila Sidhu MD Ordering Physician: Kamila Sidhu MD Date of Service: 09/03/23 Procedure(s): US breast RT limited mamm only Accession Number(s): [id number] cc: Kamila Sidhu MD EXAMINATION: MM DIAGNOSTIC DIGITAL BREAST TOMOSYNTHESIS, BILATERAL US BREAST LIMITED, RIGHT MAMMOGRAPHY: CLINICAL INFORMATION: Right breast pain and swelling, 48-year-old male. COMPARISON: Mammography: None. TECHNIQUE: Digital breast tomosynthesis is performed in both the craniocaudal and mediolateral oblique views along with computer-aided detection (CAD). Synthesized 2D images are generated from the tomosynthesis. FINDINGS: The breasts are almost entirely fatty (ACR BI-RADS breast composition Category a). There is moderate right and mild left retroareolar breast tissue development consistent with benign male gynecomastia. There are no suspicious masses, suspicious grouped calcifications, or areas of architectural distortion in either breast. ULTRASOUND: CLINICAL INFORMATION: Right breast pain and swelling, 48-year-old male. COMPARISON: None TECHNIQUE: Targeted sonographic right breast evaluation was performed using a high frequency linear transducer. Images of the left breast were obtained for comparison purposes. Selected archived documentation. FINDINGS: RIGHT BREAST: There is normal moderate breast tissue development in the retroareolar region. Findings are consistent with benign male gynecomastia. No mass, cystic abnormality, abnormal shadowing, or edema within the soft tissue planes. LEFT BREAST: There is normal mild breast tissue development in the retroareolar region. No mass, cystic abnormality, abnormal shadowing, or edema within the soft tissue planes. US/US breast RT limited mamm only IMPRESSION: There is no evidence of malignancy in either breast. There is moderate right and mild left benign male gynecomastia. Recommend clinical management. OVERALL ASSESSMENT: Mammography: BI-RADS 2 - Benign Findings Ultrasound: BI-RADS 2 - Benign Findings RECOMMENDATION: 1. Patient should be managed based on the clinical impression. Results were provided to the patient at time of visit by the technologist. Dictated By: Samm Yu MD Signed By: <Electronically signed by Samm Yu MD in OV> 09/03/23 1733 DD/ 1538 TD/TT: Event Decorator And Designer: us Kamila Sidhu MD IMG US PROCEDURES Final Result * BI Mammogram Diagnostic Tomosynthesis Bilateral (09/03/2023 3:10 PM EDT) Anatomical Region Laterality Modality Breast Bilateral Mammography 09/03/2023 3:10 PM EDT Narrative 09/03/2023 5:37 PM EDT ? [facility] ? [address] ?[place] [address] ? Mammography Report ? Signed ? Patient: Haseeb Mendenhall,Latter-Day ?MR#: ?? [id number] ? : 1975 ?Acct:[id number] ? Age/Sex: 48 / M ?ADM Date: 10/05/23 ? Loc: HO.MAMMO ? Attending Dr: Kamila Sidhu MD ? Ordering Physician: Kamila Sidhu MD ?Results: 2Be ?? nign Findings ? Date of Service: 09/03/23 ?Follow Up: 1 Year From Orig ?? inal Mammogram ? Procedure(s): MM tomosynthesis diagnostic BI ?? Accession Number(s): [id number] ? cc: Kamila Sidhu MD ? EXAMINATION: ?? MM DIAGNOSTIC DIGITAL BREAST TOMOSYNTHESIS, BILATERAL ?? US BREAST LIMITED, RIGHT ? MAMMOGRAPHY: ?? CLINICAL INFORMATION: ? Right breast pain and swelling, 48-year-old male. ? COMPARISON: ?? Mammography: None. ? TECHNIQUE: ?? Digital breast tomosynthesis is performed in both the craniocaudal and ?? mediolateral oblique views along with computer-aided detection (CAD). ?? Synthesized 2D images are generated from the tomosynthesis. ? FINDINGS: ?? The breasts are almost entirely fatty (ACR BI-RADS breast composition ?? Category a). ? There is moderate right and mild left retroareolar breast tissue ?? development consistent with benign male gynecomastia. ??There are no ?? suspicious masses, suspicious grouped calcifications, or areas of ?? architectural distortion in either breast. ? ULTRASOUND: ?? CLINICAL INFORMATION: ?? Right breast pain and swelling, 48-year-old male. ? COMPARISON: ?? None ? TECHNIQUE: ?? Targeted sonographic right breast evaluation was performed using a high ?? frequency linear transducer. Images of the left breast were obtained ?? for comparison purposes. Selected archived documentation. ? FINDINGS: ? RIGHT BREAST: There is normal moderate breast tissue development in the ?? retroareolar region. Findings are consistent with benign male ?? gynecomastia. No mass, cystic abnormality, abnormal shadowing, or edema ?? within the soft tissue planes. ? LEFT BREAST: There is normal mild breast tissue development in the ?? retroareolar region. No mass, cystic abnormality, abnormal shadowing, ?? or edema within the soft tissue planes. ? MM/MM tomosynthesis diagnostic BI ?? IMPRESSION: ?? There is no evidence of malignancy in either breast. ? There is moderate right and mild left benign male gynecomastia. ? Recommend clinical management. ? OVERALL ASSESSMENT: ?? Mammography: BI-RADS 2 - Benign Findings ?? Ultrasound: BI-RADS 2 - Benign Findings ? RECOMMENDATION: ?? 1. Patient should be managed based on the clinical impression. ? Results were provided to the patient at time of visit by the ?? technologist. ? Dictated By: ?Samm Yu MD ? Signed By: ?<Electronically signed by Samm Yu MD in OV> ?09/03/23 1733 ? DD/ 1510 ? TD/TT: ? Event Decorator And Designer: ? Procedure Note Rocío, Image - 09/03/2023 [place] [facility] [address] [place] [address] Mammography Report Signed Patient: Laron RileyMR#: [id number] : 1975Acct:[id number] Age/Sex: 48 / MADM Date: 09/03/23 Loc: HO.MAMMO Attending Dr: Kamila Sidhu MD Ordering Physician: Kamila Sidhu MDResults: 2Be nign Findings Date of Service: 09/03/23Follow Up: 1 Year From Orig inal Mammogram Procedure(s): MM tomosynthesis diagnostic BI Accession Number(s): [id number] cc: Kamlia Sidhu MD EXAMINATION: MM DIAGNOSTIC DIGITAL BREAST TOMOSYNTHESIS, BILATERAL US BREAST LIMITED, RIGHT MAMMOGRAPHY: CLINICAL INFORMATION: Right breast pain and swelling, 48-year-old male. COMPARISON: Mammography: None. TECHNIQUE: Digital breast tomosynthesis is performed in both the craniocaudal and mediolateral oblique views along with computer-aided detection (CAD). Synthesized 2D images are generated from the tomosynthesis. FINDINGS: The breasts are almost entirely fatty (ACR BI-RADS breast composition Category a). There is moderate right and mild left retroareolar breast tissue development consistent with benign male gynecomastia. There are no suspicious masses, suspicious grouped calcifications, or areas of architectural distortion in either breast. ULTRASOUND: CLINICAL INFORMATION: Right breast pain and swelling, 48-year-old male. COMPARISON: None TECHNIQUE: Targeted sonographic right breast evaluation was performed using a high frequency linear transducer. Images of the left breast were obtained for comparison purposes. Selected archived documentation. FINDINGS: RIGHT BREAST: There is normal moderate breast tissue development in the retroareolar region. Findings are consistent with benign male gynecomastia. No mass, cystic abnormality, abnormal shadowing, or edema within the soft tissue planes. LEFT BREAST: There is normal mild breast tissue development in the retroareolar region. No mass, cystic abnormality, abnormal shadowing, or edema within the soft tissue planes. MM/MM tomosynthesis diagnostic BI IMPRESSION: There is no evidence of malignancy in either breast. There is moderate right and mild left benign male gynecomastia. Recommend clinical management. OVERALL ASSESSMENT: Mammography: BI-RADS 2 - Benign Findings Ultrasound: BI-RADS 2 - Benign Findings RECOMMENDATION: 1. Patient should be managed based on the clinical impression. Results were provided to the patient at time of visit by the technologist. Dictated By: Samm Yu MD Signed By: <Electronically signed by Samm Yu MD in OV> 09/03/23 1731 DD/ 1510 TD/TT: Event Decorator And Designer: us Kamila Sidhu MD IMG BI PROCEDURES Final Result documented in this encounter Visit Diagnoses Diagnosis Right upper quadrant abdominal pain- Primary documented in this encounter Additional Health Concerns Assessment Noted Time PHQ-9 Depression Total Score: 10 07/13/2 023 3:51 PM EDT documented as of this encounter Care Teams [place] Relationship Specialty Start Date End Date Gemma Mccray MD [address] [place] [address] PCP - General Family Medicine 10/10/20 documented as of this encounter
--- OUTSIDE RECORDS SUMMARY | 2024-12-30 10:28 | XMS_ITS | Encounter Summary ---
Author Organization [facility] Address [address] [place] [address] [address] [place] [address] Care Team Providers Care Condenser Winder Name Role Phone Gemma Mccray MD Primary Care Provider [phone] Reason for Visit * Reason Onset Date Comments Med Refill 02/05/2023 Encounter Details Date Type Department Care Team (Late st Contact Info) Description 02/05/2023 Refill [facility] [address] [place], [place] [phone] Gemma Mccray MD [address] [place], [place] [phone] Social History Tobacco Use Types Packs/Day Years [...] encounter Miscellaneous Notes * Telephone Encounter - Ricco Garcia - 02/05/2023 10:43 AM EST Tc from pt requesting med refill Pen needles documented in this encounter Plan of Treatment Upcoming Encounters Date Type Department Care Team (Late st Contact Info) Description 12/30/2024 11:30 AM EST Medication Management [facility] [address] [place], [place] [phone] Ivis Jauregui, PharmD [address] [place] [address] 04/10/2025 9:00 AM EDT Office Visit [facility] [address] [place], [place] [phone] Crystal De Santiago, OD [address] [place] [address] documented as of this encounter Visit Diagnoses Not on filedocumented in this encounter Care Teams Condenser Winder Relationship Specialty Start Date End Date Gemma Mccray MD [address] [place], [place] [phone] PCP - General Family Medicine 10/10/20 documented as of this encounter
--- OUTSIDE RECORDS SUMMARY | 2024-12-30 10:28 | XMS_ITS | Encounter Summary ---
Author Organization [email or web address] Address [address] [place] [address] Care Team Providers Care Data Warehousing Engineer Name Role Phone Gemma Mccray MD Primary Care Provider [phone] Reason for Visit * Reason Onset Date Comments Nurse Triage 12/31/2023 Encounter Details Date Type Department Care Team ([facility] st Contact Info) Description 12/31/2023 Telephone [facility] MEDICINE [address] [place], [place] [phone] Gemma Mccray MD [address] [place], [place] [phone] Nurse Triage Social History Tobacco Use Types Packs/Day Years Used Date Smoking Tobacco: Never Smokeless Tobacco: Never Alcohol Use Standard Drinks/Week Comments Never 0 (1 standard drink = 0.6 oz pur e alcohol) Alcohol Answer Date Recorded Frequency of Alcohol Consumption Not on file 10/04/2024 Average Number of Drinks Not on file 024 Frequency of Binge Drinking Not on file 03/2024 Score 0 10/04/2024 Depression Answer Date Recorded Patient Health Questionnaire-9 Score 10 10/04/2024 Patient Health Questionnaire-9 Score 10 10/04/2024 Last PHQ-9: Questionnaire Data Not on file 1 12/04/2023 Housing Stability Answer Date Recorded What is your housing situation today? I have lefty lentz 02/18/[address] you li ve. Do you have problems with any of the following? None of the above 02/18/2024 Food Insecurity Answer Date Recorded Within the past 12 months, y ou worried that your food would run out before you got money to buy more: Never True 02/18/2024 Within the past 12 months,th e food you bought just didn't last and you didn't have enough money to get more: Never True Transportation Answer Date Recorded In the past 12 months, has l ack of transportation kept you from medical appts, meetings, work or from getting things needed for daily living? No 02/18/2024 Utilities Answer Date Recorded In the past 12 months, has t he electric, gas, oil or water company threatened to shut off services in your home? No 02/18/2024 Depression Answer Date Recorded Patient Health Questionnaire-2 Score 3 10/04/2024 Internet Access Answer Date Recorded Internet Access Q1 No 10/04/2024 Internet Access Q2 I do not want or need it 03/2024 Sex and Gender Information Value Date Recorded Sex Assigned at Male 09/29/2022 10:21 AM EDT Legal Sex Male 10:21 AM EDT Gender Identity Male 09/29/2022 10:21 AM EDT Sexual Orientation Straight 09/29/2022 10 :21 AM EDT documented as of this encounter Miscellaneous Notes * Telephone Encounter - Jaya Post - 12/31/2023 10:14 AM EST Patient calling to report they have arm surgery ( brachioplasty ) Date: Hospital: [facility] Patient is requesting a post - op appt , states they are in severe pain has been prescribed 6 tabs of oxycodone 5-325 mg only, pt was advised to contact PCP for refills if possible. Please contact at [phone] Beninese documented in this encounter Plan of Treatment Upcoming Encounters Date Type Department Care Team (Late st Contact Info) Description 12/30/2024 11:30 AM EST Medication Management [facility] MEDICINE [address] [place], [place] [phone] Ivis Jauregui, PharmD [address] [place] [address] 04/10/2025 9:00 AM EDT Office Visit [facility] OPTOMETRY [address] [place], [place] [phone] Crystal De Santiago, OD [address] [place] [address] documented as of this encounter Visit Diagnoses Not on filedocumented in this encounter Additional Health Concerns Assessment Noted Time PHQ-9 Depression Total Score: 10 07/13/ 023 3:51 PM EDT documented as of this encounter Care Teams Data Warehousing Engineer Relationship Specialty Start Date End Date Gmema Mccray MD [address] [place] [phone] PCP - General Family Medicine 10/10/20 documented as of this encounter
--- OUTSIDE RECORDS SUMMARY | 2024-12-30 10:28 | XMS_ITS | Clinical Summary ---
Author Organization [employer] Address [address] [facility] [place] [address] Care Team Providers Care Electrical Checkout Mechanic Name Role Phone Gemma Mccray MD Primary Care Provider [phone] Allergies No known active allergies Medications buPROPion XL (Wellbutrin XL) 150 MG 24 hr tablet Take 1 tablet by mouth 1 (one) time each day. 05/29/20 21 Active sildenafil (Viagra) 100 MG tablet Take 1 tablet by mouth if needed each day. Approximately 1 hour before sexual activity 09/19/20 22 Active Blood Pressure kit Extra large cuff. Use as directed Active lisinopril 5 MG tabletIndications: Essential hypertension Take 1 tablet (5 mg) by mouth in the morning. 90 tablet 3 01/02/20 23 Active cholecalciferol (Vitamin D-3) 125 MCG (5000 UT) capsuleIndications :Vitamin D deficiency Take 1 capsule (125 mcg) by mouth in the morning. 90 capsule 3 01/06/20 23 Active Continuous Blood Gluc Roll Form Operator (FreeStyle Agnes 2 [place]) deviceIndications: Type 2 diabetes mellitus with diabetic polyneuropathy (CMS/HCC) USE DIRECTED 1 each 1 03/18/20 23 Active tamsulosin (Flomax) 0.4 MG 24 hr capsule TAKE 1 CAPSULE BY MOUTH DAILY 30 MINUTES AFTER THE SAME MEAL EVERY DAY 30 capsule 1 06/19/20 23 Active ketoconazole (NIZOral) 2 % shampoo Apply topically 2 (two) times a week. 120 mL 3 10/05/20 23 Active Continuous Blood Gluc Sensor (FreeStyle Agnes 2 Sensor) miscIndications:Ty pe 2 diabetes mellitus without complication, with long-term current use of insulin (CMS/HCC) USE DIRECTED AND CHANGE EVERY 2 WEEKS 2 each 3 11/17/20 23 Active glucose blood (FREESTYLE TEST STRIPS) test strip USE TO TEST BLOOD SUGAR FOUR TIMES A DAY 100 each 3 11/17/20 23 Active albuterol 108 (90 Base) MCG/ACT inhalerIndications :Shortness of breath Inhale 2 puffs every 6 (six) hours if needed for wheezing. 18 g 02/29/20 24 025 Active dulaglutide (Trulicity) 3 MG/0.5ML solution pen-injector Inject 3 mg under the skin 1 (one) time per week. 4 each 02/29/20 24 Active insulin degludec (Tresiba FlexTouch) 200 UNIT/ML injectionIndicatio ns:Type 2 diabetes mellitus with hyperglycemia, with long-term current use of insulin ([facility]) INJECT 120 UNITS SUBCUTANEOUSLY EVERY DAY 18 mL 03/30/20 24 Active insulin aspart (NovoLOG FLEXPEN) 100 UNIT/ML penIndications:Typ e 2 diabetes mellitus with hyperglycemia, with long-term current use of insulin ([facility]) Inject 35-40 units subcutaneously three times daily 90 mL 03/30/20 24 Active Diclofenac Sodium 1 % gel Apply 2 g topically if needed in the morning and at bedtime (muscle soreness). 100 g 3 05/04/20 24 Active UltiGuard SafePack Pen Needle 32G X 4 MM miscIndications:Ty pe 2 diabetes mellitus with hyperglycemia, with long-term current use of insulin ([facility]) USE FOUR TIMES DAILY 100 each 06/28/20 24 Active Alcohol Swabs (Alcohol Prep) pads With blood sugar testing 6 times per dayWith blood sugar testing 6 times per day 200 each 06/28/20 24 Active TRUEplus Lancets 33G miscIndications:Ty pe 2 diabetes mellitus with diabetic nephropathy ([facility]) TEST BLOOD SUGAR 4 TIMES A DAY 100 each 06/28/20 24 Active triamcinolone (Kenalog) 0.1 % cream Apply topically 2 times daily. 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 24 Assessment & Plan (05/04/2024 9:27 AM EDT): On prednisone taper for myositis, unclear etiology Most recent labs show decline again in CK followup with rheum in 10-14 days at [facility] I will attempt to find neurology note for 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 Will have workup for cancer, needs colon cancer screening Assessment & Plan (03/30/2024 12:51 PM EDT): On prednisone taper for myositis, has labs today and followup with rheum in 10 days at [facility] Will have workup for cancer, needs colon cancer screening Tinea versicolor 10/05/2023 Non-traumatic rhabdomyolysis 07/13/2023 Assessment & Plan (02/29/2024 1:01 PM EDT): Will speak with record clerk salesperson about muscle biopsy results and get back to patient about what are the next plans of action - kidney function normal today - liver function slightly elevated AST/ALT 50s - continue off statin Assessment & Plan (10/08/2023 12:01 PM EST): Continue hydration, can use free water and very dilute gatorade as well - CK increased to 1100 today and patient's pain is more severe - normal kidney and liver function - can take Motrin or Tylenol for pain, though he is reluctant because of his kidney stones - will refer to rheum for persistent CK elevation, and PT for range of motion Assessment & Plan (07/27/2023 2:15 AM EDT): Continue hydration, can use free water and very dilute gatorade as well - UA with SP gr down to 1.025 and no more ketones, protein, or glucose as compared to the last two UAs - normal kidney and liver function obtained - can take Motrin for pain, though he is reluctant because of his kidney stones - await CK result, if rising, may send to ER or WIC for fluids Assessment & Plan (07/20/2023 1:11 PM EDT): Rising CK without kidney injury Increase hydration Zofran three times daily pedialyte all day F/u on Thursday07/24/23 to recheck UA and CK Hold Atorvastatin until further notice, resolution of rhabdo Assessment & Plan (07/14/2023 10:24 AM EDT): Recheck CK levels today Liver and kidney function are normal He is TTP in right lower intercostal spaces arguing for costochondritis, as well as in RUQ Know history of fatty liver disease, will image to rule out other causes Gout of foot 03/09/2023 Assessment & Plan (07/14/2023 10:23 AM EDT): Will trial Allopurinol, start 100mg daily Cr 1.03, egFR> 60 Uric acid 6.5 Will increase to 200mg daily targeting uric acid <6 Assessment & Plan (03/09/2023 5:27 AM EDT): Will trial Allopurinol, start 100mg daily Monitor Cr in 4 weeks Increase as tolerated Essential hypertension 01/05/2023 Assessment & Plan (03/09/2023 5:27 AM EDT): Not at goal, consider increasing Lisinopril to 10mg Assessment & Plan (01/05/2023 6:24 AM EST): Continue Lisinopril 5mg daily Monitor daily Will increase to 10mg if continues >140/90 Athlete's foot on left 11/03/2022 Localized swelling of toe of left foot 2 Assessment & Plan (01/05/2023 6:25 AM EST): podiatry referral stat Diagnosis is unclear, uric acid level normal, but no joint aspiration has been conducted Polyneuropathy due to type 2 diabetes mellitus 1 12/15/2021 Multiple nodules of lung 09/03/2022 Impotence due to erectile dysfunction 06/22/2020 Urge incontinence of urine 01/08/2016 Type 2 diabetes mellitus 09/26/2015 Assessment & Plan (05/04/2024 9:27 AM EDT): NOVOLOG at 35-40 units with meals, from 30 units baseline. Speak with rheum provider about him skipping insulin Tresiba 120 units in the morning Trulicity 3mg Current A1c: Lab Results Component Value Date HGBA1C 9.2 (A) 02/29/2024 HGBA1C 8.2 (H) 05/31/2021 BMP: Lab Results Component Value Date CREATININE 0.93 02/29/2024 CREATININE 0.90 07/11/2022 K 4.0 02/29/2024 Microalbumin: Foot Exam: Complete at follow up Eye Exam: Discuss at follow up Lipid panel: ASCVD: Calculate pending updated labs Statin: Yes ASA: No LIAN/ARB: Lisinopril 5mg daily Encouraged regular aerobic exercise for improved glycemic control Encouraged daily foot checks Encouraged lean protein snacks and to avoid foods high in sugar and simple carbohydrates Treatment Goals: A1c goal: <7% FBG goal: <130 2 hour post prandial goal: <180 Assessment & Plan (03/30/2024 12:54 PM EDT): INCREASE NOVOLOG to 35-40 units with meals, from 30 units he is currently taking to cover high sugars from prednisone Tresiba 120 units in the morning Trulicity 3mg Current A1c: Lab Results Component Value Date HGBA1C 9.2 (A) 02/29/2024 HGBA1C 8.2 (H) 05/31/2021 BMP: Lab Results Component Value Date CREATININE 0.93 02/29/2024 CREATININE 0.90 07/11/2022 K 4.0 02/29/2024 Microalbumin: Foot Exam: Complete at follow up Eye Exam: Discuss at follow up Lipid panel: ASCVD: Calculate pending updated labs Statin: Yes ASA: No LIAN/ARB: Lisinopril 5mg daily Encouraged regular aerobic exercise for improved glycemic control Encouraged daily foot checks Encouraged lean protein snacks and to avoid foods high in sugar and simple carbohydrates Treatment Goals: A1c goal: <7% FBG goal: <130 2 hour post prandial goal: <180 Assessment & Plan (02/29/2024 1:00 PM EDT): Increase Trulicity to 3mg weekly Assessment & Plan (10/08/2023 12:00 PM EST): Ideally would increase Trulicty to 3mg now, but patient wants to focus on muscle/rib pain first Assessment & Plan (07/14/2023 10:25 AM EDT): Continue Metformin, Trulicity, Tresibia, and Aspart with more regularity Current A1c: 8.9 BMP: Cr 1.0 (06/2023) Microalbumin: due Foot Exam: today, abnormal Eye Exam: due Lipid panel: ASCVD: Calculate pending updated labs Statin: Yes ASA: No LIAN/ARB: yes Encouraged regular aerobic exercise for improved glycemic control Encouraged daily foot checks Encouraged lean protein snacks and to avoid foods high in sugar and simple carbohydrates Treatment Goals: A1c goal: <7% FBG goal: <130 2 hour post prandial goal: <180 Assessment & Plan (03/09/2023 5:26 AM EDT): administrative support technician Tresibia and Trulicity Sensor not available today, recommend we check again next week, will notify him when it becomes available Current A1c: 9.7 BMP: Cr 0.8 (06/2022) Microalbumin: due Foot Exam: today, abnormal Eye Exam: due Lipid panel: ASCVD: Calculate pending updated labs Statin: Yes ASA: No LIAN/ARB: yes Encouraged regular aerobic exercise for improved glycemic control Encouraged daily foot checks Encouraged lean protein snacks and to avoid foods high in sugar and simple carbohydrates Treatment Goals: A1c goal: <7% FBG goal: <130 2 hour post prandial goal: <180 Assessment & Plan (01/05/2023 6:23 AM EST): administrative support technician medications today, Metformin and Trulicity Restart them Call if blood sugars do not start to decrease to <300 Podiatry appointment stat for L toe, not sure why previous referral have not been filled/coordinated Precordial pain 09/19/2015 Backache 06/03/2012 Depression, recurrent 06/03/2012 Pinguecula 06/03/2012 Pure hypercholesterolemia 06/03/2012 Encounters Date Type Department Care Team Description 10/10/2024 9:00 AM EST Office Visit [facility] OPTOMETRY [address] [place] [address] Crystal De Santiago OD Controlled type 2 diabetes mellitus without complication, with long-term current use of insulin ([facility]) (Primary Dx); Presbyopia; Pinguecula of both eyes 10/10/2024 Travel 10/04/2024 11:30 AM EST Office Visit [facility] MEDICINE [address] [place] [address] Gemma Mccray MD Interstitial myositis of multiple sites (Primary Dx); Type 2 diabetes mellitus with hyperglycemia, with long-term current use of insulin ([facility]) 10/04/2024 Travel from Last 3 Months Immunizations Name Administration Dates Next Due Hep B, adult 12/29/2011,08/01/2011,06/17/2011 Influenza Injectable Quadriv alant Preservative Free IIV4 MDCK 10/01/2020 Influenza injectable quadriv alent preservative free 11/08/2019 Influenza, IIV3, injectable 08/16/2014 Pfizer Covid-19 Vaccine 12+ 07/25/2022,,08/02/2021 Pneumococcal Polysaccharide PPSV23 09/01/2011 Td (adult), 5 Lf tetanus tox oid, preservative free, adsorbed 09/13/2015 Tdap 09/13/2010 Social History Tobacco Use Types Packs/Day Years Used Date Smoking Tobacco: Never Smokeless Tobacco: Never Tobacco Cessation:Counseling Given: Not Answered Alcohol Use Standard Drinks/Week Comments Never 0 [...] Orientation Straight 09/29/2022 10 :21 AM EDT Last Filed Vital Signs Vital Sign Reading Time Taken Comments Blood Pressure 138/92 10/04/2024 11:31 AM EST Pulse 88 10/04/2024 11:31 AM EST Temperature 36.5 ??C (97.7 ??F) 10/04/2024 11:[address] Respiratory Rate 18 10/04/2024 11:31 AM EST Oxygen Saturation 98% 02/29/2024 9:26 AM EDT Inhaled Oxygen Concentration - - Weight 103 kg (226 lb) 10/04/2024 11:31 AM EST Height 170.2 cm (5' 7 ) 10/04/2024 11:31 AM EST Body Mass Index 35.4 10/04/2024 11:31 AM EST Plan of Treatment Upcoming Encounters Date Type Department Care Team (Late st Contact Info) Description 12/30/2024 11:30 AM EST Medication Management [facility] MEDICINE [address] [place] [address] Ivis Jauregui, PharmD [address] [place] [address] 04/10/2025 9:00 AM EDT Office Visit [facility] OPTOMETRY [address] [place] [address] Crystal De Santiago, OD [address] [place] [address] Health Maintenance Due Date Last Done Comments CT Colonography 1976 Colonoscopy 1976 Colorectal Cancer Screening 1976 FIT DNA/Cologuard 1976 FIT 1976 FOBT 1976 HIV Screening 1976 Sigmoidoscopy 1976 Diabetes: Foot Exam 02/15/1986 Family Planning (PISQ) 02/15/1991 Pneumococcal Vaccine: Pediatrics (0 to 5 Years) and At-Risk Patients (6 to 49) Years) (2 of 2 - PCV) 09/01/2012 09/01/2011 Lipid Panel 05/31/2022 05/31/2021 COVID-19 Vaccine ( season) 2024 07/25/2022, 08/23/2021, 08/02/2021 Influenza Vaccine (#1) 2024 , 11/08/2019, 08/16/2014 Diabetes: Hemoglobin A1C 01/04/2025 024, 09/05/2024, 02/29/2024, Additional history exists SDOH Screening 02/17/2025 02/18/2024 Depression Monitoring (PHQ-9) 04/03/2025 10/04/2024, 10/04/2024 DTaP/Tdap/Td Vaccines (3 - Td or Tdap) 09/13/2025 09/13/2015, 09/13/2010 Alcohol/Substance Use Screening 10/04/2025 10/04/2024 Depression Screening 10/04/2025 10/04/2024, 10/04/20 24 Tobacco Screening 10/10/2025 10/10/2024 Zoster Vaccines (1 of 2) 02/15/2026 Eye Exam 10/10/2026 10/10/2024, 09/30, 10/10/2024, Additional history exists RSV Patients and Patients Aged 60 years or older (1 - 1-dose 75+ series) 02/15/2051 Hepatitis B Vaccines Completed 12/29/2011, 08/01/2011, 06/17/2011 Hepatitis C Screening Completed 11/10/2023 HIB Vaccines Aged Out No longer eligi [...] patient's age to complete this topic Meningococcal Vaccine Aged Out No jacy yanni eligible based on patient's age to complete this topic RSV under 20 months Aged Out No longe r eligible based on patient's age to complete this topic Rotavirus Vaccines Aged Out No longer eligible based on patient's age to complete this topic Procedures Procedure Name Priority Date/Time Associated Diagnosis Comments POCT GLYCATED HEMOGLOBIN, TOTAL Routine 10/04/2024 11:35 AM EST Type 2 diabetes mellitus with hyperglycemia, with long-term current use of insulin (CMS/HCC) POCT GLUCOSE Routine 10/04/2024 11:33 AM EST Type 2 diabetes mellitus with hyperglycemia, with long-term current use of insulin (CMS/HCC) HEPATITIS PANEL, GENERAL Routine 11/10/2023 12:00 AM EST LIPID PANEL, STANDARD Routine 05/31/2021 3:38 PM EDT from Last 3 Months or Most Recently Relevant to Health Maintenance Results * (ABNORMAL) POCT A1C (10/04/2024 11:35 AM EST) Hemoglobin A1C 11.2(A) 4.0 - 6.0 % QC Media Lot # [id number] Lot# Expiration Date ,913,845 Blood 10/04/2024 11:3 5 AM EST Gemma Mccray MD POINT OF CARE TEST ENTER/EDIT ORDERABLES Final Result * (ABNORMAL) POCT glucose manually resulted (10/04/2024 11:33 AM EST) Glucose Blood, POC 368(A) 60 - 200 mg/dL Comment:Random QC Media Lot # [id number] Lot# Expiration Date [id number] Blood Capillary blood specimen / Unknown 10/04/2024 11:33 AM EST Gemma Mccray MD POINT OF CARE TEST ENTER/EDIT ORDERABLES Final Result * Hepatitis Panel, General (11/10/2023 12:00 AM EST) [facility] Hepatitis A IgM Nonreactive Nonreactive [facility] Comment:IgM antibodies to ASHBY V not detected; does not exclude earlyacute or recovered HAV infection. ~Hepatitis B Surface Antibody NONREACTIVE Nonreactive [facility] Comment:Nonreactive: < 8.00 mIU/mL Hepatitis B Core Antibody Nonreactive Nonreactive [facility] Hepatitis C Antibody Nonreactive Nonreactive [facility] Comment:Antibodies to HCV no t detected; does not exclude early acuteHCV infection. Hepatitis B Surface Ag Negative Negative [facility] 11/10/2023 11/10/2023 Generic External Data Provider LAB BLOOD ORDERAB LES Final Result Performing Organization Address City/State/[facility] Co de Phone Number [facility] [address] [place] [phone] * (ABNORMAL) LIPID PANEL, STANDARD (05/31/2021 3:38 PM EDT) [facility] Chol/HDLC Ratio 4.8 <5.0 (calc) [facility] Cholesterol, Total 144 <200 mg/dL [facility] HDL Cholesterol 30(L) > OR = 40 mg/dL [facility] LDL Cholesterol 74 mg/dL (calc) [facility] Comment: Reference range: <100 ?? Desirable range <100 mg/dL for primary prevention; ?? <70 mg/dL for patients with CHD or diabetic patients ?? with > or = 2 CHD risk factors. ?? LDL-C is now calculated using the Good-[place] ?? calculation, which is a validated novel method providing ?? better accuracy than the Friedewald equation in the ?? estimation of LDL-C. ?? Good SS et al. LEONID. 2013;310(19): 1699-8653 ?? (http://ParkWhiz.51wan/faq/VBF197) Non-HDL Cholesterol 114 <130 mg/dL (calc) [facility] Comment: For patients with diabetes plus 1 major ASCVD risk ?? factor, treating to a non-HDL-C goal of <100 mg/dL ?? (LDL-C of <70 mg/dL) is considered a therapeutic ?? option. Triglycerides 400(H) <150 mg/dL [facility] Comment: ?? If a non-fasting specimen was collected, consider repeat triglyceride testing on a fasting specimen if clinically indicated. ?? Lauro et al. J. of Clin. Lipidol. 2015;9:129-169. ?? 05/31/2021 3:38 PM EDT us Gemma Mccray MD LAB BLOOD ORDERABLES Final Res ult [facility] [address] from Last 3 Months or Most Recently Relevant to Health Maintenance Insurance [facility] Care Teams Electrical Checkout Mechanic Relationship Specialty Start Date End Date Gemma Mccray MD [address] [place] [id number] PCP - General Family Medicine 10/10/20
--- OUTSIDE RECORDS SUMMARY | 2024-12-30 10:28 | XMS_ITS | Encounter Summary ---
Author Organization [employer] [facility] Address [address] [place] [address] Care Team Providers Care Auto Salvage Worker Name Role Phone Gemma Mccray MD Primary Care Provider [phone] Reason for Visit * Reason Comments Med Refill Encounter Details Date Type Department Care Team (Late st Contact Info) Description 02/05/2023 Refill [facility] MEDICINE [address] [place], [place] [phone] Gemma Mccray MD [address] [place] [address] Type 2 diabetes mellitus with hyperglycemia, with long-term current use of insulin ([facility]) Social History Tobacco Use Types Packs/Day Years [...] Description 12/30/2024 11:30 AM EST Medication Management [facility] MEDICINE [address] [place] [address] Ivis Jauregui, PharmD [address] [place] [address] 04/10/2025 9:00 AM EDT Office Visit [facility] OPTOMETRY [address] [place], [place] [phone] Crystal De Santiago, OD [address] [place] [address] documented as of this encounter Visit Diagnoses Diagnosis Type 2 diabetes mellitus with hyperglycemia, with long-term current use of insulin ([facility]) documented in this encounter Care Teams Auto Salvage Worker Relationship Specialty Start Date End Date Gemma Mccray MD [address] [place] [address] PCP - General Family Medicine 10/10/20 documented as of this encounter
--- OUTSIDE RECORDS SUMMARY | 2024-12-30 10:28 | XMS_ITS | Encounter Summary ---
Author Organization [employer] Address [address] [facility] 7[address] [place] [address] Care Team Providers Care Kindergartner Name Role Phone Gemma Mccray MD Primary Care Provider [phone] Reason for Visit * Reason Onset Date Comments Prior Authorization 02/05/2023 Encounter Details Date Type Department Care Team (Late st Contact Info) Description 02/05/[address] [facility] MEDICINE [address] [place], [place] [phone] Gemma Mccray MD [address] [place], [place] [phone] Prior Authorization Social History Tobacco Use Types Packs/Day Years [...] Orientation Straight 09/29/2022 10 :21 AM EDT COVID-19 Exposure Response Date Recorded In the last 10 days, have yo u been in contact with someone who was confirmed or suspected to have Coronavirus/COVID-19? No / Unsure 03/06/2023 1:10 PM EDT documented as of this encounter Miscellaneous Notes * Telephone Encounter - Helena Hand - 02/05/2023 2:11 PM EST Please transfer to [id number] when patient calls, thank you * Telephone Encounter - Nereyda Shepherd - 02/05/2023 2:02 PM EST Tc from pt returning call * Telephone Encounter - Jeannie Self - 02/05/2023 1:11 PM EST Tc from patient returning call back, regarding message below. * Telephone Encounter - Helena Hand - 02/05/2023 12:58 PM EST TC to patient regarding message below. Patient has never filled this in [facility] pharmacy. No answer andvoicemail full, unable to leave a message. * Telephone Encounter - Jaya Dhillonjia - 02/05/2023 12:23 PM EST Tc from pt stating needs a PA for freestyle donald sensor, reader and pen needles. Please contact at [phone] documented in this encounter Plan of Treatment Upcoming Encounters Date Type Department Care Team (Late st Contact Info) Description 12/30/2024 11:30 AM EST Medication Management [facility] MEDICINE [address] [place] [address] Ivis Jauregui, PharmD [address] [place] [address] 04/10/2025 9:00 AM EDT Office Visit [facility] OPTOMETRY [address] [place] [address] Crystal De Santiago, OD [address] [place] [address] documented as of this encounter Visit Diagnoses Not on filedocumented in this encounter Care Teams Kindergartner Relationship Specialty Start Date End Date Gemma Mccray MD [address] [place] [address] PCP - General Family Medicine 10/10/20 documented as of this encounter
--- OUTSIDE RECORDS SUMMARY | 2024-12-30 10:28 | XMS_ITS | Encounter Summary ---
Author Organization [employer] Address [address] [facility] [address] [place] [address] Care Team Providers Care Workers' Compensation Mediator Name Role Phone Gemma Mccray MD Primary Care Provider [phone] Reason for Visit * Reason Onset Date Comments Prior Authorization 02/19/2023 Encounter Details Date Type Department Care Team (Late st Contact Info) Description 02/19/[address] [facility] MEDICINE [address] [place], [place] [phone] Gemma Mccray MD [address] [place], [place] [phone] Prior Authorization Social History Tobacco Use Types [...] * Telephone Encounter - Helena Hand - 02/20/2023 12:01 PM EDT Waiting on providers signature * Telephone Encounter - Jeannie Self - 02/20/2023 11:22 AM EDT Tc from patient requesting the status, regarding message below. * Telephone Encounter - Jaya Post - 02/19/2023 11:36 AM EDT Tc from pt stating needs PA for freestyle donald 2 sensor. Please contact at [phone] Welsh documented in this encounter Plan of Treatment Upcoming Encounters Date Type Department Care Team (Late st Contact Info) Description 12/30/2024 11:30 AM EST Medication Management [facility] MEDICINE [address] [place] [address] Ivis Jauregui, PharmD [address] [place] [address] 04/10/2025 9:00 AM EDT Office Visit [facility] OPTOMETRY [address] [place] [address] Crystal De Santiago, OD [address] [place] [address] documented as of this encounter Visit Diagnoses Not on filedocumented in this encounter Care Teams Workers' Compensation Mediator Relationship Specialty Start Date End Date Gemma Mccray MD [address] [place] [address] PCP - General Family Medicine 10/10/20 documented as of this encounter
--- OUTSIDE RECORDS SUMMARY | 2024-12-30 10:28 | XMS_ITS | Encounter Summary ---
Author Organization [employer] Address [address] 7[address] [place] [address] Care Team Providers Care Truck Caterer Name Role Phone Gemma Mccray MD Primary Care Provider [phone] Reason for Visit * Reason Comments Med Refill Encounter Details Date Type Department Care Team ([facility] st Contact Info) Description 06/27/2024 Refill [facility] MEDICINE [address] [place], [place] [phone] Gemma Mccray MD [address] [place], [place] [phone] Type 2 diabetes mellitus with hyperglycemia, with long-term current use of insulin ([facility]) Social History Tobacco Use Types Packs/Day Years Used Date Smoking Tobacco: Never Smokeless Tobacco: Never Alcohol Use Standard Drinks/Week Comments Never 0 (1 standard drink = 0.6 oz pur e alcohol) Depression Answer Date Recorded Patient Health Questionnaire-9 Score 16 02/29/2024 Patient Health Questionnaire-9 Score 16 02/29/2024 Last PHQ-9: Questionnaire Data Not on file 0 02/29/2024 Housing Stability Answer Date Recorded What is [...] Answer Date Recorded Patient Health Questionnaire-2 Score 6 02/29/2024 Sex and Gender Information Value Date Recorded Sex Assigned at Male 09/29/2022 10:21 AM EDT Legal Sex Male 10:21 AM EDT Gender Identity Male 09/29/2022 10:21 AM EDT Sexual Orientation Straight 09/29/2022 10 :21 AM EDT documented as of this encounter Plan of Treatment Upcoming Encounters Date Type Department Care Team (Late st Contact Info) Description 12/30/2024 11:30 AM EST Medication Management [facility] MEDICINE [address] [place] [address] Ivis Jauregui, PharmD [address] [place] [address] 04/10/2025 9:00 AM EDT Office Visit [facility] OPTOMETRY [address] [place] [address] Crystal De Santiago OD [address] [place] [address] documented as of this encounter Visit Diagnoses Diagnosis Type 2 diabetes mellitus with hyperglycemia, with long-term current use of insulin ([facility]) documented in this encounter Additional Health Concerns Assessment Noted Time PHQ-9 Depression Total Score: 16 024 9:57 AM EDT documented as of this encounter Care Teams Truck Caterer Relationship Specialty Start Date End Date Gemma Mccray MD [address] [place], [place] [phone] PCP - General Family Medicine 10/10/20 documented as of this encounter
--- OUTSIDE RECORDS SUMMARY | 2024-12-30 10:28 | XMS_ITS | Encounter Summary ---
Author Organization [employer] [facility] Address [address] [facility] [address] [place] [address] Care Team Providers Care Counselor Camp Name Role Phone Gemma Mccray MD Primary Care Provider [phone] Encounter Details Date Type Department Care Team (Latest Contact Info) Description 04/16/2021 Abstract [facility] CONVERSIONS Dental, Provider, DDS Social History Tobacco [...] Description 12/30/2024 11:30 AM EST Medication Management [facility] MEDICINE [address] [place] [address] Ivis Jauregui, PharmD [address] [place] [address] 04/10/2025 9:00 AM EDT Office Visit [facility] OPTOMETRY [address] [place] [address] Crystal De Santiago, OD [address] [place] [address] documented as of this encounter Visit Diagnoses Not on filedocumented in this encounter Care Teams Counselor Camp Relationship Specialty Start Date End Date Gemma Mccray MD [address] [place] [address] PCP - General Family Medicine 10/10/20 documented as of this encounter
[2024-12-30 10:39] LABS: Mean Corpuscular Hemoglobin 28.7 pg (27.0-33.0); Mean Platelet Volume 9.6 fL (9.4-12.4); Platelet Count 264 X10*3/uL (160-400); Red Blood Count 4.88 X10*6/uL (4.60-5.80); Red Cell Distribution Width 13.1 % (11.0-16.0); White Blood Count 9.4 X10*3/uL (4.8-10.8)
[2024-12-30 11:25] LABS: Prostate Specific Antigen 0.69 ng/mL (<0.05-4.0)
[2025-01-04 19:14] LABS: Testosterone, Free 62.6 pg/mL (35.0-155.0); Testosterone, Total 264 ng/dL (250-1100)
[2025-01-04 21:39] LABS: CK-BB None Detected (None Detected); CK-MB 0 % (<5); CK-MM 100 % (95-100); Creatine Kinase,Total,Serum 145 U/L (26-366)
== END 2024-12-30 09:49 | disposition home or self-care (01) ==
LOC: HO.LAB 09:48
PROVIDERS: PCP General Practice; Visit Provider Nurse Practitioner Family
DX: M60.19 Interstitial myositis, multiple sites (principal); E11.69 Type 2 diabetes mellitus with other specified complication; N52.1 Erectile dysfunction due to diseases classified elsewhere; E29.1 Testicular hypofunction; Z12.5 Encounter for screening for malignant neoplasm of prostate
CPT/HCPCS: 36415; 82552; 84153; 84402; 84403; 85027

== ENCOUNTER 2025-01-26 14:27 | Outpatient (AMB) | payer OTHER, SELFPAY ==
--- NOTE | 2025-01-26 14:29 | A.OFFVIS_ITS ---
Intake Visit Reasons: 3m/labs(set) Intake Note: Patient presents today for follow up on: Erectile Dysfunction, Hypogonadism Testosterone: 264 Free Testosterone: 62.6 Psa:0.69 Urology Medications: tadalafil, tamsulosin, testosterone Blood Thinner: none Imaging Technician Required: Yes Imaging Technician Name: [id number] Accompanied by: Self / Same As Patient Allergies No Known Allergies Allergy (Verified 01/26/25 15:04) Medication List - Last Reconciled 01/26/25 by ORLANDO Whitaker albuterol sulfate 90 mcg/actuation (Ventolin HFA) inhalation alcohol swabs 0 pad topical allopurinol 100 mg PO QAM atorvastatin 20 mg PO DAILY 30 days blood sugar diagnostic As directed blood sugar diagnostic (FreeStyle Lite Strips) As directed four times a day bupropion HCl XL 150 mg PO DAILY butenafine 1% (Lotrimin Ultra) 1 appl topical BID 14 days cholecalciferol (vitamin D3) 125 mcg PO DAILY 30 days clotrimazole 1% (Lotrimin AF (clotrimazole)) 1 appl topical BID 2 weeks cyclobenzaprine 10 mg PO TID PRN diclofenac sodium 1% topical BID dulaglutide (Trulicity) mg subcut flash glucose scanning reader (FreeStyle Agnes 2 [place]) As directed flash glucose sensor (FreeStyle Agnes 2 Sensor kit) As directed every 2 weeks ibuprofen 400 mg PO Q6H PRN insulin aspart U-100 (Novolog FlexPen U-100 Insulin aspart) 40 units (0.4 mL) subcut TID 90 days insulin degludec (Tresiba FlexTouch U-200 insulin) 120 units (0.6 mL) subcut DAILY 30 days ketoconazole 2% topical lancets As directed lancets (TRUEplus Lancets) As directed 4 x/day lisinopril 5 mg PO DAILY metformin ER 500 mg PO BID 30 days naproxen 250 mg PO BID omeprazole 20 mg PO DAILY 30 days ondansetron 4 mg PO Q6H PRN pen needle, diabetic (BD Dianelys 2nd Gen Pen Needle) four times a day prednisone 10 mg PO Q OTHER DAY tadalafil 5 mg PO DAILY PRN 90 days tamsulosin 0.4 mg PO DAILY 90 days testosterone 1 packet transdermal DAILY 30 days tramadol 25 mg PO Q6H PRN triamcinolone acetonide 0.1% 1 appl topical BID-TID HPI Comments Details: Laron is 49 year old Mohawk-speaking patient of Dr. Mccray. He has a past medical history of diabetes type 2, diabetic neuropathy associated with type 2 diabetes, disc herniation, dyslipidemia, essential hypertension, and vitamin-D deficiency. He presents to the office today for follow-up of his erectile dysfunction, hypogonadism and nephrolithiasis. In discussion with the patient today he continues to report issues with obtaining and maintaining his erections. He reports noting no improvement with low-dose Cialis daily with p.r.n. additional dosing for on demand sexual activity. Discussed at length potential causes of erectile dysfunction. Discussed at length importance of managing diabetes for improvement in erectile dysfunction and overall health and well-being. Discussed adequate sleep, weight management, and daily exercise in relation to improvement in erectile dysfunction and overall health and well- being. When asked he reports compliance with testosterone as prescribed recent hypogonadism labs reviewed with the patient today as noted and trended below. He otherwise denies any issues with his urination. When asked he denies urinary urgency, urinary frequency, incontinence, nocturia, hematuria, dysuria, foul smelling urine, changes to urinary stream, flank pain, fever, and or chills. He is happy with his current voiding parameters. Discussed at length correlation of uncontrolled diabetes and erectile dysfunction. Discussed further treatment options to include penile injection therapy verses penile implant however most recent A1c 09/22 9.9. This was discussed with the patient at length. In office urinalysis results reviewed with the patient today. Previous imaging 02/20 as patient with a history of nephrolithiasis noted bilateral kidneys with no calculi and or hydronephrosis. There is a cyst in the lateral aspect of the left kidney measuring 1.0 cm. Labs are as follows: H/H 12/24 14/40.0 PSA: 06/21 0.4, 12/24 0.7 Total Testosterone: 06/21 203, 04/22 184, 09/22 200, 1/25 264 Free Testosterone:06/21 40.6, 04/22 42.1, 09/22 45.6, 12/24 62.6 Estradiol 09/22 24 FSH 09/22 8.7 LH 09/22 5.8 Prolactin 09/22 6.5 SHBG 09/22 17 PREVIOUS OFFICE VISIT ----- Nephrolithiasis Had been seen in emergency room 07/21 Imaging - CT scan small 3 mm bilateral stones Erectile dysfunction in setting of insulin-dependent diabetes ? Long-term ED ?Diabetic ?On combination diabetes therapy ?Diabetes not well controlled with HbA1c of 8.8. Not suitable candidate for prostatic until HbA1c under better control. ? Symptoms have been present for/since?a number of years? Procedure(s)/Diagnosis causing dysfunction include?diabetes.? At this time he experiences erections?are partial and adequate for vaginal penetration, that undergo rapid detumesence after penetration, TOÑA 8- 11 Moderate ED.? Nocturnal erections?do not occur.? Currently they are?in a stable relationship.? Associated problems? hypertension ?Yes ? diabetes ?Yes ? dyslipidemia ?Yes ? depression ?No ? stress ?No ? decreased libido ?No ? pelvic surgery ?No ? Overall he is ?is not satisfied with the current management.? 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 Diabetes type 2, uncontrolled Diabetes Surgical History History of biopsy (~12/29/23) Hx of knee surgery History of ear surgery Family History Father Diabetes mellitus Heart disease Stroke Arthritis Mother Epilepsy Social History Household Members: Spouse, Family and Children Alcohol intake: never Patient Tobacco Use Status: Former Tobacco user Tobacco use type: Cigarette Substance Use Type: Marijuana Current occupational status: unemployed Review of Systems Const Reports as per HPI Eyes Reports no additional complaints ENT Reports no additional complaints Card Reports as per HPI Resp Reports no additional complaints GI Reports no additional complaints Reports as per HPI Musc Reports no additional complaints Neuro Reports no additional complaints Psych Reports no additional complaints Endo Reports as per HPI Alejandro/Lymph Reports no additional complaints Aller/Immun Reports no additional complaints Physical Exam Const General: cooperative, healthy appearing, comfortable, no acute distress, well developed, alert and awake Nutritional Appearance: overweight Orientation/consciousness: patient oriented x3 Limitations: no limitations HEENT Head: Yes normal to inspection, Yes normocephalic and Yes atraumatic Ears: hearing grossly normal bilaterally Eyes General: appearance normal, both eyes and all related structures Neck Neck: Yes normal visual inspection and Yes trachea midline Chest Chest palpation & inspection: normal inspection of the chest Resp Effort & Inspection: normal respiratory effort and able to speak in complete sentences Cardio Rate: regular rate GI Inspection: Yes normal to inspection General: Yes no CVA tenderness Back/Spine/Pelvis Back: no CVA tenderness Skin General skin exam: no rashes or lesions noted Neuro General: patient oriented x3 Extrem General: Yes normal to inspection Psych Appearance: grossly normal and well kempt Mental Status: mental status grossly normal Speech and movement: Normal speech and movement present and Clear speech present Affect: normal affect Attitude: cooperative Thought process: Normal thought process present Thought content: Normal thought content present Insight: Fair insight present (Psych) Judgement: Fair judgement present (Psych) Assessment & Plan Assessment & Plan (1) Hypogonadism in male: Code(s): E29.1 - Testicular hypofunction Category: Medical Plan Recent lab results reviewed with the patient today; as noted above. Will increase testosterone; refill provided. Continue Cialis as discussed and prescribed; we discussed usage daily verses p.r.n. prior to sexual activity. We discussed at length potential causes of urological issues as well as further interventions and risks and benefits of these interventions. We discussed penile injection therapy at length; information provided Will obtain PSA, A1c, testosterone, and CBC in 3 months. Patient currently denies any bothersome urinary issues. He reports be happy with current voiding parameters. Follow-up in 3 months with labs to be completed prior; or sooner with any issues, concerns, and or questions. Orders: Orders Prostate Specific Antigen 3 Months E29.1 - Testicular hypofunction Testosterone, Free/Total 3 Months E11.69 - Type 2 diabetes mellitus with other specified complication, N52.1 - Erectile dysfunction due to diseases classified elsewhere Hemoglobin A1c 3 Months E11.9 - Type 2 diabetes mellitus without complications Complete Blood Count no Diff 3 Months E29.1 - Testicular hypofunction Medications: Changed From testosterone 1 packet transdermal DAILY 30 days 150 grams 5RF To testosterone this is an increase in dose 2 packets transdermal DAILY 150 grams 5RF 30 days From tadalafil Daily medication 5 mg PO DAILY 90 days PRN 90 tabs 1RF sexual activity E11.69 - Type 2 diabetes mellitus with other specified complication, N52.1 - Erectile dysfunction due to diseases classified elsewhere To tadalafil [facility] [id number] 10 mg (2 x 5 mg) PO DAILY 90 tabs 1RF sexual activity 90 days E11.69 - Type 2 diabetes mellitus with other specified complication, N52.1 - Erectile dysfunction due to diseases classified elsewhere Patient Instructions: The patient had an opportunity to ask questions regarding the treatment plan. All questions were answered. Physical exam, labs, and imaging were discussed and reviewed in detail. As well as risks, benefits, and discussion of treatment choices. No major barriers to understanding were identified. The patient expressed understanding and agreement with the above treatment plan. The patient was made aware they should contact our office by phone for worsening of their current condition, the appearance of new symptoms, or with any questions or concerns. Compliance is encouraged with any medications and follow up testing that is ordered. It is a privilege to be allowed the opportunity to p articipate in? your urological care.? Again, if you have any questions or concerns If you have any questions or concerns please do not hesitate to contact me. The office is [phone]. This note is constructed using voice recognition software. While every effort has been made to ensure accuracy facilities maintenance worker errors may have been included. Yours sincerely, ORLANDO Whitaker Coding Level of Care Code Est Pt Level 4 (65990) Diagnoses Hypogonadism in male E29.1 Time Spent (min) 25
--- OUTSIDE RECORDS SUMMARY | 2025-01-26 17:40 | XMS_ITS | Encounter Summary ---
Author Organization [employer] Address [address] [facility] 7t [place] [address] Care Team Providers Care Cable Assembler Name Role Phone Gemma Mccray MD Primary Care Provider [phone] Ivis Jauregui PharmD Unavailable [phone] Reason for Referral * Imaging (Routine) - Closed Specialty Diagnoses / Procedures Referred By Contac t Referred To Contact Radiology Diagnoses Right upper quadrant abdominal pain Procedures CT Abdomen Pelvis w/ and w/o Contrast Gemma Mccray MD [address] [place] [address] Phone: tel: fax: [address] Phone: tel: fax: Referral ID Status Reason Start Date Expiration Date Visits Re quested Visits Authorized [id number] Closed 08/14/2023 08/13/2024 1 1 Encounter Details Date Type Department Care Team (Late st Contact Info) Description 08/14/2023 Orders Only [facility] [address] [place], [place] [phone] Gemma Mccray MD [address] [place], [place] [phone] Right upper quadrant abdominal pain (Primary Dx) [...] Care Team (Late st Contact Info) Description 01/27/2025 9:00 AM EST Medication Management [facility] [address] [place] [address] Ivis Jauregui, Katherin [address] [place] [address] 03/14/2025 10:15 AM EDT Office Visit [facility] [address] [place] [address] Gemma Mccray MD [address] [place] [address] 04/10/2025 9:00 AM EDT Office Visit [facility] [address] [place] [address] Crystal De Santiago, OD [address] [place] [address] documented as of this encounter Procedures Procedure [...] EDT Narrative 09/22/2023 10:08 AM EDT ? [facility] ?[address] ?[place] [address] ? CT Scan Report ? Signed ? Patient: Haseeb Mendenhall,Baptist ?MR#: ?? [id number] ? : 1975 ?Acct:[id number] ? Age/Sex: 48 / M ?ADM Date: 10/18/23 ? Loc: HO.CT ? Attending Dr: Gemma Mccray MD ? Ordering Physician: Gemma Mccray ?? Date of Service: 09/16/23 ?? Procedure(s): CT abdomen pelvis wo/w IV con ?? Accession Number(s): [id number] ? cc: Kamila Sidhu MD; Gemma Mccray [...] 1004 ? DD/ 1026 ? TD/TT: ? Manufacturing Controller: SofíaK ? Procedure Note Fawnter, Image - 09/22/[address] [place] [address] [address] Scan Report Signed Patient: Anayeli Riley#: [id number] : 1975Acct:[id number] Age/Sex: 48 / MADM Date: 09/16/23 Loc: HO.CT Attending Dr: Gemma Mccray MD Ordering Physician: Gemma Mccray Date of Service: 09/16/23 Procedure(s): CT abdomen pelvis wo/w IV con Accession Number(s): [id number] cc: Kamila Sidhu MD; Gemma Mccray EXAMINATION: [...] in OV> 09/22/23 1004 DD/ 1026 TD/TT: Manufacturing Controller: ROQUE us Gemma Mccray MD IMG CT PROCEDURES Final Result * BI US Breast Complete Right (09/03/2023 3:38 PM EDT) Anatomical Region Laterality Modality Breast Right Ultrasound 09/03/2023 3:38 PM EDT Narrative 09/03/2023 5:37 PM EDT ? [facility] ? [address] ?[place] [address] ? Ultrasound Report ? Signed ? Patient: Haseeb Mendenhall,Baptist ?MR#: ?? [id number] ? : 1975 ?Acct:[id number] ? Age/Sex: 48 / M ?ADM Date: 09/03/23 ? Loc: HO.MAMMO ? Attending Dr: Kamila Sidhu MD ? Ordering Physician: Kamila Sidhu MD ?? Date of Service: 09/03/23 ?? Procedure(s): US breast RT limited mamm only ?? Accession Number(s): [id number] ? cc: Kamila Sidhu MD ? EXAMINATION: [...] signed by Samm Yu MD in OV> ?10 1733 ? DD/ 1538 ? TD/TT: ? Manufacturing Controller: ? Procedure Note Rocío, Image - 09/03/2023 [place] [facility] [address] [place] [address] Ultrasound Report Signed Patient: Anayeli Riley#: [id number] : 1975Acct:[id number] Age/Sex: 48 / MADM Date: 09/03/23 Loc: HO.MAMMO Attending Dr: Kamila Sidhu MD Ordering Physician: Kamila Sidhu MD Date of Service: 09/03/23 Procedure(s): US breast RT limited mamm only Accession Number(s): [id number] cc: Kamila Sidhu MD EXAMINATION: MM DIAGNOSTIC [...] in OV> 09/03/23 1733 DD/ 1538 TD/TT: Manufacturing Controller: us Kamila Sidhu MD IMG US PROCEDURES Final Result * BI Mammogram Diagnostic Tomosynthesis Bilateral (09/03/2023 3:10 PM EDT) Anatomical Region Laterality Modality Breast Bilateral Mammography 09/03/2023 3:10 PM EDT Narrative 09/03/2023 5:37 PM EDT ? [place] [facility] ? [address] ?[place] [address] ? Mammography Report ? Signed ? Patient: Haseeb Mendenhall,Baptist ?MR#: ?? [id number] ? : 1975 ?Acct:[id number] ? Age/Sex: 48 / M ?ADM Date: 09/03/23 ? Loc: HO.MAMMO ? Attending Dr: Kamila Sidhu MD ? Ordering Physician: Kamila Sidhu MD ?Results: 2Be ?? nign Findings ? Date of Service: 09/03/23 ?Follow Up: 1 Year From Orig ?? inal Mammogram ? Procedure(s): MM tomosynthesis diagnostic BI ?? Accession Number(s): [id number] ? cc: Kamila Sidhu MD ? EXAMINATION: [...] 1733 ? DD/ 1510 ? TD/TT: ? Manufacturing Controller: ? Procedure Note Rocío, Image - 09/03/2023 [facility] [address] [place] [address] Dr. Choi, [place] [address] Mammography Report Signed Patient: Laron Riley#: [id number] : 1975Acct:[id number] Age/Sex: 48 / MADM Date: 09/03/23 Loc: HO.MAMMO Attending Dr: Kamila Sidhu MD Ordering Physician: Kamila Sidhu MDResults: 2Be nign Findings Date of Service: 09/03/23Follow Up: 1 Year From [facility] Mammogram Procedure(s): MM tomosynthesis diagnostic BI Accession Number(s): [id number] cc: Kamila Sidhu MD EXAMINATION: MM DIAGNOSTIC [...] by Samm Yu MD in OV> 09/03/23 1874 DD/ 1510 TD/TT: Manufacturing Controller: Kamila Sidhu MD IMG BI PROCEDURES Final Result documented in this encounter Visit Diagnoses Diagnosis Right upper quadrant abdominal pain- Primary documented in this encounter Additional Health Concerns Assessment Noted Time PHQ-9 Depression Total Score: 10 07/13/ 023 3:51 PM EDT documented as of this encounter Care Teams Cable Assembler Relationship Specialty Start Date End Date Gemma Mccray MD [address] [place], [place] [phone] PCP - General Family Medicine 10/10/20 Ivis Jauregui PharmD [address] [place], [place] [phone] Pharmacist Internal Medicine 12/30/24 documented as of this encounter
--- OUTSIDE RECORDS SUMMARY | 2025-01-26 17:40 | XMS_ITS | Encounter Summary ---
Author Organization [employer] Address 75 [facility] 7t [place] [address] Care Team Providers Care Cap Maker Name Role Phone Gemma Mccray MD Primary Care Provider [phone] Puia Ivis PharmD Unavailable [phone] Reason for Visit * Reason Onset Date Comments Prior Authorization 01/02/2025 Agnes 3 read er, 3 plus sensors, bita test strips Encounter Details Date Type Department Care Team (Late st Contact Info) Description 01/02/2025 Telephone [facility] [address] [place] [address] Puia, Ivis, PharmD [address] [place] [address] Prior Authorization (Agnes 3 reader, 3 plus sensors, bita test strips ) Social History Tobacco Use Types Packs/Day Years [...] t he electric, gas, oil or water [employer] threatened to shut off services in your [...] encounter Miscellaneous Notes * Telephone Encounter - Ivis Jauregui PharmD - 01/02/2025 4:35 PM EST Incoming call from pharmacy - Agnes 3 CGM requires PA. [facility] prepared & faxed PA to plan today; awaiting response at this time & patient is aware. PA packet sent to HIM for upload into EHR. FYI to PA team - this request is all set. documented in this encounter Plan of Treatment Upcoming Encounters Date Type Department Care Team (Late st Contact Info) Description 01/27/2025 9:00 AM EST Medication Management [facility] [address] [place] [address] Ivis Jauregui PharmD [address] [place] [address] 03/14/2025 10:15 AM EDT Office Visit [facility] [address] [place] [address] Gemma Mccray MD [address] [place] [address] 04/10/2025 9:00 AM EDT Office Visit [facility] [address] [place] [address] Crystal De Santiago, OD [address] [place] [address] documented as of this encounter Visit Diagnoses Not on filedocumented in this encounter Additional Health Concerns Assessment Noted Time PHQ-9 Depression Total Score: 10 024 11:42 AM EST documented as of this encounter Care Teams Cap Maker Relationship Specialty Start Date End Date Gemma Mccray MD [address] [place] [address] PCP - General Family Medicine 10/10/20 Ivis Jauregui PharmD [address] [place] [address] Pharmacist Internal Medicine 12/30/24 documented as of this encounter
--- OUTSIDE RECORDS SUMMARY | 2025-01-26 17:40 | XMS_ITS | Encounter Summary ---
Author Organization [employer] Address [address] [facility] 7t [place] [address] Care Team Providers Care Medical Cost Consultant Name Role Phone Gemma Mccray MD Primary Care Provider Ivis Jauregui PharmD Unavailable [phone] Reason for Referral * Consultation (Routine) - Pending Review Specialty Diagnoses / Procedures Referred By Sirena castellano Referred To Contact Rheumatology Diagnoses Interstitial myositis of multiple sites Gemma Mccray MD [address] [place] [address] Phone: tel: fax: Referral ID Status Reason Start Date Expiration Date Visits Requested Visits Authorized [id number] Pending Review Specialty Services Required 01/19/2025 01/19/2026 1 1 Encounter Details Date Type Department Care Team (Late st Contact Info) Description 01/17/2025 11:00 AM EST Telemedicine [facility] [address] [place], [place] [phone] Gemma Mccray MD [address] [place], [place] [phone] Tinea versicolor (Primary Dx); Dietary counseling; Exercise counseling; Class 2 severe obesity due to excess calories with serious comorbidity and body mass index (BMI) of 35.0 to 35.9 in adult (CMS/HCC); Depression, recurrent (CMS/HCC); Type 2 diabetes mellitus with hyperglycemia, with long-term current use of insulin (CMS/HCC); Polyneuropathy due to type 2 diabetes mellitus (CMS/HCC); Interstitial myositis of multiple sites Social History Tobacco Use Types Packs/Day Years [...] your housing situation today? I have lefty mary carmen 02/18/[address] you li [...] AM EDT documented as of this encounter Progress Notes * Gemma Mccray MD - 01/17/2025 11:00 AM EST SUBJECTIVE: Laron Mendenhall is a 49 y.o. year old male who presents for acute visit. Denies recent illness, ER visit, or hospitalization. Acute Concerns: Rash on the chest and arms and back that is flaky and itchy. Trialed triamcinolone after seeing me 10/04/24 as rash appearance consistent with eczema. He reports that this made things worse. He notes that his has the same rash and that when he touches another spot on his body after scratching at the rash, the rash will spread. Interim Updates: Hypogonadism/ED Nl sex hormones 08/202410/03/24 saw urology Brynn Parmar at [facility], continue Cialis 5mg daily and stop testosterone supplement Normal PSA 12/2024 Myositis, NOS Has not been seen by rheum since 03/2024 as provider left practice and then was lost to followup 02/2024 Rheum for myositis, was on prednisone taper x 4 weeks 10/2023 Rheum for myopathic process 10/2023 muscle biopsy of Joseline shelley: Final diagnosis is skeletal muscle with slightly increased fiber size variation, rare atrophic and hypertrophic fibers, and rare red ragged fibers. - Neuro consult ordered for 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 (as suggested by red ragged fibers) he has not been to neurology consult ER visit on 07/16/23 for 2 weeks (though in clinic he says 2-3 months) of feeling weak, headache, dizzy. Had a CT abd pelvis that showed hepatic steatosis without acute findings, normal CMP, CBC, lipase. EKG normal, CXR normal. I had seen him 07/13/23 for ER followup from 06/27/23 at which time he hadsyncopized with R rib/flank pain and was found to have CK of 200. Lab Results Component Value Date CKTOTAL 145 12/30/2024 CKTOTAL 697 (H) 03/31/2024 CKTOTAL 2521 (A) 02/29/2024 CKTOTAL 306 (H) 11/10/2023 CKTOTAL 1,189 (H) 10/05/2023 CKTOTAL 442 (A) 07/24/2023 CKTOTAL 750 (A) 07/13/2023 DM2 Last A1C 11.2 CGM has not been on for awhile, restarted with CDTM Titrating insulin with Ivis Puia, next visit 01/27/25 Encouraged to start Mounjaro not on statin due to myositis Gout L toe is quiescent, slightly painful HTN On Losartan 50mg daily Depression Concerned about his health Requesting more SOAP INSPECTOR hours, his contact center assistant is Kerry Swain at [facility] [phone] Ext [phone] Bilateral gynecomastia IMPRESSION: There is no evidence of malignancy in either breast. There is moderate right and mild left benign male gynecomastia. OVERALL ASSESSMENT: Mammography: BI-RADS 2 - Benign Findings Ultrasound: BI-RADS 2 - Benign Findings Health Maintenance Colonoscopy- due, referral placed Patient Active Problem List Diagnosis Impotence due to erectile dysfunction Backache Depression, recurrent (CMS/HCC) Multiple nodules of lung Pinguecula Polyneuropathy due to type 2 diabetes mellitus (CMS/HCC) Precordial pain Pure hypercholesterolemia Type 2 diabetes mellitus (CMS/HCC) Urge incontinence of urine Athlete's foot on left Localized swelling of toe of left foot Essential hypertension Gout of foot Non-traumatic rhabdomyolysis Tinea versicolor Interstitial myositis of multiple sites History reviewed. No pertinent surgical history. No family history on file. Social History Social History Narrative On SSI Lives with and children Review of Systems OBJECTIVE: There were no vitals filed for this visit. Physical Exam ASSESSMENT/PLAN Problem List Items Addressed This Visit Depression, recurrent (CMS/HCC) Polyneuropathy due to type 2 diabetes mellitus (CMS/HCC) Type 2 diabetes mellitus (CMS/HCC) Tinea versicolor - Primary Current Assessment & Plan Rash sounding more consistent with refractory tinea versicolor To wash weekly in ketoconazole shampoo x 2-4 weeks Take fluconazole oral 300mg x 1, then repeat in one week Interstitial myositis of multiple sites Current Assessment & Plan Underwent prednisone taper in 03/2024 for myositis, unclear etiology Needs to be returned to rheum care, referral replaced Most recent CK has normalized at 170, patient still with muscle soreness Has not seen neurology for 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 Will have workup for cancer, needs colon cancer screening Relevant Orders Referral to Rheumatology Other Visit Diagnoses Dietary counseling Exercise counseling Class 2 severe obesity due to excess calories with serious comorbidity and body mass index (BMI) of35.0 to 35.9 in adult (CMS/HCC) Follow Up: 4 months or sooner prn No Known Allergies Current Outpatient Medications: albuterol 108 (90 Base) MCG/ACT inhaler, Inhale 2 puffs every 6 (six) hours if needed for wheezing., Disp: 18 g, Rfl: 11 Alcohol Swabs (Alcohol Prep) pads, Use as directed prior to insulin injection 4x daily, Disp: 200 each, Rfl: 11 Blood Pressure kit, Use to check home blood pressure daily as directed, Disp: 1 kit, Rfl: 0 Continuous Glucose International Marketing Coordinator (FreeStyle Agnes 3 [place]) device, 1 each 3 times daily. Use daily as directed for CGM, Disp: 1 each, Rfl: 0 Continuous Glucose Sensor (FreeStyle Agnes 3 Plus Sensor) misc, 1 each Once per day. Apply 1 sensoras directed every 15 days for CGM, Disp: 2 each, Rfl: 11 fluconazole (Diflucan) 150 MG tablet, Take 2 tablets (300 mg) by mouth 1 (one) time per week for 14days., Disp: 4 tablet, Rfl: 0 glucose blood (FreeStyle Precision Damon Test) test strip, Use to test blood sugar up to 3 times daily, as directed, Disp: 100 each, Rfl: 11 insulin aspart (NovoLOG FLEXPEN) 100 UNIT/ML pen, Inject 35 units subcutaneously three times daily with meals, Disp: 30 mL, Rfl: 1 insulin degludec (Tresiba FlexTouch) 200 UNIT/ML injection, INJECT 65 UNITS SUBCUTANEOUSLY EVERY DAY. INCREASE DIRECTED TO MAX OF 75 UNITS PER DAY, Disp: 9 mL, Rfl: 1 ketoconazole (NIZOral) 2 % shampoo, Apply topically 2 (two) times a week., Disp: 120 mL, Rfl: 3 losartan (Cozaar) 50 MG tablet, Take 1 tablet (50 mg) by mouth Once per day., Disp: 30 tablet, Rfl:11 tamsulosin (Flomax) 0.4 MG 24 hr capsule, TAKE 1 CAPSULE BY MOUTH DAILY 30 MINUTES AFTER THE SAME MEAL EVERY DAY, Disp: 30 capsule, Rfl: 1 Tirzepatide (Mounjaro) 5 MG/0.5ML solution auto-injector, Inject 5 mg under the skin 1 (one) time per week. (Patient not taking: Reported on 01/12/2025), Disp: 2 mL, Rfl: 11 TRUEplus Lancets 33G misc, TEST BLOOD SUGAR 3 TIMES A DAY, Disp: 100 each, Rfl: 11 UltiGuard SafePack Pen Needle 32G X 4 MM misc, USE FOUR TIMES DAILY, Disp: 100 each, Rfl: 11 Slovenian Translation: Provided by [facility] staff member PABLO Kim documented in this encounter Miscellaneous Notes * Assessment & Plan Note - Gemma Mccray MD - 01/19/2025 7:38 AM ESTAssociated Problem(s): Interstitial myositis of multiple sites Underwent prednisone taper in 03/2024 for myositis, unclear etiology Needs to be returned to [facility] care, referral replaced Most recent CK has normalized at 170, patient still with muscle soreness Has not seen neurology for 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 Will have workup for cancer, needs colon cancer screening * Assessment & Plan Note - Gemma Mccray MD - 01/19/2025 7:37 AM ESTAssociated Problem(s): Tinea versicolor Rash sounding more consistent with refractory tinea versicolor To wash weekly in ketoconazole shampoo x 2-4 weeks Take fluconazole oral 300mg x 1, then repeat in one week documented in this encounter Plan of Treatment Upcoming Encounters Date Type Department Care Team (Late st Contact Info) Description 01/27/2025 9:00 AM EST Medication Management [facility] [address] [place] [address] Ivis Jauregui, PharmD [address] [place] [address] 03/14/2025 10:15 AM EDT Office Visit [facility] [address] [place] [place] [address] Gemma Mccray MD [address] [place] [address] 04/10/2025 9:00 AM EDT Office Visit [facility] [address] [place] [address] Crystal De Santiago, OD [address] [place] [address] Scheduled Referrals Name Type Priority Associated Diagnoses Order Schedule Referral to Rheumatology Outpatient Referral Routine Interstitial myositis of multiple sites Expected: 01/19/2025 (Approximate), Expires: 01/19/2026 documented as of this encounter Visit Diagnoses Diagnosis Tinea versicolor- Primary Pityriasis versicolor Dietary counseling Dietary surveillance and counseling Exercise counseling Class 2 severe obesity due to excess calories with serious comorbidity and body mass index (BMI) of 35.0 to 35.9 in adult (CMS/HCC) Depression, recurrent (CMS/HCC) Major depressive disorder, recurrent episode, unspecified Type 2 diabetes mellitus with hyperglycemia, with long-term current use of insulin ([facility]) Polyneuropathy due to type 2 diabetes mellitus (CMS/HCC) Interstitial myositis of multiple sites documented in this encounter Additional Health Concerns Assessment Noted Time PHQ-9 Depression Total Score: 10 024 11:42 AM EST documented as of this encounter Care Teams Medical Cost Consultant Relationship Specialty Start Date End Date Gemma Mccray MD [address] [place] [address] PCP - General Family Medicine 10/10/20 Ivis Jauregui PharmD [address] [place] [address] Pharmacist Internal Medicine 12/30/24 documented as of this encounter
--- OUTSIDE RECORDS SUMMARY | 2025-01-26 17:40 | XMS_ITS | Encounter Summary ---
Author Organization [employer] [facility] Address 75 [facility] 7t [place] [address] Care Team Providers Care Quality Assurance Qa Lab Analyst Name Role Phone Gemma Mccray MD Primary Care Provider [phone] Ivis Jauregui PharmD Unavailable [phone] Reason for Visit * Reason Onset Date Comments Med Refill 02/05/2023 Encounter Details Date Type Department Care Team (Late st Contact Info) Description 02/05/2023 Refill [facility] [address] [place], [place] [phone] Gemma Mccray MD [address] [place], [place] [phone] Social History Tobacco Use Types Packs/Day Years [...] Description 01/27/2025 9:00 AM EST Medication Management [facility] [address] [place] [address] Ivis Jauregui PharmD [address] [place] [address] 03/14/2025 10:15 AM EDT Office Visit [facility] [address] [place] [address] Gemma Mccray MD [address] [place] [address] 04/10/2025 9:00 AM EDT Office Visit [facility] [address] [place] [address] Crystal De Santiago, OD [address] [place] [address] documented as of this encounter Visit Diagnoses Not on filedocumented in this encounter Care Teams Quality Assurance Qa Lab Analyst Relationship Specialty Start Date End Date Gemma Mccray MD [address] [place] [address] PCP - General Family Medicine 10/10/20 Ivis Jauregui PharmD [address] [place] [address] Pharmacist Internal Medicine 12/30/24 documented as of this encounter
--- OUTSIDE RECORDS SUMMARY | 2025-01-26 17:40 | XMS_ITS | Encounter Summary ---
Author Organization [employer] Address 75 [facility] 7t [place] [address] Care Team Providers Care Crts Name Role Phone Gemma Mccray MD Primary Care Provider [phone] Ivis Jauregui PharmD Unavailable [phone] Reason for Visit * Reason Comments Med Refill Encounter Details Date Type Department Care Team ([facility] st Contact Info) Description 06/27/2024 Refill [facility] [address] [place], [place] [phone] Gemma Mccray MD [address] [place], [place] [phone] Type 2 diabetes mellitus with hyperglycemia, with long-term current use of insulin ([facility]) Social History Tobacco Use Types [...] Description 01/27/2025 9:00 AM EST Medication Management [facility] [address] [place] [address] Ivis Jauregui, PharmD [address] [place] [address] 03/14/2025 10:15 AM EDT Office Visit [facility] [address] [place] [address] Gemma Mccray MD [address] [place] [address] 04/10/2025 9:00 AM EDT Office Visit [facility] [address] [place] [address] Crystal De Santiago, OD [address] [place] [address] documented as of this encounter Visit Diagnoses Diagnosis Type 2 diabetes mellitus with hyperglycemia, with long-term current use of insulin ([facility]) documented in this encounter Additional Health Concerns Assessment Noted Time PHQ-9 Depression Total Score: 16 024 9:57 AM EDT documented as of this encounter Care Teams Crts Relationship Specialty Start Date End Date Gemma Mccray MD [address] [place] [address] PCP - General Family Medicine 10/10/20 Ivis Jauregui, SaulD [address] [place] [address] Pharmacist Internal Medicine 12/30/24 documented as of this encounter
--- OUTSIDE RECORDS SUMMARY | 2025-01-26 17:40 | XMS_ITS | Encounter Summary ---
Author Organization [employer] Address [address] 7[address] [place] [address] Care Team Providers Care Transport Nurse Name Role Phone Gemma Mccray MD Primary Care Provider [phone] Ivis Jauregui PharmD Unavailable [phone] Encounter Details Date Type Department Care Team (Latest Contact Info) Description 01/17/2025 Travel Social History Tobacco Use Types Packs/Day Years [...] Upcoming Encounters Date Type Department Care Team ([facility] st Contact Info) Description 01/27/2025 9:00 AM EST Medication Management [facility] MEDICINE [address] [place] [address] Ivis Jauregui PharmD [address] [place] [address] 03/14/2025 10:15 AM EDT Office Visit [facility] MEDICINE [address] [place] [address] Gemma Mccray MD [address] [place] [address] 04/10/2025 9:00 AM EDT Office Visit [facility] OPTOMETRY [address] [place] [address] TarkaCrystal, OD [address] [place] [address] documented as of this encounter Visit Diagnoses Not on filedocumented in this encounter Additional Health Concerns Assessment Noted Time PHQ-9 Depression Total Score: 10 024 11:42 AM EST documented as of this encounter Care Teams Transport Nurse Relationship Specialty Start Date End Date Gemma Mccray MD [address] [place] [address] PCP - General Family Medicine 10/10/20 Ivis Jauregui, SaulD [address] [place] [phone] Pharmacist Internal Medicine 12/30/24 documented as of this encounter
--- OUTSIDE RECORDS SUMMARY | 2025-01-26 17:40 | XMS_ITS | Encounter Summary ---
Author Organization [employer] [facility] Address [address] [facility] 7t h Floor [place] [id number] Care Team Providers Care Tool Grinder Name Role Phone Gemma Mccray MD Primary Care Provider [phone] Ivis Jauregui PharmD Unavailable [phone] Reason for Visit * Reason Comments Med Refill Encounter Details Date Type Department Care Team (Late st Contact Info) Description 02/05/2023 Refill [facility] MEDICINE [address] [place], [place] [phone] Gemma Mccray MD [address] [place] [address] Type 2 diabetes mellitus with hyperglycemia, with long-term current use of insulin ([facility]) Social History Tobacco Use Types Packs/Day Years [...] Description 01/27/2025 9:00 AM EST Medication Management [facility] MED[facility]INE [address] [place] [address] Ivis Jauregui, PharmD [address] [place] [address] 03/14/2025 10:15 AM EDT Office Visit [facility] MEDICINE [address] [place] [address] Gemma Mccray MD [address] [place] [address] 04/10/2025 9:00 AM EDT Office Visit [facility] OPTOMETRY [address] [place] [address] Crystal De Santiago, OD [address] [place] [address] documented as of this encounter Visit Diagnoses Diagnosis Type 2 diabetes mellitus with hyperglycemia, with long-term current use of insulin ([facility]) documented in this encounter Care Teams Tool Grinder Relationship Specialty Start Date End Date Gemma Mccray MD [address] [place] [address] [phone] PCP - General Family Medicine 10/10/20 Ivis Jauregui PharmD [address] [place] [address] [phone] Pharmacist Internal Medicine 12/30/24 documented as of this encounter
--- OUTSIDE RECORDS SUMMARY | 2025-01-26 17:40 | XMS_ITS | Encounter Summary ---
Author Organization [employer] [facility] Address [address] [facility] 7t [place] [address] Care Team Providers Care Director Of Diagnostic Imaging Name Role Phone Gemma Mccray MD Primary Care Provider [phone] Ivis Jauregui PharmD Unavailable [phone] Reason for Visit * Reason Onset Date Comments PCP Appt 04/09/2023 Encounter Details Date Type Department Care Team (Late st Contact Info) Description 04/09/2023 Telephone [facility] MEDICINE [address] [place] [phone] Gemma Mccray MD [address] [place] [address] PCP Appt Social History Tobacco Use Types [...] Description 01/27/2025 9:00 AM EST Medication Management [facility] MEDICINE [address] [place] [address] Ivis Jauregui, PharmD [address] [place] [address] 03/14/2025 10:15 AM EDT Office Visit [facility] MEDICINE [address] [place] [phone] Gemma Mccray MD [address] [place] [address] 04/10/2025 9:00 AM EDT Office Visit [facility] OPTOMETRY [address] [place] [address] Crystal De Santiago, OD [address] [place] [address] documented as of this encounter Visit Diagnoses Not on filedocumented in this encounter Care Teams Director Of Diagnostic Imaging Relationship Specialty Start Date End Date Gemma Mccray MD [address] [place] [phone] PCP - General Family Medicine 10/10/20 Ivis Jauregui PharmD [address] [place] [phone] Pharmacist Internal Medicine 12/30/24 documented as of this encounter
--- OUTSIDE RECORDS SUMMARY | 2025-01-26 17:40 | XMS_ITS | Encounter Summary ---
Author Organization [employer] Address [address] 7t [place] [address] Care Team Providers Care Transport Technician Name Role Phone Gemma Mccray MD Primary Care Provider [phone] Ivis Jauregui PharmD Unavailable [phone] Encounter Details Date Type Department Care Team (Latest Contact Info) Description 01/11/2025 Travel Social History Tobacco Use Types Packs/Day [...] Upcoming Encounters Date Type Department Care Team ([facility] st Contact Info) Description 01/27/2025 9:00 AM EST Medication Management [facility] MEDICINE [address] [place] [address] Ivis Jauregui PharmD [address] [place] [address] 03/14/2025 10:15 AM EDT Office Visit [facility] MEDICINE [address] [place] [address] Gemma Mccray MD [address] [place] [address] 04/10/2025 9:00 AM EDT Office Visit [facility] OPTOMETRY [address] [place] [address] TarkaCrystal, OD [address] [place] [address] documented as of this encounter Visit Diagnoses Not on filedocumented in this encounter Additional Health Concerns Assessment Noted Time PHQ-9 Depression Total Score: 10 024 11:42 AM EST documented as of this encounter Care Teams Transport Technician Relationship Specialty Start Date End Date Gemma Mccray MD [address] [address] PCP - General Family Medicine 10/10/20 Ivis Jauregui, SaulD [address] [place] [phone] Pharmacist Internal Medicine 12/30/24 documented as of this encounter
--- OUTSIDE RECORDS SUMMARY | 2025-01-26 17:40 | XMS_ITS | Encounter Summary ---
Author Organization [employer] Address [address] [facility] [address] 7t [place] [address] Care Team Providers Care Adolescent Psychiatrist Name Role Phone Gemma Mccray MD Primary Care Provider [phone] Ivis Jauregui PharmD Unavailable [phone] Encounter Details Date Type Department Care Team (Late st Contact Info) Description 12/30/2024 Orders Only GENERIC EXTERNAL DATA DEPARTMENT Provider, Generic External Data Social History Tobacco Use Types Packs/Day Years [...] Description 01/27/2025 9:00 AM EST Medication Management [facility] MEDICINE [address] [place] [address] Ivis Jauregui, PharmD [address] [place] [address] 03/14/2025 10:15 AM EDT Office Visit [facility] MEDICINE [address] [place] [address] Gemma Mccray MD [address] [place] [address] 04/10/2025 9:00 AM EDT Office Visit [facility] OPTOMETRY [address] [place] [address] TarCrystal booker, OD [address] [place] [address] documented as of this encounter Procedures Procedure Name Priority Date/Time Associated Diagnosis Comments CBC Routine 12/30/2024 9:58 AM EST TESTOSTERONE, FREE (DIALYSIS) AND TOTAL,MS Routine 12/30/2024 9:58 AM EST PSA, TOTAL Routine 12/30/2024 9:58 AM EST documented in this encounter Results * Testosterone, Free (Dialysis) And Total, MS (12/30/2024 9:58 AM EST) Testosterone, Total 264 250 - 1100 ng/dL [facility] Comment:For additional infor madai, please refer tohttp://education.Trustlook/faq/FmculLrmqnwgqstpyAMIGAGQXJ995(This link is being provided for informational/educational purposes only.)This test was developed and its analytical performancecharacteristics have been determined by [employer] [place], [place]. It hasnot been cleared or approved by the U.S. Food and DrugAdministration. This assay has been validated pursuantto the CLIA regulations and is used for clinicalpurposes. Testosterone, Free 62.6 35.0 - 155.0 pg/mL [facility] Comment:This test was develo ped and its analytical performancecharacteristics have been determined by [employer] [place], [place]. It hasnot been cleared or approved by the U.S. Food and DrugAdministration. This assay has been validated pursuantto the CLIA regulations and is used for clinicalpurposes.THIS TEST WAS PERFORMED AT:[employer] [id number] [place] [id number] TIMMONS MD,PHD 12/30/2024 9:58 AM EST 12/30/2024 9:58 AM EST us Generic External Data Provider LAB BLOOD ORDERAB LES Final Result [facility] [address] [place] [phone] * PSA,Total (12/30/2024 9:58 AM EST) Prostate Specific Antigen 0.69 <0.05 - 4.0 ng/mL [facility] Comment:PSA methodology: Abb derik Alinity i ChemiluminescentMicroparticle Immunoassay (CMIA) 12/30/2024 9:58 AM EST 12/30/2024 9:58 AM EST us Generic External Data Provider LAB BLOOD ORDERAB LES Final Result [facility] [address] [place] [address] [phone] * (ABNORMAL) CBC (12/30/2024 9:58 AM EST) White Blood Count 9.4 4.8 - 10.8 X10*3/uL [facility] Red Blood Count 4.88 4.60 - 5.80 X10*6/uL [facility] Hemoglobin 14.0 14.0 - 18.0 g/dl [facility] Hematocrit 40.0(L) 42.0 - 52.0 % [facility] Mean Corpuscular Volume 82.0 80.0 - 98.0 fL [facility] Mean Corpuscular Hemoglobin 28.7 27.0 - 33.0 pg [facility] Mean Corpuscular HGB Conc 35.0 31.0 - 36.0 g/dl [facility] Red Cell Distribution Width 13.1 11.0 - 16.0 % [facility] Platelet Count 264 160 - 400 X10*3/uL [facility] Mean Platelet Volume 9.6 9.4 - 12.4 fL [facility] NRBC Pct Auto 0.0 0.0 - 0.2 /100WBC [facility] NRBC Abs Auto 0.000 0.0 - 0.012 X10*3/uL [facility] 12/30/2024 9:58 AM EST 12/30/2024 9:58 AM EST us Generic External Data Provider LAB BLOOD ORDERAB LES Final Result Performing Organization Address City/[facility]/ZIP Co de Phone Number [facility] [address] [place] [address] [phone] documented in this encounter Visit Diagnoses Not on filedocumented in this encounter Additional Health Concerns Assessment Noted Time PHQ-9 Depression Total Score: 10 024 11:42 AM EST documented as of this encounter Care Teams Adolescent Psychiatrist Relationship Specialty Start Date End Date Gemma Mccray MD [address] [place] [address] PCP - General Family Medicine 10/10/20 Ivis Jauregui PharmD [address] [place] [address] Pharmacist Internal Medicine 12/30/24 documented as of this encounter
--- OUTSIDE RECORDS SUMMARY | 2025-01-26 17:40 | XMS_ITS | Encounter Summary ---
Author Organization [employer] Address [address] [place] [address] Care Team Providers Care Carbonizer Tester Name Role Phone Gemma Mccray MD Primary Care Provider [phone] Ivis Jauregui PharmD Unavailable [phone] Reason for Visit * Reason Onset Date Comments recall 01/12/2025 Encounter Details Date Type Department Care Team ([facility] st Contact Info) Description 01/12/2025 Telephone [facility] MED[facility]INE [address] [place], [place] [phone] Gemma Mccray MD [address] [place], [place] [phone] recall Social History Tobacco Use Types Packs/Day Years [...] encounter Miscellaneous Notes * Telephone Encounter - Judy Rios MA - 01/12/2025 1:01 PM EST Telephone call to patient to schedule the following recall: Visit type: Office visit Appointment notes: DM Patient agree to appointment on 03/14/25 at 10:15 AM with Mahendra. documented in this encounter Plan of Treatment Upcoming Encounters Date Type Department Care Team (Late st Contact Info) Description 01/27/2025 9:00 AM EST Medication Management [facility] MEDICINE [address] [place] [phone] Ivis Jauregui, SaulD [address] [place] [address] 03/14/2025 10:15 AM EDT Office Visit [facility] MED[facility]INE [address] [place] [address] Gemma Mccray MD [address] [place] [address] 04/10/2025 9:00 AM EDT Office Visit [facility] OPTOMETRY [address] [place], [place] [phone] Crystal De Santiago, OD [address] [place] [address] documented as of this encounter Visit Diagnoses Not on filedocumented in this encounter Additional Health Concerns Assessment Noted Time PHQ-9 Depression Total Score: 10 024 11:42 AM EST documented as of this encounter Care Teams Carbonizer Tester Relationship Specialty Start Date End Date Gemma Mccray MD [address] [place] [address] PCP - General Family Medicine 10/10/20 Ivis Jauregui PharmD [address] [place] [address] Pharmacist Internal Medicine 12/30/24 documented as of this encounter
--- OUTSIDE RECORDS SUMMARY | 2025-01-26 17:41 | XMS_ITS | Encounter Summary ---
Author Organization [employer] [facility] Address [address] [facility] 7t [place] [address] Care Team Providers Care Tempering Oven Operator Name Role Phone Gemma Mccray MD Primary Care Provider [phone] Ivis Jauregui PharmD Unavailable [phone] Encounter Details Date Type Department Care Team (Latest Contact Info) Description 04/05/2019 Abstract [facility] CONVERSIONS Dental, Provider, DDS Social History [...] Upcoming Encounters Date Type Department Care Team ( Contact Info) Description 01/27/2025 9:00 AM EST Medication Management [facility] MEDICINE [address] [place] [address] Ivis Jauregui, PharmD [address] [place] [address] 03/14/2025 10:15 AM EDT Office Visit [facility] MEDICINE [address] [place] [address] Gemma Mccray MD [address] [place] [address] 04/10/2025 9:00 AM EDT Office Visit [facility] OPTOMETRY [address] [place] [address] Crystal De Santiago, OD [address] [place] [address] documented as of this encounter Visit Diagnoses Not on filedocumented in this encounter Care Teams Tempering Oven Operator Relationship Specialty Start Date End Date Gemma Mccray MD [address] [place] [address] [phone] PCP - General Family Medicine 10/10/20 Ivis Jauregui PharmD [address] [place] [phone] Pharmacist Internal Medicine 12/30/24 documented as of this encounter
--- OUTSIDE RECORDS SUMMARY | 2025-01-26 17:41 | XMS_ITS | Encounter Summary ---
Author Organization [employer] Address [address] [place] [address] Care Team Providers Care Clinical Trial Leader Name Role Phone Gemma Mccray MD Primary Care Provider [phone] Ivis Jauregui PharmD Unavailable [phone] Reason for Visit * Reason Onset Date Comments Appointment Request 01/20/2024 Encounter Details Date Type Department Care Team ([facility] st Contact Info) Description 01/20/2024 Telephone [facility] MEDICINE [address] [place], [place] [phone] Gemma Mccray MD [address] [place], [place] [phone] Appointment Request Social History Tobacco Use Types Packs/Day Years Used Date Smoking Tobacco: Never Smokeless Tobacco: Never Alcohol Use Standard Drinks/Week Comments Never 0 (1 standard drink = 0.6 oz pur e alcohol) Depression Answer Date Recorded Patient Health Questionnaire-9 Score 10 07/13/2023 Housing Stability Answer Date Recorded What is your housing situation today? I have lefty lentz 09/22/[address] you [...] upcoming test . Please contact pt @ [phone] documented in this encounter Plan of Treatment Upcoming Encounters Date Type Department Care Team (Late st Contact Info) Description 01/27/2025 9:00 AM EST Medication Management [facility] MEDICINE [address] [place] [address] Ivis Jauregui, SaulD [address] [place] [address] 03/14/2025 10:15 AM EDT Office Visit [facility] MEDICINE [address] [place] [address] Gemma Mccray MD [address] [place] [address] 04/10/2025 9:00 AM EDT Office Visit [facility] OPTOMETRY [address] [place] [address] Crystal De Santiago, OD [address] [place] [address] documented as of this encounter Visit Diagnoses Not on filedocumented in this encounter Additional Health Concerns Assessment Noted Time PHQ-9 Depression Total Score: 10 07/13/2 023 3:51 PM EDT documented as of this encounter Care Teams Clinical Trial Leader Relationship Specialty Start Date End Date Gemma Mccray MD [address] [place] [address] PCP - General Family Medicine 10/10/20 Ivis Jauregui PharmD [address] [place] [address] Pharmacist Internal Medicine 12/30/24 documented as of this encounter
--- OUTSIDE RECORDS SUMMARY | 2025-01-26 17:41 | XMS_ITS | Clinical Summary ---
Author Organization [employer] Address [address] [facility] [address] [place] [address] Care Team Providers Care Metal Grader Name Role Phone Gemma Mccray MD Primary Care Provider [phone] Ivis Jauregui PharmD Unavailable [phone] Allergies No known active allergies Medications tamsulosin (Flomax) 0.4 MG 24 hr capsule TAKE 1 CAPSULE BY MOUTH DAILY 30 MINUTES AFTER THE SAME MEAL EVERY DAY 30 capsule 1 023 Active albuterol 108 (90 Base) MCG/ACT inhalerIndicatio ns:Shortness of breath Inhale 2 puffs every 6 (six) hours if needed for wheezing. 18 g 024 2024 Active UltiGuard SafePack Pen Needle 32G X 4 MM miscIndications: Type 2 diabetes mellitus with hyperglycemia, with long-term current use of insulin (CMS/[facility]) USE FOUR TIMES DAILY 100 each 024 Active Continuous Glucose Standards Analyst (FreeStyle Agnes 3 Glenwood) device 1 each 3 times daily. Use daily as directed for CGM 1 each 025 Active Continuous Glucose Sensor (FreeStyle Agnes 3 Plus Sensor) misc 1 each Once per day. Apply 1 sensor as directed every 15 days for CGM 2 each 025 Active glucose blood (FreeStyle Precision Bita Test) test strip Use to test blood sugar up to 3 times daily, as directed 100 each 025 Active Tirzepatide (Mounjaro) 5 MG/0.5ML solution auto-injectorInd ications:Type 2 diabetes mellitus with hyperglycemia, with long-term current use of insulin (CMS/HCC) Inject 5 mg under the skin 1 (one) time per week. 2 mL Active Additional Information Patient not taking.Reported on 01/12/2025 Alcohol Swabs (Alcohol Prep) pads Use as directed prior to insulin injection 4x daily 200 each Active TRUEplus Lancets 33G miscIndications: Type 2 diabetes mellitus with diabetic nephropathy ([facility]) TEST BLOOD SUGAR 3 TIMES A DAY 100 each Active insulin aspart (NovoLOG FLEXPEN) 100 UNIT/ML penIndications:T ype 2 diabetes mellitus with hyperglycemia, with long-term current use of insulin ([facility]) Inject 35 units subcutaneously three times daily with meals 30 mL Active Blood Pressure kitIndications:T ype 2 diabetes mellitus with diabetic nephropathy, with long-term current use of insulin ([facility]) Use to check home blood pressure daily as directed 1 kit Active losartan (Cozaar) 50 MG tabletIndication s:Type 2 diabetes mellitus with diabetic nephropathy, with long-term current use of insulin ([facility]),Essent ial hypertension Take 1 tablet (50 mg) by mouth Once per day. 30 tablet 025 2025 Active insulin degludec (Tresiba FlexTouch) 200 UNIT/ML injectionIndicat ions:Type 2 diabetes mellitus with hyperglycemia, with long-term current use of insulin ([facility]) INJECT 65 UNITS SUBCUTANEOUSLY EVERY DAY. INCREASE DIRECTED TO MAX OF 75 UNITS PER DAY 9 mL Active ketoconazole (NIZOral) 2 % shampoo Apply topically 2 (two) times a week. 120 mL 3 Active fluconazole (Diflucan) 150 MG tablet Take 2 tablets (300 mg) by mouth 1 (one) time per week for 14 days. 4 tablet 025 2024 Active buPROPion XL (Wellbutrin XL) 150 MG 24 hr tablet Take 1 tablet by mouth 1 (one) time each day. 021 2024 Discontinued(T herapy completed) sildenafil (Viagra) 100 MG tablet Take 1 tablet by mouth if needed each day. Approximately 1 hour before sexual activity 022 2024 Discontinued(T herapy completed) Blood Pressure kit Extra large cuff. Use as directed 2024 Discontinued(M ed list cleanup (will not trigger notification to Pharmacy)) lisinopril 5 MG tabletIndication s:Essential hypertension Take 1 tablet (5 mg) by mouth in the morning. 90 tablet 3 023 2024 Discontinued(M ed list cleanup (will not trigger notification to Pharmacy)) cholecalciferol (Vitamin D-3) 125 MCG (5000 UT) capsuleIndicatio ns:Vitamin D deficiency Take 1 capsule (125 mcg) by mouth in the morning. 90 capsule 3 023 2024 Discontinued(T herapy completed) Continuous Blood Gluc Standards Analyst (FreeStyle Agnes 2 Glenwood) deviceIndication s:Type 2 diabetes mellitus with diabetic polyneuropathy (CMS/HCC) USE DIRECTED 1 each 1 023 2024 Discontinued(A lternate therapy) ketoconazole (NIZOral) 2 % shampoo Apply topically 2 (two) times a week. 120 mL 3 023 2024 Discontinued(R eorder (will not trigger notification to Pharmacy)) Continuous Blood Gluc Sensor (FreeStyle Agnes 2 Sensor) miscIndications: Type 2 diabetes mellitus without complication, with long-term current use of insulin ([facility]) USE DIRECTED AND CHANGE EVERY 2 WEEKS 2 each 3 023 2024 Discontinued(A lternate therapy) glucose blood (FREESTYLE TEST STRIPS) test strip USE TO TEST BLOOD SUGAR FOUR TIMES A DAY 100 each 3 023 2024 Discontinued dulaglutide (Trulicity) 3 MG/0.5ML solution pen-injector Inject 3 mg under the skin 1 (one) time per week. 4 each 11 024 2024 Discontinued(A lternate therapy) insulin degludec (Tresiba FlexTouch) 200 UNIT/ML injectionIndicat ions:Type 2 diabetes mellitus with hyperglycemia, with long-term current use of insulin ([facility]) INJECT 120 UNITS SUBCUTANEOUSLY EVERY DAY 18 mL 3 024 2024 Discontinued(R eorder (will not trigger notification to Pharmacy)) insulin aspart (NovoLOG FLEXPEN) 100 UNIT/ML penIndications:T ype 2 diabetes mellitus with hyperglycemia, with long-term current use of insulin ([facility]) Inject 35-40 units subcutaneously three times daily 90 mL 3 024 2024 Discontinued(R eorder (will not trigger notification to Pharmacy)) Diclofenac Sodium 1 % gel Apply 2 g topically if needed in the morning and at bedtime (muscle soreness). 100 g 3 024 2024 Discontinued(T herapy completed) Alcohol Swabs (Alcohol Prep) pads With blood sugar testing 6 times per dayWith blood sugar testing 6 times per day 200 each 11 024 2024 Discontinued(R eorder (will not trigger notification to Pharmacy)) TRUEplus Lancets 33G miscIndications: Type 2 diabetes mellitus with diabetic nephropathy ([facility]) TEST BLOOD SUGAR 4 TIMES A DAY 100 each 11 024 2024 Discontinued(R eorder (will not trigger notification to Pharmacy)) triamcinolone (Kenalog) 0.1 % cream Apply topically 2 times daily. 80 g 3 024 2024 Discontinued(S joana effects) testosterone (Androgel) 50 MG/5GM (1%) gel APPLY 5 GRAM PACKET TO CLEAN, DRY SKIN ON upper arm OR ABDOMEN ONCE DAILY 024 2024 Discontinued(T herapy completed) insulin degludec (Tresiba FlexTouch) 200 UNIT/ML injectionIndicat ions:Type 2 diabetes mellitus with hyperglycemia, with long-term current use of insulin ([facility]) INJECT 60 UNITS SUBCUTANEOUSLY EVERY DAY 9 mL 1 025 2024 Discontinued(R eorder (will not trigger notification to Pharmacy)) Active Problems Problem Noted Date Diagnosed Date 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 24 Assessment & Plan (01/19/2025 7:38 AM EST): Underwent prednisone taper in 03/2024 for myositis, unclear etiology Needs to be returned to rheum care, referral replaced Most recent CK has normalized at 170, patient still with muscle soreness Has not seen neurology for 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 Will have workup for cancer, needs colon cancer screening Assessment & Plan (05/04/2024 9:27 AM EDT): On prednisone taper for myositis, unclear etiology Most recent labs show decline again in CK followup with rheum in 10-14 days at [facility] I will attempt to find neurology note for 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 Will have workup for cancer, needs colon cancer screening Assessment & Plan (03/30/2024 12:51 PM EDT): On prednisone taper for myositis, has labs today and followup with rheum in 10 days at [facility] Will have workup for cancer, needs colon cancer screening Tinea versicolor 10/05/2023 Assessment & Plan (01/19/2025 7:37 AM EST): Rash sounding more consistent with refractory tinea versicolor To wash weekly in ketoconazole shampoo x 2-4 weeks Take fluconazole oral 300mg x 1, then repeat in one week Non-traumatic rhabdomyolysis 07/13/2023 Assessment & Plan (02/29/2024 1:01 PM EDT): Will speak with ethics officer about muscle biopsy results and get back [...] Assessment & Plan (03/09/2023 5:26 AM EDT): 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 Sensor not available today, [...] Assessment & Plan (01/05/2023 6:23 AM EST): clay 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 supervisor medications today, Metformin and Trulicity Restart them Call if blood sugars do not start to decrease to <300 Podiatry appointment stat for L toe, not sure why previous referral have not been filled/coordinated Precordial pain 09/19/2015 Backache 06/03/2012 Depression, recurrent 06/03/2012 Pinguecula 06/03/2012 Pure hypercholesterolemia 06/03/2012 Encounters Date Type Department Care Team Description 01/17/2025 11:00 AM EST Telemedicine [facility] [address] [place] [phone] Gemma Mccray MD Tinroberth versicolor (Primary Dx); Dietary counseling; Exercise counseling; Class 2 severe obesity due to excess calories with serious comorbidity and body mass index (BMI) of 35.0 to 35.9 in adult (CMS/HCC); Depression, recurrent ([facility]); Type 2 diabetes mellitus with hyperglycemia, with long-term current use of insulin ([facility]); Polyneuropathy due to type 2 diabetes mellitus ([facility]); Interstitial myositis of multiple sites 01/17/2025 Travel 01/12/2025 Telephone [facility] [address] [place], [place] [phone] Gemma Mccray MD recall 01/11/2025 Travel 01/02/2025 Telephone [facility] [address] [place], [place] [phone] Ivis Jauregui, PharmD Prior Authorization (Agnes 3 reader, 3 plus sensors, bita test strips ) 12/30/2024 Orders Only GENERIC EXTERNAL DATA DEPARTMENT Provider, Generic External Data from Last 3 Months Immunizations Name Administration Dates Next Due Hep B, adult 12/29/2011,08/01/2011,06/17/2011 Influenza Injectable Quadriv alant Preservative Free IIV4 MDCK 10/01/2020 Influenza injectable quadriv alent preservative free 11/08/2019 Influenza, IIV3, injectable 08/16/2014 Influenza, seasonal, injecta ble, preservative free 01/11/2025 Pfizer Covid-19 Vaccine 12+ 01/11/2025,0 07/25/2022,08/23/2021,08/02 Pneumococcal Polysaccharide PPSV23 09/01/2011 Td (adult), 5 [...] Sign Reading Time Taken Comments Blood Pressure 144/88 01/11/2025 9:52 AM EST Pulse 88 10/04/2024 11:31 AM [...] Description 01/27/2025 9:00 AM EST Medication Management [facility] [address] [place] [address] Ivis Jauregui, PharmD [address] [place] [address] 03/14/2025 10:15 AM EDT Office Visit [facility] [address] [place] [address] Gemma Mccray MD [address] [place] [address] 04/10/2025 9:00 AM EDT Office Visit [facility] [address] [place] [address] Crystal De Santiago, OD [address] [place] [address] Health Maintenance Due Date Last Done Comments CT Colonography 1976 Colonoscopy 1976 Colorectal Cancer Screening 1976 FIT DNA/Cologuard 1976 FIT 1976 FOBT 1976 HIV Screening 1976 Sigmoidoscopy 1976 Diabetes: Foot Exam 02/15/1986 Family Planning (PISQ) 02/15/1991 Pneumococcal Vaccine: Pediatrics (0 to 5 Years) and At-Risk Patients (6 to 49) Years) (2 of 2 - PCV) 09/01/2012 09/01/2011 Lipid Panel 05/31/2022 05/31/2021 SDOH Screening 02/17/2025 02/18/2024 Diabetes: Hemoglobin A1C 03/29/2025 025, 10/04/2024, 09/05/2024, Additional history exists Depression Monitoring (PHQ-9) 04/03/2025 10/04/2024, 10/04/2024 DTaP/Tdap/Td Vaccines (3 - Td or Tdap) 09/13/2025 09/13/2015, 09/13/2010 Alcohol/Substance Use Screening 10/04/2025 10/04/2024 Depression Screening 10/04/2025 10/04/2024, 10/04/20 Tobacco Screening 01/19/2026 01/19/2025 Zoster Vaccines (1 of 2) 02/15/2026 Eye Exam 10/10/2026 10/10/2024, 09/30, 10/10/2024, Additional history exists RSV Patients and Patients Aged 60 years or older (1 - 1-dose 75+ series) 02/15/2051 Hepatitis B Vaccines Completed 12/29/2011, 08/01/2011, 06/17/2011 Hepatitis C Screening Completed 11/10/2023 COVID-19 Vaccine Completed 01/11/2025, , 08/23/2021, Additional history exists Influenza Vaccine Completed 01/11/2025, , 11/08/2019, Additional history exists HIB Vaccines Aged Out No longer eligi [...] Diagnosis Comments POCT GLYCATED HEMOGLOBIN, TOTAL Routine 12/30/2024 12:48 PM EST Type 2 diabetes mellitus with hyperglycemia, with long-term current use of insulin ([facility]) TESTOSTERONE, FREE (DIALYSIS) AND TOTAL,MS Routine 12/30/2024 9:58 AM EST PSA, TOTAL Routine 12/30/2024 9:58 AM EST CBC Routine 12/30/2024 9:58 AM EST CREATINE KINASE ISOENZYMES (CK ISOENZYMES) WITH TOTAL CK Routine 12/30/2024 9:58 AM EST Interstitial myositis of multiple sites HEPATITIS PANEL, GENERAL Routine 11/10/2023 12:00 AM EST LIPID PANEL, STANDARD Routine 05/31/2021 3:38 PM EDT from Last 3 Months or Most Recently Relevant to Health Maintenance Results * (ABNORMAL) POCT HGB A1C (12/30/2024 12:48 PM EST) Hemoglobin A1C 13.8(A) 4.0 - 6.0 % Blood 12/30/2024 12:4 8 PM EST Gemma Mccray MD POINT OF CARE TEST ENTER/EDIT ORDERABLES Final Result * (ABNORMAL) CBC (12/30/2024 9:58 AM EST) White Blood Count 9.4 4.8 - 10.8 X10*3/uL [facility] Red Blood Count 4.88 4.60 - 5.80 X10*6/uL [facility] Hemoglobin 14.0 14.0 - 18.0 g/dl [facility] Hematocrit 40.0(L) 42.0 - 52.0 % [facility] Mean Corpuscular Volume 82.0 80.0 - 98.0 fL [facility] Mean Corpuscular Hemoglobin 28.7 27.0 - 33.0 pg [facility] Mean Corpuscular HGB Conc 35.0 31.0 - 36.0 g/dl [facility] Red Cell Distribution Width 13.1 11.0 - 16.0 % [facility] Platelet Count 264 160 - 400 X10*3/uL [facility] Mean Platelet Volume 9.6 9.4 - 12.4 fL [facility] NRBC Pct Auto 0.0 0.0 - 0.2 /100WBC [facility] NRBC Abs Auto 0.000 0.0 - 0.012 X10*3/uL [facility] 12/30/2024 9:58 AM EST 12/30/2024 9:58 AM EST us Generic External Data Provider LAB BLOOD ORDERAB LES Final Result [facility] [address] [place] [phone] * Testosterone, Free (Dialysis) And Total, MS (12/30/2024 9:58 AM EST) Testosterone, Total 264 250 - 1100 ng/dL [facility] Comment:For additional infor matmaira, please refer tohttp://education.bizHive/faq/[email or web address](This link is being provided for informational/educational purposes only.)This test was developed and its analytical performancecharacteristics have been determined by [facility] [employer] [place], [place]. It hasnot been cleared or approved by the U.S. Food and DrugAdministration. This assay has been validated pursuantto the CLIA regulations and is used for clinicalpurposes. Testosterone, Free 62.6 35.0 - 155.0 pg/mL [facility] Comment:This test was develo ped and its analytical performancecharacteristics have been determined by [facility] [place], [place]. It hasnot been cleared or approved by the U.S. Food and DrugAdministration. This assay has been validated pursuantto the CLIA regulations and is used for clinicalpurposes.THIS TEST WAS PERFORMED AT:[id number] [place] [phone] TIMMONS MD,PHD 12/30/2024 9:58 AM EST 12/30/2024 9:58 AM EST Generic External Data Provider LAB BLOOD ORDERAB LES Final Result Performing Organization Address City/[facility]/ZIP Co de Phone Number [facility] [address] [place] [phone] * PSA,Total (12/30/2024 9:58 AM EST) Prostate Specific Antigen 0.69 <0.05 - 4.0 ng/mL [facility] Comment:PSA methodology: Abb derik Alitoyaty i ChemiluminescentMicroparticle Immunoassay (CMIA) 12/30/2024 9:58 AM EST 12/30/2024 9:58 AM EST Generic External Data Provider LAB BLOOD ORDERAB LES Final Result Performing Organization Address [facility] Co de Phone Number [facility] [address] [place] [phone] * Creatine Kinase Isoenzymes (CK Isoenzymes) w/ Total CK (12/30/2024 9:58 AM EST) Creatine Kinase, Total 145 26 - 366 U/L [facility] CK-MM 100 95 - 100 % [facility] Ck-Mb 0 <5 % [facility] CK-BB None Detected None Detected % [facility] Creatine Kinase Isoenzyme Interpretation see note [facility] Comment:Normal isoenzyme pat tern with anormal total activity.THIS TEST WAS PERFORMED AT:[employer] [id number] [place] [phone] TIMMONS MD,PHD Blood Venous blood specimen / Unknown 12/30/2024 9:58 AM EST 12/30/2024 9:58 AM EST us Gemma Mccray MD LAB BLOOD ORDERABLES Final Res ult Performing Organization Address [facility] Co de Phone Number [facility] [address] [place] [phone] * Hepatitis Panel, General (11/10/2023 12:00 AM EST) Pathologist [facility] Hepatitis A IgM Nonreactive Nonreactive [facility] Comment:IgM antibodies to ASHBY V not detected; does not exclude earlyacute or recovered HAV infection. ~Hepatitis B Surface Antibody NONREACTIVE Nonreactive [facility] Comment:Nonreactive: < 8.00 mIU/mL Hepatitis B Core Antibody Nonreactive Nonreactive [facility] Hepatitis C Antibody Nonreactive Nonreactive [facility] Comment:Antibodies to HCV no t detected; does not exclude early acuteHCV infection. Hepatitis B Surface Ag Negative Negative [facility] 11/10/2023 11/10/2023 us Generic External Data Provider LAB BLOOD ORDERAB LES Final Result Performing Organization Address [facility] de Phone Number [facility] [address] [place] [phone] * (ABNORMAL) LIPID PANEL, STANDARD (05/31/2021 3:38 PM EDT) Pathologist [facility] Chol/HDLC Ratio 4.8 <5.0 (calc) [facility] ?? LDL-C is now calculated using the Richy ?? calculation, which is a validated novel method providing ?? better accuracy than the Friedewald equation in the ?? estimation of LDL-C. ?? Good MOY et al. LEONID. 2013;310(19): 6810-3838 ?? (http://AmSafe.Digitel.MakeMeReach/faq/POA856) Non-HDL Cholesterol 114 <130 mg/dL (calc) [facility] Comment: For patients with diabetes plus 1 major ASCVD risk ?? factor, treating to a non-HDL-C goal of <100 mg/dL ?? (LDL-C of <70 mg/dL) is considered a therapeutic ?? option. Triglycerides 400(H) <150 mg/dL [facility] Comment: ?? If a non-fasting specimen was collected, consider repeat triglyceride testing on a fasting specimen if clinically indicated. ?? Lauro et al. J. of Clin. Lipidol. 2015;9:129-169. ?? 05/31/2021 3:38 PM EDT us Gemma Mccray MD LAB BLOOD ORDERABLES Final Res ult Performing Organization Address City/State/[facility] Co de Phone Number [facility] [address] from Last 3 Months or Most Recently Relevant to Health Maintenance Insurance [facility] ONE CARE * Guarantor: Laron Riley Account Type Relation to Patient Date of Phone Billing Address Personal/[place] [address] Care Teams Metal Grader Relationship Specialty Start Date End Date Gemma Mccray MD [address] [place], [place] [phone] PCP - General Family Medicine 10/10/20 Ivis Jauregui, SaulD [address] [place], [place] [phone] Pharmacist Internal Medicine 12/30/24
--- OUTSIDE RECORDS SUMMARY | 2025-01-26 17:41 | XMS_ITS | Encounter Summary ---
Author Organization [facility] Address [address] [facility] 7t [place] [address] Care Team Providers Care Professional Services Manager Name Role Phone Gemma Mccray MD Primary Care Provider [phone] Ivis Jauregui PharmD Unavailable [phone] Encounter Details Date Type Department Care Team (Late st Contact Info) Description 07/16/2023 Orders Only [facility] MEDICINE [address] [place] [phone] Gemma Mccray MD [address] [place] [address] [phone] Social History Tobacco Use Types Packs/Day Years [...] Description 01/27/2025 9:00 AM EST Medication Management [facility] MEDICINE [address] [place] [address] PuiaIvis, PharmD [address] [place], [place] [phone] 03/14/2025 10:15 AM EDT Office Visit [facility] MEDICINE [address] [place] [address] Gemma Mccray MD [address] [place] [address] 04/10/2025 9:00 AM EDT Office Visit [facility] OPTOMETRY [address] [place] [address] Nicolásade Crystal, OD [address] [place] [address] documented as of this encounter Procedures Procedure [...] Opiate Screen Urine Not Detected Not Detect [facility] Comment:Opiate cut-off is 30 0 ng/mL.Positive results are unconfirmed and should not be used fornon-medical purposes. Barbiturates, Urine Not Detected Not Detect [facility] Comment:Barbiturate cut-off is 200 ng/mL.Positive results are unconfirmed and should not be used fornon-medical purposes. Phencyclidine Screen Urine Not Detected Not Detect [facility] Comment:Phencyclidine cut-of f is 25 ng/mL.Positive results are unconfirmed and should not be used fornon-medical purposes. Amphetamine Screen Urine Not Detected Not Detect [facility] Comment:Amphetamine cut-off is 1000 ng/mL.Positive results are unconfirmed and should not be used fornon-medical purposes. Benzodiazepines Screen Urine Not Detected Not Detect [facility] Comment:Benzodiazepine cut-o ff is 200 ng/mL.Positive results are unconfirmed and should not be used fornon-medical purposes. Cocaine Screen Urine Not Detected Not Detect [facility] Comment:Cocaine cut-off is 3 00 ng/mL.Positive results are unconfirmed and should not be used fornon-medical purposes. Cannabinoid Screen Urine POSITIVE(A) Not Detect [facility] Comment:Cannabinoid cut-off is 50 ng/mL.Positive results are unconfirmed and should not be used fornon-medical purposes. FENTANYL URINE Not Detected Not Detect [facility] Comment:Fentanyl cut-off is 1 ng/mL.Positive results are unconfirmed and should not be used fornon-medical purposes. 07/16/2023 3:30 PM EDT 07/16/2023 3:32 PM EDT [facility] External Provider LAB URI NE ORDERABLES Final Result [facility] [address] [place] [phone] * (ABNORMAL) Urinalysis, Complete, with Reflex to Culture (07/16/2023 3:30 PM EDT) Color Urine Dark Yellow [facility] Appearance Urine Clear [facility] PH 6.0 5.0 - 9.0 [facility] Glucose Urine UA Negative Negative mg/dL [facility] Urine Blood Negative Negative [facility] Specific [place] - Urine >=1.030(H) 1.005 - 1.025 [facility] Urine Protein 100 (2+)(A) Neg-Trace mg/dL [facility] Urine Ketones 40 Negative mg/dL [facility] Nitrite Urine Negative Negative [facility] Leukocyte Esterase Urine Negative Negative [facility] RBC Urine 0-2 0 - 2 /HPF [facility] Urine WBC 0-5 0 - 5 /HPF [facility] Urine Squamous Epithelial Cell 0-2 0 - 2 /HPF [facility] Urine Bacteria None Seen None Seen [facility] Hyaline Casts, Urine 0-2 0 - 2 /LPF [facility] 07/16/2023 3:30 PM EDT 07/16/2023 3:32 PM EDT Narrative [facility] - 07/16/2023 3:47 PM EDT [id number], Clean Catch us [facility] External Provider LAB URI NE ORDERABLES Final Result [facility] [address] [place] [address] [phone] * Volatiles (07/16/2023 11:41 AM EDT) Alcohol, Methyl NONE DETECTED [facility] Comment:Reportable Limit: 5 mg/dLThis test was developed and its analytical performancecharacteristics have been determined by [employer]. It has not been cleared or approved by theFDA. This assay has been validated pursuant to the CLIAregulations and is used for clinical purposes. Alcohol, Ethyl NONE DETECTED NONE DETECTED mg/dL [facility] Comment:100 mg/dL = 0.100 g% (g/dL)Reportable Limit: 10 mg/dLThis test was developed and its analytical performancecharacteristics have been determined by [employer]. It has not been cleared or approved by theFDA. This assay has been validated pursuant to the CLIAregulations and is used for clinical purposes. Alcohol, Ethyl NONE DETECTED NONE DETECTED g/dL(%) [facility] Comment:Reportable limit: 0. 010 g/dLThis test was developed and its analytical performancecharacteristics have been determined by [employer]. It has not been cleared or approved by theFDA. This assay has been validated pursuant to the CLIAregulations and is used for clinical purposes. ACETONE NONE DETECTED NONE DETECTED mg/dL [facility] Comment:Reportable Limit: 5 mg/dLThis test was developed and its analytical performancecharacteristics have been determined by [employer]. It has not been cleared or approved by theFDA. This assay has been validated pursuant to the CLIAregulations and is used for clinical purposes. Alcohol, Isopropyl NONE DETECTED NONE DETECTED mg/dL [facility] Comment:Reportable Limit: 5 mg/dLThis test was developed and its analytical performancecharacteristics have been determined by [employer]. It has not been cleared or approved by theFDA. This assay has been validated pursuant to the CLIAregulations and is used for clinical purposes. Volatile Analysis Performed On: WHOLE BLOOD [facility] Comment:THIS TEST WAS PERFOR MED AT:[facility] [place] [phone] BOWERS MD 07/16/2023 11:4 1 AM EDT 07/16/2023 11:46 AM EDT [facility] External Provider LAB BLO OD ORDERABLES Final Result [facility] [address] [place] [address] [phone] documented in this encounter Visit Diagnoses Not on filedocumented in this encounter Additional Health Concerns Assessment Noted Time PHQ-9 Depression Total Score: 10 07/13/2 023 3:51 PM EDT documented as of this encounter Care Teams Professional Services Manager Relationship Specialty Start Date End Date Gemma Mccray MD [address] [place] [address] PCP - General Family Medicine 10/10/20 Ivis Jauregui PharmD [address] [place] [address] Pharmacist Internal Medicine 12/30/24 documented as of this encounter
--- OUTSIDE RECORDS SUMMARY | 2025-01-26 17:41 | XMS_ITS | Encounter Summary ---
Author Organization [employer] [facility] Address [address] [facility] 7t [place] [address] Care Team Providers Care Lead Burner Name Role Phone Gemma Mccray MD Primary Care Provider [phone] Ivis Jauregui PharmD Unavailable [phone] Encounter Details Date Type Department Care Team (Latest Contact Info) Description 04/16/2021 Abstract [facility] CONVERSIONS Dental, Provider, DDS Social History [...] Description 01/27/2025 9:00 AM EST Medication Management [facility] MEDICINE [address] [place] [address] Ivis Jauregui, PharmD [address] [place] [address] 03/14/2025 10:15 AM EDT Office Visit [facility] MEDICINE [address] [place] [address] Gemma Mccray MD [address] [place] [address] 04/10/2025 9:00 AM EDT Office Visit [facility] OPTOMETRY [address] [place] [address] Tarka, Crystal, OD [address] [place] [address] documented as of this encounter Visit Diagnoses Not on filedocumented in this encounter Care Teams Lead Burner Relationship Specialty Start Date End Date Gemma Mccray MD [address] [place] [address] [phone] PCP - General Family Medicine 10/10/20 Ivis Jauregui PharmD [address] [place] [phone] Pharmacist Internal Medicine 12/30/24 documented as of this encounter
--- OUTSIDE RECORDS SUMMARY | 2025-01-26 17:41 | XMS_ITS | Clinical Summary ---
Author Organization [facility] [facility] Address [address] [place] [address] Care Team Providers Care Human Resource Management Instructor Name Role Phone Unavailable Primary Care Provider Unavailabl e Social History Tobacco Use Types Packs/Day Years Used Date Smoking Tobacco: Never Assessed Sex and Gender Information Value Date Recorded Sex Assigned at Not on file Legal Sex Male 10:48 PM EST Gender Identity Not on file Sexual Orientation [...] patient's age to complete this topic Meningococcal B Vacine Aged Out No lo nger eligible based on patient's age to complete [...]
== END 2025-01-26 15:07 | disposition home or self-care (01) ==
PROVIDERS: PCP General Practice; Visit Provider Nurse Practitioner Family
DX: E29.1 Testicular hypofunction (principal)
CPT/HCPCS: 99214

== ENCOUNTER → 2025-01-26 14:27 | Outpatient (BNVA) | payer OTHER, SELFPAY | PROVIDERS: PCP General Practice; Visit Provider Nurse Practitioner Family | DX: E29.1 Testicular hypofunction (principal) | CPT/HCPCS: 99212 ==

== ENCOUNTER 2025-01-27 08:45 | Outpatient (REF) | payer OTHER, SELFPAY ==
--- OUTSIDE RECORDS SUMMARY | 2025-01-27 09:04 | XMS_ITS | Encounter Summary ---
Author Organization [employer] Address [address] [facility] 7t [place] [address] Care Team Providers Care Plug Shaper Hand Name Role Phone Gemma Mccray MD Primary Care Provider [phone] Ivis Jauregui PharmD Unavailable [phone] Reason for Visit * Reason Comments Med Refill Encounter Details Date Type Department Care Team ([facility] st Contact Info) Description 06/27/2024 Refill [facility] MEDICINE [address] [place], [place] [phone] Gemma Mccray MD [address] [place], [place] [phone] Type 2 diabetes mellitus with hyperglycemia, with long-term current use of insulin ([facility]) Social History Tobacco Use Types Packs/Day Years [...] Care Team (Late st Contact Info) Description 03/14/2025 10:15 AM EDT Office Visit [facility] MEDICINE [address] [place] [address] Gemma Mccray MD [address] [place] [phone] 04/10/2025 9:00 AM EDT Office Visit [facility] OPTOMETRY [address] [place] [address] Crystal De Santiago, OD [address] [place] [address] documented as of this encounter Visit Diagnoses Diagnosis Type 2 diabetes mellitus with hyperglycemia, with long-term current use of insulin ([facility]) documented in this encounter Additional Health Concerns Assessment Noted Time PHQ-9 Depression Total Score: 16 024 9:57 AM EDT documented as of this encounter Care Teams Plug Shaper Hand Relationship Specialty Start Date End Date Gemma Mccray MD [address] [place] [phone] PCP - General Family Medicine 10/10/20 Ivis Jauregui PharmD [address] [place] [phone] Pharmacist Internal Medicine 12/30/24 documented as of this encounter
--- OUTSIDE RECORDS SUMMARY | 2025-01-27 09:04 | XMS_ITS | Encounter Summary ---
Author Organization [employer] [facility] Address [address] [facility] 7t [place] [address] Care Team Providers Care Shank Threader Name Role Phone Gemma Mccray MD Primary Care Provider [phone] Ivis Jauregui PharmD Unavailable Reason for Visit * Reason Onset Date Comments Med Refill 02/05/2023 Encounter Details Date Type Department Care Team (Late st Contact Info) Description 02/05/2023 Refill [facility] MEDICINE [address] [place], [place] [phone] Gemma Mccray MD [address] [place], [place] [phone] Social History Tobacco Use Types Packs/Day Years [...] Description 03/14/2025 10:15 AM EDT Office Visit [facility] MEDICINE [address] [place], [place] [phone] Gemma Mccray MD [address] [place] [address] 04/10/2025 9:00 AM EDT Office Visit [facility] OPTOMETRY [address] [place] [address] Crystal De Santiago, OD [address] [place] [address] documented as of this encounter Visit Diagnoses Not on filedocumented in this encounter Care Teams Shank Threader Relationship Specialty Start Date End Date Gemma Mccray MD [address] [place] [address] PCP - General Family Medicine 10/10/20 Ivis Jauregui PharmD [address] [place] [address] Pharmacist Internal Medicine 12/30/24 documented as of this encounter
--- OUTSIDE RECORDS SUMMARY | 2025-01-27 09:04 | XMS_ITS | Encounter Summary ---
Author Organization [employer] Address [address] [facility] [address] 7t [place] [address] Care Team Providers Care Search Marketing Specialist Name Role Phone Gemma Mccray MD Primary Care Provider [phone] Ivis Jauregui PharmD Unavailable [phone] Encounter Details Date Type Department Care [...] Description 03/14/2025 10:15 AM EDT Office Visit [facility] MEDICINE [address] [place] [address] Gemma Mccray MD [address] [place] [address] 04/10/2025 9:00 AM EDT Office Visit [facility] OPTOMETRY [address] [place] [address] Crystal De Santiago, OD [address] [place] [address] documented as of this encounter Visit Diagnoses Not on filedocumented in this encounter Additional Health Concerns Assessment Noted Time PHQ-9 Depression Total Score: 10 024 11:42 AM EST documented as of this encounter Care Teams Search Marketing Specialist Relationship Specialty Start Date End Date Gemma Mccray MD [address] [place] [address] PCP - General Family Medicine 10/10/20 Ivis Jauregui PharmD [address] [place] [phone] Pharmacist Internal Medicine 12/30/24 documented as of this encounter
--- OUTSIDE RECORDS SUMMARY | 2025-01-27 09:04 | XMS_ITS | Encounter Summary ---
Author Organization [employer] Address [address] [facility] [address] 7t [place] [address] Care Team Providers Care Manager Contract Name Role Phone Gemma Mccray MD Primary Care Provider [phone] Ivis Jauregui PharmD Unavailable [phone] Encounter Details Date Type Department Care [...] Description 03/14/2025 10:15 AM EDT Office Visit [facility] MEDICINE [address] [place] [address] Gemma Mccray MD [address] [place] [address] 04/10/2025 9:00 AM EDT Office Visit [facility] OPTOMETRY [address] [place] [address] Crystal De Santiago, OD [address] [place] [address] documented as of this encounter Procedures Procedure Name Priority Date/Time Associated Diagnosis Comments CBC Routine 12/30/2024 9:58 AM EST TESTOSTERONE, FREE (DIALYSIS) AND TOTAL,MS Routine 12/30/2024 9:58 AM EST PSA, TOTAL Routine 12/30/2024 9:58 AM EST documented in this encounter Results * Testosterone, Free (Dialysis) And Total, MS (12/30/2024 9:58 AM EST) Testosterone, Total 264 250 - 1100 ng/dL [facility] Comment:For additional infor matmaira, please refer tohttp://education.[employer]/faq/TgfgwRblskibzpkidJQZMZHIRV123(This link is being provided for informational/educational purposes only.)This test was developed and its analytical performancecharacteristics have been determined by [place]. It hasnot been cleared or approved by the U.S. Food and DrugAdministration. This assay has been validated pursuantto the CLIA regulations and is used for clinicalpurposes. Testosterone, Free 62.6 35.0 - 155.0 pg/mL [facility] Comment:This test was develo ped and its analytical performancecharacteristics have been determined by [employer] [place], [place]. It hasnot been cleared or approved by the .S. Food and DrugAdministration. This assay has been validated pursuantto the CLIA regulations and is used for clinicalpurposes.THIS TEST WAS PERFORMED AT:[employer] [place] [address]SVJHYOHJESSE TIMMONS MD,PHD 12/30/2024 9:58 AM EST 12/30/2024 9:58 AM EST Generic External Data Provider LAB BLOOD ORDERAB LES Final Result Performing Organization Address [facility]/ZIP Co de Phone Number [facility] [address] [place] [phone] * PSA,Total (12/30/2024 9:58 AM EST) Prostate Specific Antigen 0.69 <0.05 - 4.0 ng/mL [facility] Comment:PSA methodology: Sara Rainey i ChemiluminescentMicroparticle Immunoassay (CMIA) 12/30/2024 9:58 AM EST 12/30/2024 9:58 AM EST Generic External Data Provider LAB BLOOD ORDERAB LES Final Result [facility] [address] [place] [address] [phone] * (ABNORMAL) CBC (12/30/2024 9:58 AM EST) White Blood Count 9.4 4.8 - 10.8 X10*3/uL [facility] Red Blood Count 4.88 4.60 - 5.80 X10*6/uL [facility] Hemoglobin 14.0 14.0 - 18.0 g/dl [facility] Hematocrit 40.0(L) 42.0 - 52.0 % [facility] Mean Corpuscular Volume 82.0 80.0 - 98.0 fL [facility] Mean Corpuscular Hemoglobin 28.7 27.0 - 33.0 pg [facility] Mean Corpuscular HGB Conc 35.0 31.0 - 36.0 g/dl [facility] Red Cell Distribution Width 13.1 11.0 - 16.0 % [facility] Platelet Count 264 160 - 400 X10*3/uL [facility] Mean Platelet Volume 9.6 9.4 - 12.4 fL [facility] NRBC Pct Auto 0.0 0.0 - 0.2 /100WBC [facility] NRBC Abs Auto 0.000 0.0 - 0.012 X10*3/uL [facility] 12/30/2024 9:58 AM EST 12/30/2024 9:58 AM EST us Generic External Data Provider LAB BLOOD ORDERAB LES Final Result [facility] [address] [place] [address] [phone] documented in this encounter Visit Diagnoses Not on filedocumented in this encounter Additional Health Concerns Assessment Noted Time PHQ-9 Depression Total Score: 10 10/04/ 024 11:42 AM EST documented as of this encounter Care Teams Manager Contract Relationship Specialty Start Date End Date Gemma Mccray MD [address] [place] [address] PCP - General Family Medicine 10/10/20 Ivis Jauregui, Katherin [address] [place] [address] Pharmacist Internal Medicine 12/30/24 documented as of this encounter
--- OUTSIDE RECORDS SUMMARY | 2025-01-27 09:04 | XMS_ITS | Encounter Summary ---
Author Organization [employer] [facility] Address [address] [facility] 7t [place] [address] Care Team Providers Care Nurses Supervisor Name Role Phone Gemma Mccray MD Primary Care Provider [phone] Ivis Jauregui PharmD Unavailable [phone] Reason for Visit * Reason Onset Date Comments PCP Appt 04/09/2023 Encounter Details Date Type Department Care Team (Late Contact Info) Description 04/09/2023 Telephone [facility] [address] [place], [place] [phone] Gemma Mccray MD [address] [place] [address] [phone] PCP Appt Social History Tobacco Use Types [...] Description 03/14/2025 10:15 AM EDT Office Visit [facility] [address] [place], [place] [phone] Gemma Mccray MD [address] [place], [place] [phone] 04/10/2025 9:00 AM EDT Office Visit [facility] OPTOMETRY [address] [place], [place] [phone] Crystal De Santiago, OD [address] [place] [address] documented as of this encounter Visit Diagnoses Not on filedocumented in this encounter Care Teams Nurses Supervisor Relationship Specialty Start Date End Date Gemma Mccray MD [address] [place], [place] [phone] PCP - General Family Medicine 10/10/20 Ivis Jauregui PharmD [address] [place], [place] [phone] Pharmacist Internal Medicine 12/30/24 documented as of this encounter
--- OUTSIDE RECORDS SUMMARY | 2025-01-27 09:04 | XMS_ITS | Encounter Summary ---
Author Organization [employer] Address [address] [facility] 7t [place] [address] Care Team Providers Care Social Media Marketing Specialist Name Role Phone Gemma Mccray MD Primary Care Provider [phone] Ivis Jauregui PharmD Unavailable [phone] Reason for Referral * Imaging (Routine) - Closed Specialty Diagnoses / Procedures Referred By Contac t Referred To Contact Radiology Diagnoses Right upper quadrant abdominal pain Procedures CT Abdomen Pelvis w/ and w/o Contrast Gemma Mccray MD [address] [place] [address] Phone: tel: fax: [address] Phone: tel: fax: Referral ID Status Reason Start Date Expiration Date Visits Re quested Visits Authorized [id number] Closed 08/14/2023 08/13/2024 1 1 Encounter Details Date Type Department Care Team (Late st Contact Info) Description 08/14/2023 Orders Only [facility] MEDICINE [address] [place], [place] [phone] Gemma Mccray MD [address] [place], [place] [phone] Right upper quadrant abdominal pain (Primary Dx) [...] 10:15 AM EDT Office Visit [facility] MEDICINE [address] [place] [address] Gemma Mccray MD [address] [place] [address] 04/10/2025 9:00 AM EDT Office Visit [facility] OPTOMETRY [address] [place] [address] Crystal De Santiago, OD [address] [place] [address] documented as of this encounter Procedures Procedure [...] EDT Narrative 09/22/2023 10:08 AM EDT ? [facility] ?[address] ?[place] [address] ? CT Scan Report ? Signed ? Patient: Laron Riley ?MR#: ?? [id number] ? : 1975 ?Acct:[id number] ? Age/Sex: 48 / M ?ADM Date: 10/18/23 ? Loc: HO.CT ? Attending Dr: Gemma Mccray MD ? Ordering Physician: Gemma Mccray ?? Date of Service: 09/16/23 ?? Procedure(s): CT abdomen pelvis wo/w IV con ?? Accession Number(s): [id number] ? cc: Kamila Sidhu MD; Gemma Mccray [...] 1004 ? DD/ 1026 ? TD/TT: ? Hearing Aide Technician: JK ? Procedure Note Christamandalamarbhakti, Image - 09/22/[address] [place] [address] [address] Scan Report Signed Patient: Laron RileyMR#: [id number] : 1975Acct:[id number] Age/Sex: 48 / MADM Date: 09/16/23 Loc: HO.CT Attending Dr: Gemma Mccray MD Ordering Physician: Gemma Mccray Date of Service: 09/16/23 Procedure(s): CT abdomen pelvis wo/w IV con Accession Number(s): [id number] cc: Kamila Sidhu MD; Gemma Mccray EXAMINATION: [...] in OV> 09/22/23 1004 DD/ 1026 TD/TT: Hearing Aide Technician: ROQUE us Gemma Mccray MD IMG CT PROCEDURES Final Result * BI US Breast Complete Right (09/03/2023 3:38 PM EDT) Anatomical Region Laterality Modality Breast Right Ultrasound 09/03/2023 3:38 PM EDT Narrative 09/03/2023 5:37 PM EDT ? [facility] ? [address] ?[place] [address] ? Ultrasound Report ? Signed ? Patient: Haseeb Mendenhall,Christianity ?MR#: ?? [id number] ? : 1975 ?Acct:[id number] ? Age/Sex: 48 / M ?ADM Date: 09/03/23 ? Loc: HO.MAMMO ? Attending Dr: Kamila Sidhu MD ? Ordering Physician: Kamila Sidhu MD ?? Date of Service: 09/03/23 ?? Procedure(s): US breast RT limited mamm only ?? Accession Number(s): [id number] ? cc: Kamila Sidhu MD ? EXAMINATION: [...] signed by Samm Yu MD in OV> ?10//23 1733 ? DD/ 1538 ? TD/TT: ? Hearing Aide Technician: ? Procedure Note Donotlamarinterpreter, Image - 09/03/2023 [facility] [address] [place] [address] Ultrasound Report Signed Patient: Laron RileyMR#: [id number] : 1975Acct:[id number] Age/Sex: 48 / MADM Date: 09/03/23 Loc: HO.MAMMO Attending Dr: Kamila Sidhu MD Ordering Physician: Kamila Sidhu MD Date of Service: 09/03/23 Procedure(s): US breast RT limited mamm only Accession Number(s): [id number] cc: Kamila Sidhu MD EXAMINATION: MM DIAGNOSTIC [...] in OV> 09/03/23 1733 DD/ 1538 TD/TT: Hearing Aide Technician: us Kamila Sidhu MD IMG US PROCEDURES Final Result * BI Mammogram Diagnostic Tomosynthesis Bilateral (09/03/2023 3:10 PM EDT) Anatomical Region Laterality Modality Breast Bilateral Mammography 09/03/2023 3:10 PM EDT Narrative 09/03/2023 5:37 PM EDT ? [facility] ? [address] ?[place] [address] ? Mammography Report ? Signed ? Patient: Haseeb Mendenhall,Christianity ?MR#: ?? [id number] ? : 1975 ?Acct:[id number] ? Age/Sex: 48 / M ?ADM Date: 10/05/23 ? Loc: HO.MAMMO ? Attending Dr: Kamila Sidhu MD ? Ordering Physician: Kamila Sidhu MD ?Results: 2Be ?? nign Findings ? Date of Service: 09/03/23 ?Follow Up: 1 Year From Orig ?? inal Mammogram ? Procedure(s): MM tomosynthesis diagnostic BI ?? Accession Number(s): [id number] ? cc: Kamila Sidhu MD ? EXAMINATION: [...] 1733 ? DD/ 1510 ? TD/TT: ? Hearing Aide Technician: ? Procedure Note Donamandalamarabdulkadirter, Image - 09/03/2023 [facility] [address] [place] [address] Mammography Report Signed Patient: Laron RileyMR#: [id number] : 1975Acct:[id number] Age/Sex: 48 / MADM Date: 09/03/23 Loc: VANCEO Attending Dr: Kamila Sidhu MD Ordering Physician: Kamila Sidhuults: 2Be nign Findings Date of Service: 09/03/23Follow Up: 1 Year From Orig inal Mammogram Procedure(s): MM tomosynthesis diagnostic BI Accession Number(s): [id number] cc: Kamila Sidhu MD EXAMINATION: MM DIAGNOSTIC [...] in OV> 09/03/23 1731 DD/ 1510 TD/TT: Hearing Aide Technician: us Kamila Sidhu MD IMG BI PROCEDURES Final Result documented in this encounter Visit Diagnoses Diagnosis Right upper quadrant abdominal pain- Primary documented in this encounter Additional Health Concerns Assessment Noted Time PHQ-9 Depression Total Score: 10 07/13/ 023 3:51 PM EDT documented as of this encounter Care Teams Social Media Marketing Specialist Relationship Specialty Start Date End Date Gemma Mccray MD [address] [place] [address] PCP - General Family Medicine 10/10/20 Ivis Jauregui PharmD [address] [place] [address] Pharmacist Internal Medicine 12/30/24 documented as of this encounter
--- OUTSIDE RECORDS SUMMARY | 2025-01-27 09:04 | XMS_ITS | Encounter Summary ---
Author Organization [employer] Address [address] [facility] [address] 7t [place] [address] Care Team Providers Care Atmospheric Physics Professor Name Role Phone Gemma Mccray MD Primary Care Provider [phone] Ivis Jauregui PharmD Unavailable [phone] Reason for Visit * Reason Onset Date Comments Appointment Request 01/20/2024 Encounter Details Date Type Department Care Team ([facility] st Contact Info) Description 01/20/2024 Telephone [facility] MEDICINE [address] [place], [place] [phone] Gemma Mccray MD [address] [place], [place] [phone] Appointment Request Social History Tobacco Use Types Packs/Day Years Used Date Smoking Tobacco: Never Smokeless Tobacco: Never Alcohol Use Standard Drinks/Week Comments Never 0 (1 standard drink = 0.6 oz pur e alcohol) Depression Answer Date Recorded Patient Health Questionnaire-9 Score 10 07/13/2023 Housing Stability Answer Date Recorded What is your housing situation today? I have lefty elntz 09/22/[address] you li [...] upcoming test . Please contact pt @ [phone] documented in this encounter Plan of Treatment Upcoming Encounters Date Type Department Care Team (Late st Contact Info) Description 03/14/2025 10:15 AM EDT Office Visit [facility] MEDICINE [address] [place] [address] Gemma Mccray MD [address] [place] [address] 04/10/2025 9:00 AM EDT Office Visit [facility] OPTOMETRY [address] [place] [address] Crystal De Santiago, OD [address] [place] [address] documented as of this encounter Visit Diagnoses Not on filedocumented in this encounter Additional Health Concerns Assessment Noted Time PHQ-9 Depression Total Score: 10 023 3:51 PM EDT documented as of this encounter Care Teams Atmospheric Physics Professor Relationship Specialty Start Date End Date Gemma Mccray MD [address] [place] [address] PCP - General Family Medicine 10/10/20 Ivis Jauregui, Katherin [address] [place] [address] Pharmacist Internal Medicine 12/30/24 documented as of this encounter
--- OUTSIDE RECORDS SUMMARY | 2025-01-27 09:04 | XMS_ITS | Encounter Summary ---
Author Organization [employer] Address [address] [facility] 7t [place] [address] Care Team Providers Care Camouflage Specialist Name Role Phone Gemma Mccray MD Primary Care Provider [phone] Puia Ivis PharmD Unavailable [phone] Reason for Visit * Reason Onset Date Comments Prior Authorization 01/02/2025 Agnes 3 read er, 3 plus sensors, bita test strips Encounter Details Date Type Department Care Team (Late st Contact Info) Description 01/02/2025 Telephone [facility] MEDICINE [address] [place] [address] Puia, Ivis, PharmD [address] [place] [address] Prior Authorization (Agnes 3 reader, 3 plus [...] t he electric, gas, oil or water Ule threatened to shut off services in your [...] pharmacy - Agnes 3 CGM requires PA. [facility] prepared & faxed PA to plan today; awaiting response at this time & patient is aware. PA packet sent to HIM for upload into EHR. FYI to PA team - this request is all set. documented in this encounter Plan of Treatment Upcoming Encounters Date Type Department Care Team (Late st Contact Info) Description 03/14/2025 10:15 AM EDT Office Visit [facility] MEDICINE [address] [place] [address] Gemma Mccray MD [address] [place] [address] 04/10/2025 9:00 AM EDT Office Visit [facility] OPTOMETRY [address] [place], [place] [phone] Crystal De Santiago, OD [address] [place], [place] [phone] documented as of this encounter Visit Diagnoses Not on filedocumented in this encounter Additional Health Concerns Assessment Noted Time PHQ-9 Depression Total Score: 10 024 11:42 AM EST documented as of this encounter Care Teams Camouflage Specialist Relationship Specialty Start Date End Date Gemma Mccray MD [address] [place] [address] PCP - General Family Medicine 10/10/20 Ivis Jauregui PharmD [address] [place] [address] Pharmacist Internal Medicine 12/30/24 documented as of this encounter
--- OUTSIDE RECORDS SUMMARY | 2025-01-27 09:04 | XMS_ITS | Encounter Summary ---
Author Organization [employer] Address [address] [facility] [address] 7t [place] [address] Care Team Providers Care Public Housing Manager Name Role Phone Gemma Mccray MD Primary Care Provider [phone] Ivis Jauregui PharmD Unavailable [phone] Reason for Visit * Reason Onset Date Comments recall 01/12/2025 Encounter Details Date Type Department Care Team ([facility] st Contact Info) Description 01/12/2025 Telephone [facility] MEDICINE [address] [place], [place] [phone] Gemma Mccray MD [address] [place], [place] [phone] recall Social History Tobacco Use Types Packs/Day [...] Description 03/14/2025 10:15 AM EDT Office Visit [facility] MEDICINE [address] [place] [address] Gemma Mccray MD [address] [place] [address] 04/10/2025 9:00 AM EDT Office Visit [facility] OPTOMETRY [address] [place] [address] Crystal De Santiago, OD [address] [place] [address] documented as of this encounter Visit Diagnoses Not on filedocumented in this encounter Additional Health Concerns Assessment Noted Time PHQ-9 Depression Total Score: 10 024 11:42 AM EST documented as of this encounter Care Teams Public Housing Manager Relationship Specialty Start Date End Date Gemma Mccray MD [address] [place] [address] PCP - General Family Medicine 10/10/20 Ivis Jauregui PharmD [address] [place] [address] Pharmacist Internal Medicine 12/30/24 documented as of this encounter
--- OUTSIDE RECORDS SUMMARY | 2025-01-27 09:04 | XMS_ITS | Encounter Summary ---
Author Organization [employer] Address 75 [facility] 7t [place] [address] Care Team Providers Care Minesweeping Officer Name Role Phone Gemma Mccray MD Primary Care Provider [phone] Ivis Jauregui PharmD Unavailable [phone] Reason for Visit * Reason Comments Med Refill Encounter Details Date Type Department Care Team (Late st Contact Info) Description 02/05/2023 Refill [facility] MEDICINE [address] [place], [place] [phone] Gemma Mccray MD [address] [place] [address] [phone] Type 2 diabetes mellitus with hyperglycemia, with long-term current use of insulin ([facility]) Social History Tobacco Use Types Packs/Day Years [...] Description 03/14/2025 10:15 AM EDT Office Visit [facility] MEDICINE [address] [place], [place] [phone] Gemma Mccray MD [address] [place] [phone] 04/10/2025 9:00 AM EDT Office Visit [facility] OPTOMETRY [address] [place], [place] [phone] Nicolásade Crystal, OD [address] [place] [address] documented as of this encounter Visit Diagnoses Diagnosis Type 2 diabetes mellitus with hyperglycemia, with long-term current use of insulin ([facility]) documented in this encounter Care Teams Minesweeping Officer Relationship Specialty Start Date End Date Gemma Mccray MD [address] [place] [address] PCP - General Family Medicine 10/10/20 Ivis Jauregui PharmD [address] [place] [address] Pharmacist Internal Medicine 12/30/24 documented as of this encounter
--- OUTSIDE RECORDS SUMMARY | 2025-01-27 09:04 | XMS_ITS | Encounter Summary ---
Author Organization [employer] Address [address] [facility] [address] 7t [place] [address] Care Team Providers Care Soyfreeze Operator Name Role Phone Gemma Mccray MD Primary Care Provider [phone] Ivis Jauregui PharmD Unavailable [phone] Encounter Details Date Type Department Care [...] Description 03/14/2025 10:15 AM EDT Office Visit [facility] MEDICINE [address] [place] [address] Gemma Mccray MD [address] [place] [address] 04/10/2025 9:00 AM EDT Office Visit [facility] OPTOMETRY [address] [place] [address] Crystal De Santiago, OD [address] [place] [address] documented as of this encounter Visit Diagnoses Not on filedocumented in this encounter Additional Health Concerns Assessment Noted Time PHQ-9 Depression Total Score: 10 024 11:42 AM EST documented as of this encounter Care Teams Soyfreeze Operator Relationship Specialty Start Date End Date Gemma Mccray MD [address] [place] [address] PCP - General Family Medicine 10/10/20 Ivis Jauregui PharmD [address] [place] [address] Pharmacist Internal Medicine 12/30/24 documented as of this encounter
--- OUTSIDE RECORDS SUMMARY | 2025-01-27 09:04 | XMS_ITS | Encounter Summary ---
Author Organization [employer] Address [address] [facility] 7t [place] [address] Care Team Providers Care Patient Support Assistant Name Role Phone Gemma Mccray MD Primary Care Provider [phone] Ivis Jauregui PharmD Unavailable [phone] Reason for Referral * Consultation (Routine) - Pending Review Specialty Diagnoses / Procedures Referred By Sirena castellano Referred To Contact Rheumatology Diagnoses Interstitial myositis of multiple sites Gemma Mccray MD [address] [place] [address] Phone: tel: fax: Referral ID Status Reason Start Date Expiration Date Visits Requested Visits Authorized [id number] Pending Review Specialty Services Required 01/19/2025 01/19/2026 1 1 Encounter Details Date Type Department Care Team (Late st Contact Info) Description 01/17/2025 11:00 AM EST Telemedicine [facility] MEDICINE [address] [place], [place] [phone] Gemma Mccray MD [address] [place], [place] [phone] Tinea versicolor (Primary Dx); Dietary counseling; Exercise [...] hormones 08/202410/03/24 saw urology Brynn Parmar at [facility], continue Cialis 5mg daily and stop testosterone [...] Depression Concerned about his health Requesting more [employer] hours, his personnel security assistant is Kerry Swain at [facility] [phone] Ext [phone] Bilateral gynecomastia IMPRESSION: There is [...] Disp: 1 kit, Rfl: 0 Continuous Glucose [place] Line Attendant (FreeStyle Agnes 3 [place]) device, 1 each 3 times daily. Use [...] TIMES DAILY, Disp: 100 each, Rfl: 11 Australian Translation: Provided by [facility] staff member PABLO Kim documented in this encounter Miscellaneous Notes * Assessment & Plan Note - Gemma Mccray MD - 01/19/2025 7:38 AM ESTAssociated Problem(s): Interstitial myositis of multiple sites Underwent prednisone taper in 03/2024 for myositis, unclear etiology Needs to be returned to [facility] care, referral replaced Most recent CK has [...] Description 03/14/2025 10:15 AM EDT Office Visit [facility] MEDICINE [address] [place] [address] Gemma Mccray MD [address] [place] [address] 04/10/2025 9:00 AM EDT Office Visit [facility] OPTOMETRY [address] [place] [address] Crystal De Santiago, OD [address] [place] [address] Scheduled Referrals Name Type Priority Associated Diagnoses [...] (BMI) of 35.0 to 35.9 in adult ([facility]) Depression, recurrent ([facility]) Major depressive disorder, recurrent episode, unspecified Type 2 diabetes mellitus with hyperglycemia, with long-term current use of insulin ([facility]) Polyneuropathy due to type 2 diabetes mellitus ([facility]) Interstitial myositis of multiple sites documented in this encounter Additional Health Concerns Assessment Noted Time PHQ-9 Depression Total Score: 10 024 11:42 AM EST documented as of this encounter Care Teams Patient Support Assistant Relationship Specialty Start Date End Date Gemma Mccray MD [address] [place] [address] PCP - General Family Medicine 10/10/20 Ivis Jauregui PharmD [address] [place] [address] Pharmacist Internal Medicine 12/30/24 documented as of this encounter
--- OUTSIDE RECORDS SUMMARY | 2025-01-27 09:04 | XMS_ITS | Clinical Summary ---
Author Organization [employer] [place] [facility] ity Address [address] [place] [address] Care Team Providers Care Repair Specialist Name Role Phone Unavailable Primary Care Provider [...]
--- OUTSIDE RECORDS SUMMARY | 2025-01-27 09:05 | XMS_ITS | Encounter Summary ---
Author Organization [employer] [facility] Address [address] [facility] 7t [place] [address] Care Team Providers Care Signalman Name Role Phone Gemma Mccray MD Primary Care Provider [phone] Ivis Jauregui PharmD Unavailable [phone] Encounter Details Date Type Department Care Team (Latest Contact Info) Description 04/16/2021 Abstract [facility] CONVERSIONS Dental, Provider, DDS Social History Tobacco [...] Department Care Team ( Contact Info) Description 03/14/2025 10:15 AM EDT Office Visit [facility] MEDICINE [address] [place] [address] Gemma Mccray MD [address] [place] [address] 04/10/2025 9:00 AM EDT Office Visit [facility] OPTOMETRY [address] [place] [address] Crystal De Santiago OD [address] [place] [address] documented as of this encounter Visit Diagnoses Not on filedocumented in this encounter Care Teams Signalman Relationship Specialty Start Date End Date Gemma Mccray MD [address] [place] [address] PCP - General Family Medicine 10/10/20 Ivis Jauregui, Katherin [address] [place] [address] Pharmacist Internal Medicine 12/30/24 documented as of this encounter
--- OUTSIDE RECORDS SUMMARY | 2025-01-27 09:05 | XMS_ITS | Clinical Summary ---
Author Organization [employer] Address [address] [facility] 7t [place] [address] Care Team Providers Care Supply Technician Name Role Phone Gemma Mcrcay MD Primary Care Provider [phone] Ivis Jauregui PharmD Unavailable [phone] Allergies No known active allergies Medications [...] hyperglycemia, with long-term current use of insulin (CMS/[facility]) USE FOUR TIMES DAILY 100 each 024 Active Continuous Glucose Agricultural Equipment Mechanic (FreeStyle [place] 3 [place]) device 1 each 3 times daily. Use [...] Type 2 diabetes mellitus with diabetic nephropathy ([facility]) TEST BLOOD SUGAR 3 TIMES A DAY 100 each Active insulin aspart (NovoLOG FLEXPEN) 100 UNIT/ML penIndications:T ype 2 diabetes mellitus with hyperglycemia, with long-term current use of insulin ([facility]) Inject 35 units subcutaneously three times daily with meals 30 mL Active Blood Pressure kitIndications:T ype 2 diabetes mellitus with diabetic nephropathy, with long-term current use of insulin ([facility]) Use to check home blood pressure daily as directed 1 kit Active losartan (Cozaar) 50 MG tabletIndication s:Type 2 diabetes mellitus with diabetic nephropathy, with long-term current use of insulin ([facility]),Essent ial hypertension Take 1 tablet (50 mg) by mouth Once per day. 30 tablet 025 2025 Active insulin degludec (Tresiba FlexTouch) 200 UNIT/ML injectionIndicat ions:Type 2 diabetes mellitus with hyperglycemia, with long-term current use of insulin ([facility]) INJECT 65 UNITS SUBCUTANEOUSLY EVERY DAY. INCREASE [...] 2024 Discontinued(T herapy completed) Continuous Blood Gluc Agricultural Equipment Mechanic (FreeStyle [place] 2 [place]) deviceIndication s:Type 2 diabetes mellitus with diabetic [...] complication, with long-term current use of insulin ([facility]) USE DIRECTED AND CHANGE EVERY 2 WEEKS [...] hyperglycemia, with long-term current use of insulin ([facility]) INJECT 120 UNITS SUBCUTANEOUSLY EVERY DAY 18 mL 3 024 2024 Discontinued(R eorder (will not trigger notification to Pharmacy)) insulin aspart (NovoLOG FLEXPEN) 100 UNIT/ML penIndications:T ype 2 diabetes mellitus with hyperglycemia, with long-term current use of insulin ([facility]) Inject 35-40 units subcutaneously three times daily [...] Type 2 diabetes mellitus with diabetic nephropathy ([facility]) TEST BLOOD SUGAR 4 TIMES A DAY [...] hyperglycemia, with long-term current use of insulin ([facility]) INJECT 60 UNITS SUBCUTANEOUSLY EVERY DAY 9 [...] followup with [place]um in 10-14 days [place] [facility] [place] will attempt to find neurology note for 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 Will have workup for cancer, needs colon cancer screening Assessment & Plan (03/30/2024 12:51 PM EDT): On prednisone taper for myositis, has labs today and followup with rheum in 10 days at [facility] Will have workup for cancer, needs colon cancer screening Tinea versicolor 10/05/2023 Assessment & Plan (01/19/2025 7:37 AM EST): Rash sounding more consistent with refractory tinea versicolor To wash weekly in ketoconazole shampoo x 2-4 weeks Take fluconazole oral 300mg x 1, then repeat in one week Non-traumatic rhabdomyolysis 07/13/2023 Assessment & Plan (02/29/2024 1:01 PM EDT): Will speak with book store associate about muscle biopsy results and get back [...] Assessment & Plan (03/09/2023 5:26 AM EDT): set up mechanic automatic line Tresibia and Trulicity Sensor not available today, [...] Assessment & Plan (01/05/2023 6:23 AM EST): set up mechanic automatic line medications today, Metformin and Trulicity Restart them Call if blood sugars do not start to decrease to <300 Podiatry appointment stat for L toe, not sure why previous referral have not been filled/coordinated Precordial pain 09/19/2015 Backache 06/03/2012 Depression, recurrent 06/03/2012 Pinguecula 06/03/2012 Pure hypercholesterolemia 06/03/2012 Encounters Date Type Department Care Team Description 01/17/2025 11:00 AM EST Telemedicine [facility] [address] [place] [phone] Gemma Mccray MD Tinroberth versicolor (Primary Dx); Dietary counseling; Exercise counseling; Class 2 severe obesity due to excess calories with serious comorbidity and body mass index (BMI) of 35.0 to 35.9 in adult (CMS/HCC); Depression, recurrent ([facility]); Type 2 diabetes mellitus with hyperglycemia, with long-term current use of insulin ([facility]); Polyneuropathy due to type 2 diabetes mellitus ([facility]); Interstitial myositis of multiple sites 01/17/2025 Travel 01/12/2025 Telephone [facility] [address] [place], [place] [phone] Gemma Mccray MD recall 01/11/2025 Travel 01/02/2025 Telephone [facility] [address] [place], [place] [phone] Ivis Jauregui, PharmD Prior Authorization (Agnes 3 [...] Description 03/14/2025 10:15 AM EDT Office Visit [facility] [address] [place] [address] Gemma Mccray MD [address] [place] [address] 04/10/2025 9:00 AM EDT Office Visit [facility] [address] [place] [address] TarkaCrystal, OD [address] [place] [address] Health Maintenance Due Date Last Done Comments [...] SDOH Screening 02/17/2025 02/18/2024 Diabetes: Hemoglobin A1C 03/29/202512/30/2 025, 10/04/2024, 09/05/2024, Additional history exists Depression [...] hyperglycemia, with long-term current use of insulin ([facility]) TESTOSTERONE, FREE (DIALYSIS) AND TOTAL,MS Routine 12/30/2024 [...] POCT HGB A1C (12/30/2024 12:48 PM EST) Pathologist [facility] Hemoglobin A1C 13.8(A) 4.0 - 6.0 % Blood 12/30/2024 12:4 8 PM EST Gemma Mccray MD POINT OF CARE TEST ENTER/EDIT ORDERABLES Final Result * (ABNORMAL) CBC (12/30/2024 9:58 AM EST) White Blood Count 9.4 4.8 - 10.8 X10*3/uL [facility] Red Blood Count 4.88 4.60 - 5.80 X10*6/uL [facility] Hemoglobin 14.0 14.0 - 18.0 g/dl [facility] Hematocrit 40.0(L) 42.0 - 52.0 % [facility] Mean Corpuscular Volume 82.0 80.0 - 98.0 fL [facility] Mean Corpuscular Hemoglobin 28.7 27.0 - 33.0 pg [facility] Mean Corpuscular HGB Conc 35.0 31.0 - 36.0 g/dl [facility] Red Cell Distribution Width 13.1 11.0 - 16.0 % [facility] Platelet Count 264 160 - 400 X10*3/uL [facility] Mean Platelet Volume 9.6 9.4 - 12.4 fL [facility] NRBC Pct Auto 0.0 0.0 - 0.2 /100WBC [facility] NRBC Abs Auto 0.000 0.0 - 0.012 X10*3/uL [facility] 12/30/2024 9:58 AM EST 12/30/2024 9:58 AM EST us Generic External Data Provider LAB BLOOD ORDERAB LES Final Result [facility] [address] [place] [address] [phone] * Testosterone, Free (Dialysis) And Total, MS (12/30/2024 9:58 AM EST) Testosterone, Total 264 250 - 1100 ng/dL [facility] Comment:For additional infor mation, please refer tohttp://education.[employer]/faq/IaduiBgstzgrxovwlRDDLMTZZF680(This link is being provided for informational/educational purposes only.)This test was developed and its analytical performancecharacteristics have been determined by [employer] [place], [place]. It hasnot been cleared or approved by the U.S. Food and DrugAdministration. This assay has been validated pursuantto the CLIA regulations and is used for clinicalpurposes. Testosterone, Free 62.6 35.0 - 155.0 pg/mL [facility] Comment:This test was develo ped and its analytical performancecharacteristics have been determined by [employer]. It hasnot been cleared or approved by the U.S. Food and DrugAdministration. This assay has been validated pursuantto the CLIA regulations and is used for clinicalpurposes.THIS TEST WAS PERFORMED AT:[employer] [place] [address]PKBFPKJJESSE TIMMONS MD,PHD 12/30/2024 9:58 AM EST 12/30/2024 9:58 AM EST us Generic External Data Provider LAB BLOOD ORDERAB LES Final Result Performing Organization Address [facility]/ZIP Co de Phone Number [facility] [address] [place] [phone] * PSA,Total (12/30/2024 9:58 AM EST) Prostate Specific Antigen 0.69 <0.05 - 4.0 ng/mL [facility] Comment:PSA methodology: Abb derik Alinity i ChemiluminescentMicroparticle Immunoassay (CMIA) 12/30/2024 9:58 AM EST 12/30/2024 9:58 AM EST us Generic External Data Provider LAB BLOOD ORDERAB LES Final Result Performing Organization Address [facility] Phone Number [facility] [address] [place] [phone] * Creatine Kinase Isoenzymes (CK Isoenzymes) w/ Total CK (12/30/2024 9:58 AM EST) Creatine Kinase, Total 145 26 - 366 U/L [facility] CK-MM 100 95 - 100 % [facility] Ck-Mb 0 <5 % [facility] CK-BB None Detected None Detected % [facility] Creatine Kinase Isoenzyme Interpretation see note [facility] Comment:Normal isoenzyme pat tern with anormal total activity.THIS TEST WAS PERFORMED AT:[employer] [place] [address]IDGTCOJJESSE TIMMONS MD,PHD Blood Venous blood specimen / Unknown 12/30/2024 9:58 AM EST 12/30/2024 9:58 AM EST us Gemma Mccray MD LAB BLOOD ORDERABLES Final Res ult Performing Organization Address [facility] Co de Phone Number [facility] [address] [place] [phone] * Hepatitis Panel, General (11/10/2023 12:00 AM EST) Hepatitis A IgM Nonreactive Nonreactive [facility] Comment:IgM antibodies to ASHBY V not detected; does not exclude earlyacute or recovered HAV infection. ~Hepatitis B Surface Antibody NONREACTIVE Nonreactive [facility] Comment:Nonreactive: < 8.00 mIU/mL Hepatitis B Core Antibody Nonreactive Nonreactive [facility] Hepatitis C Antibody Nonreactive Nonreactive [facility] Comment:Antibodies to HCV no t detected; does not exclude early acuteHCV infection. Hepatitis B Surface Ag Negative Negative [facility] 11/10/2023 11/10/2023 us Generic External Data Provider LAB BLOOD ORDERAB LES Final Result [facility] [address] [place] [phone] * (ABNORMAL) LIPID PANEL, STANDARD (05/31/2021 3:38 PM EDT) Chol/HDLC Ratio 4.8 <5.0 (calc) [facility] ?? Good MOY et al. LEONID. 2013;310(19): 3974-4322 ?? (http://education.HerBabyShower/faq/GCG411) Non-HDL Cholesterol 114 <130 mg/dL (calc) [facility] Comment: For patients with diabetes plus 1 major ASCVD risk ?? factor, treating to a non-HDL-C goal of <100 mg/dL ?? (LDL-C of <70 mg/dL) is considered a therapeutic ?? option. Triglycerides 400(H) <150 mg/dL [facility] Comment: ?? If a non-fasting specimen was collected, consider repeat triglyceride testing on a fasting specimen if clinically indicated. ?? Lauro et al. J. of Clin. Lipidol. 2015;9:129-169. ?? 05/31/2021 3:38 PM EDT us Gemma Mccray MD LAB BLOOD ORDERABLES Final Res ult [facility] [address] from Last 3 Months or Most Recently Relevant to Health Maintenance Insurance [facility] Care Teams Supply Technician Relationship Specialty Start Date End Date Gemma Mccray MD [address] [place] [address] PCP - General Family Medicine 10/10/20 Ivis Jauregui PharmD [address] [place] [address] Pharmacist Internal Medicine 12/30/24
--- OUTSIDE RECORDS SUMMARY | 2025-01-27 09:05 | XMS_ITS | Encounter Summary ---
Author Organization [employer] [facility] Address [address] [facility] 7t [place] [address] Care Team Providers Care Brick Chimney Supervisor Name Role Phone Gemma Mccray MD Primary Care Provider [phone] Ivis Jauregui PharmD Unavailable [phone] Encounter Details Date Type Department Care Team (Latest Contact Info) Description 04/05/2019 Abstract [facility] CONVERSIONS Dental, Provider, DDS Social History [...] Description 03/14/2025 10:15 AM EDT Office Visit [facility] [address] [place] [address] Gemma Mccray MD [address] [place] [address] 04/10/2025 9:00 AM EDT Office Visit [facility] OPTOMETRY [address] [place] [address] Crystal De Santiago OD [address] [place] [address] documented as of this encounter Visit Diagnoses Not on filedocumented in this encounter Care Teams Brick Chimney Supervisor Relationship Specialty Start Date End Date Gemma Mccray MD [address] [place] [address] PCP - General Family Medicine 10/10/20 Ivis Jauregui, Katherin [address] [place] [address] Pharmacist Internal Medicine 12/30/24 documented as of this encounter
--- OUTSIDE RECORDS SUMMARY | 2025-01-27 09:05 | XMS_ITS | Encounter Summary ---
Author Organization [employer] [facility] Address [address] [facility] 7t [place] [address] Care Team Providers Care Oil Heater Installer Name Role Phone Gemma Mccray MD Primary Care Provider [phone] Ivis Jauregui PharmD Unavailable [phone] Encounter Details Date Type Department Care Team (Late st Contact Info) Description 07/16/2023 Orders Only [facility] [address] [place] [address] [phone] Gemma Mccray MD [address] [place] [address] [phone] Social History Tobacco Use Types Packs/Day Years [...] Description 03/14/2025 10:15 AM EDT Office Visit [facility] [address] [place] [address] [phone] Gemma Mccray MD [address] [place] [address] [phone] 04/10/2025 9:00 AM EDT Office Visit [facility] OPTOM[facility]RY [address] [place] [address] [place] De Santiago, OD [address] [place] [address] documented as of this encounter Procedures Procedure [...] Opiate Screen Urine Not Detected Not Detect [facility] Comment:Opiate cut-off is 30 0 ng/mL.Positive results are unconfirmed and should not be used fornon-medical purposes. Barbiturates, Urine Not Detected Not Detect [facility] Comment:Barbiturate cut-off is 200 ng/mL.Positive results are unconfirmed and should not be used fornon-medical purposes. Phencyclidine Screen Urine Not Detected Not Detect [facility] Comment:Phencyclidine cut-of f is 25 ng/mL.Positive results are unconfirmed and should not be used fornon-medical purposes. Amphetamine Screen Urine Not Detected Not Detect [facility] Comment:Amphetamine cut-off is 1000 ng/mL.Positive results are unconfirmed and should not be used fornon-medical purposes. Benzodiazepines Screen Urine Not Detected Not Detect [facility] Comment:Benzodiazepine cut-o ff is 200 ng/mL.Positive results are unconfirmed and should not be used fornon-medical purposes. Cocaine Screen Urine Not Detected Not Detect [facility] Comment:Cocaine cut-off is 3 00 ng/mL.Positive results are unconfirmed and should not be used fornon-medical purposes. Cannabinoid Screen Urine POSITIVE(A) Not Detect [facility] Comment:Cannabinoid cut-off is 50 ng/mL.Positive results are unconfirmed and should not be used fornon-medical purposes. FENTANYL URINE Not Detected Not Detect [facility] Comment:Fentanyl cut-off is 1 ng/mL.Positive results are unconfirmed and should not be used fornon-medical purposes. 07/16/2023 3:30 PM EDT 07/16/2023 3:32 PM EDT us [facility] External Provider LAB URI NE ORDERABLES Final Result [facility] [address] [place] [address] [phone] * (ABNORMAL) Urinalysis, Complete, with Reflex to Culture (07/16/2023 3:30 PM EDT) Color Urine Dark Yellow [facility] Appearance Urine Clear [facility] PH 6.0 5.0 - 9.0 [facility] Glucose Urine UA Negative Negative mg/dL [facility] Urine Blood Negative Negative [facility] Specific [place] - Urine >=1.030(H) 1.005 - 1.025 [facility] Urine Protein 100 (2+)(A) Neg-Trace mg/dL [facility] Urine Ketones 40 Negative mg/dL [facility] Nitrite Urine Negative Negative [facility] Leukocyte Esterase Urine Negative Negative [facility] RBC Urine 0-2 0 - 2 /HPF [facility] Urine WBC 0-5 0 - 5 /HPF [facility] Urine Squamous Epithelial Cell 0-2 0 - 2 /HPF [facility] Urine Bacteria None Seen None Seen [facility] Hyaline Casts, Urine 0-2 0 - 2 /LPF [facility] 07/16/2023 3:30 PM EDT 07/16/2023 3:32 PM EDT Narrative [facility] - 07/16/2023 3:47 PM EDT [id number], Clean Catch [facility] External Provider LAB URI NE ORDERABLES Final Result [facility] [address] [place] [address] [phone] * Volatiles (07/16/2023 11:41 AM EDT) Alcohol, Methyl NONE DETECTED [facility] Comment:Reportable Limit: 5 mg/dLThis test was developed and its analytical performancecharacteristics have been determined by [employer]. It has not been cleared or approved by theFDA. This assay has been validated pursuant to the CLIAregulations and is used for clinical purposes. Alcohol, Ethyl NONE DETECTED NONE DETECTED mg/dL [facility] Comment:100 mg/dL = 0.100 g% (g/dL)Reportable Limit: 10 mg/dLThis test was developed and its analytical performancecharacteristics have been determined by [employer]. It has not been cleared or approved by theFDA. This assay has been validated pursuant to the CLIAregulations and is used for clinical purposes. Alcohol, Ethyl NONE DETECTED NONE DETECTED g/dL(%) [facility] Comment:Reportable limit: 0. 010 g/dLThis test was developed and its analytical performancecharacteristics have been determined by [employer]. It has not been cleared or approved by theFDA. This assay has been validated pursuant to the CLIAregulations and is used for clinical purposes. ACETONE NONE DETECTED NONE DETECTED mg/dL [facility] Comment:Reportable Limit: 5 mg/dLThis test was developed and its analytical performancecharacteristics have been determined by [employer]. It has not been cleared or approved by theFDA. This assay has been validated pursuant to the CLIAregulations and is used for clinical purposes. Alcohol, Isopropyl NONE DETECTED NONE DETECTED mg/dL [facility] Comment:Reportable Limit: 5 mg/dLThis test was developed and its analytical performancecharacteristics have been determined by [employer]. It has not been cleared or approved by theFDA. This assay has been validated pursuant to the CLIAregulations and is used for clinical purposes. Volatile Analysis Performed On: WHOLE BLOOD [facility] Comment:THIS TEST WAS PERFOR MED AT:[facility] [place] [phone] BOWERS MD 07/16/2023 11:4 1 AM EDT 07/16/2023 11:46 AM EDT [facility] External Provider LAB BLO OD ORDERABLES Final Result [facility] [address] [place] [address] [phone] documented in this encounter Visit Diagnoses Not on filedocumented in this encounter Additional Health Concerns Assessment Noted Time PHQ-9 Depression Total Score: 10 07/13/ 023 3:51 PM EDT documented as of this encounter Care Teams Oil Heater Installer Relationship Specialty Start Date End Date Gemma Mccray MD [address] [place] [address] PCP - General Family Medicine 10/10/20 Ivis Jauregui PharmD [address] [place] [address] Pharmacist Internal Medicine 12/30/24 documented as of this encounter
[2025-01-27 11:26] LABS: Alanine Aminotransferase 34 U/L (0-40); Albumin Level 3.9 g/dL (3.5-5.0); Alkaline Phosphatase 146 U/L (39-117); Anion Gap 10 (12-20); Aspartate Amino Transferase 29 U/L (5-37); Bilirubin Direct < 0.2 mg/dL (0.0-0.5); Bilirubin Total 0.2 mg/dL (0.0-1.0); Blood Urea Nitrogen 15 mg/dL (9-16); Calcium 8.9 mg/dL (8.4-10.2); Carbon Dioxide 26 mmol/L (22-29); Chloride 107 mmol/L (96-108); Cholesterol 131 mg/dL (<200); Estimated Glomerular Filt Rate > 60; Glucose Random 230 mg/dL (60-115); HDL Cholesterol 35 mg/dL (>40); LDL Cholesterol Calculated 50 mg/dL (<100); Sodium 139 mmol/L (135-145); Total Protein 7.8 g/dL (6.5-8.0); Triglycerides 231 mg/dL (<150)
[2025-01-27 11:36] LABS: Creatinine Urine 166.57 mg/dL; Microalbum/Creatinine Ratio Ur 178.3 ug/mg cr (<30)
[2025-01-27 12:50] LABS: Reflex LDLD? No
== END 2025-01-27 08:46 | disposition home or self-care (01) ==
LOC: HO.HHCL 08:45
PROVIDERS: Visit Provider General Practice
DX: E11.65 Type 2 diabetes mellitus with hyperglycemia (principal); Z79.4 Long term (current) use of insulin; I10 Essential (primary) hypertension
CPT/HCPCS: 36415; 80048; 80061; 80076; 82043; 82570

== ENCOUNTER 2025-03-13 07:37 | Outpatient (REF) | payer OTHER, SELFPAY ==
--- OUTSIDE RECORDS SUMMARY | 2025-03-13 07:41 | XMS_ITS | Clinical Summary ---
Author Organization [employer] [facility] Address [address] [place] [address] Care Team Providers Care Hydrator Name Role Phone Unavailable Primary Care Provider [...] Vaccine (2023-2 5 season) 2024 Influenza Vaccine (Season Ended) 2025 HIB Vaccines Aged Out No longer eligi [...] age to complete this topic Meningococcal B Vaccine Aged Out No l onger eligible based on patient's age to complete [...]
--- OUTSIDE RECORDS SUMMARY | 2025-03-13 07:41 | XMS_ITS | Encounter Summary ---
Author Organization [employer] [facility] Address [address] [facility] 7t [place] [address] Care Team Providers Care Choir Director Name Role Phone Gemma Mccray MD Primary Care Provider [phone] Ivis Jauregui PharmD Unavailable [phone] Reason for Visit * Reason Onset Date Comments PCP Appt 04/09/2023 Encounter Details Date Type Department Care Team (Late st Contact Info) Description 04/09/2023 Telephone [facility] [address] [place] [address] [phone] Gemma Mccray MD [address] [place] [address] [phone] PCP Appt Social History Tobacco Use Types [...] Description 03/14/2025 10:15 AM EDT Office Visit [facility] [address] [place] [address] [phone] Gemma Mccray MD [address] [place] [address] [phone] 03/29/2025 2:00 PM EDT Medication Management [facility] [address] [place] [phone] Ivis Jauregui PharmD [address] [place] [address] 04/10/2025 9:00 AM EDT Office Visit [facility] OPTOMETRY [address] [place] [address] [place] De [place], OD [address] [place] [address] documented as of this encounter Visit Diagnoses Not on filedocumented in this encounter Care Teams Choir Director Relationship Specialty Start Date End Date Gemma Mccray MD [address] [place] [address] PCP - General Family Medicine 10/10/20 Ivis Jauregui PharmD [address] [place] [address] Pharmacist Internal Medicine 12/30/24 documented as of this encounter
--- OUTSIDE RECORDS SUMMARY | 2025-03-13 07:41 | XMS_ITS | Encounter Summary ---
Author Organization [employer] [facility] Address [address] [facility] 7t [place] [address] Care Team Providers Care Mural Artist Name Role Phone Gemma Mccray MD Primary Care Provider [phone] Ivis Jauregui PharmD Unavailable [phone] Encounter Details Date Type Department Care Team (Latest Contact Info) Description 04/16/[address] [facility] CONVERSION[facility] Dental, Provider, DDS Social History [...] Description 03/14/2025 10:15 AM EDT Office Visit [facility] [address] [place] [address] Gemma Mccray MD [address] [place] [address] 03/29/2025 2:00 PM EDT Medication Management [facility] [address] [place] [address] Ivis Jauregui, PharmD [address] [place] [address] 04/10/2025 9:00 AM EDT Office Visit [facility] OPTOM[facility] [address] [place] [address] Crystal De Santiago, OD [address] [facility] [place] [address] documented as of this encounter Visit Diagnoses Not on filedocumented in this encounter Care Teams Mural Artist Relationship Specialty Start Date End Date Gemma Mcrcay MD [address] [place], [place] [phone] PCP - General Family Medicine 10/10/20 Ivis Jauregui PharmD [address] [place] [phone] Pharmacist Internal Medicine 12/30/24 documented as of this encounter
--- OUTSIDE RECORDS SUMMARY | 2025-03-13 07:41 | XMS_ITS | Clinical Summary ---
Author Organization [email or web address] Address [address] [facility] 7t [place] [address] Care Team Providers Care Marine Service Manager Name Role Phone Gemma Mccray MD Primary Care Provider [phone] Ivis Jauregui PharmD Unavailable [phone] Allergies No known active allergies Medications tamsulosin (Flomax) 0.4 MG 24 hr capsule TAKE 1 CAPSULE BY MOUTH DAILY 30 MINUTES AFTER THE SAME MEAL EVERY DAY 30 capsule 023 Active albuterol 108 (90 Base) MCG/ACT inhalerIndicati ons:Shortness of breath Inhale 2 puffs every 6 (six) hours if needed for wheezing. 18 g 024 Active UltiGuard SafePack Pen Needle 32G X 4 MM miscIndications :Type 2 diabetes mellitus with hyperglycemia, with long-term current use of insulin ([facility]) USE FOUR TIMES DAILY 100 each 024 Active Continuous Glucose Substation Operator Conversion (FreeStyle Agnes 3 Colerain) device 1 each 3 times daily. Use [...] daily, as directed 100 each 025 Active Alcohol Swabs (Alcohol Prep) pads Use as directed prior to insulin injection 4x daily 200 each 025 Active TRUEplus Lancets 33G miscIndications :Type 2 diabetes mellitus with diabetic nephropathy ([facility]) TEST BLOOD SUGAR 3 TIMES A DAY 100 each 11 025 Active Blood Pressure kitIndications: Type 2 diabetes mellitus with diabetic nephropathy, with long-term current use of insulin ([facility]) Use to check home blood pressure daily as directed 1 kit 025 Active losartan (Cozaar) 50 MG tabletIndicatio ns:Type 2 diabetes mellitus with diabetic nephropathy, with long-term current use of insulin ([facility]),Essen tial hypertension Take 1 tablet (50 mg) by mouth Once per day. 30 tablet 11 025 2025 Active ketoconazole (NIZOral) 2 % shampoo Apply topically 2 (two) times a week. 120 mL 3 025 Active insulin degludec (Tresiba FlexTouch) 200 UNIT/ML injectionIndica tions:Type 2 diabetes mellitus with hyperglycemia, with long-term current use of insulin ([facility]) Inject 80 Units under the skin in the morning. 9 mL 1 025 Active testosterone (Androgel) 50 MG/5GM (1%) gel Place 2 packets on the skin Once per day. DIRECTED 025 Active Tirzepatide (Mounjaro) 7.5 MG/0.5ML solution auto-injector Inject 7.5 mg under the skin 1 (one) time per week. 2 mL 025 Active Icosapent Ethyl (Vascepa) 1 g capsule Take 2 capsules (2 g) by mouth with breakfast and with evening meal. 120 capsule 5 025 Active tadalafil (Cialis) 5 MG tablet TAKE 2 TABLETS BY MOUTH DAILY NEEDED FOR SEXUAL ACTIVITY 025 Active NovoLOG FLEXPEN 100 UNIT/ML penIndications: Type 2 diabetes mellitus with hyperglycemia, with long-term current use of insulin ([facility]) INJECT 35 UNITS SUBCUTANEOUSLY THREE TIMES DAILY WITH MEALS 30 mL 1 025 Active Tirzepatide (Mounjaro) 5 MG/0.5ML solution auto-injectorIn dications:Type 2 diabetes mellitus with hyperglycemia, with long-term current use of insulin ([facility]) Inject 5 mg under the skin 1 (one) time per week. 2 mL 11 025 2024 Discontinued(D ose adjustment) insulin aspart (NovoLOG FLEXPEN) 100 UNIT/ML penIndications: Type 2 diabetes mellitus with hyperglycemia, with long-term current use of insulin ([facility]) Inject 35 units subcutaneously three times daily with meals 30 mL 1 025 2024 Discontinued Bempedoic Acid (Nexletol) 180 MG tablet Take 1 tablet by mouth Once per day. 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 Will have workup for cancer, needs colon cancer screening Assessment & Plan (03/30/2024 12:51 PM EDT): On prednisone taper for myositis, has labs today and followup with rheum in 10 days at [place] Will have workup for cancer, needs colon cancer screening Tinea versicolor 10/05/2023 Assessment & Plan (01/19/2025 7:37 AM EST): Rash sounding more consistent with refractory tinea versicolor To wash weekly in ketoconazole shampoo x 2-4 weeks Take fluconazole oral 300mg x 1, then repeat in one week Non-traumatic rhabdomyolysis 07/13/2023 Assessment & Plan (02/29/2024 1:01 PM EDT): Will speak with marinator about muscle biopsy results and get back [...] Localized swelling of toe of left foot Assessment & Plan (01/05/2023 6:25 AM EST): [...] Assessment & Plan (03/09/2023 5:26 AM EDT): 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 Sensor not available [...] Assessment & Plan (01/05/2023 6:23 AM EST): instant potato 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 supervisor medications today, Metformin and Trulicity Restart them Call if blood sugars do not start to decrease to <300 Podiatry appointment stat for L toe, not sure why previous referral have not been filled/coordinated Precordial pain 09/19/2015 Backache 06/03/2012 Depression, recurrent 06/03/2012 Pinguecula 06/03/2012 Pure hypercholesterolemia 06/03/2012 Encounters Date Type Department Care Team Description 03/05/2025 Refill [facility] [address] [place] [phone] Ivis Jauregui PharmD Type 2 diabetes mellitus with hyperglycemia, with long-term current use of insulin ([facility]) 03/03/2025 Patient Outreach [address] [address] Gemma Mccray MD Care Coordination (CHW outreach for SDOH food needs-LVM ) 03/03/2025 Patient Outreach [facility] [address] [place] [phone] Gemma Mccray MD Pre-visit Planning (SDOH screening positive and tobacco screening negative) 01/27/[address] [address] Ivis Jauregui PharmPerry Prior Authorization (Nexletol) 01/27/2025 Orders Only [facility] [address] [place] [address] Gemma Mccray MD 01/17/2025 11:00 AM EST Telemedicine [facility] [address] [place] [address] Gemma Mccray MD Tinea versicosujit (Primary Dx); Dietary counseling; Exercise counseling; Class 2 severe obesity due to excess calories with serious comorbidity and body mass index (BMI) of 35.0 to 35.9 in adult ([facility]); Depression, recurrent ([facility]); Type 2 diabetes mellitus with hyperglycemia, with long-term current use of insulin ([facility]); Polyneuropathy due to type 2 diabetes mellitus ([facility]); Interstitial myositis of multiple sites 01/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 I have lefty lentz 03/03/[address] you li ve. Do you have problems with any of the following? None of the above 03/03/2025 Food Insecurity Answer Date Recorded Within the past 12 months, y ou worried that your food would run out before you got money to buy more: Sometimes True 2024 Within the past 12 months,th e food you bought just didn't last and you didn't have enough money to get more: Sometimes True 03/03/2025 Transportation Answer Date Recorded In the past [...] Access Answer Date Recorded Internet Access Q1 Yes 03/03/2025 Internet Access Q2 I do not want or need it 02/2025 Sex and Gender Information Value Date Recorded Sex Assigned at Male 09/29/2022 10:21 AM EDT Legal Sex Male 10:21 AM EDT Gender Identity Male 09/29/2022 10:21 AM EDT Sexual Orientation Straight 09/29/2022 10 :21 AM EDT Last Filed Vital Signs Vital Sign Reading Time Taken Comments Blood Pressure 140/82 02/13/2025 2:12 PM EDT Pulse 88 10/04/2024 11:31 AM EST Temperature [...] Description 03/14/2025 10:15 AM EDT Office Visit [facility] [address] [place] [address] Gemma Mccray MD [address] [place] [address] 03/29/2025 2:00 PM EDT Medication Management [facility] [address] [place] [address] Ivis Jauregui, PharmD [address] [place] [address] 04/10/2025 9:00 AM EDT Office Visit [facility] OPTOMETRY [address] [place] [address] Crystal De Santiago, OD [address] [place] [address] Health Maintenance Due Date Last Done Comments CT Colonography 1976 Colonoscopy 1976 Colorectal Cancer Screening 1976 FIT DNA/Cologuard 1976 FIT 1976 FOBT 1976 HIV Screening 1976 Sigmoidoscopy 1976 Diabetes: Foot Exam 02/15/1986 Family Planning (PISQ) 02/15/1991 Diabetes: Hemoglobin A1C 03/29/2025 025, 10/04/2024, 09/05/2024, Additional history exists Depression Monitoring 04/03/2025 10/04/2024, 024 DTaP/Tdap/Td Vaccines (3 - Td or Tdap) 09/13/2025 09/13/2015, 09/13/2010 Alcohol/Substance Use Screening 10/04/2025 10/04/2024 Depression Screening 10/04/2025 10/04/2024, 10/04/20 Tobacco Screening 01/19/2026 01/19/2025 Lipid Panel 01/27/2026 01/27/2025, 05/31/2021 Zoster Vaccines (1 of 2) 02/15/2026 SDOH Screening 03/03/2026 03/03/2025 Eye Exam 10/10/2026 10/10/2024, 09/30, 10/10/2024, Additional history exists RSV Patients and Patients Aged 60 years or older (1 - 1-dose 75+ series) 02/15/2051 Hepatitis B Vaccines Completed 12/29/2011, 08/01/2011, 06/17/2011 Hepatitis C Screening Completed 11/10/2023 COVID-19 Vaccine Completed 01/11/2025, , 08/23/2021, Additional history exists Influenza Vaccine Completed 01/11/2025, , 11/08/2019, Additional history exists Pneumococcal Vaccine: Pediatrics (0 to 5 Years) and At-Risk Patients (6 to 49) Years) Completed 02/13/2025, 09/01/2011 HIB Vaccines Aged Out No longer eligi [...] Procedure Name Priority Date/Time Associated Diagnosis Comments ALBUMIN, RANDOM URINE W/CREATININE Routine 01/27/2025 8:47 AM EST LIPID PANEL WITH REFLEX TO DIRECT LDL Routine 01/27/2025 8:47 AM EST BASIC METABOLIC PANEL Routine 01/27/2025 8:47 AM EST HEPATIC FUNCTION PANEL Routine 01/27/2025 8:47 AM EST POCT GLYCATED HEMOGLOBIN, TOTAL Routine 12/30/2024 12:48 PM EST Type 2 diabetes mellitus with hyperglycemia, with long-term current use of insulin ([facility]) TESTOSTERONE, FREE (DIALYSIS) AND TOTAL,MS Routine 12/30/2024 9:58 AM EST PSA, TOTAL Routine 12/30/2024 9:58 AM EST CBC Routine 12/30/2024 9:58 AM EST CREATINE KINASE ISOENZYMES (CK ISOENZYMES) WITH TOTAL CK Routine 12/30/2024 9:58 AM EST Interstitial myositis of multiple sites HEPATITIS PANEL, GENERAL Routine 11/10/2023 12:00 AM EST from Last 3 Months or Most Recently Relevant to Health Maintenance Results * (ABNORMAL) Lipid Panel with Reflex to Direct LDL (01/27/2025 8:47 AM EST) Triglycerides 231(H) <150 mg/dL [facility] Comment:Desirable Triglyceri de: less than 150 mg/dLBorderline High Triglyceride 150-199 mg/dLHigh Triglyceride: 200-499 mg/dLVery High Triglyceride: greater than or equal to 5OO mg/dL Cholesterol 131 <200 mg/dL [facility] Comment:Desirable Cholestero l: less than 200 mg/dLBorderline High Cholesterol: 200-239 mg/dLHigh Cholesterol: greater than 239 mg/dL LDL Cholesterol Calculated 50 <100 mg/dL [facility] Comment:Desirable LDL: less than 100 mg/dLNear Optimal/Above Optimal LDL: 110- 129 mg/dLBorderline High LDL: 130-159 mg/dLHigh LDL: 160-189 mg/dLVery High LDL: greater than or equal to 190 mg/dL HDL Cholesterol 35(L) >40 mg/dL [facility] Comment:Desirable HDL: great er than 40 mg/dL Note: This HDL assay may give artificially low results in patients with liver disease. 01/27/2025 8:47 AM EST 01/27/2025 11:04 AM EST us Gemma Mccray MD LAB BLOOD ORDERABLES Final Res ult Performing Organization Address [facility] de Phone Number [facility] [address] [place] [phone] * (ABNORMAL) Albumin, Random Urine W/Creatinine (01/27/2025 8:47 AM EST) Creatinine, Urine 166.57 mg/dL [facility] Microalbumin Urine 297.0 mg/L [facility] Microalbum Creatinine Ratio Ur 178.3(H) <30 ug/mg cr [facility] Comment:Albumin/Creatinine R atio Reference Ranges: Normal: < 30 ug/mg creatinine Microalbuminuria: 30 - 300 ug/mg creatinineClinical Albuminuria: > 300 ug/mg creatinine 01/27/2025 8:47 AM EST 01/27/2025 10:52 AM EST us Gemma Mccray MD LAB URINE ORDERABLES Final Res ult Performing Organization Address [facility] Co de Phone Number [facility] [address] [place] [phone] * (ABNORMAL) Hepatic Function Panel (01/27/2025 8:47 AM EST) Bilirubin, Total 0.2 0.0 - 1.0 mg/dL [facility] Bilirubin, Direct <0.2 0.0 - 0.5 mg/dL [facility] Aspartate Amino Transferase 29 5 - 37 U/L [facility] Alanine Aminotransferase 34 0 - 40 U/L [facility] Total Protein 7.8 6.5 - 8.0 g/dL [facility] Albumin Level 3.9 3.5 - 5.0 g/dL [facility] Alkaline Phosphatase 146(H) 39 - 117 U/L [facility] 01/27/2025 8:47 AM EST 01/27/2025 11:04 AM EST Gemma Mccray MD LAB BLOOD ORDERABLES Final Res ult Performing Organization Address [facility] Co de Phone Number [facility] [address] [place] [phone] * (ABNORMAL) Basic Metabolic Panel (01/27/2025 8:47 AM EST) Sodium 139 135 - 145 mmol/L [facility] Potassium 4.0 3.3 - 5.1 mmol/L [facility] Chloride 107 96 - 108 mmol/L [facility] Carbon Dioxide 26 22 - 29 mmol/L [facility] Anion Gap 10(L) 12 - 20 [facility] Urea Nitrogen (BUN) 15 9 - 16 mg/dL [facility] Creatinine, Serum 0.87 0.5 - 1.4 mg/dL [facility] Estimated Glomerular Filt Rate >60 [facility] Comment:Chronic Kidney Disea se: Estimated GFR < 60 mL/min/1.51w1Wwxdtv Kidney Disease: Estimated GFR < 15 mL/min/1.73m2 Glucose 230(H) 60 - 115 mg/dL [facility] Calcium 8.9 8.4 - 10.2 mg/dL [facility] 01/27/2025 8:47 AM EST 01/27/2025 11:04 AM EST Gemma Mccray MD LAB BLOOD ORDERABLES Final Res ult Performing Organization Address [facility]/ZIP Co de Phone Number [facility] [address] [place] [phone] * (ABNORMAL) POCT HGB A1C (12/30/2024 12:48 PM EST) Hemoglobin A1C 13.8(A) 4.0 - 6.0 % Blood 12/30/2024 12:4 8 PM EST us Gemma Mccray MD POINT OF CARE TEST ENTER/EDIT ORDERABLES Final Result * (ABNORMAL) CBC (12/30/2024 9:58 AM EST) White Blood Count 9.4 4.8 - 10.8 X10*3/uL [facility] Red Blood Count 4.88 4.60 - 5.80 X10*6/uL [facility] Hemoglobin 14.0 14.0 - 18.0 g/dl [facility] Hematocrit 40.0(L) 42.0 - 52.0 % [facility] Mean Corpuscular Volume 82.0 80.0 - 98.0 fL [facility] Mean Corpuscular Hemoglobin 28.7 27.0 - 33.0 pg [facility] Mean Corpuscular HGB Conc 35.0 31.0 - 36.0 g/dl [facility] Red Cell Distribution Width 13.1 11.0 - 16.0 % [facility] Platelet Count 264 160 - 400 X10*3/uL [facility] Mean Platelet Volume 9.6 9.4 - 12.4 fL [facility] NRBC Pct Auto 0.0 0.0 - 0.2 /100WBC [facility] NRBC Abs Auto 0.000 0.0 - 0.012 X10*3/uL [facility] 12/30/2024 9:58 AM EST 12/30/2024 9:58 AM EST us Generic External Data Provider LAB BLOOD ORDERAB LES Final Result [facility] [address] [place] [phone] * Testosterone, Free (Dialysis) And Total, MS (12/30/2024 9:58 AM EST) Testosterone, Total 264 250 - 1100 ng/dL [facility] Comment:For additional infor madai, please refer [email or web address]/faq/[email or web address](This link is being provided for informational/educational purposes only.)This test was developed and its analytical performancecharacteristics have been determined by [facility]. It hasnot been cleared or approved by the U.S. Food and DrugAdministration. This assay has been validated pursuantto the CLIA regulations and is used for clinicalpurposes. Testosterone, Free 62.6 35.0 - 155.0 pg/mL [facility] Comment:This test was develo ped and its analytical performancecharacteristics have been determined by [facility] [place], [place]. It hasnot been cleared or approved by the .S. Food and DrugAdministration. This assay has been validated pursuantto the CLIA regulations and is used for clinicalpurposes.THIS TEST WAS PERFORMED AT:[id number] [place] [address]YTYIPRUJESSE TIMMONS MD,PHD 12/30/2024 9:58 AM EST 12/30/2024 9:58 AM EST Generic External Data Provider LAB BLOOD ORDERAB LES Final Result Performing Organization Address [facility] Co de Phone Number [facility] [address] [place] [address] [phone] * PSA,Total (12/30/2024 9:58 AM EST) Prostate Specific Antigen 0.69 <0.05 - 4.0 ng/mL [facility] Comment:PSA methodology: Sara more Alicecilia i ChemiluminescentMicroparticle Immunoassay (CMIA) 12/30/2024 9:58 AM EST 12/30/2024 9:58 AM EST Generic External Data Provider LAB BLOOD ORDERAB LES Final Result Performing Organization Address City/[facility] Co de Phone Number [facility] [address] [place] [address] [phone] * Creatine Kinase Isoenzymes (CK Isoenzymes) w/ Total CK (12/30/2024 9:58 AM EST) Creatine Kinase, Total 145 26 - 366 U/L [facility] CK-MM 100 95 - 100 % [facility] Ck-Mb 0 <5 % [facility] CK-BB None Detected None Detected % [facility] Creatine Kinase Isoenzyme Interpretation see note [facility] Comment:Normal isoenzyme pat tern with anormal total activity.THIS TEST WAS PERFORMED AT:[employer]/[id number] [place] [address]TVMPEDHJESSE TIMMONS MD,PHD Blood Venous blood specimen / Unknown 12/30/2024 9:58 AM EST 12/30/2024 9:58 AM EST us Gemma Mccray MD LAB BLOOD ORDERABLES Final Res ult [facility] [address] [place] [phone] * Hepatitis Panel, General (11/10/2023 12:00 AM EST) Pathologist [facility] Hepatitis A IgM Nonreactive Nonreactive [facility] Comment:IgM antibodies to ASHBY V not detected; does not exclude earlyacute or recovered HAV infection. ~Hepatitis B Surface Antibody NONREACTIVE Nonreactive [facility] Comment:Nonreactive: < 8.00 mIU/mL Hepatitis B Core Antibody Nonreactive Nonreactive [facility] Hepatitis C Antibody Nonreactive Nonreactive [facility] Comment:Antibodies to HCV no t detected; does not exclude early acuteHCV infection. Hepatitis B Surface Ag Negative Negative [facility] 11/10/2023 11/10/2023 us Generic External Data Provider LAB BLOOD ORDERAB LES Final Result [facility] [address] [place] [phone] from Last 3 Months or Most Recently Relevant to Health Maintenance Insurance [facility] Care Teams Marine Service Manager Relationship Specialty Start Date End Date Gemma Mccray MD [address] [place] [address] PCP - General Family Medicine 10/10/20 Ivis Jauregui PharmD [address] [place], [place] Pharmacist Internal Medicine 12/30/24
--- OUTSIDE RECORDS SUMMARY | 2025-03-13 07:41 | XMS_ITS | Encounter Summary ---
Author Organization [employer] Address [address] [facility] [address] [place] [address] Care Team Providers Care Seed Technician Name Role Phone Gemma Mccray MD Primary Care Provider [phone] Ivis Jauregui PharmD Unavailable [phone] Reason for Visit * Reason Comments Med Refill Encounter Details Date Type Department Care Team ([facility] st Contact Info) Description 06/27/2024 Refill [facility] [address] [place], [place] [phone] Gemma Mccray MD [address] [place], [place] [phone] Type 2 diabetes mellitus with hyperglycemia, with long-term current use of insulin [facility]) Social History Tobacco Use Types Packs/Day Years [...] 10:15 AM EDT Office Visit [facility] [address] [place] [phone] Gemma Mccray MD [address] [place] [address] 03/29/2025 2:00 PM EDT Medication Management [facility] [address] [place] [address] Ivis Jauregui, PharmD [address] [place] [address] 04/10/2025 9:00 AM EDT Office Visit [facility] [address] [place] [address] Crystal De Santiago, OD [address] [place] [address] documented as of this encounter Visit Diagnoses Diagnosis Type 2 diabetes mellitus with hyperglycemia, with long-term current use of insulin ([facility]) documented in this encounter Additional Health Concerns Assessment Noted Time PHQ-9 Depression Total Score: 16 024 9:57 AM EDT documented as of this encounter Care Teams Seed Technician Relationship Specialty Start Date End Date Gemma Mccray MD [address] [place] [phone] PCP - General Family Medicine 10/10/20 Ivis Jauregui, SaulD [address] [place] [phone] Pharmacist Internal Medicine 12/30/24 documented as of this encounter
--- OUTSIDE RECORDS SUMMARY | 2025-03-13 07:41 | XMS_ITS | Encounter Summary ---
Author Organization [facility] Address [address] [facility] 7t [place] [address] Care Team Providers Care Fish Tender Name Role Phone Gemma Mccray MD Primary Care Provider [phone] Ivis Jauregui PharmD Unavailable [phone] Reason for Visit * Reason Comments Med Refill Encounter Details Date Type Department Care Team (Late st Contact Info) Description 02/05/2023 Refill [facility] [address] [place], [place] [phone] Gemma Mccray MD [address] [place] [address] [phone] Type 2 diabetes mellitus with hyperglycemia, with long-term current use of insulin ([facility]) Social History Tobacco Use Types [...] Description 03/14/2025 10:15 AM EDT Office Visit [facility] [address] [place], [place] [phone] Gemma Mccray MD [address] [place] [address] [phone] 03/29/2025 2:00 PM EDT Medication Management [facility] [address] [place] [address] Ivis Jauregui PharmD [address] [place] [address] 04/10/2025 9:00 AM EDT Office Visit [facility] OPTOMETRY [address] [place] [address] Crystal De Santiago, OD [address] [place] [address] documented as of this encounter Visit Diagnoses Diagnosis Type 2 diabetes mellitus with hyperglycemia, with long-term current use of insulin ([facility]) documented in this encounter Care Teams Fish Tender Relationship Specialty Start Date End Date Gemma Mccray MD [address] [place] [address] [phone] PCP - General Family Medicine 10/10/20 Ivis Jauregui PharmD [address] [place] [address] [phone] Pharmacist Internal Medicine 12/30/24 documented as of this encounter
--- OUTSIDE RECORDS SUMMARY | 2025-03-13 07:41 | XMS_ITS | Encounter Summary ---
Author Organization [employer] Address [address] 7t [place] [address] Care Team Providers Care Interventional Sale Consultant Name Role Phone Gemma Mccray MD Primary Care Provider Ivis Jauregui PharmD Unavailable [phone] Reason for Visit * Reason Onset Date Comments Appointment Request 01/20/2024 Encounter Details Date Type Department Care Team ([facility] st Contact Info) Description 01/20/2024 Telephone [facility] MEDICINE [address] [place], [place] [phone] Gemma Mccray MD [address] [place], [place] [phone] Appointment Request Social History Tobacco Use Types [...] upcoming test . Please contact pt @ [phone] documented in this encounter Plan of Treatment Upcoming Encounters Date Type Department Care Team (Late st Contact Info) Description 03/14/2025 10:15 AM EDT Office Visit [facility] MEDICINE [address] [place] [address] Gemma Mccray MD [address] [place] [address] 03/29/2025 2:00 PM EDT Medication Management [facility] MEDICINE [address] [place] [address] Ivis Jauregui, PharmD [address] [place] [address] 04/10/2025 9:00 AM EDT Office Visit [facility] OPTOMETRY [address] [place] [address] Crystal De Santiago, OD [address] [place] [address] documented as of this encounter Visit Diagnoses Not on filedocumented in this encounter Additional Health Concerns Assessment Noted Time PHQ-9 Depression Total Score: 10 07/13/ 023 3:51 PM EDT documented as of this encounter Care Teams Interventional Sale Consultant Relationship Specialty Start Date End Date Gemma Mccray MD [address] [place] [address] PCP - General Family Medicine 10/10/20 Ivis Jauregui PharmD [address] [place] [address] Pharmacist Internal Medicine 12/30/24 documented as of this encounter
--- OUTSIDE RECORDS SUMMARY | 2025-03-13 07:41 | XMS_ITS | Encounter Summary ---
Author Organization [employer] [facility] Address [address] [facility] 7t [place] [address] Care Team Providers Care Public Works Director Name Role Phone Gemma Mccray MD Primary Care Provider [phone] Ivis Jauregui PharmD Unavailable [phone] Reason for Visit * Reason Onset Date Comments Med Refill 02/05/2023 Encounter Details Date Type Department Care Team (Late st Contact Info) Description 02/05/2023 Refill [facility] MED[facility]INE [address] [place], [place] [phone] Gmema Mccray MD [address] [place], [place] [phone] Social History Tobacco Use Types Packs/Day Years [...] Visit [facility] MEDICINE [address] [place] [address] Gemma Mccray MD [address] [place] [address] 03/29/2025 2:00 PM EDT Medication Management [facility] MEDICINE [address] [place] [address] Ivis Jauregui PharmD [address] [place] [address] 04/10/2025 9:00 AM EDT Office Visit [facility] OPTOMETRY [address] [place] [address] Crystal De Santiago OD 267 [place] [address] documented as of this encounter Visit Diagnoses Not on filedocumented in this encounter Care Teams Public Works Director Relationship Specialty Start Date End Date Gemma Mccray MD [address] [place] [phone] PCP - General Family Medicine 10/10/20 Ivis Jauregui PharmD [address] [place] [phone] Pharmacist Internal Medicine 12/30/24 documented as of this encounter
--- OUTSIDE RECORDS SUMMARY | 2025-03-13 07:41 | XMS_ITS | Encounter Summary ---
Author Organization [employer] Address [address] [facility] 7t [place] [address] Care Team Providers Care Private Duty Rn Name Role Phone Gemma Mccray MD Primary Care Provider [phone] Ivis Jauregui PharmD Unavailable [phone] Reason for Referral * Imaging (Routine) - Closed Specialty Diagnoses / Procedures Referred By Contac t Referred To Contact Radiology Diagnoses Right upper quadrant abdominal pain Procedures CT Abdomen Pelvis w/ and w/o Contrast Gemma Mccray MD [address] [place] [address] Phone: tel: fax: [address] Phone: tel: fax: Referral ID Status Reason Start Date Expiration Date Visits Re quested Visits Authorized [id number] Closed 08/14/2023 08/13/2024 1 1 Encounter Details Date Type Department Care Team (Late st Contact Info) Description 08/14/2023 Orders Only [facility] MEDICINE [address] [place], [place] [phone] Gemma Mccray MD [address] [place], [place] [phone] Right upper quadrant abdominal pain (Primary Dx) [...] Description 03/14/2025 10:15 AM EDT Office Visit [facility] MEDICINE [address] [place] [address] Gemma Mccray MD [address] [place] [address] 03/29/2025 2:00 PM EDT Medication Management [facility] MEDICINE [address] [place] [address] Ivis Jauregui, PharmD [address] [place] [address] 04/10/2025 9:00 AM EDT Office Visit [facility] OPTOMETRY [address] [place] [address] Crystal De Santiago, OD [address] [place] [address] documented as of this encounter Procedures Procedure [...] EDT Narrative 09/22/2023 10:08 AM EDT ? [facility] ?[address] ?[place] [address] ? CT Scan Report ? Signed ? Patient: Haseeb Mendenhall,Scientologist ?MR#: ?? [id number] ? : 1975 ?Acct:[id number] ? Age/Sex: 48 / M ?ADM Date: 10/18/23 ? Loc: HO.CT ? Attending Dr: Gemma Mccray MD ? Ordering Physician: Gemma Mccray ?? Date of Service: 09/16/23 ?? Procedure(s): CT abdomen pelvis wo/w IV con ?? Accession Number(s): [id number] ? cc: Kamila Sidhu MD; Gemma Mccray [...] 1004 ? DD/ 1026 ? TD/TT: ? Ammonia Refrigeration Worker: SofíaK ? Procedure Note Donpashater, Image - 09/22/[address] [place] [address] [address] Scan Report Signed Patient: Anayeli Riley#: [id number] : 1975Acct:[id number] Age/Sex: 48 / MADM Date: 09/16/23 Loc: HO.CT Attending Dr: Gemma Mccray MD Ordering Physician: Gemma Mccray Date of Service: 09/16/23 Procedure(s): CT abdomen pelvis wo/w IV con Accession Number(s): [id number] cc: Kamila Sidhu MD; Gemma Mccray EXAMINATION: [...] in OV> 09/22/23 1004 DD/ 1026 TD/TT: Ammonia Refrigeration Worker: ROQUE us Gemma Mccray MD IMG CT PROCEDURES Final Result * BI US Breast Complete Right (09/03/2023 3:38 PM EDT) Anatomical Region Laterality Modality Breast Right Ultrasound 09/03/2023 3:38 PM EDT Narrative 09/03/2023 5:37 PM EDT ? [facility] ? [address] ?[place] [address] ? Ultrasound Report ? Signed ? Patient: Laron Riley ?MR#: ?? [id number] ? : 1975 ?Acct:[id number] ? Age/Sex: 48 / M ?ADM Date: 09/03/23 ? Loc: HO.MAMMO ? Attending Dr: Kamila Sidhu MD ? Ordering Physician: Kamila Sidhu MD ?? Date of Service: 09/03/23 ?? Procedure(s): US breast RT limited mamm only ?? Accession Number(s): [id number] ? cc: Kamila Sidhu MD ? EXAMINATION: [...] 1733 ? DD/ 1538 ? TD/TT: ? Ammonia Refrigeration Worker: ? Procedure Note Rocío, Image - 09/03/2023 [facility] [address] [place], [place] [address] Ultrasound Report Signed Patient: Anayeli Riley#: [id number] : 1975Acct:[id number] Age/Sex: 48 / MADM Date: 09/03/23 Loc: HO.MAMMO Attending Dr: Kamila Sidhu MD Ordering Physician: Kamila Sidhu MD Date of Service: 09/03/23 Procedure(s): US breast RT limited mamm only Accession Number(s): [id number] cc: Kamila Sidhu MD EXAMINATION: MM DIAGNOSTIC [...] in OV> 09/03/23 1733 DD/ 1538 TD/TT: Ammonia Refrigeration Worker: us Kamila Sidhu MD IMG US PROCEDURES Final Result * BI Mammogram Diagnostic Tomosynthesis Bilateral (09/03/2023 3:10 PM EDT) Anatomical Region Laterality Modality Breast Bilateral Mammography 09/03/2023 3:10 PM EDT Narrative 09/03/2023 5:37 PM EDT ? [place] [facility] ? [address] ?[place] [address] ? Mammography Report ? Signed ? Patient: Haseeb Mendenhall,Scientologist ?MR#: ?? [id number] ? : 1975 ?Acct:[id number] ? Age/Sex: 48 / M ?ADM Date: 09/03/23 ? Loc: HO.MAMMO ? Attending Dr: Kamila Sidhu MD ? Ordering Physician: Kamila Sidhu MD ?Results: 2Be ?? nign Findings ? Date of Service: 09/03/23 ?Follow Up: 1 Year From Orig ?? inal Mammogram ? Procedure(s): MM tomosynthesis diagnostic BI ?? Accession Number(s): [id number] ? cc: Kamila Sidhu MD ? EXAMINATION: [...] 1733 ? DD/ 1510 ? TD/TT: ? Ammonia Refrigeration Worker: ? Procedure Note Rocío, Image - 09/03/2023 [facility] [address] [place] [address] Dr. [place], [place] [address] Mammography Report Signed Patient: Laron RileyMR#: [id number] : 1975Acct:[id number] Age/Sex: 48 / MADM Date: 09/03/23 Loc: HO.MAMMO Attending Dr: Kamila Sidhu MD Ordering Physician: Kamila Sidhu MDResults: 2Be nign Findings Date of Service: 09/03/23Follow Up: 1 Year From [facility] ina Mammogram Procedure(s): MM tomosynthesis diagnostic BI Accession Number(s): [id number] cc: Kamila Sidhu MD EXAMINATION: MM DIAGNOSTIC [...] by Samm Yu MD in OV> 09/03/23 8087 DD/ 1510 TD/TT: Ammonia Refrigeration Worker: Kamila Sidhu MD IMG BI PROCEDURES Final Result documented in this encounter Visit Diagnoses Diagnosis Right upper quadrant abdominal pain- Primary documented in this encounter Additional Health Concerns Assessment Noted Time PHQ-9 Depression Total Score: 10 07/13/ 023 3:51 PM EDT documented as of this encounter Care Teams Private Duty Rn Relationship Specialty Start Date End Date Gemma Mccray MD [address] [place], [place] [phone] PCP - General Family Medicine 10/10/20 Ivis Jauregui PharmD [address] [place], [place] [phone] Pharmacist Internal Medicine 12/30/24 documented as of this encounter
--- OUTSIDE RECORDS SUMMARY | 2025-03-13 07:42 | XMS_ITS | Encounter Summary ---
Author Organization [employer] [facility] Address [address] [facility] 7t [place] [address] Care Team Providers Care Press Tender Star Signal Name Role Phone Gemma Mccray MD Primary Care Provider Ivis Jauregui PharmD Unavailable [phone] Encounter Details Date Type Department Care Team (Late st Contact Info) Description 07/16/2023 Orders Only [facility] MEDICINE [address] [place] [address] [phone] Gemma Mccray MD [address] [place] [address] [phone] Social History Tobacco Use Types Packs/Day Years [...] 03/14/2025 10:15 AM EDT Office Visit [facility] MEDICINE [address] [place] [address] [phone] Gemma Mccray MD [address] [place] [address] [phone] 03/29/2025 2:00 PM EDT Medication Management [facility] MEDICINE 230 [place] [address] Ivis Jauregui, PharmD [address] [place] [address] 04/10/2025 9:00 AM EDT Office Visit [facility] OPTOMETRY 267 [place] [address] Tarka, Crystal, OD 267 [place] [address] documented as of this encounter Procedures Procedure [...] Opiate Screen Urine Not Detected Not Detect [facility] Comment:Opiate cut-off is 30 0 ng/mL.Positive results are unconfirmed and should not be used fornon-medical purposes. Barbiturates, Urine Not Detected Not Detect [facility] Comment:Barbiturate cut-off is 200 ng/mL.Positive results are unconfirmed and should not be used fornon-medical purposes. Phencyclidine Screen Urine Not Detected Not Detect [facility] Comment:Phencyclidine cut-of f is 25 ng/mL.Positive results are unconfirmed and should not be used fornon-medical purposes. Amphetamine Screen Urine Not Detected Not Detect [facility] Comment:Amphetamine cut-off is 1000 ng/mL.Positive results are unconfirmed and should not be used fornon-medical purposes. Benzodiazepines Screen Urine Not Detected Not Detect [facility] Comment:Benzodiazepine cut-o ff is 200 ng/mL.Positive results are unconfirmed and should not be used fornon-medical purposes. Cocaine Screen Urine Not Detected Not Detect [facility] Comment:Cocaine cut-off is 3 00 ng/mL.Positive results are unconfirmed and should not be used fornon-medical purposes. Cannabinoid Screen Urine POSITIVE(A) Not Detect [facility] Comment:Cannabinoid cut-off is 50 ng/mL.Positive results are unconfirmed and should not be used fornon-medical purposes. FENTANYL URINE Not Detected Not Detect [facility] Comment:Fentanyl cut-off is 1 ng/mL.Positive results are unconfirmed and should not be used fornon-medical purposes. 07/16/2023 3:30 PM EDT 07/16/2023 3:32 PM EDT [facility] External Provider LAB URI NE ORDERABLES Final Result [facility] [address] [place] [phone] * (ABNORMAL) Urinalysis, Complete, with Reflex to Culture (07/16/2023 3:30 PM EDT) Color Urine Dark Yellow [facility] Appearance Urine Clear [facility] PH 6.0 5.0 - 9.0 [facility] Glucose Urine UA Negative Negative mg/dL [facility] Urine Blood Negative Negative [facility] Specific [place] - Urine >=1.030(H) 1.005 - 1.025 [facility] Urine Protein 100 (2+)(A) Neg-Trace mg/dL [facility] Urine Ketones 40 Negative mg/dL [facility] Nitrite Urine Negative Negative [facility] Leukocyte Esterase Urine Negative Negative [facility] RBC Urine 0-2 0 - 2 /HPF [facility] Urine WBC 0-5 0 - 5 /HPF [facility] Urine Squamous Epithelial Cell 0-2 0 - 2 /HPF [facility] Urine Bacteria None Seen None Seen [facility] Hyaline Casts, Urine 0-2 0 - 2 /LPF [facility] 07/16/2023 3:30 PM EDT 07/16/2023 3:32 PM EDT Narrative [facility] - 07/16/2023 3:47 PM EDT [id number], Clean Catch us [facility] External Provider LAB URI NE ORDERABLES Final Result [facility] [address] [place] [address] [phone] * Volatiles (07/16/2023 11:41 AM EDT) Alcohol, Methyl NONE DETECTED [facility] Comment:Reportable Limit: 5 mg/dLThis test was developed and its analytical performancecharacteristics have been determined by [employer]. It has not been cleared or approved by theFDA. This assay has been validated pursuant to the CLIAregulations and is used for clinical purposes. Alcohol, Ethyl NONE DETECTED NONE DETECTED mg/dL [facility] Comment:100 mg/dL = 0.100 g% (g/dL)Reportable Limit: 10 mg/dLThis test was developed and its analytical performancecharacteristics have been determined by [employer]. It has not been cleared or approved by theFDA. This assay has been validated pursuant to the CLIAregulations and is used for clinical purposes. Alcohol, Ethyl NONE DETECTED NONE DETECTED g/dL(%) [facility] Comment:Reportable limit: 0. 010 g/dLThis test was developed and its analytical performancecharacteristics have been determined by [employer]. It has not been cleared or approved by theFDA. This assay has been validated pursuant to the CLIAregulations and is used for clinical purposes. ACETONE NONE DETECTED NONE DETECTED mg/dL [facility] Comment:Reportable Limit: 5 mg/dLThis test was developed and its analytical performancecharacteristics have been determined by [employer]. It has not been cleared or approved by theFDA. This assay has been validated pursuant to the CLIAregulations and is used for clinical purposes. Alcohol, Isopropyl NONE DETECTED NONE DETECTED mg/dL [facility] Comment:Reportable Limit: 5 mg/dLThis test was developed and its analytical performancecharacteristics have been determined by [employer]. It has not been cleared or approved by theA. This assay has been validated pursuant to the CLIAregulations and is used for clinical purposes. Volatile Analysis Performed On: WHOLE BLOOD [facility] Comment:THIS TEST WAS PERFOR MED AT:[employer] [place] [phone] BOWERS MD 07/16/2023 11:4 1 AM EDT 07/16/2023 11:46 AM EDT [facility] External Provider LAB BLO OD ORDERABLES Final Result [facility] [address] [place] [address] [phone] documented in this encounter Visit Diagnoses Not on filedocumented in this encounter Additional Health Concerns Assessment Noted Time PHQ-9 Depression Total Score: 10 07/13/2 023 3:51 PM EDT documented as of this encounter Care Teams Press Tender Star Signal Relationship Specialty Start Date End Date Gemma Mccray MD [address] [place] [address] PCP - General Family Medicine 10/10/20 Ivis Jauregui PharmD [address] [place] [address] Pharmacist Internal Medicine 12/30/24 documented as of this encounter
--- OUTSIDE RECORDS SUMMARY | 2025-03-13 07:42 | XMS_ITS | Encounter Summary ---
Author Organization [employer] [facility] Address [address] [facility] 7t [place] [address] Care Team Providers Care Computer Technical Specialist Name Role Phone Gemma Mccray MD Primary Care Provider [phone] Ivis Jauregui PharmD Unavailable [phone] Encounter Details Date Type Department Care Team (Latest Contact Info) Description 04/05/2019 Abstract [facility] CONVERSIONS Dental, Provider, DDS Social History [...] Encounters Date Type Department Care Team ( st Contact Info) Description 03/14/2025 10:15 AM EDT Office Visit [facility] MEDICINE [address] [place] [address] Gemma Mccray MD [address] [place] [address] 03/29/2025 2:00 PM EDT Medication Management [facility] MEDICINE [address] [place] [address] Ivis Jauregui, PharmD [address] [place] [address] 04/10/2025 9:00 AM EDT Office Visit [facility] OPTOMETRY [address] [place] [address] Tarka, Crystal, OD 267 [facility] [place] [address] documented as of this encounter Visit Diagnoses Not on filedocumented in this encounter Care Teams Computer Technical Specialist Relationship Specialty Start Date End Date Gemma Mccray MD [address] [place] [address] [phone] PCP - General Family Medicine 10/10/20 Ivis Jauregui PharmD [address] [place] [phone] Pharmacist Internal Medicine 12/30/24 documented as of this encounter
[2025-03-13 08:08] LABS: Hematocrit 41.6 % (42.0-52.0); Mean Corpuscular HGB Conc 33.7 g/dl (31.0-36.0); Mean Corpuscular Hemoglobin 28.9 pg (27.0-33.0); Mean Platelet Volume 9.6 fL (9.4-12.4); Platelet Count 216 X10*3/uL (160-400); Red Blood Count 4.84 X10*6/uL (4.60-5.80); Red Cell Distribution Width 13.2 % (11.0-16.0); White Blood Count 8.1 X10*3/uL (4.8-10.8)
[2025-03-13 08:30] LABS: Estimated Average Glucose 177 mg/dL; Hemoglobin A1c % 7.8 % (<6.0); Total Hemoglobin (HGBA1C) 3666.4925 umol/L
[2025-03-13 09:02] LABS: Prostate Specific Antigen 0.44 ng/mL (<0.05-4.0)
[2025-03-17 13:38] LABS: Testosterone, Free 39.9 pg/mL (35.0-155.0); Testosterone, Total 178 ng/dL (250-1100)
== END 2025-03-13 07:38 | disposition home or self-care (01) ==
LOC: HO.LAB 07:37
PROVIDERS: PCP General Practice; Visit Provider Nurse Practitioner Family
DX: E11.9 Type 2 diabetes mellitus without complications (principal); E11.69 Type 2 diabetes mellitus with other specified complication; N52.1 Erectile dysfunction due to diseases classified elsewhere; E29.1 Testicular hypofunction; Z12.5 Encounter for screening for malignant neoplasm of prostate
CPT/HCPCS: 36415; 83036; 84153; 84402; 84403; 85027

== ENCOUNTER 2025-04-12 12:55 | Outpatient (AMB) | payer OTHER, SELFPAY ==
--- NOTE | 2025-04-12 11:25 | A.OFFVIS_ITS ---
Intake Visit Reasons: 3m/PSA/Testo(set) Intake Note: Pt presents as a telehealth visit today for a 3 month/PSA/Testo. Qm Consultant Services: Qm Consultant Present Qm Consultant Name: SHANE NGUYENALESHIAWilver Allergies No Known Allergies Allergy (Verified 04/12/25 20:59) Medication List - Last Reconciled 04/12/25 by CLEMENTINA Whitaker- albuterol sulfate 90 mcg/actuation (Ventolin HFA) inhalation alcohol swabs 0 pad topical allopurinol 100 mg PO QAM atorvastatin 20 mg PO DAILY 30 days blood sugar diagnostic As directed blood sugar diagnostic (FreeStyle Lite Strips) As directed four times a day bupropion HCl XL 150 mg PO DAILY butenafine 1% (Lotrimin Ultra) 1 appl topical BID 14 days cholecalciferol (vitamin D3) 125 mcg PO DAILY 30 days clotrimazole 1% (Lotrimin AF (clotrimazole)) 1 appl topical BID 2 weeks cyclobenzaprine 10 mg PO TID PRN diclofenac sodium 1% topical BID dulaglutide (Trulicity) mg subcut flash glucose scanning reader (GPalStyle Agnes 2 Packwaukee) As directed flash glucose sensor (FreeStyle Agnes 2 Sensor kit) As directed every 2 weeks ibuprofen 400 mg PO Q6H PRN insulin aspart U-100 (Novolog FlexPen U-100 Insulin aspart) 40 units (0.4 mL) subcut TID 90 days insulin degludec (Tresiba FlexTouch U-200 insulin) 120 units (0.6 mL) subcut DAILY 30 days ketoconazole 2% topical lancets As directed lancets (TRUEplus Lancets) As directed 4 x/day lisinopril 5 mg PO DAILY metformin ER 500 mg PO BID 30 days naproxen 250 mg PO BID omeprazole 20 mg PO DAILY 30 days ondansetron 4 mg PO Q6H PRN pen needle, diabetic (BD Dianelys 2nd Gen Pen Needle) four times a day prednisone 10 mg PO Q OTHER DAY tadalafil 10 mg (2 x 5 mg) PO DAILY 90 days tamsulosin 0.4 mg PO DAILY 90 days testosterone 2 packets transdermal DAILY 30 days tramadol 25 mg PO Q6H PRN triamcinolone acetonide 0.1% 1 appl topical BID-TID HPI Comments Details: Laron is 50 year old Yi-speaking patient of Dr. Mccray. He has a past medical history of diabetes type 2, diabetic neuropathy associated with type 2 diabetes, disc herniation, dyslipidemia, essential hypertension, and vitamin-D deficiency. He is being followed up on today via telehealth for his erectile dysfunction, hypogonadism, and nephrolithiasis. In discussion with the patient today he reports since his last office visit he has not been as compliant with his testosterone therapy as prescribed as he has been having issues with his daughter and has been busy and forgetful with his medications. He continues to report issues with obtaining and maintaining his erections. He reports noting no improvement with low-dose Cialis daily with p.r.n. additional dosing for on demand sexual activity. Discussed at length potential causes of erectile dysfunction. Discussed at length importance of managing diabetes for improvement in erectile dysfunction and overall health and well-being. Discussed adequate sleep, weight management, and daily exercise in relation to improvement in erectile dysfunction and overall health and well-being. He otherwise denies any bothersome urinary issues. When asked he denies urinary urgency, urinary frequency, incontinence, nocturia, hematuria, dysuria, foul smelling urine, changes to urinary stream, flank pain, fever, and or chills. He is happy with his current voiding parameters. Discussed at length correlation of uncontrolled diabetes and erectile dysfunction. Discussed further treatment options to include penile injection therapy verses penile implant. This was discussed with the patient at length. Previous imaging 02/20 as patient with a history of nephrolithiasis noted bilateral kidneys with no calculi and or hydronephrosis. There is a cyst in the lateral aspect of the left kidney measuring 1.0 cm. Labs are as follows: H/H 12/24 14/40.0, 03/24 14.0/41.6 PSA: 06/21 0.4, 12/24 0.7, 03/24 0.4 Total Testosterone: 06/21 203, 04/22 184, 09/22 200, 12/24 264, 03/24 178 Free Testosterone:06/21 40.6, 04/22 42.1, 09/22 45.6, 12/24 62.6, 03/24 39.9 A1c: 09/18 11.6, 12/20 9.9, 09/22 9.9, 03/24 7.8% Estradiol 09/22 24 FSH 09/22 8.7 LH 09/22 5.8 Prolactin 09/22 6.5 SHBG 09/22 17 PREVIOUS OFFICE VISIT Nephrolithiasis Had been seen in emergency room 07/21 Imaging - CT scan small 3 mm bilateral stones Erectile dysfunction in setting of insulin-dependent diabetes ? Long-term ED ?Diabetic ?On combination diabetes therapy ?Diabetes not well controlled with HbA1c of 8.8. Not suitable candidate for prostatic until HbA1c under better control. ? Symptoms have been present for/since?a number of years? Procedure(s)/Diagnosis causing dysfunction include?diabetes.? At this time he experiences erections?are partial and adequate for vaginal penetration, that undergo rapid detumesence after penetration, TOÑA 8- 11 Moderate ED.? Nocturnal erections?do not occur.? Currently they are?in a stable relationship.? Associated problems? hypertension ?Yes ? diabetes ?Yes ? dyslipidemia ?Yes ? depression ?No ? stress ?No ? decreased libido ?No ? pelvic surgery ?No ? Overall he is ?is not satisfied with the current management.? 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 Diabetes type 2, uncontrolled Diabetes Surgical History History of biopsy (~12/29/23) Hx of knee surgery History of ear surgery Family History Father Diabetes mellitus Heart disease Stroke Arthritis Mother Epilepsy Social History Household Members: Spouse, Family and Children Alcohol intake: never Patient Tobacco Use Status: Former Tobacco user Tobacco use type: Cigarette Substance Use Type: Marijuana Current occupational status: unemployed Review of Systems Const Reports as per HPI Eyes Reports no additional complaints ENT Reports no additional complaints Card Reports as per HPI Resp Reports no additional complaints GI Reports no additional complaints Reports as per HPI Musc Reports no additional complaints Neuro Reports no additional complaints Psych Reports no additional complaints Endo Reports as per HPI Alejandro/Lymph Reports no additional complaints Aller/Immun Reports no additional complaints Physical Exam Const General: cooperative Resp Effort & Inspection: able to speak in complete sentences Psych Speech and movement: Clear speech present Attitude: cooperative Thought process: Normal thought process present Thought content: Normal thought content present Insight: Fair insight present (Psych) Judgement: Fair judgement present (Psych) Telehealth Telehealth Telehealth Platform: Telephone Location of provider rendering services: practice address Location of patient: address on file Patient Identification confirmed using: Name, : Yes Telehealth method: voice only Patient verbally consented to treatment: Yes Patient verbally consented to billing insurance company: Yes Patient informed of any privacy concerns related to visit: Yes Minutes spent on Phone/Video with Pt.: 20 Assessment & Plan Assessment & Plan (1) Hypogonadism in male: Code(s): E29.1 - Testicular hypofunction Category: Medical (2) Low libido: Code(s): R68.82 - Decreased libido Category: Medical (3) Erectile dysfunction associated with type 2 diabetes mellitus: Code(s): E11.69 - Type 2 diabetes mellitus with other specified complication; N52.1 - Erectile dysfunction due to diseases classified elsewhere Category: Medical Plan Recent hemoglobin, hematocrit, PSA, A1c, testosterone, and free testosterone results reviewed with the patient today; as noted above. We discussed importance of compliance with medications as prescribed. We discussed further treatment options to include trial of testopel. We discussed further treatment options of hypogonadism as well as erectile dysfunction; we discussed risks and benefits of these interventions. He would like to continue with testosterone replacement at this time; and attempt to be compliant. He currently denies any bothersome urinary issues. He reports be happy with current voiding parameters. We discussed lifestyle modifications to assist with ED as well as hypogonadism and importance in doing so for overall health and well-being. Will obtain CBC, PSA, A1c, and testosterone free and total in 3 months. Follow-up in 3 months with labs to be completed prior; or sooner with any issues, concerns, and or questions. Orders: Orders Testosterone, Free/Total 3 Months E29.1 - Testicular hypofunction Complete Blood Count no Diff 3 Months E29.1 - Testicular hypofunction Hemoglobin A1c 3 Months E11.9 - Type 2 diabetes mellitus without complications Prostate Specific Antigen 3 Months E29.1 - Testicular hypofunction Medications: Refilled testosterone this is an increase in dose 2 packets transdermal DAILY 30 days 150 grams 5RF Coding Level of Care Code Tele Est Pt Level 4 (66981) Diagnoses Hypogonadism in male E29.1 Low libido R68.82 Erectile dysfunction associated with type 2 diabetes mellitus E11.69; N52.1
--- OUTSIDE RECORDS SUMMARY | 2025-04-12 13:12 | XMS_ITS | Encounter Summary ---
Author Organization [employer] Address [address] [facility] 7[address] [place] [address] Care Team Providers Care Director Of Music Name Role Phone Gemma Mccray MD Primary Care Provider [phone] Ivis Jauregui PharmD Unavailable [phone] Reason for Referral * Imaging (Routine) - Closed Specialty Diagnoses / Procedures Referred By Contac t Referred To Contact Radiology Diagnoses Right upper quadrant abdominal pain Procedures CT Abdomen Pelvis w/ and w/o Contrast Gemma Mccray MD [address] [place] [address] Phone: tel: fax: [address] Phone: tel: fax: Referral ID Status Reason Start Date Expiration Date Visits Re quested Visits Authorized [id number] Closed 08/14/2023 08/13/2024 1 1 Encounter Details Date Type Department Care Team (Late st Contact Info) Description 08/14/2023 Orders Only [facility] [address] [place], [place] [phone] Gemma Mccray MD [address] [place] [address] Right upper quadrant abdominal pain (Primary Dx) [...] Care Team (Late st Contact Info) Description 04/13/2025 3:30 PM EDT Medication Management [facility] [address] [place] [phone] TyeIvis ibrahim, PharmD [address] [facility] [place] [address] documented as of this encounter Procedures Procedure [...] EDT Narrative 09/22/2023 10:08 AM EDT ? [facility] ?[address] ?[place] [address] ? CT Scan Report ? Signed ? Patient: Laron Riley ?MR#: ?? [id number] ? : 1975 ?Acct:[id number] ? Age/Sex: 48 / M ?ADM Date: 09/16/23 ? Loc: HO.CT ? Attending Dr: Gemma Mccray MD ? Ordering Physician: Gemma Mccray ?? Date of Service: 09/16/23 ?? Procedure(s): CT abdomen pelvis wo/w IV con ?? Accession Number(s): [id number] ? cc: Kamila Sidhu MD; Gemma Mccray [...] 1004 ? DD/ 1026 ? TD/TT: ? Lead Software Tester: ROQUE ? Procedure Note Donotuseinterpreter, Image - 09/22/[address] [address] [address] Scan Report Signed Patient: Anayeli Riley#: [id number] : 1975Acct:[id number] Age/Sex: 48 / MADM Date: 09/16/23 Loc: HO.CT Attending Dr: Gemma Mccray MD Ordering Physician: Gemma Mccray Date of Service: 09/16/23 Procedure(s): CT abdomen pelvis wo/w IV con Accession Number(s): [id number] cc: Kamila Sidhu MD; Gemma Mccray EXAMINATION: [...] in OV> 09/22/23 1004 DD/ 1026 TD/TT: Lead Software Tester: ROQUE us Gemma Mccray MD IMG CT PROCEDURES Final Result * BI US Breast Complete Right (09/03/2023 3:38 PM EDT) Anatomical Region Laterality Modality Breast Right Ultrasound 09/03/2023 3:38 PM EDT Narrative 09/03/2023 5:37 PM EDT ? [facility] [place] ? [address] ?[place] [address] ? Ultrasound Report ? Signed ? Patient: Haseeb Mendenhall,Sikh ?MR#: ?? [id number] ? : 1975 ?Acct:[id number] ? Age/Sex: 48 / M ?ADM Date: 10/05/23 ? Loc: HO.MAMMO ? Attending Dr: Kamila Sidhu MD ? Ordering Physician: Kamila Sidhu MD ?? Date of Service: 09/03/23 ?? Procedure(s): US breast RT limited mamm only ?? Accession Number(s): [id number] ? cc: Kamila Sidhu MD ? EXAMINATION: [...] signed by Samm Yu MD in OV> ?10/05/ 1733 ? DD/ 1538 ? TD/TT: ? Lead Software Tester: ? Procedure Note Donotuseinterpreter, Image - [facility]/03/20[facility] [address] [place] [address] Ultrasound Report Signed Patient: Laron RileyMR#: [id number] : 1975Acct:[id number] Age/Sex: 48 / MADM Date: 09/03/23 Loc: HO.MAMMO Attending Dr: Kamila Sidhu MD Ordering Physician: Kamila Sidhu MD Date of Service: 09/03/23 Procedure(s): US breast RT limited mamm only Accession Number(s): [id number] cc: Kamila Sidhu MD EXAMINATION: MM DIAGNOSTIC [...] in OV> 09/03/23 1733 DD/ 1538 TD/TT: Lead Software Tester: us Kamila Sidhu MD IMG US PROCEDURES Final Result * BI Mammogram Diagnostic Tomosynthesis Bilateral (09/03/2023 3:10 PM EDT) Anatomical Region Laterality Modality Breast Bilateral Mammography 09/03/2023 3:10 PM EDT Narrative 09/03/2023 5:37 PM EDT ? [facility] [place] ? [address] ?[place] [address] ? Mammography Report ? Signed ? Patient: Haseeb Mendenhall,Sikh ?MR#: ?? [id number] ? : 1975 ?Acct:[id number] ? Age/Sex: 48 / M ?ADM Date: 10/05/23 ? Loc: HO.MAMMO ? Attending Dr: Kamila Sidhu MD ? Ordering Physician: Kamila Sidhu MD ?Results: 2Be ?? nign Findings ? Date of Service: 09/03/23 ?Follow Up: 1 Year From Orig ?? inal Mammogram ? Procedure(s): MM tomosynthesis diagnostic BI ?? Accession Number(s): [id number] ? cc: Kamila Sidhu MD ? EXAMINATION: [...] 1733 ? DD/ 1510 ? TD/TT: ? Lead Software Tester: ? Procedure Note Rocío, Image - 09/03/2023 [place] [facility] [address] [place] [address] Mammography Report Signed Patient: Anayeli Riley#: [id number] : 1975Acct:[id number] Age/Sex: 48 / MADM Date: 09/03/23 Loc: HO.MAMMO Attending Dr: Kamila Sidhu MD Ordering Physician: Kamila Sidhu MDResults: 2Be nign Findings Date of Service: 09/03/23Follow Up: 1 Year From Orig inal Mammogram Procedure(s): MM tomosynthesis diagnostic BI Accession Number(s): [id number] cc: Kamila Sidhu MD EXAMINATION: MM DIAGNOSTIC [...] Yu MD in OV> 09/03/23 1733 DD/ 1510 TD/TT: Lead Software Tester: us Kamila Sidhu MD IMG BI PROCEDURES Final Result documented in this encounter Visit Diagnoses Diagnosis Right upper quadrant abdominal pain- Primary documented in this encounter Additional Health Concerns Assessment Noted Time PHQ-9 Depression Total Score: 10 023 3:51 PM EDT documented as of this encounter Care Teams Director Of Music Relationship Specialty Start Date End Date Gemma Mccray MD [address] [place] [phone] PCP - General Family Medicine 10/10/20 Ivis Jauregui, SaulD [address] [place] [phone] Pharmacist Internal Medicine 12/30/24 documented as of this encounter
--- OUTSIDE RECORDS SUMMARY | 2025-04-12 13:12 | XMS_ITS | Encounter Summary ---
Author Organization [employer] [facility] Address [address] [facility] 7t [place] [address] Care Team Providers Care General Counsel Name Role Phone Gemma Mccray MD Primary Care Provider [phone] Ivis Jauregui PharmD Unavailable [phone] Reason for Visit * Reason Onset Date Comments PCP Appt 04/09/2023 Encounter Details Date Type Department Care Team (Late Contact Info) Description 04/09/2023 Telephone [facility] [address] [place], [place] [phone] Gemma Mccray MD [address] [place] [address] PCP Appt Social History Tobacco Use Types [...] Description 04/13/2025 3:30 PM EDT Medication Management [facility] [address] [place] [address] Ivis Jauregui, PharmD [address] [place] [address] documented as of this encounter Visit Diagnoses Not on filedocumented in this encounter Care Teams General Counsel Relationship Specialty Start Date End Date Gemma Mccray MD [address] [place] [address] PCP - General Family Medicine 10/10/20 Ivis Jauregui PharmD [address] [place] [address] Pharmacist Internal Medicine 12/30/24 documented as of this encounter
--- OUTSIDE RECORDS SUMMARY | 2025-04-12 13:12 | XMS_ITS | Clinical Summary ---
Author Organization [facility] Address [address] [place] [address] Care Team Providers Care Benefits Assistant Name Role Phone Unavailable Primary Care Provider [...]
--- OUTSIDE RECORDS SUMMARY | 2025-04-12 13:12 | XMS_ITS | Encounter Summary ---
Author Organization [employer] [facility] Address [address] [facility] 7[address] [place] [address] Care Team Providers Care Gold Plater Name Role Phone Gemma Mccray MD Primary Care Provider [phone] Ivis Jauregui PharmD Unavailable [phone] Encounter Details Date Type Department Care Team (Late Contact Info) Description 07/16/2023 Orders Only [facility] [address] [place] [phone] Gemma Mccray MD [address] [place], [place] [phone] Social History Tobacco Use Types Packs/Day Years [...] Description 04/13/2025 3:30 PM EDT Medication Management [facility] [address] [place] [phone] PuiaJamarIvis, PharmD [address] [place] [address] documented as of this encounter Procedures Procedure [...] Opiate Screen Urine Not Detected Not Detect [facility] Comment:Opiate cut-off is 30 0 ng/mL.Positive results are unconfirmed and should not be used fornon-medical purposes. Barbiturates, Urine Not Detected Not Detect [facility] Comment:Barbiturate cut-off is 200 ng/mL.Positive results are unconfirmed and should not be used fornon-medical purposes. Phencyclidine Screen Urine Not Detected Not Detect [facility] Comment:Phencyclidine cut-of f is 25 ng/mL.Positive results are unconfirmed and should not be used fornon-medical purposes. Amphetamine Screen Urine Not Detected Not Detect [facility] Comment:Amphetamine cut-off is 1000 ng/mL.Positive results are unconfirmed and should not be used fornon-medical purposes. Benzodiazepines Screen Urine Not Detected Not Detect [facility] Comment:Benzodiazepine cut-o ff is 200 ng/mL.Positive results are unconfirmed and should not be used fornon-medical purposes. Cocaine Screen Urine Not Detected Not Detect [facility] Comment:Cocaine cut-off is 3 00 ng/mL.Positive results are unconfirmed and should not be used fornon-medical purposes. Cannabinoid Screen Urine POSITIVE(A) Not Detect [facility] Comment:Cannabinoid cut-off is 50 ng/mL.Positive results are unconfirmed and should not be used fornon-medical purposes. FENTANYL URINE Not Detected Not Detect [facility] Comment:Fentanyl cut-off is 1 ng/mL.Positive results are unconfirmed and should not be used fornon-medical purposes. 07/16/2023 3:30 PM EDT 07/16/2023 3:32 PM EDT [facility] External Provider LAB URI NE ORDERABLES Final Result Performing Organization Address [facility]/ZIP Co de Phone Number [facility] [address] [place] [address] [phone] * (ABNORMAL) Urinalysis, Complete, with Reflex to Culture (07/16/2023 3:30 PM EDT) Color Urine Dark Yellow [facility] Appearance Urine Clear [facility] PH 6.0 5.0 - 9.0 [facility] Glucose Urine UA Negative Negative mg/dL [facility] Urine Blood Negative Negative [facility] Specific [place] - Urine >=1.030(H) 1.005 - 1.025 [facility] Urine Protein 100 (2+)(A) Neg-Trace mg/dL [facility] Urine Ketones 40 Negative mg/dL [facility] Nitrite Urine Negative Negative [facility] Leukocyte Esterase Urine Negative Negative [facility] RBC Urine 0-2 0 - 2 /HPF [facility] Urine WBC 0-5 0 - 5 /HPF [facility] Urine Squamous Epithelial Cell 0-2 0 - 2 /HPF [facility] Urine Bacteria None Seen None Seen [facility] Hyaline Casts, Urine 0-2 0 - 2 /LPF [facility] 07/16/2023 3:30 PM EDT 07/16/2023 3:32 PM EDT Narrative [facility] - 07/16/2023 3:47 PM EDT [id number], Clean Catch [facility] External Provider LAB URI NE ORDERABLES Final Result Performing Organization Address [facility]/ZIP Co de Phone Number [facility] [address] [place] [address] [phone] * Volatiles (07/16/2023 11:41 AM EDT) Alcohol, Methyl NONE DETECTED [facility] Comment:Reportable Limit: 5 mg/dLThis test was developed and its analytical performancecharacteristics have been determined by [email or web address]. It has not been cleared or approved by theFDA. This assay has been validated pursuant to the CLIAregulations and is used for clinical purposes. Alcohol, Ethyl NONE DETECTED NONE DETECTED mg/dL [facility] Comment:100 mg/dL = 0.100 g% (g/dL)Reportable Limit: 10 mg/dLThis test was developed and its analytical performancecharacteristics have been determined by [email or web address]. It has not been cleared or approved by theFDA. This assay has been validated pursuant to the CLIAregulations and is used for clinical purposes. Alcohol, Ethyl NONE DETECTED NONE DETECTED g/dL(%) [facility] Comment:Reportable limit: 0. 010 g/dLThis test was developed and its analytical performancecharacteristics have been determined by [email or web address]. It has not been cleared or approved by theFDA. This assay has been validated pursuant to the CLIAregulations and is used for clinical purposes. ACETONE NONE DETECTED NONE DETECTED mg/dL [facility] Comment:Reportable Limit: 5 mg/dLThis test was developed and its analytical performancecharacteristics have been determined by [email or web address]. It has not been cleared or approved by theFDA. This assay has been validated pursuant to the CLIAregulations and is used for clinical purposes. Alcohol, Isopropyl NONE DETECTED NONE DETECTED mg/dL [facility] Comment:Reportable Limit: 5 mg/dLThis test was developed and its analytical performancecharacteristics have been determined by [email or web address]. It has not been cleared or approved by theFDA. This assay has been validated pursuant to the CLIAregulations and is used for clinical purposes. Volatile Analysis Performed On: WHOLE BLOOD [facility] Comment:THIS TEST WAS PERFOR MED AT:[facility] [place] [phone] BOWERS MD 07/16/2023 11:4 1 AM EDT 07/16/2023 11:46 AM EDT [facility] External Provider LAB BLO OD ORDERABLES Final Result [facility] [address] [place] [address] [phone] documented in this encounter Visit Diagnoses Not on filedocumented in this encounter Additional Health Concerns Assessment Noted Time PHQ-9 Depression Total Score: 10 023 3:51 PM EDT documented as of this encounter Care Teams Gold Plater Relationship Specialty Start Date End Date Gemma Mccray MD [address] [place] [address] PCP - General Family Medicine 10/10/20 Ivis Jauregui, Katherin [address] [place] [address] Pharmacist Internal Medicine 12/30/24 documented as of this encounter
--- OUTSIDE RECORDS SUMMARY | 2025-04-12 13:12 | XMS_ITS | Encounter Summary ---
Author Organization [employer] Address [address] [address] [facility] [address] [place] [address] Care Team Providers Care Manager General Name Role Phone Gemma Mccray MD Primary Care Provider [phone] Ivis Jauregui PharmD Unavailable [phone] Reason for Visit * Reason Comments Med Refill Encounter Details Date Type Department Care Team ([facility] st Contact Info) Description 04/11/2025 Refill [facility] [address] [place], [place] [phone] Ivis Jauregui, PharmD [address] [place] [address] Type 2 diabetes mellitus with hyperglycemia, with long-term current use of insulin ([facility]) Social History Tobacco Use Types [...] Description 04/13/2025 3:30 PM EDT Medication Management [facility] [address] [place] [address] Ivis Jauregui PharmD [address] [place] [address] documented as of this encounter Visit Diagnoses Diagnosis Type 2 diabetes mellitus with hyperglycemia, with long-term current use of insulin ([facility]) documented in this encounter Additional Health Concerns Assessment Noted Time PHQ-9 Depression Total Score: 10 024 11:42 AM EST documented as of this encounter Care Teams Manager General Relationship Specialty Start Date End Date Gemma Mccray MD [address] [place] [address] PCP - General Family Medicine 10/10/20 Ivis Jauregui, PharmD [address] [place] [address] [phone] Pharmacist Internal Medicine 12/30/24 documented as of this encounter
--- OUTSIDE RECORDS SUMMARY | 2025-04-12 13:12 | XMS_ITS | Encounter Summary ---
Author Organization [employer] Address [address] [facility] [address] [place] [address] Care Team Providers Care Biological Technician Name Role Phone Gemma Mccray MD Primary Care Provider Ivis Jauregui PharmD Unavailable [phone] Reason for Visit * Reason Comments Med Refill Encounter Details Date Type Department Care Team ([facility] st Contact Info) Description 06/27/2024 Refill [facility] [address] [place], [place] [phone] Gemma Mccray MD [address] [place], [place] [phone] Type 2 diabetes mellitus with hyperglycemia, with long-term current use of insulin ([facility]) Social History Tobacco Use Types Packs/Day [...] Description 04/13/2025 3:30 PM EDT Medication Management [facility] [address] [place] [address] Ivis Jauregui PharmD [address] [place] [address] documented as of this encounter Visit Diagnoses Diagnosis Type 2 diabetes mellitus with hyperglycemia, with long-term current use of insulin ([facility]) documented in this encounter Additional Health Concerns Assessment Noted Time PHQ-9 Depression Total Score: 16 024 9:57 AM EDT documented as of this encounter Care Teams Biological Technician Relationship Specialty Start Date End Date Gemma Mccray MD [address] [place] [id number] PCP - General Family Medicine 10/10/20 Ivis Jauregui PharmD [address] [place] [address] [phone] Pharmacist Internal Medicine 12/30/24 documented as of this encounter
--- OUTSIDE RECORDS SUMMARY | 2025-04-12 13:12 | XMS_ITS | Encounter Summary ---
Author Organization [employer] Address [address] [facility] [address] [place] [address] Care Team Providers Care Silk Examiner Name Role Phone Gemma Mccray MD Primary Care Provider [phone] Ivis Jauregui PharmD Unavailable [phone] Reason for Visit * Reason Onset Date Comments Appointment Request 01/20/2024 Encounter Details Date Type Department Care Team ([facility] Contact Info) Description 01/20/[address] [facility] [address] [place], [place] [phone] Gemma Mccray MD [address] [place], [place] [phone] Appointment Request Social History Tobacco Use Types [...] upcoming test . Please contact pt @ [phone] documented in this encounter Plan of Treatment Upcoming Encounters Date Type Department Care Team (Late st Contact Info) Description 04/13/2025 3:30 PM EDT Medication Management [facility] [address] [place] [address] Ivis Jauregui PharmD [address] [place] [address] documented as of this encounter Visit Diagnoses Not on filedocumented in this encounter Additional Health Concerns Assessment Noted Time PHQ-9 Depression Total Score: 10 023 3:51 PM EDT documented as of this encounter Care Teams Silk Examiner Relationship Specialty Start Date End Date Gemma Mccray MD [address] [place], [place] [phone] PCP - General Family Medicine 10/10/20 Ivis Jauregui PharmD [address] [place], [place] [phone] Pharmacist Internal Medicine 12/30/24 documented as of this encounter
--- OUTSIDE RECORDS SUMMARY | 2025-04-12 13:12 | XMS_ITS | Encounter Summary ---
Author Organization [employer] Address [address] [facility] 7[address] [place] [address] Care Team Providers Care Corporate Controller Name Role Phone Gemma Mccray MD Primary Care Provider [phone] Ivis Jauregui PharmD Unavailable [phone] Reason for Visit * Reason Comments Med Refill Encounter Details Date Type Department Care Team (Late st Contact Info) Description 02/05/2023 Refill [facility] [address] [place], [place] [phone] Gemma Mccray MD [address] [place] [address] Type 2 diabetes mellitus with hyperglycemia, with long-term current use of insulin ([facility]) Social History Tobacco Use Types [...] Description 04/13/2025 3:30 PM EDT Medication Management [facility] [address] [place] [address] Ivis Jauregui, PharmD [address] [place] [address] documented as of this encounter Visit Diagnoses Diagnosis Type 2 diabetes mellitus with hyperglycemia, with long-term current use of insulin ([facility]) documented in this encounter Care Teams Corporate Controller Relationship Specialty Start Date End Date Gemma Mccray MD [address] [place], [place] [phone] PCP - General Family Medicine 10/10/20 Ivis Jauregui PharmD [address] [place] [address] Pharmacist Internal Medicine 12/30/24 documented as of this encounter
--- OUTSIDE RECORDS SUMMARY | 2025-04-12 13:12 | XMS_ITS | Encounter Summary ---
Author Organization [employer] Address [address] [facility] 7t [place] [address] Care Team Providers Care Jet Handler Name Role Phone Gemma Mccray MD Primary Care Provider [phone] Ivis Jauregui PharmD Unavailable [phone] Reason for Visit * Reason Onset Date Comments Med Refill 02/05/2023 Encounter Details Date Type Department Care Team (Late st Contact Info) Description 02/05/2023 Refill [facility] [address] [place] [address] [phone] Gemma Mccray MD [address] [place], [place] [phone] Social History Tobacco Use Types Packs/Day Years [...] Description 04/13/2025 3:30 PM EDT Medication Management [facility] [address] [place] [address] Ivis Jauregui PharmD [address] [place] [address] documented as of this encounter Visit Diagnoses Not on filedocumented in this encounter Care Teams Jet Handler Relationship Specialty Start Date End Date Gemma Mccray MD [address] [place], [place] [phone] PCP - General Family Medicine 10/10/20 Ivis Jauregui, Katherin [address] [place] [phone] Pharmacist Internal Medicine 12/30/24 documented as of this encounter
--- OUTSIDE RECORDS SUMMARY | 2025-04-12 13:12 | XMS_ITS | Encounter Summary ---
Author Organization [employer] [facility] Address [address] [facility] 7t [place] [address] Care Team Providers Care Electronic Assembler Name Role Phone Gemma Mccray MD Primary Care Provider [phone] Ivis Jauregui PharmD Unavailable [phone] Encounter Details Date Type Department Care Team (Latest Contact Info) Description 04/16/2021 Abstract [facility] CONVERSIONS Dental, Provider, DDS Social History [...] 3:30 PM EDT Medication Management [facility] [address] [place] [address] TyeiaIvis, PharmD [address] [place] [address] documented as of this encounter Visit Diagnoses Not on filedocumented in this encounter Care Teams Electronic Assembler Relationship Specialty Start Date End Date Gemma Mccray MD [address] [place] [address] PCP - General Family Medicine 10/10/20 Puia, Ivis, PharmD [address] [place] [phone] Pharmacist Internal Medicine 12/30/24 documented as of this encounter
--- OUTSIDE RECORDS SUMMARY | 2025-04-12 13:12 | XMS_ITS | Encounter Summary ---
Author Organization [employer] [facility] Address [address] [facility] [address] [place] [address] Care Team Providers Care Aircraft Powertrain Repairer Name Role Phone Gemma Mccray MD Primary Care Provider [phone] Ivis Jauregui PharmD Unavailable [phone] Encounter Details Date Type Department Care Team (Latest Contact Info) Description 04/05/[address] [facility] CONVERSIONS Dental, Provider, DDS Social History [...] Description 04/13/2025 3:30 PM EDT Medication Management [facility] [address] [place] [address] TyeiaJamarIvis, PharmD [address] [place] [address] documented as of this encounter Visit Diagnoses Not on filedocumented in this encounter Care Teams Aircraft Powertrain Repairer Relationship Specialty Start Date End Date Gemma Mccray MD [address] [place] [address] PCP - General Family Medicine 10/10/20 Puia, Ivis, PharmD [address] [place] [address] Pharmacist Internal Medicine 12/30/24 documented as of this encounter
--- OUTSIDE RECORDS SUMMARY | 2025-04-12 13:12 | XMS_ITS | Clinical Summary ---
Author Organization [facility] [employer] Address [address] [facility] 7[address] [place] [address] Care Team Providers Care Utilization Review Rn Name Role Phone Gemma Mccray MD Primary Care Provider Ivis Jauregui PharmD Unavailable [phone] Allergies No known active allergies Medications tamsulosin (Flomax) 0.4 MG 24 hr capsule TAKE 1 CAPSULE BY MOUTH DAILY 30 MINUTES AFTER THE SAME MEAL EVERY DAY 30 capsule 1 06/19/20 23 Active albuterol 108 (90 Base) MCG/ACT inhalerIndicatio ns:Shortness of breath Inhale 2 puffs every 6 (six) hours if needed for wheezing. 18 g 02/29/20 24 Active UltiGuard SafePack Pen Needle 32G X 4 MM miscIndications: Type 2 diabetes mellitus with hyperglycemia, with long-term current use of insulin ([facility]) USE FOUR TIMES DAILY 100 each 06/28/20 24 Active Continuous Glucose Quality Assurance Supervisor Trim (FreeStyle Agnes 3 [place]) device 1 each 3 times daily. Use daily as directed for CGM 1 each 12/30/19 25 Active Continuous Glucose Sensor (FreeStyle Agnes 3 Plus Sensor) misc 1 each Once per day. Apply 1 sensor as directed every 15 days for CGM 2 each 12/30/19 25 Active glucose blood (FreeStyle Precision Damon Test) test strip Use to test blood sugar up to 3 times daily, as directed 100 each 12/30/19 25 Active Alcohol Swabs (Alcohol Prep) pads Use as directed prior to insulin injection 4x daily 200 each 12/30/19 25 Active TRUEplus Lancets 33G miscIndications: Type 2 diabetes mellitus with diabetic nephropathy ([facility]) TEST BLOOD SUGAR 3 TIMES A DAY 100 each 11 12/30/19 25 Active Blood Pressure kitIndications:T ype 2 diabetes mellitus with diabetic nephropathy, with long-term current use of insulin ([facility]) Use to check home blood pressure daily as directed 1 kit 01/11/20 25 Active losartan (Cozaar) 50 MG tabletIndication s:Type 2 diabetes mellitus with diabetic nephropathy, with long-term current use of insulin ([facility]),Essent ial hypertension Take 1 tablet (50 mg) by mouth Once per day. 30 tablet 11 01/11/20 25 026 Active ketoconazole (NIZOral) 2 % shampoo Apply topically 2 (two) times a week. 120 mL 3 01/19/20 25 Active insulin degludec (Tresiba FlexTouch) 200 UNIT/ML injectionIndicat ions:Type 2 diabetes mellitus with hyperglycemia, with long-term current use of insulin ([facility]) Inject 80 Units under the skin in the morning. 9 mL 1 01/27/20 25 Active testosterone (Androgel) 50 MG/5GM (1%) gel Place 2 packets on the skin Once per day. DIRECTED 01/26/20 25 Active Tirzepatide (Mounjaro) 7.5 MG/0.5ML solution auto-injector Inject 7.5 mg under the skin 1 (one) time per week. 2 mL 02/14/20 25 Active Icosapent Ethyl (Vascepa) 1 g capsule Take 2 capsules (2 g) by mouth with breakfast and with evening meal. 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 Will have workup for cancer, needs colon cancer screening Assessment & Plan (03/30/2024 12:51 PM EDT): On prednisone taper for myositis, has labs today and followup with rheum in 10 days at [facility] Will have workup for cancer, needs colon cancer screening Tinea versicolor 10/05/2023 Assessment & Plan (01/19/2025 7:37 AM EST): Rash sounding more consistent with refractory tinea versicolor To wash weekly in ketoconazole shampoo x 2-4 weeks Take fluconazole oral 300mg x 1, then repeat in one week Non-traumatic rhabdomyolysis 07/13/2023 Assessment & Plan (02/29/2024 1:01 PM EDT): Will speak with extruder about muscle biopsy results and get back [...] Assessment & Plan (03/09/2023 5:26 AM EDT): business support specialist Tresibia and Trulicity Sensor not available today, [...] Assessment & Plan (01/05/2023 6:23 AM EST): business support specialist medications today, Metformin and Trulicity Restart them Call if blood sugars do not start to decrease to <300 Podiatry appointment stat for L toe, not sure why previous referral have not been filled/coordinated Precordial pain 09/19/2015 Backache 06/03/2012 Depression, recurrent 06/03/2012 Pinguecula 06/03/2012 Pure hypercholesterolemia 06/03/2012 Encounters Date Type Department Care Team Description 04/11/2025 Refill [facility] [place] [address] Ivis Jauregui PharmD Type 2 diabetes mellitus with hyperglycemia, with long-term current use of insulin ([facility]) 03/29/2025 Telephone [facility] [place] [address] Ivis Jauregui PharmD 03/14/2025 Telephone [facility] [place] [address] Gemma Mccray MD No Show 03/13/2025 Orders Only GENERIC EXTERNAL DATA DEPARTMENT Provider, Generic External Data 03/05/2025 Refill [facility] [place] [address] Ivis Jauregui PharmPerry Type 2 diabetes mellitus with hyperglycemia, with long-term current use of insulin ([facility]) 03/03/2025 Patient Outreach [facility] [place] [address] Gemma Mccray MD Care Coordination (CHW outreach for SDOH food needs-LVM ) 03/03/2025 Patient Outreach [facility] [place] [address] Gemma Mccray MD Pre-visit Planning (SDOH screening positive and tobacco screening negative) 01/27/2025 Telephone [facility] [place] [address] Ivis Jauregui PharmD Prior Authorization (Nexletol) 01/27/2025 Orders Only [facility] [place] [address] Gemma Mccray MD 01/17/2025 11:00 AM EST Telemedicine [facility] [place] [address] Gemma Mccray MD Tinroberth versicolor (Primary Dx); Dietary counseling; Exercise counseling; Class 2 severe obesity due to excess calories with serious comorbidity and body mass index (BMI) of 35.0 to 35.9 in adult ([facility]); Depression, recurrent ([facility]); Type 2 diabetes mellitus with hyperglycemia, with long-term current use of insulin ([facility]); Polyneuropathy due to type 2 diabetes mellitus ([facility]); Interstitial myositis of multiple sites 01/17/2025 Travel from Last 3 Months Immunizations Immunization Administration Dates Next Due Hep B, adult [...] Description 04/13/2025 3:30 PM EDT Medication Management [facility] [address] [place] [address] Ivis Jauregui, PharmD [address] [place], [place] [phone] Health Maintenance Due Date Last Done Comments CT Colonography 1976 Colonoscopy 1976 Colorectal Cancer Screening 1976 FIT DNA/Cologuard 1976 FIT 1976 FOBT 1976 HIV Screening 1976 Sigmoidoscopy 1976 Diabetes: Foot Exam 02/15/1986 Family Planning (PISQ) 02/15/1991 Diabetes: Hemoglobin A1C 06/12/2025 025, 12/30/2024, 10/04/2024, Additional history exists DTaP/Tdap/Td Vaccines (3 - Td or Tdap) [...] Procedure Name Priority Date/Time Associated Diagnosis Comments TESTOSTERONE, FREE (DIALYSIS) AND TOTAL,MS Routine 03/13/2025 7:46 AM EDT PSA, TOTAL Routine 03/13/2025 7:46 AM EDT HEMOGLOBIN A1C Routine 03/13/2025 7:46 AM EDT CBC Routine 03/13/2025 7:46 AM EDT ALBUMIN, RANDOM URINE W/CREATININE Routine 01/27/2025 8:47 AM EST LIPID PANEL WITH REFLEX TO DIRECT LDL Routine 01/27/2025 8:47 AM EST BASIC METABOLIC PANEL Routine 01/27/2025 8:47 AM EST HEPATIC FUNCTION PANEL Routine 01/27/2025 8:47 AM EST HEPATITIS PANEL, GENERAL Routine 11/10/2023 12:00 AM EST from Last 3 Months or Most Recently Relevant to Health Maintenance Results * (ABNORMAL) CBC (03/13/2025 7:46 AM EDT) White Blood Count 8.1 4.8 - 10.8 X10*3/uL [facility] Red Blood Count 4.84 4.60 - 5.80 X10*6/uL [facility] Hemoglobin 14.0 14.0 - 18.0 g/dl [facility] Hematocrit 41.6(L) 42.0 - 52.0 % [facility] Mean Corpuscular Volume 86.0 80.0 - 98.0 fL [facility] Mean Corpuscular Hemoglobin 28.9 27.0 - 33.0 pg [facility] Mean Corpuscular HGB Conc 33.7 31.0 - 36.0 g/dl [facility] Red Cell Distribution Width 13.2 11.0 - 16.0 % [facility] Platelet Count 216 160 - 400 X10*3/uL [facility] Mean Platelet Volume 9.6 9.4 - 12.4 fL [facility] NRBC Pct Auto 0.0 0.0 - 0.2 /100WBC [facility] NRBC Abs Auto 0.000 0.0 - 0.012 X10*3/uL [facility] 03/13/2025 7:46 AM EDT 03/13/2025 7:51 AM EDT us Generic External Data Provider LAB BLOOD ORDERAB LES Final Result [facility] [address] [place] [phone] * (ABNORMAL) Testosterone, Free (Dialysis) And Total, MS (03/13/2025 7:46 AM EDT) Testosterone, Total 178(A) 250 - 1100 ng/dL [facility] Comment:Men with clinically significant hypogonadal symptoms and testosterone valuesrepeatedly in the range of the 200-300 ng/dL or less, may benefit fromtestosterone treatment after adequate risk and benefits counseling.For additional information, please refer tohttps://[email or web address].ParaEngine/faq/MCR602(This link is being provided for informational/educational purposes only.)(Note)This test was developed and its analytical performancecharacteristics have been determined by [employer]. It hasnot been cleared or approved by the FDA. This assay hasbeen validated pursuant to the CLIA regulations and isused for clinical purposes. Testosterone, Free 39.9 35.0 - 155.0 pg/mL [facility] Comment:(Note)This test was developed and its analytical performancecharacteristics have been determined by [employer]. It hasnot been cleared or approved by the FDA. This assay hasbeen validated pursuant to the CLIA regulations and isused for clinical purposes.MDFmed [id number] [place] [address],[address] [place] [address] [phone] Vincent Crook MD, PhDTHIS TEST WAS PERFORMED AT:[id number] [place] [address] [place] [phone] CROOK MD,PHD 03/13/2025 7:46 AM EDT 03/13/2025 7:51 AM EDT Generic External Data Provider LAB BLOOD ORDERAB LES Final Result Performing Organization Address [facility]/ZIP Co de Phone Number [facility] [address] [place] [phone] * PSA,Total (03/13/2025 7:46 AM EDT) Prostate Specific Antigen 0.44 <0.05 - 4.0 ng/mL [facility] Comment:PSA methodology: Abb derik Alinity i ChemiluminescentMicroparticle Immunoassay (CMIA) 03/13/2025 7:46 AM EDT 03/13/2025 7:51 AM EDT Generic External Data Provider LAB BLOOD ORDERAB LES Final Result Performing Organization Address [facility]/ZIP Co de Phone Number [facility] [address] [place] [phone] * (ABNORMAL) Hemoglobin A1c (03/13/2025 7:46 AM EDT) Hemoglobin A1c 7.8(H) <6.0 % [facility] Comment:Hemoglobin A1C Refer ence Range Adults: 4.8 - 6.0 % Non diabetic: < 6.0 % Goal: < 7.0 %Additional Action Suggested: > 8.0 %Note: Hemoglobin A1c results are invalid for patients with abnormal amounts of HbF. Blood transfusions may impact the HbA1c concentration in the patient sample. Estimated Average Glucose 177 mg/dL [facility] Comment:eAG = Estimated ave rage glucose which is %A1C expressed asaverage glucose, using the formula of the [id number] Glucose study (ADAG), Diabetes Care, Vol.31,#8,Jun. 2007 03/13/2025 7:46 AM EDT 03/13/2025 7:51 AM EDT us Generic External Data Provider LAB BLOOD ORDERAB LES Final Result [facility] [address] [place] [phone] * (ABNORMAL) Lipid Panel with Reflex to Direct LDL (01/27/2025 8:47 AM EST) Triglycerides 231(H) <150 mg/dL [facility] Comment:Desirable Triglyceri de: less than 150 mg/dLBorderline High Triglyceride 150-199 mg/dLHigh Triglyceride: 200-499 mg/dLVery High Triglyceride: greater than or equal to 5OO mg/dL Cholesterol 131 <200 mg/dL [facility] Comment:Desirable Cholestero l: less than 200 mg/dLBorderline High Cholesterol: 200-239 mg/dLHigh Cholesterol: greater than 239 mg/dL LDL Cholesterol Calculated 50 <100 mg/dL [facility] Comment:Desirable LDL: less than 100 mg/dLNear Optimal/Above Optimal LDL: 110- 129 mg/dLBorderline High LDL: 130-159 mg/dLHigh LDL: 160-189 mg/dLVery High LDL: greater than or equal to 190 mg/dL HDL Cholesterol 35(L) >40 mg/dL [facility] Comment:Desirable HDL: great er than 40 mg/dL Note: This HDL assay may give artificially low results in patients with liver disease. 01/27/2025 8:47 AM EST 01/27/2025 11:04 AM EST us Gemma Mccray MD LAB BLOOD ORDERABLES Final Res ult Performing Organization Address [facility] de Phone Number [facility] [address] [place] [phone] * (ABNORMAL) Albumin, Random Urine W/Creatinine (01/27/2025 8:47 AM EST) Creatinine, Urine 166.57 mg/dL [facility] Microalbumin Urine 297.0 mg/L H [facility] Microalbum Creatinine Ratio Ur 178.3(H) <30 ug/mg cr [facility] Comment:Albumin/Creatinine R atio Reference Ranges: Normal: < 30 ug/mg creatinine Microalbuminuria: 30 - 300 ug/mg creatinineClinical Albuminuria: > 300 ug/mg creatinine 01/27/2025 8:47 AM EST 01/27/2025 10:52 AM EST Gemma Mccray MD LAB URINE ORDERABLES Final Res ult Performing Organization Address [facility] de Phone Number [facility] [address] [place] [phone] * (ABNORMAL) Hepatic Function Panel (01/27/2025 8:47 AM EST) Bilirubin, Total 0.2 0.0 - 1.0 mg/dL [facility] Bilirubin, Direct <0.2 0.0 - 0.5 mg/dL [facility] Aspartate Amino Transferase 29 5 - 37 U/L [facility] Alanine Aminotransferase 34 0 - 40 U/L [facility] Total Protein 7.8 6.5 - 8.0 g/dL [facility] Albumin Level 3.9 3.5 - 5.0 g/dL [facility] Alkaline Phosphatase 146(H) 39 - 117 U/L [facility] 01/27/2025 8:47 AM EST 01/27/2025 11:04 AM EST Gemma Mccray MD LAB BLOOD ORDERABLES Final Res ult Performing Organization Address [facility] de Phone Number [facility] [address] [place] [phone] * (ABNORMAL) Basic Metabolic Panel (01/27/2025 8:47 AM EST) Pathologist [facility] Sodium 139 135 - 145 mmol/L [facility] Potassium 4.0 3.3 - 5.1 mmol/L [facility] Chloride 107 96 - 108 mmol/L [facility] Carbon Dioxide 26 22 - 29 mmol/L [facility] Anion Gap 10(L) 12 - 20 [facility] Urea Nitrogen (BUN) 15 9 - 16 mg/dL [facility] Creatinine, Serum 0.87 0.5 - 1.4 mg/dL [facility] Estimated Glomerular Filt Rate >60 [facility] Comment:Chronic Kidney Disea se: Estimated GFR < 60 mL/min/1.74e1Ubqpiq Kidney Disease: Estimated GFR < 15 mL/min/1.73m2 Glucose 230(H) 60 - 115 mg/dL [facility] Calcium 8.9 8.4 - 10.2 mg/dL [facility] 01/27/2025 8:47 AM EST 01/27/2025 11:04 AM EST Gemma Mccray MD LAB BLOOD ORDERABLES Final Res ult Performing Organization Address [facility] Co de Phone Number [facility] [address] [place] [phone] * Hepatitis Panel, General (11/10/2023 12:00 AM EST) Pathologist [facility] Hepatitis A IgM Nonreactive Nonreactive [facility] Comment:IgM antibodies to ASHBY V not detected; does not exclude earlyacute or recovered HAV infection. ~Hepatitis B Surface Antibody NONREACTIVE Nonreactive [facility] Comment:Nonreactive: < 8.00 mIU/mL Hepatitis B Core Antibody Nonreactive Nonreactive [facility] Hepatitis C Antibody Nonreactive Nonreactive [facility] Comment:Antibodies to HCV no t detected; does not exclude early acuteHCV infection. Hepatitis B Surface Ag Negative Negative [facility] 11/10/2023 11/10/2023 us Generic External Data Provider LAB BLOOD ORDERAB LES Final Result [facility] [address] [place] [phone] from Last 3 Months or Most Recently Relevant to Health Maintenance Insurance [facility] ONE CARE < 65 [place] [id number] Care Teams Utilization Review Rn Relationship Specialty Start Date End Date Gemma Mccray MD [address] [place] [phone] PCP - General Family Medicine 10/10/20 Ivis Jauregui, PharmD [address] [place] [address] Pharmacist Internal Medicine 12/30/24
== END 2025-04-12 14:35 | disposition home or self-care (01) ==
LOC: HO.HUSH 12:55
PROVIDERS: PCP General Practice; Visit Provider Nurse Practitioner Family
DX: E29.1 Testicular hypofunction (principal); R68.82 Decreased libido; E11.69 Type 2 diabetes mellitus with other specified complication; N52.1 Erectile dysfunction due to diseases classified elsewhere
CPT/HCPCS: 99214

== ENCOUNTER → 2025-04-12 12:55 | Outpatient (BNVA) | payer OTHER, SELFPAY | PROVIDERS: PCP General Practice; Visit Provider Nurse Practitioner Family ==

== ENCOUNTER 2025-07-04 15:45 | Outpatient (REF) | payer OTHER, SELFPAY ==
--- OUTSIDE RECORDS SUMMARY | 2025-07-04 16:06 | XMS_ITS | Encounter Summary ---
Author Organization [employer] [facility] Address [address] [facility] [address] [place] [address] Care Team Providers Care Faculty Research Physician Name Role Phone Gemma Mccray MD Primary Care Provider [phone] Ivis Jauregui PharmD Unavailable [phone] Reason for Visit * Reason Comments Med Refill Encounter Details Date Type Department Care Team (Late st Contact Info) Description 02/05/2023 Refill [facility] [address] [place], [place] [phone] Gemma Mccray MD [address] [place] [phone] Type 2 diabetes mellitus with hyperglycemia, with long-term current use of insulin ([facility]) Social History Tobacco Use Types Packs/Day [...] Care Team (Late st Contact Info) Description 07/25/2025 9:00 AM EDT Medication Management [facility] [address] [place] [address] Ivis Jauregui, PharmD [address] [place] [address] documented as of this encounter Visit Diagnoses Diagnosis Type 2 diabetes mellitus with hyperglycemia, with long-term current use of insulin ([facility]) documented in this encounter Care Teams Faculty Research Physician Relationship Specialty Start Date End Date Gemma Mccray MD [address] [place], [place] [phone] PCP - General Family Medicine 10/10/20 Ivis Jauregui PharmD [address] [place] [address] Pharmacist Internal Medicine 12/30/24 documented as of this encounter
--- OUTSIDE RECORDS SUMMARY | 2025-07-04 16:06 | XMS_ITS | Clinical Summary ---
Author Organization [employer] [facility] ity Address [address] [place] [address] Care Team Providers Care Switchboard Operator Name Role Phone Unavailable Primary Care Provider [...] Panel) 11/02/2022 Colorectal Cancer Screening: Colonoscopy 11/02/2022 HIV Screening 11/02/2022 Hepatitis C Screening 11/02/2022 Social Influencers of Health Screening 11/02/2022 COVID-19 Vaccine ( - 2023-2 5 season) 2024 Depression Screening 11/30/2024 Influenza Vaccine (#1) 2025 HIB Vaccines Aged Out No longer [...] 5 Years) and At-Risk Patients (6 to 49 Years) Aged Out No longer eligible b ased on patient's age to complete this topic RSV Immunization Patients Un ed 20 months Aged Out No longer eligible b ased on patient's age to complete this topic Varicella Vaccines Aged Out No longer eligible based on patient's age to complete this topic
[2025-07-04 18:26] LABS: Hematocrit 40.3 % (42.0-52.0); Hemoglobin 14.2 g/dl (14.0-18.0); Mean Corpuscular HGB Conc 35.2 g/dl (31.0-36.0); Mean Corpuscular Hemoglobin 29.2 pg (27.0-33.0); Mean Corpuscular Volume 82.9 fL (80.0-98.0); NRBC Abs Auto 0.000 X10*3/uL (0.0-0.012); NRBC Pct Auto 0.0 /100WBC (0.0-0.2); Platelet Count 248 X10*3/uL (160-400); Red Blood Count 4.86 X10*6/uL (4.60-5.80); White Blood Count 8.6 X10*3/uL (4.8-10.8)
[2025-07-04 18:40] LABS: Anion Gap 12 (12-20); Blood Urea Nitrogen 21 mg/dL (9-16); Calcium 9.2 mg/dL (8.4-10.2); Carbon Dioxide 25 mmol/L (22-29); Chloride 107 mmol/L (96-108); Estimated Glomerular Filt Rate > 60; Potassium 3.9 mmol/L (3.3-5.1); Sodium 140 mmol/L (135-145)
[2025-07-04 18:58] LABS: Prostate Specific Antigen 0.45 ng/mL (<0.05-4.0)
[2025-07-05 07:10] LABS: Hemoglobin A1C 259.2417 umol/L; Total Hemoglobin (HGBA1C) 3682.1627 umol/L
[2025-07-08 14:03] LABS: Testosterone, Free 64.1 pg/mL (35.0-155.0)
== END 2025-07-04 15:46 | disposition home or self-care (01) ==
LOC: HO.HHCL 15:45
PROVIDERS: PCP General Practice; Visit Provider Nurse Practitioner Family
DX: E11.65 Type 2 diabetes mellitus with hyperglycemia (principal); I10 Essential (primary) hypertension; E29.1 Testicular hypofunction; Z12.5 Encounter for screening for malignant neoplasm of prostate; Z79.4 Long term (current) use of insulin
CPT/HCPCS: 36415; 80048; 83036; 84153; 84402; 84403; 85027

== ENCOUNTER 2025-07-10 16:10 | Outpatient (AMB) | payer OTHER, SELFPAY ==
--- NOTE | 2025-07-10 16:11 | MHC.OFFVIS ---
Intake Visit Reasons: 3M/Labs Intake Note: Patient presents today for 3m follow up/labs 07/04 Total Testosterone: 199 Free Testosterone: 64.1 07/04 PSA: 0.45 Urology Medications: Allopurinol, tadalafil, tamsulosin, testosterone Blood Thinner: none Inside Sales Person Required: Yes Inside Sales Person Name: SHANE NGUYENAGNES Accompanied by: Self / Same As Patient Allergies No Known Allergies Allergy (Verified 07/10/25 22:14) Medication List - Last Reconciled 07/10/25 by CLEMENTINA Whitaker-TERRY albuterol sulfate 90 mcg/actuation (Ventolin HFA) inhalation alcohol swabs 0 pad topical allopurinol 100 mg PO QAM atorvastatin 20 mg PO DAILY 30 days blood sugar diagnostic As directed blood sugar diagnostic (FreeStyle Lite Strips) As directed four times a day bupropion HCl XL 150 mg PO DAILY butenafine 1% (Lotrimin Ultra) 1 appl topical BID 14 days cholecalciferol (vitamin D3) 125 mcg PO DAILY 30 days clotrimazole 1% (Lotrimin AF (clotrimazole)) 1 appl topical BID 2 weeks cyclobenzaprine 10 mg PO TID PRN diclofenac sodium 1% topical BID dulaglutide (Trulicity) mg subcut flash glucose scanning reader (OxTheraStyle Agnes 2 [place]) As directed flash glucose sensor (FreeStyle Agnes 2 Sensor kit) As directed every 2 weeks ibuprofen 400 mg PO Q6H PRN insulin aspart U-100 (Novolog FlexPen U-100 Insulin aspart) 40 units (0.4 mL) subcut TID 90 days insulin degludec (Tresiba FlexTouch U-200 insulin) 120 units (0.6 mL) subcut DAILY 30 days ketoconazole 2% topical lancets As directed lancets (TRUEplus Lancets) As directed 4 x/day lisinopril 5 mg PO DAILY metformin ER 500 mg PO BID 30 days naproxen 250 mg PO BID omeprazole 20 mg PO DAILY 30 days ondansetron 4 mg PO Q6H PRN pen needle, diabetic (BD Dianelys 2nd Gen Pen Needle) four times a day prednisone 10 mg PO Q OTHER DAY tadalafil 10 mg (2 x 5 mg) PO DAILY 90 days tamsulosin 0.4 mg PO DAILY 90 days testosterone 3 pumps topical DAILY 30 days tramadol 25 mg PO Q6H PRN triamcinolone acetonide 0.1% 1 appl topical BID-TID HPI Comments Details: Laron is 50 year old Northern Irish-speaking patient of Dr. Mccray. He has a past medical history of diabetes type 2, diabetic neuropathy associated with type 2 diabetes, disc herniation, dyslipidemia, essential hypertension, and vitamin-D deficiency. He is being followed up on today via telehealth for his erectile dysfunction, hypogonadism, and nephrolithiasis. In discussion with the patient today he reports noting improvement in libido and ED with current testosterone therapy as well as tadalafil as prescribed. He reports compliance with urological medications as prescribed. Recent labs were reviewed with the patient today as noted and trended below: Hemoglobin/hematocrit 12/24 14/40.0, 03/24 14.0/41.6, 07/24 14.2/40.3 PSA: 06/21 0.4, 12/24 0.7, 03/24 0.4, 07/24 0.5 Total Testosterone: 06/21 203, 04/22 184, 09/22 200, 12/24 264, 03/24 178, 07/24 199 Free Testosterone:06/21 40.6, 04/22 42.1, 09/22 45.6, 12/24 62.6, 03/24 39.9, 07/24 641 A1c: 09/18 11.6, 12/20 9.9, 09/22 9.9, 03/24 7.8%, 07/24 8/6% Estradiol 09/22 24 FSH 09/22 8.7 LH 09/22 5.8 Prolactin 09/22 6.5 SHBG 09/22 17 We did discussed increase in testosterone levels however they remain low. We also discussed increase in A1c in correlation of uncontrolled diabetes with these urological issues as well as for overall health and well-being. 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 We discussed the importance of lifestyle modifications to assist with urological conditions as well as overall health and well-being. We discussed adequate sleep, weight management, and daily exercise in relation to improvement in erectile dysfunction and overall health and well-being. He otherwise denies any bothersome urinary issues. When asked he denies urinary urgency, urinary frequency, incontinence, nocturia, hematuria, dysuria, foul smelling urine, changes to urinary stream, flank pain, fever, and or chills. He is happy with his current voiding parameters. Previous imaging 02/20 as patient with a history of nephrolithiasis noted bilateral kidneys with no calculi and or hydronephrosis. There is a cyst in the lateral aspect of the left kidney measuring 1.0 cm. He otherwise offers no other issues or concerns at this time. SHBG 09/22 17 PREVIOUS OFFICE VISIT Nephrolithiasis Had been seen in emergency room 07/21 Imaging - CT scan small 3 mm bilateral stones Erectile dysfunction in setting of insulin-dependent diabetes ? Long-term ED ?Diabetic ?On combination diabetes therapy ?Diabetes not well controlled with HbA1c of 8.8. Not suitable candidate for prostatic until HbA1c under better control. ? Symptoms have been present for/since?a number of years? Procedure(s)/Diagnosis causing dysfunction include?diabetes.? At this time he experiences erections?are partial and adequate for vaginal penetration, that undergo rapid detumesence after penetration, TOÑA 8-11 Moderate ED.? Nocturnal erections?do not occur.? Currently they are?in a stable relationship.? Associated problems? hypertension ?Yes ? diabetes ?Yes ? dyslipidemia ?Yes ? depression ?No ? stress ?No ? decreased libido ?No ? pelvic surgery ?No ? Overall he is ?is not satisfied with the current management.? 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 Diabetes type 2, uncontrolled Diabetes Surgical History History of biopsy (~12/29/23) Hx of knee surgery History of ear surgery Family History Father Diabetes mellitus Heart disease Stroke Arthritis Mother Epilepsy Social History Household Members: Spouse, Family and Children Alcohol intake: never Patient Tobacco Use Status: Former Tobacco user Tobacco use type: Cigarette Substance Use Type: Marijuana Current occupational status: unemployed Review of Systems Const Reports as per HPI Eyes Reports no additional complaints ENT Reports no additional complaints Card Reports as per HPI Resp Reports no additional complaints GI Reports no additional complaints Reports as per HPI Musc Reports no additional complaints Neuro Reports no additional complaints Psych Reports no additional complaints Endo Reports as per HPI Alejandro/Lymph Reports no additional complaints Aller/Immun Reports no additional complaints Physical Exam Const General: cooperative Orientation/consciousness: patient oriented x3 Resp Effort & Inspection: able to speak in complete sentences Neuro General: patient oriented x3 Psych Speech and movement: Clear speech present Attitude: cooperative Thought content: Normal thought content present Insight: Fair insight present (Psych) Judgement: Fair judgement present (Psych) Telehealth Telehealth Telehealth Platform: [facility] Location of provider rendering services: practice address Location of patient: address on file Patient Identification confirmed using: Name, : Yes Telehealth method: voice only Patient verbally consented to treatment: Yes Patient verbally consented to billing insurance company: Yes Patient informed of any privacy concerns related to visit: Yes Minutes spent on Phone/Video with Pt.: 15 Assessment & Plan Assessment & Plan (1) Erectile dysfunction associated with type 2 diabetes mellitus: Code(s): E11.69 - Type 2 diabetes mellitus with other specified complication; N52.1 - Erectile dysfunction due to diseases classified elsewhere Category: Medical (2) Low libido: Code(s): R68.82 - Decreased libido Category: Medical (3) Hypogonadism in male: Code(s): E29.1 - Testicular hypofunction Category: Medical Plan Recent PSA, testosterone, A1c, and CBC results reviewed with the patient today; as noted above. We did discuss increase in testosterone levels however they remain low. Will increase testosterone as discussed and prescribed; prescription provided He otherwise denies any bothersome urinary issues. He reports be happy with current voiding parameters. We did discussed importance of continuation with lifestyle modifications to assist with hypogonadism. We also discussed the importance of management and diabetes for improvement overall health and well-being. Will obtain PSA, CBC, testosterone, and free testosterone in 3 months. Follow-up in 3 months with labs to be completed prior; or sooner with any issues, concerns, and or questions. Orders: Orders Complete Blood Count no Diff 3 Months E29.1 - Testicular hypofunction Hemoglobin A1c 3 Months E11.9 - Type 2 diabetes mellitus without complications, E29.1 - Testicular hypofunction Testosterone, Free/Total 3 Months E29.1 - Testicular hypofunction Prostate Specific Antigen 3 Months E29.1 - Testicular hypofunction Medications: New testosterone apply 3 pumps over max area - alternate shoulders on alternate days 3 pumps topical DAILY 75 grams 4RF 30 days E29.1 - Testicular hypofunction, R79.89 - Other specified abnormal findings of blood chemistry Discontinued ibuprofen Discontinued Reason: Patient Completed Course 400 mg PO Q6H PRN 20 tabs 0RF pain cyclobenzaprine Discontinued Reason: Patient Completed Course 10 mg PO TID PRN 10 tabs 0RF muscle spasm ondansetron Discontinued Reason: Patient Completed Course 4 mg PO Q6H PRN 10 tabs 0RF nausea and vomiting clotrimazole 1% (Lotrimin AF (clotrimazole)) Discontinued Reason: Patient no longer taking 1 appl topical BID 2 weeks 45 grams 1RF B35.3 - Tinea pedis testosterone this is an increase in dose Discontinued Reason: Doctor's Order 2 packets transdermal DAILY 30 days 150 grams 5RF Patient Instructions: The patient had an opportunity to ask questions regarding the treatment plan. All questions were answered. Physical exam, labs, and imaging were discussed and reviewed in detail. As well as risks, benefits, and discussion of treatment choices. No major barriers to understanding were identified. The patient expressed understanding and agreement with the above treatment plan. The patient was made aware they should contact our office by phone for worsening of their current condition, the appearance of new symptoms, or with any questions or concerns. Compliance is encouraged with any medications and follow up testing that is ordered. It is a privilege to be allowed the opportunity to participate in? your urological care.? Again, if you have any questions or concerns If you have any questions or concerns please do not hesitate to contact me. The office is [phone]. This note is constructed using voice recognition software. While every effort has been made to ensure accuracy purchasing and fiscal clerk errors may have been included. Yours sincerely, ORLANDO Whitaker Coding Level of Care Code Tele Est Pt Level 3 (67985) Diagnoses Erectile dysfunction associated with type 2 diabetes mellitus E11.69; N52.1 Low libido R68.82 Hypogonadism in male E29.1
--- OUTSIDE RECORDS SUMMARY | 2025-07-10 16:13 | XMS_ITS | Clinical Summary ---
Author Organization [employer] [facility] ity Address [address] [place] [address] Care Team Providers Care Associate Sales Name Role Phone Unavailable Primary Care Provider [...]
--- OUTSIDE RECORDS SUMMARY | 2025-07-10 16:13 | XMS_ITS | Encounter Summary ---
Author Organization [employer] [facility] Address [address] [place] [address] Care Team Providers Care Bookkeeping Clerks Supervisor Name Role Phone Gemma Mccray MD Primary Care Provider [phone] Ivis Jauregui PharmD Unavailable [phone] Reason for Visit * Reason Comments Med Refill Encounter Details Date Type Department Care Team (Late st Contact Info) Description 02/05/2023 Refill [facility] MEDICINE [address] [place], [place] [phone] Gemma Mccray MD [address] [place] [address] Type 2 diabetes mellitus with hyperglycemia, with long-term current use of insulin ([facility]) Social History Tobacco Use Types Packs/Day Years [...] Description 07/25/2025 9:00 AM EDT Medication Management [facility] MEDICINE [address] [place] [address] Ivis Jauregui, PharmD [address] [place] [address] documented as of this encounter Visit Diagnoses Diagnosis Type 2 diabetes mellitus with hyperglycemia, with long-term current use of insulin ([facility]) documented in this encounter Care Teams Bookkeeping Clerks Supervisor Relationship Specialty Start Date End Date Gemma Mccray MD [address] [place], [place] [phone] PCP - General Family Medicine 10/10/20 Ivis Jauregui PharmD [address] [place] [address] Pharmacist Internal Medicine 12/30/24 documented as of this encounter
== END 2025-07-10 16:45 | disposition home or self-care (01) ==
LOC: HO.HUSH 16:10
PROVIDERS: PCP General Practice; Visit Provider Nurse Practitioner Family
DX: E11.69 Type 2 diabetes mellitus with other specified complication (principal); N52.1 Erectile dysfunction due to diseases classified elsewhere; R68.82 Decreased libido; E29.1 Testicular hypofunction
CPT/HCPCS: 99213

== ENCOUNTER 2025-09-19 06:42 | Outpatient (REF) | payer OTHER, SELFPAY ==
--- OUTSIDE RECORDS SUMMARY | 2025-09-19 06:45 | XMS_ITS | Encounter Summary ---
Author Organization [employer] Address [address] [place] [address] Care Team Providers Care Inspector Balance Truing Name Role Phone Gemma Mccray MD Primary Care Provider [phone] Ivis Jauregui PharmD Unavailable [phone] Reason for Visit * Reason Onset Date Comments Appointment Request 01/20/2024 Encounter Details Date Type Department Care Team ([facility] st Contact Info) Description 01/20/2024 Telephone [facility] MEDICINE [address] [place], [place] [phone] Gemma Mccray MD [address] [place], [place] [phone] Appointment Request Social History Tobacco Use Types [...] upcoming test . Please contact pt @ [phone] documented in this encounter Plan of Treatment Not on file documented as of this encounter Visit Diagnoses Not on filedocumented in this encounter Additional Health Concerns Assessment Noted Time PHQ-9 Depression Total Score: 10 023 3:51 PM EDT documented as of this encounter Care Teams Inspector Balance Truing Relationship Specialty Start Date End Date Gemma Mccray MD [address] [place] [address] PCP - General Family Medicine 10/10/20 Ivis Jauregui PharmD [address] [place] [address] Pharmacist Internal Medicine 12/30/24 documented as of this encounter
--- OUTSIDE RECORDS SUMMARY | 2025-09-19 06:45 | XMS_ITS | Encounter Summary ---
Author Organization [employer] Address [address]t [place] [address] Care Team Providers Care Electronic Lab Technician Name Role Phone Gemma Mccray MD Primary Care Provider [phone] Ivis Jauregui PharmD Unavailable [phone] Reason for Referral * Imaging (Routine) - Closed Specialty Diagnoses / Procedures Referred By Contac t Referred To Contact Radiology Diagnoses Right upper quadrant abdominal pain Procedures CT Abdomen Pelvis w/ and w/o Contrast Gemma Mccray MD [address] [place] [address] Phone: tel: fax: [address] Phone: tel: fax: Referral ID Status Reason Start Date Expiration Date Visits Re quested Visits Authorized [id number] Closed 08/14/2023 08/13/2024 1 1 Encounter Details Date Type Department Care Team (Late st Contact Info) Description 08/14/2023 Orders Only [facility] MEDICINE [address] [place], [place] [phone] Gemma Mccray MD [address] [place], [place] [phone] Right upper quadrant abdominal pain (Primary Dx) [...] on file documented as of this encounter Procedures Procedure [...] AM EDT Narrative 09/22/2023 10:08 AM EDT [address] [address] [address] Scan Report Signed Patient: Laron Riley MR#: [id number] : 1975 Acct:[id number] Age/Sex: 48 / M ADM Date: 09/16/23 Loc: HO.CT Attending Dr: Gemma Mccray MD Ordering Physician: Gemma Mccray Date of Service: 09/16/23 Procedure(s): CT abdomen pelvis wo/w IV con Accession Number(s): [id number] cc: Kamila Sidhu MD; Gemma Mccray EXAMINATION: [...] in OV> 09/22/23 1004 DD/ 1026 TD/TT: Pathology Laboratory Director: ROQUE Procedure Note Donotuseinterpreter, Image - 09/22/[address] [address] [address] Scan Report Signed Patient: Laron Riley#: [id number] : 1975Acct:[id number] Age/Sex: 48 / MADM Date: 09/16/23 Loc: HO.CT Attending Dr: Gemma Mccray MD Ordering Physician: Gemma Mccray Date of Service: 09/16/23 Procedure(s): CT abdomen pelvis wo/w IV con Accession Number(s): [id number] cc: Kamila Sidhu MD; Gemma Mccray EXAMINATION: [...] in OV> 09/22/23 1004 DD/ 1026 TD/TT: Pathology Laboratory Director: ROQUE us Gemma Mccray MD IMG CT PROCEDURES Final Result * BI US Breast Complete Right (09/03/2023 3:38 PM EDT) Anatomical Region Laterality Modality Breast Right Ultrasound 09/03/2023 3:38 PM EDT Narrative 09/03/2023 5:37 PM EDT [address] [place] [address] Ultrasound Report Signed Patient: Laron Riley MR#: [id number] : 1975 Acct:[id number] Age/Sex: 48 / M ADM Date: 09/03/23 Loc: HO.MAMMO Attending Dr: Kamila Sidhu MD Ordering Physician: Kamila Sidhu MD Date of Service: 09/03/23 Procedure(s): US breast RT limited mamm only Accession Number(s): [id number] cc: Kamila Sidhu MD EXAMINATION: MM DIAGNOSTIC [...] in OV> 09/03/23 1733 DD/ 1538 TD/TT: Pathology Laboratory Director: Procedure Note Donotuseinterpreter, Image - 09/03/2023 [facility] [address] [place], [place] [address] Ultrasound Report Signed Patient: Laron Riley#: [id number] : 1975Acct:[id number] Age/Sex: 48 / MADM Date: 09/03/23 Loc: HO.MAMMO Attending Dr: Kamila Sidhu MD Ordering Physician: aKmila Sidhu MD Date of Service: 09/03/23 Procedure(s): US breast RT limited mamm only Accession Number(s): [id number] cc: Kamila Sidhu MD EXAMINATION: MM DIAGNOSTIC [...] by Samm Yu MD in OV> 09/03/23 173 DD/ 1538 TD/TT: Pathology Laboratory Director: us Kamila Sidhu MD IMG US PROCEDURES Final Result * BI Mammogram Diagnostic Tomosynthesis Bilateral (09/03/2023 3:10 PM EDT) Anatomical Region Laterality Modality Breast Bilateral Mammography 09/03/2023 3:10 PM EDT Narrative 09/03/2023 5:37 PM EDT [facility] [address] [place], [place] [address] Mammography Report Signed Patient: Laron Riley MR#: [id number] : 1975 Acct:[id number] Age/Sex: 48 / M ADM Date: 09/03/23 Loc: HO.MAMMO Attending Dr: Kamila Sidhu MD Ordering Physician: Kamila Sidhu MD Results: 2Be nign Findings Date of Service: 09/03/23 Follow Up: 1 Year From Orig ina Mammogram Procedure(s): MM tomosynthesis diagnostic BI Accession Number(s): [id number] cc: Kamila Sidhu MD EXAMINATION: MM DIAGNOSTIC [...] by Samm Yu MD in OV> 09/03/23 8786 DD/ 1510 TD/TT: Pathology Laboratory Director: Procedure Note Donotuseinterpreter, Image - 09/03/2023 [facility] [address] [place], [place] [address] Mammography Report Signed Patient: Laron RileyMR#: [id number] : 1975Acct:[id number] Age/Sex: 48 / MADM Date: 09/03/23 Loc: HO.MAMMO Attending Dr: Kamila Sidhu MD Ordering Physician: Kamila Sidhu MDResults: 2Be nign Findings Date of Service: 09/03/23Follow Up: 1 Year From Orig ina Mammogram Procedure(s): MM tomosynthesis diagnostic BI Accession Number(s): [id number] cc: Kamila Sidhu MD EXAMINATION: MM DIAGNOSTIC [...] in OV> 09/03/23 1733 DD/ 1510 TD/TT: Pathology Laboratory Director: us Kamila Sidhu MD IMG BI PROCEDURES Final Result documented in this encounter Visit Diagnoses Diagnosis Right upper quadrant abdominal pain- Primary documented in this encounter Additional Health Concerns Assessment Noted Time PHQ-9 Depression Total Score: 10 023 3:51 PM EDT documented as of this encounter Care Teams Electronic Lab Technician Relationship Specialty Start Date End Date Gemma Mccray MD [address] [place] [address] PCP - General Family Medicine 10/10/20 Ivis Jauregui PharmD [address] [place] [address] Pharmacist Internal Medicine 12/30/24 documented as of this encounter
--- OUTSIDE RECORDS SUMMARY | 2025-09-19 06:45 | XMS_ITS | Encounter Summary ---
Author Organization [employer] Address [address] [place] [address] Care Team Providers Care Graduate Teacher Education Name Role Phone Gemma Mccray MD Primary Care Provider [phone] Ivis Jauregui PharmD Unavailable [phone] Reason for Visit * Reason Comments Med Refill Encounter Details Date Type Department Care Team ([facility] st Contact Info) Description 06/27/2024 Refill [facility] [address] [place], [place] [phone] Gemma Mccray MD [address] [place], [place] [phone] Type 2 diabetes mellitus with hyperglycemia, with long-term current use of insulin ([facility]) Social History Tobacco Use Types Packs/Day Years [...] as of this encounter Plan of Treatment Not on file documented as of this encounter Visit Diagnoses Diagnosis Type 2 diabetes mellitus with hyperglycemia, with long-term current use of insulin ([facility]) documented in this encounter Additional Health Concerns Assessment Noted Time PHQ-9 Depression Total Score: 16 024 9:57 AM EDT documented as of this encounter Care Teams Graduate Teacher Education Relationship Specialty Start Date End Date Gemma Mccray MD [address] [place] [address] PCP - General Family Medicine 10/10/20 Ivis Jauregui PharmD [address] [place] [address] Pharmacist Internal Medicine 12/30/24 documented as of this encounter
--- OUTSIDE RECORDS SUMMARY | 2025-09-19 06:45 | XMS_ITS | Encounter Summary ---
Author Organization [employer] [facility] Address [address] [facility] 7t [place] [address] Care Team Providers Care Cattle Feeder Name Role Phone Gemma Mccray MD Primary Care Provider [phone] Ivis Jauregui PharmD Unavailable [phone] Encounter Details Date Type Department Care Team (Latest Contact Info) Description 04/05/2019 Abstract [facility] CONVERSION[facility] Dental, Provider, DDS Social History [...] on filedocumented in this encounter Care Teams Cattle Feeder Relationship Specialty Start Date End Date Gemma Mccray MD [address] [place] [address] PCP - General Family Medicine 10/10/20 Ivis Jauregui, PharmD [address] [place] [address] Pharmacist Internal Medicine 12/30/24 documented as of this encounter
--- OUTSIDE RECORDS SUMMARY | 2025-09-19 06:45 | XMS_ITS | Encounter Summary ---
Author Organization [employer] Address [address] [facility] [address] [place] [address] Care Team Providers Care Educational Diagnostician Name Role Phone Gemma Mccray MD Primary Care Provider [phone] Ivis Jauregui PharmD Unavailable [phone] Reason for Visit * Reason Comments Med Refill Encounter Details Date Type Department Care Team (Late st Contact Info) Description 02/05/2023 Refill [facility] MEDICINE [address] [place], [place] [phone] Gemma Mccray MD [address] [place], [place] [phone] Type 2 diabetes mellitus with hyperglycemia, with long-term current use of insulin ([facility]) Social History Tobacco Use Types Packs/Day [...] hyperglycemia, with long-term current use of insulin ([facility]) documented in this encounter Care Teams Educational Diagnostician Relationship Specialty Start Date End Date Gemma Mccray MD [address] [place], [place] [phone] PCP - General Family Medicine 10/10/20 Ivis Jauregui PharmD [address] [place] [address] Pharmacist Internal Medicine 12/30/24 documented as of this encounter
--- OUTSIDE RECORDS SUMMARY | 2025-09-19 06:45 | XMS_ITS | Encounter Summary ---
Author Organization [employer] Address [address] [place] [address] Care Team Providers Care Lead Athlete Name Role Phone Gemma Mccray MD Primary Care Provider [phone] Ivis Jauregui PharmD Unavailable [phone] Reason for Visit * Reason Onset Date Comments Nurse Triage 09/18/2025 Encounter Details Date Type Department Care Team ([facility] st Contact Info) Description 09/18/2025 Telephone [facility] MEDICINE [address] [place], [place] [phone] Gemma Mccray MD [address] [place], [place] [phone] Nurse Triage Social History Tobacco Use Types [...] encounter Miscellaneous Notes * Telephone Encounter - Jennifer Irving RN - 09/18/2025 3:33 PM EDT TC to pt to status check with [facility] prior authorization technician. No answer. VM box full and unable to leave VM. * Telephone Encounter - Senait Hernandez - 09/18/2025 2:45 PM EDT Patient in requesting to be seen by pcp for weight loss and joint pain documented in this encounter Plan of Treatment Not on file documented as of this encounter Visit Diagnoses Not on filedocumented in this encounter Additional Health Concerns Assessment Noted Time PHQ-9 Depression Total Score: 10 024 11:42 AM EST documented as of this encounter Care Teams Lead Athlete Relationship Specialty Start Date End Date Gemma Mccray MD [address] [place] [phone] PCP - General Family Medicine 10/10/20 Ivis Jauregui, SaulD [address] [place] [phone] Pharmacist Internal Medicine 12/30/24 documented as of this encounter
--- OUTSIDE RECORDS SUMMARY | 2025-09-19 06:45 | XMS_ITS | Encounter Summary ---
Author Organization [employer] Address [address] [facility] 7[address] [place] [address] Care Team Providers Care Rx Specialist Name Role Phone Gemma Mccray MD Primary Care Provider [phone] Ivis Jauregui PharmD Unavailable [phone] Reason for Visit * Reason Onset Date Comments PCP Appt 04/09/2023 Encounter Details Date Type Department Care Team ([facility] st Contact Info) Description 04/09/2023 Telephone [facility] MEDICINE [address] [place], [place] [phone] Gemma Mccray MD [address] [place] [address] PCP Appt Social History Tobacco Use Types [...] on filedocumented in this encounter Care Teams Rx Specialist Relationship Specialty Start Date End Date Gemma Mccray MD [address] [place], [place] [phone] PCP - General Family Medicine 10/10/20 Ivis Jauregui, PharmD [address] [place] [address] Pharmacist Internal Medicine 12/30/24 documented as of this encounter
--- OUTSIDE RECORDS SUMMARY | 2025-09-19 06:45 | XMS_ITS | Encounter Summary ---
Author Organization [employer] Address [address] [facility] [address] [place] [address] Care Team Providers Care Learning Support Teacher Name Role Phone Gemma Mccray MD Primary Care Provider [phone] Ivis Jauregui PharmD Unavailable [phone] Encounter Details Date Type Department Care Team (Late st Contact Info) Description 07/16/2023 Orders Only [facility] MEDICINE [address] [place], [place] [phone] Gemma Mccray MD [address] [place], [place] [phone] Social History Tobacco Use Types Packs/Day Years [...] Opiate Screen Urine Not Detected Not Detect [facility] Comment:Opiate cut-off is 30 0 ng/mL.Positive results are unconfirmed and should not be used fornon-medical purposes. Barbiturates, Urine Not Detected Not Detect [facility] Comment:Barbiturate cut-off is 200 ng/mL.Positive results are unconfirmed and should not be used fornon-medical purposes. Phencyclidine Screen Urine Not Detected Not Detect [facility] Comment:Phencyclidine cut-of f is 25 ng/mL.Positive results are unconfirmed and should not be used fornon-medical purposes. Amphetamine Screen Urine Not Detected Not Detect [facility] Comment:Amphetamine cut-off is 1000 ng/mL.Positive results are unconfirmed and should not be used fornon-medical purposes. Benzodiazepines Screen Urine Not Detected Not Detect [facility] Comment:Benzodiazepine cut-o ff is 200 ng/mL.Positive results are unconfirmed and should not be used fornon-medical purposes. Cocaine Screen Urine Not Detected Not Detect [facility] Comment:Cocaine cut-off is 3 00 ng/mL.Positive results are unconfirmed and should not be used fornon-medical purposes. Cannabinoid Screen Urine POSITIVE(A) Not Detect [facility] Comment:Cannabinoid cut-off is 50 ng/mL.Positive results are unconfirmed and should not be used fornon-medical purposes. FENTANYL URINE Not Detected Not Detect [facility] Comment:Fentanyl cut-off is 1 ng/mL.Positive results are unconfirmed and should not be used fornon-medical purposes. 07/16/2023 3:30 PM EDT 07/16/2023 3:32 PM EDT [facility] External Provider LAB URI NE ORDERABLES Final Result [facility] [address] [place] [phone] * (ABNORMAL) Urinalysis, Complete, with Reflex to Culture (07/16/2023 3:30 PM EDT) Color Urine Dark Yellow [facility] Appearance Urine Clear [facility] PH 6.0 5.0 - 9.0 [facility] Glucose Urine UA Negative Negative mg/dL [facility] Urine Blood Negative Negative [facility] Specific Dows - Urine >=1.030(H) 1.005 - 1.025 [facility] Urine Protein 100 (2+)(A) Neg-Trace mg/dL [facility] Urine Ketones 40 Negative mg/dL [facility] Nitrite Urine Negative Negative [facility] Leukocyte Esterase Urine Negative Negative [facility] RBC Urine 0-2 0 - 2 /HPF [facility] Urine WBC 0-5 0 - 5 /HPF [facility] Urine Squamous Epithelial Cell 0-2 0 - 2 /HPF [facility] Urine Bacteria None Seen None Seen [facility] Hyaline Casts, Urine 0-2 0 - 2 /LPF [facility] 07/16/2023 3:30 PM EDT 07/16/2023 3:32 PM EDT Narrative [facility] - 07/16/2023 3:47 PM EDT [id number], Clean Catch us [facility] External Provider LAB URI NE ORDERABLES Final Result [facility] [address] [place] [phone] * Volatiles (07/16/2023 11:41 AM EDT) Alcohol, Methyl NONE DETECTED [facility] Comment:Reportable Limit: 5 mg/dLThis test was developed and its analytical performancecharacteristics have been determined by [employer]. It has not been cleared or approved by theFDA. This assay has been validated pursuant to the CLIAregulations and is used for clinical purposes. Alcohol, Ethyl NONE DETECTED NONE DETECTED mg/dL [facility] Comment:100 mg/dL = 0.100 g% (g/dL)Reportable Limit: 10 mg/dLThis test was developed and its analytical performancecharacteristics have been determined by [employer]. It has not been cleared or approved by theFDA. This assay has been validated pursuant to the CLIAregulations and is used for clinical purposes. Alcohol, Ethyl NONE DETECTED NONE DETECTED g/dL(%) [facility] Comment:Reportable limit: 0. 010 g/dLThis test was developed and its analytical performancecharacteristics have been determined by [employer]. It has not been cleared or approved by theFDA. This assay has been validated pursuant to the CLIAregulations and is used for clinical purposes. ACETONE NONE DETECTED NONE DETECTED mg/dL [facility] Comment:Reportable Limit: 5 mg/dLThis test was developed and its analytical performancecharacteristics have been determined by [employer]. It has not been cleared or approved by theFDA. This assay has been validated pursuant to the CLIAregulations and is used for clinical purposes. Alcohol, Isopropyl NONE DETECTED NONE DETECTED mg/dL [facility] Comment:Reportable Limit: 5 mg/dLThis test was developed and its analytical performancecharacteristics have been determined by [employer]. It has not been cleared or approved by theFDA. This assay has been validated pursuant to the CLIAregulations and is used for clinical purposes. Volatile Analysis Performed On: WHOLE BLOOD [facility] Comment:THIS TEST WAS PERFOR MED AT:[facility] [place] [phone] BOWERS MD 07/16/2023 11:4 1 AM EDT 07/16/2023 11:46 AM EDT [facility] External Provider LAB BLO OD ORDERABLES Final Result [facility] [address] [place] [phone] documented in this encounter Visit Diagnoses Not on filedocumented in this encounter Additional Health Concerns Assessment Noted Time PHQ-9 Depression Total Score: 10 023 3:51 PM EDT documented as of this encounter Care Teams Learning Support Teacher Relationship Specialty Start Date End Date Gemma Mccray MD [address] [place] [address] PCP - General Family Medicine 10/10/20 Ivis Jauregui PharmD [address] [place] [address] Pharmacist Internal Medicine 12/30/24 documented as of this encounter
--- OUTSIDE RECORDS SUMMARY | 2025-09-19 06:45 | XMS_ITS | Encounter Summary ---
Author Organization [employer] [facility] Address [address] [place] [address] Care Team Providers Care Practical Ministries Professor Name Role Phone Gemma Mccray MD Primary Care Provider [phone] Ivis Jauregui PharmD Unavailable [phone] Encounter Details Date Type Department Care Team (Latest Contact Info) Description 04/16/2021 Abstract [facility] CONVERSIONS Dental, Provider, DDS Social History Tobacco [...] on filedocumented in this encounter Care Teams Practical Ministries Professor Relationship Specialty Start Date End Date Gemma Mccray MD [address] [place] [address] PCP - General Family Medicine 10/10/20 Ivis Jauregui, PharmD [address] [place], [place] [phone] Pharmacist Internal Medicine 12/30/24 documented as of this encounter
--- OUTSIDE RECORDS SUMMARY | 2025-09-19 06:45 | XMS_ITS | Encounter Summary ---
Author Organization [employer] Address [address] [facility] 7[address] [place] [address] Care Team Providers Care Senior Network Systems Engineer Name Role Phone Gemma Mccray MD Primary Care Provider [phone] Ivis Jauregui PharmD Unavailable [phone] Reason for Visit * Reason Onset Date Comments Med Refill 02/05/2023 Encounter Details Date Type Department Care Team (Late st Contact Info) Description 02/05/2023 Refill [facility] MEDICINE [address] [place], [place] [phone] Gemma Mccray MD [address] [place] [address] Social History Tobacco Use Types Packs/Day Years [...] on filedocumented in this encounter Care Teams Senior Network Systems Engineer Relationship Specialty Start Date End Date Gemma Mccray MD [address] [place] [address] PCP - General Family Medicine 10/10/20 Ivis Jauregui PharmD [address] [place] [address] Pharmacist Internal Medicine 12/30/24 documented as of this encounter
--- OUTSIDE RECORDS SUMMARY | 2025-09-19 06:45 | XMS_ITS | Clinical Summary ---
Author Organization [employer] Address [address] [facility] [address] [place] [address] Care Team Providers Care Multicultural Internship Name Role Phone Gemma Mccray MD Primary Care Provider [phone] Ivis Jauregui PharmD Unavailable [phone] Allergies No known active allergies Medications tamsulosin (Flomax) 0.4 MG 24 hr capsule TAKE 1 CAPSULE BY MOUTH DAILY 30 MINUTES AFTER THE SAME MEAL EVERY DAY 30 capsule 1 06/19/20 23 Active albuterol 108 (90 Base) MCG/ACT inhalerIndicatio ns:Shortness of breath Inhale 2 puffs every 6 (six) hours if needed for wheezing. 18 g 11 02/29/20 24 Active Continuous Glucose Video Games Mechanic (FreeStyle Agnes 3 Fillmore) device 1 each 3 times daily. Use [...] Type 2 diabetes mellitus with diabetic nephropathy (HCC) TEST BLOOD SUGAR 3 TIMES A DAY 100 each 12/30/19 25 Active Blood Pressure kitIndications:T ype 2 diabetes mellitus with diabetic nephropathy, with long-term current use of insulin (HCC) Use to check home blood pressure daily as directed 1 kit 01/11/20 25 Active losartan (Cozaar) 50 MG tabletIndication s:Type 2 diabetes mellitus with diabetic nephropathy, with long-term current use of insulin ([facility]),Essential hypertension Take 1 tablet (50 mg) by mouth Once per day. 30 tablet 11 01/11/20 25 026 Active Icosapent Ethyl (Vascepa) 1 g capsule Take 2 capsules (2 g) by mouth with breakfast and with evening meal. 120 capsule 5 02/14/20 25 Active tadalafil (Cialis) 5 MG tablet TAKE 2 TABLETS BY MOUTH DAILY NEEDED FOR SEXUAL ACTIVITY 01/26/20 25 Active Tirzepatide (Mounjaro) 10 MG/0.5ML solution auto-injector Inject 10 mg under the skin 1 (one) time per week. 2 mL 11 06/15/20 25 Active insulin aspart (NovoLOG FLEXPEN) 100 UNIT/ML penIndications:T ype 2 diabetes mellitus with hyperglycemia, with long-term current use of insulin ([facility]) INJECT 34 UNITS SUBCUTANEOUSLY THREE TIMES DAILY 30 mL 07/05/20 25 Active ketoconazole (NIZOral) 2 % shampoo APPLY TOPICALLY TWICE A WEEK 120 mL 3 07/07/20 25 Active Embecta Pen Needle Dianelys 32G X 4 MM miscIndications: Type 2 diabetes mellitus with hyperglycemia, with long-term current use of insulin ([facility]) USE DIRECTED FOUR TIMES DAILY 100 each 11 07/14/20 25 Active Testosterone 20.25 MG/ACT (1.62%) gel Apply 3 Pump topically Once per day. Alternate shoulders, as directed. 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 Will have workup for cancer, needs colon cancer screening Assessment & Plan (03/30/2024 12:51 PM EDT): On prednisone taper for myositis, has labs today and followup with rheum [place] 10 [place] [facility] [place] have workup for cancer, needs colon cancer screening Tinea versicolor 10/05/2023 Assessment & Plan (01/19/2025 7:37 AM EST): Rash sounding more consistent with refractory tinea versicolor To wash weekly in ketoconazole shampoo x 2-4 weeks Take fluconazole oral 300mg x 1, then repeat in one week Non-traumatic rhabdomyolysis 07/13/2023 Assessment & Plan (02/29/2024 1:01 PM EDT): Will speak with golf course equipment operator about muscle biopsy results and get back [...] Assessment & Plan (03/09/2023 5:26 AM EDT): 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 Tresibia and Trulicity Sensor not available [...] Assessment & Plan (01/05/2023 6:23 AM EST): 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 medications today, Metformin and Trulicity Restart them Call if blood sugars do not start to decrease to <300 Podiatry appointment stat for L toe, not sure why previous referral have not been filled/coordinated Precordial pain 09/19/2015 Backache 06/03/2012 Depression, recurrent 06/03/2012 Pinguecula 06/03/2012 Pure hypercholesterolemia 06/03/2012 Encounters Date Type Department Care Team Description 09/18/2025 Telephone [facility] [address] [place] [phone] Gemma Mccray MD Nurse Triage 08/07/2025 Telephone [facility] [address] [place] [address] Gemma Mccray MD 08/06/2025 Refill [facility] [address] [place] [address] Ivis Jauregui PharmD Type 2 diabetes mellitus with hyperglycemia, with long-term current use of insulin ([facility]) 07/14/2025 Refill [facility] [address] [place] [address] Kamila Sidhu MD Type 2 diabetes mellitus with hyperglycemia, with long-term current use of insulin ([facility]) 07/07/2025 Refill [facility] [address] [place] [address] Gemma Mccray MD 07/04/2025 Orders Only GENERIC EXTERNAL DATA DEPARTMENT Provider, Generic External Data 07/04/2025 Refill [facility] [address] [place] [address] Ivis Jauregui PharmD Type 2 diabetes mellitus with hyperglycemia, with long-term current use of insulin ([facility]) from Last 3 Months Immunizations Immunization Administration [...] Sign Reading Time Taken Comments Blood Pressure 140/84 06/13/2025 9:28 AM EDT Pulse 88 10/04/2024 11:31 AM EST Temperature 36.5 C (97.7 F) 10/04/2024 11:31 AM EST Respiratory Rate 18 10/04/2024 11:31 AM EST Oxygen Saturation 98% 02/29/2024 9:26 AM EDT Inhaled Oxygen Concentration - - Weight 103 kg (226 lb) 10/04/2024 11:31 AM EST Height 170.2 cm (5' 7 ) 10/04/2024 11:31 AM EST Body Mass Index 35.4 10/04/2024 11:31 AM EST Plan of Treatment Health Maintenance Due Date Last Done Comments CT Colonography 1976 Colonoscopy 1976 Colorectal Cancer Screening 1976 FIT DNA/Cologuard 1976 FIT 1976 FOBT 1976 HIV Screening 1976 Sigmoidoscopy 1976 Disability Screening 1976 Diabetes: Foot Exam 02/15/1986 Family Planning (PISQ) 02/15/1991 Depression Monitoring 04/03/2025 10/04/2024, 024 Influenza Vaccine (#1) 2025 , 10/01/2020, 11/08/2019, Additional history exists DTaP/Tdap/Td Vaccines (3 - Td or Tdap) 09/13/2025 09/13/2015, 09/13/2010 Alcohol/Substance Use Screening 10/04/2025 10/04/2024 Diabetes: Hemoglobin A1C 10/04/2025 025, 06/13/2025, 03/13/2025, Additional history exists Tobacco Screening 01/19/2026 01/19/2025 Lipid Panel 01/27/2026 [...] Completed 01/11/2025, , 08/23/2021, Additional history exists Pneumococcal Vaccine: Pediatrics (0 to 5 Years) and At-Risk Patients (6 to 49) Years Completed 02/13/2025, 09/01/2011 HIB Vaccines Aged Out [...] Comments TESTOSTERONE, FREE (DIALYSIS) AND TOTAL,MS Routine 07/04/2025 3:49 PM EDT HEMOGLOBIN A1C Routine 07/04/2025 3:49 PM EDT PSA, TOTAL Routine 07/04/2025 3:49 PM EDT BASIC METABOLIC PANEL Routine 07/04/2025 3:49 PM EDT CBC Routine 07/04/2025 3:49 PM EDT LIPID PANEL WITH REFLEX TO DIRECT LDL Routine 01/27/2025 8:47 AM EST HEPATITIS PANEL, GENERAL Routine 11/10/2023 12:00 AM EST from Last 3 Months or Most Recently Relevant to Health Maintenance Results * (ABNORMAL) CBC (07/04/2025 3:49 PM EDT) White Blood Count 8.6 4.8 - 10.8 X10*3/uL [facility] Red Blood Count 4.86 4.60 - 5.80 X10*6/uL [facility] Hemoglobin 14.2 14.0 - 18.0 g/dl [facility] Hematocrit 40.3(L) 42.0 - 52.0 % [facility] Mean Corpuscular Volume 82.9 80.0 - 98.0 fL [facility] Mean Corpuscular Hemoglobin 29.2 27.0 - 33.0 pg [facility] Mean Corpuscular HGB Conc 35.2 31.0 - 36.0 g/dl [facility] Red Cell Distribution Width 13.4 11.0 - 16.0 % [facility] Platelet Count 248 160 - 400 X10*3/uL [facility] Mean Platelet Volume 9.6 9.4 - 12.4 fL [facility] NRBC Pct Auto 0.0 0.0 - 0.2 /100WBC [facility] NRBC Abs Auto 0.000 0.0 - 0.012 X10*3/uL [facility] 07/04/2025 3:49 PM EDT 07/04/2025 6:05 PM EDT us Generic External Data Provider LAB BLOOD ORDERAB LES Final Result [facility] [address] [place] [phone] * (ABNORMAL) Testosterone, Free (Dialysis) And Total, MS (07/04/2025 3:49 PM EDT) Pathologist [facility] Testosterone, Total 199(A) 250 - 1100 ng/dL [facility] Comment:For additional infor madai, please refer [email or web address]/faq/[email or web address](This link is being provided for informational/educational purposes only.)This test was developed and its analytical performancecharacteristics have been determined by [employer]. It hasnot been cleared or approved by the U.S. Food and DrugAdministration. This assay has been validated pursuantto the CLIA regulations and is used for clinicalpurposes. Testosterone, Free 64.1 35.0 - 155.0 pg/mL [facility] Comment:This test was develo ped and its analytical performancecharacteristics have been determined by [employer] [place], [place]. It hasnot been cleared or approved by the U.S. Food and DrugAdministration. This assay has been validated pursuantto the CLIA regulations and is used for clinicalpurposes.THIS TEST WAS PERFORMED AT:[employer] [id number] [place] [id number] TIMMONS MD,PHD 07/04/2025 3:49 PM EDT 07/04/2025 6:05 PM EDT us Generic External Data Provider LAB BLOOD ORDERAB LES Final Result Performing Organization Address City/[facility]/ZIP Co de Phone Number [facility] [address] [place] [phone] * PSA,Total (07/04/2025 3:49 PM EDT) Prostate Specific Antigen 0.45 <0.05 - 4.0 ng/mL [facility] Comment:PSA methodology: Sara Rainey i ChemiluminescentMicroparticle Immunoassay (CMIA) 07/04/2025 3:49 PM EDT 07/04/2025 6:05 PM EDT us Generic External Data Provider LAB BLOOD ORDERAB LES Final Result Performing Organization Address City/[facility]/ZIP Co de Phone Number [facility] [address] [place] [phone] * (ABNORMAL) Hemoglobin A1c (07/04/2025 3:49 PM EDT) Hemoglobin A1c 8.6(H) <6.0 % [facility] Comment:Hemoglobin A1C Refer ence Range Adults: 4.8 - 6.0 % Non diabetic: < 6.0 % Goal: < 7.0 %Additional Action Suggested: > 8.0 %Note: Hemoglobin A1c results are invalid for patients with abnormal amounts of HbF. Blood transfusions may impact the HbA1c concentration in the patient sample. Estimated Average Glucose 200 mg/dL [facility] Comment:eAG = Estimated ave rage glucose which is %A1C expressed asaverage glucose, using the formula of the B6Z-HimmefaNhghdlj Glucose study (ADAG), Diabetes Care, Vol.31,#8,2007 07/04/2025 3:49 PM EDT 07/04/2025 6:05 PM EDT us Generic External Data Provider LAB BLOOD ORDERAB LES Final Result [facility] [address] [place] [phone] * (ABNORMAL) Basic Metabolic Panel (07/04/2025 3:49 PM EDT) Pathologist [facility] Sodium 140 135 - 145 mmol/L [facility] Potassium 3.9 3.3 - 5.1 mmol/L [facility] Chloride 107 96 - 108 mmol/L [facility] Carbon Dioxide 25 22 - 29 mmol/L [facility] Anion Gap 12 12 - 20 [facility] Urea Nitrogen (BUN) 21(H) 9 - 16 mg/dL [facility] Creatinine, Serum 1.08 0.5 - 1.4 mg/dL [facility] Estimated Glomerular Filt Rate >60 [facility] Comment:Chronic Kidney Disea se: Estimated GFR < 60 mL/min/1.52c3Pjozlj Kidney Disease: Estimated GFR < 15 mL/min/1.73m2 Glucose 230(H) 60 - 115 mg/dL [facility] Calcium 9.2 8.4 - 10.2 mg/dL [facility] 07/04/2025 3:49 PM EDT 07/04/2025 6:05 PM EDT us Gemma Mccray MD LAB BLOOD ORDERABLES Final Res ult Performing Organization Address [facility] de Phone Number [facility] [address] [place] [phone] * (ABNORMAL) Lipid Panel with Reflex to Direct LDL (01/27/2025 8:47 AM EST) Triglycerides 231(H) <150 mg/dL [facility] Comment:Desirable Triglyceri de: less than 150 mg/dLBorderline High Triglyceride 150-199 mg/dLHigh Triglyceride: 200-499 mg/dLVery High Triglyceride: greater than or equal to 5OO mg/dL Cholesterol 131 <200 mg/dL [facility] Comment:Desirable Cholestero l: less than 200 mg/dLBorderline High Cholesterol: 200-239 mg/dLHigh Cholesterol: greater than 239 mg/dL LDL Cholesterol Calculated 50 <100 mg/dL [facility] Comment:Desirable LDL: less than 100 mg/dLNear Optimal/Above Optimal LDL: 110- 129 mg/dLBorderline High LDL: 130-159 mg/dLHigh LDL: 160-189 mg/dLVery High LDL: greater than or equal to 190 mg/dL HDL Cholesterol 35(L) >40 mg/dL [facility] Comment:Desirable HDL: great er than 40 mg/dL Note: This HDL assay may give artificially low results in patients with liver disease. 01/27/2025 8:47 AM EST 01/27/2025 11:04 AM EST us Gemma Mccray MD LAB BLOOD ORDERABLES Final Res ult Performing Organization Address [facility] Co de Phone Number [facility] [address] [place] [phone] * Hepatitis Panel, General (11/10/2023 12:00 AM EST) Hepatitis A IgM Nonreactive Nonreactive [facility] Comment:IgM antibodies to ASHBY V not detected; does not exclude earlyacute or recovered HAV infection. ~Hepatitis B Surface Antibody NONREACTIVE Nonreactive [facility] Comment:Nonreactive: < 8.00 mIU/mL Hepatitis B Core Antibody Nonreactive Nonreactive [facility] Hepatitis C Antibody Nonreactive Nonreactive [facility] Comment:Antibodies to HCV no t detected; does not exclude early acuteHCV infection. Hepatitis B Surface Ag Negative Negative [facility] 11/10/2023 11/10/2023 us Generic External Data Provider LAB BLOOD ORDERAB LES Final Result Performing Organization Address City/State/[facility] Co de Phone Number [facility] [address] [place] [phone] from Last 3 Months or Most Recently Relevant to Health Maintenance Insurance [facility] ONE CARE < 65 [place] [id number] Care Teams Multicultural Internship Relationship Specialty Start Date End Date Gemma Mccray MD [address] [place], [place] [phone] PCP - General Family Medicine 10/10/20 Ivis Jauregui PharmD [address] [place], [place] [phone] Pharmacist Internal Medicine 12/30/24
[2025-09-19 07:44] LABS: Hematocrit 42.2 % (42.0-52.0); Hemoglobin 14.3 g/dl (14.0-18.0); Mean Corpuscular HGB Conc 33.9 g/dl (31.0-36.0); Mean Corpuscular Hemoglobin 28.1 pg (27.0-33.0); Mean Corpuscular Volume 82.9 fL (80.0-98.0); NRBC Abs Auto 0.000 X10*3/uL (0.0-0.012); NRBC Pct Auto 0.0 /100WBC (0.0-0.2); Platelet Count 228 X10*3/uL (160-400); Red Blood Count 5.09 X10*6/uL (4.60-5.80); White Blood Count 8.2 X10*3/uL (4.8-10.8)
[2025-09-19 08:50] LABS: Prostate Specific Antigen 0.47 ng/mL (<0.05-4.0)
[2025-09-25 13:34] LABS: Testosterone, Free 45.2 pg/mL (35.0-155.0)
== END 2025-09-19 06:43 | disposition home or self-care (01) ==
LOC: HO.LAB 06:42
PROVIDERS: PCP General Practice; Visit Provider Nurse Practitioner Family
DX: Z12.5 Encounter for screening for malignant neoplasm of prostate (principal); E11.9 Type 2 diabetes mellitus without complications; E29.1 Testicular hypofunction
CPT/HCPCS: 36415; 83036; 84153; 84402; 84403; 85027

== ENCOUNTER 2025-10-18 07:25 | Outpatient (AMB) | payer OTHER, SELFPAY ==
--- NOTE | 2025-10-18 07:25 | A.OFFVIS_ITS ---
Intake Visit Reasons: 3m/Labs Intake Note: Patient presents today for 3m follow up/labs Labs done:09/19/25 * HgbA1c : 8.1 * PSA:0.47 * Total Testosterone :173 * Fr Testosterone :45.2 Urology Medications: Allopurinol, tadalafil, tamsulosin, testosterone Blood Thinner: none Health Insurance Adjuster Required: Yes Health Insurance Adjuster Services: Health Insurance Adjuster Present Health Insurance Adjuster Name: [id number] Accompanied by: Self / Same As Patient Allergies No Known Allergies Allergy (Verified 10/18/25 07:54) Medication List - Last Reconciled 10/18/25 by ORLANDO Whitaker albuterol sulfate 90 mcg/actuation (Ventolin HFA) inhalation alcohol swabs 0 pad topical allopurinol 100 mg PO QAM atorvastatin 20 mg PO DAILY 30 days blood sugar diagnostic As directed blood sugar diagnostic (FreeStyle Lite Strips) As directed four times a day bupropion HCl XL 150 mg PO DAILY butenafine 1% (Lotrimin Ultra) 1 appl topical BID 14 days cholecalciferol (vitamin D3) 125 mcg PO DAILY 30 days diclofenac sodium 1% topical BID dulaglutide (Trulicity) mg subcut flash glucose scanning reader (FreeStyle Agnes 2 Boswell) As directed flash glucose sensor (FreeStyle Agnes 2 Sensor kit) As directed every 2 weeks insulin aspart U-100 (Novolog FlexPen U-100 Insulin aspart) 40 units (0.4 mL) subcut TID 90 days insulin degludec (Tresiba FlexTouch U-200 insulin) 120 units (0.6 mL) subcut DAILY 30 days ketoconazole 2% topical lancets As directed lancets (TRUEplus Lancets) As directed 4 x/day lisinopril 5 mg PO DAILY metformin ER 500 mg PO BID 30 days omeprazole 20 mg PO DAILY 30 days pen needle, diabetic (BD Dianelys 2nd Gen Pen Needle) four times a day prednisone 10 mg PO Q OTHER DAY tadalafil 10 mg (2 x 5 mg) PO DAILY 90 days tamsulosin 0.4 mg PO DAILY 90 days testosterone 3 pumps topical DAILY 30 days HPI Comments Details: Laron is 50 year old Belarusian-speaking patient of Dr. Mccray. He has a past medical history of diabetes type 2, diabetic neuropathy associated with type 2 diabetes, disc herniation, dyslipidemia, essential hypertension, and vitamin-D deficiency. He is being followed up on today via telehealth for his erectile dysfunction, hypogonadism, and nephrolithiasis. In discussion with the patient today he reports noting improvement in libido and ED with current testosterone therapy as well as tadalafil as prescribed. He reports compliance with urological medications as prescribed however has recently ran out of his tadalafil. Recent labs were reviewed with the patient today as noted and trended below: Hemoglobin/hematocrit 12/24 14/40.0, 03/24 14.0/41.6, 07/24 14.2/40.3, 09/23 14.3/42.2 PSA: 06/21 0.4, 12/24 0.7, 03/24 0.4, 07/24 0.5, 09/23 0.5 Total Testosterone: 06/21 203, 04/22 184, 09/22 200, 12/24 264, 03/24 178, 07/24 199, 09/23 173 Free Testosterone:06/21 40.6, 04/22 42.1, 09/22 45.6, 12/24 62.6, 03/24 39.9, 07/24 641, 09/23 45.2 A1c: 09/18 11.6, 12/20 9.9, 09/22 9.9, 03/24 7.8%, 07/24 8/6%, 09/23 8.1% Estradiol 09/22 24 FSH 09/22 8.7 LH 09/22 5.8 Prolactin 09/22 6.5 SHBG 09/22 17 We did discuss low testosterone levels. We also discussed increase in A1c in correlation of uncontrolled diabetes with these urological issues as well as for overall health and well-being. 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 He discusses having recently intentionally lost 19 pounds. We discussed the importance of lifestyle modifications to assist with urological conditions as well as overall health and well-being. We discussed adequate sleep, weight management, and daily exercise in relation to improvement in erectile dysfunction and overall health and well-being. He otherwise denies any bothersome urinary issues. When asked he denies urinary urgency, urinary frequency, incontinence, nocturia, hematuria, dysuria, foul smelling urine, changes to urinary stream, flank pain, fever, and or chills. He is happy with his current voiding parameters. Previous imaging 02/20 as patient with a history of nephrolithiasis noted bilateral kidneys with no calculi and or hydronephrosis. There is a cyst in the lateral aspect of the left kidney measuring 1.0 cm. He otherwise offers no other issues or concerns at this time. SHBG 09/22 17 PREVIOUS OFFICE VISIT ------ Nephrolithiasis Had been seen in emergency room 07/21 Imaging - CT scan small 3 mm bilateral stones Erectile dysfunction in setting of insulin-dependent diabetes ? Long-term ED ?Diabetic ?On combination diabetes therapy ?Diabetes not well controlled with HbA1c of 8.8. Not suitable candidate for prostatic until HbA1c under better control. ? Symptoms have been present for/since?a number of years? Procedure(s)/Diagnosis causing dysfunction include?diabetes.? At this time he experiences erections?are partial and adequate for vaginal penetration, that undergo rapid detumesence after penetration, TOÑA 8- 11 Moderate ED.? Nocturnal erections?do not occur.? Currently they are?in a stable relationship.? Associated problems? hypertension ?Yes ? diabetes ?Yes ? dyslipidemia ?Yes ? depression ?No ? stress ?No ? decreased libido ?No ? pelvic surgery ?No ? Overall he is ?is not satisfied with the current management.? 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 Diabetes type 2, uncontrolled Diabetes Surgical History History of biopsy (~12/29/23) Hx of knee surgery History of ear surgery Family History Father Diabetes mellitus Heart disease Stroke Arthritis Mother Epilepsy Social History Household Members: Spouse, Family and Children Alcohol intake: never Patient Tobacco Use Status: Former Tobacco user Tobacco use type: Cigarette Substance Use Type: Marijuana Current occupational status: unemployed Review of Systems Const Reports as per HPI Eyes Reports no additional complaints ENT Reports no additional complaints Card Reports as per HPI Resp Reports no additional complaints GI Reports no additional complaints Reports as per HPI Musc Reports no additional complaints Neuro Reports no additional complaints Psych Reports no additional complaints Endo Reports as per HPI Alejandro/Lymph Reports no additional complaints Aller/Immun Reports no additional complaints Physical Exam Const General: cooperative Orientation/consciousness: patient oriented x3 Resp Effort & Inspection: able to speak in complete sentences Neuro General: patient oriented x3 Psych Speech and movement: Clear speech present Attitude: cooperative Thought content: Normal thought content present Insight: Fair insight present (Psych) Judgement: Fair judgement present (Psych) Telehealth Telehealth Telehealth Platform: [facility] Location of provider rendering services: practice address Location of patient: address on file Patient Identification confirmed using: Name, : Yes Telehealth method: voice only Patient verbally consented to treatment: Yes Patient verbally consented to billing insurance company: Yes Patient informed of any privacy concerns related to visit: Yes Minutes spent on Phone/Video with Pt.: 20 Assessment & Plan Assessment & Plan (1) Erectile dysfunction associated with type 2 diabetes mellitus: Code(s): E11.69 - Type 2 diabetes mellitus with other specified complication; N52.1 - Erectile dysfunction due to diseases classified elsewhere Category: Medical (2) Low libido: Code(s): R68.82 - Decreased libido Category: Medical (3) Hypogonadism in male: Code(s): E29.1 - Testicular hypofunction Category: Medical Plan Recent PSA, testosterone, A1c, and CBC results reviewed with the patient today; as noted above. We did discuss decrease in testosterone levels however they remain low. Will increase testosterone as discussed and prescribed; prescription provided. Continue tadalafil; refill provided He otherwise denies any bothersome urinary issues. He reports be happy with current voiding parameters. We did discussed importance of continuation with lifestyle modifications to assist with hypogonadism. We also discussed the importance of management and diabetes for improvement overall health and well-being. Will obtain PSA, CBC, testosterone, and free testosterone in 3 months. Follow-up in 3 months with labs to be completed prior; or sooner with any issues, concerns, and or questions. Orders: Orders Prostate Specific Antigen 3 Months E29.1 - Testicular hypofunction Complete Blood Count no Diff 3 Months E29.1 - Testicular hypofunction Testosterone, Free/Total 3 Months E29.1 - Testicular hypofunction Medications: Changed From testosterone apply 3 pumps over max area - alternate shoulders on alternate days 3 pumps topical DAILY 30 days 75 grams 4RF E29.1 - Testicular hypofunction, R79.89 - Other specified abnormal findings of blood chemistry To testosterone apply 4 pumps over max area - alternate shoulders on alternate days. This is an increase in dose 4 pumps topical DAILY 75 grams 4RF 30 days E29.1 - Testicular hypofunction, R79.89 - Other specified abnormal findings of blood chemistry Refilled tadalafil Daily medication [facility] DR33 [id number] 10 mg (2 x 5 mg) PO DAILY 90 tabs 1RF sexual activity 90 days E11.69 - Type 2 diabetes mellitus with other specified complication, N52.1 - Erectile dysfunction due to diseases classified elsewhere Patient Instructions: The patient had an opportunity to ask questions regarding the treatment plan. All questions were answered. Physical exam, labs, and imaging were discussed and reviewed in detail. As well as risks, benefits, and discussion of treatment choices. No major barriers to understanding were identified. The patient expressed understanding and agreement with the above treatment plan. The patient was made aware they should contact our office by phone for worsening of their current condition, the appearance of new symptoms, or with any questions or concerns. Compliance is encouraged with any medications and follow up testing that is ordered. It is a privilege to be allowed the opportunity to participate in? your urological care.? Again, if you have any questions or concerns If you have any questions or concerns please do not hesitate to contact me. The office is [phone]. This note is constructed using voice recognition software. While every effort has been made to ensure accuracy associate publisher errors may have been included. Yours sincerely, ORLANDO Whitaker Coding Level of Care Code Tele Est Pt Level 3 (19029) Complex EM visit Add On G2211 Diagnoses Erectile dysfunction associated with type 2 diabetes mellitus E11.69; N52.1 Low libido R68.82 Hypogonadism in male E29.1
--- OUTSIDE RECORDS SUMMARY | 2025-10-18 15:04 | XMS_ITS | Encounter Summary ---
Author Organization [facility] Address [address] [place] [address] Care Team Providers Care Director Pharmaceutical Name Role Phone Gemma Mccray MD Primary Care Provider [phone] Ivis Jauregui PharmD Unavailable [phone] Encounter Details Date Type Department Care Team (Latest Contact Info) Description 04/05/[address] [facility] CONVERSIONS Dental, Provider, DDS Social History [...] filedocumented in this encounter Care Teams Director Pharmaceutical Relationship Specialty Start Date End Date Gemma Mccray MD [address] [place] [address] PCP - General Family Medicine 10/10/20 Ivis Jauregui, PharmD [address] [place] [address] Pharmacist Internal Medicine 12/30/24 documented as of this encounter
--- OUTSIDE RECORDS SUMMARY | 2025-10-18 15:04 | XMS_ITS | Encounter Summary ---
Author Organization [employer] Address [address] [place] [address] Care Team Providers Care Home Specialist Name Role Phone Gemma Mccray MD Primary Care Provider [phone] Ivis Jauregui PharmD Unavailable [phone] Reason for Visit * Reason Onset Date Comments Appointment Request 01/20/2024 Encounter Details Date Type Department Care Team ([facility] st Contact Info) Description 01/20/2024 Telephone [facility] MEDICINE [address] [place], [place] [phone] Gemma Mccray MD [address] [place], [place] [phone] Appointment Request Social History Tobacco Use Types [...] upcoming test . Please contact pt @ [phone] documented in this encounter Plan of Treatment Not on file documented as of this encounter Visit Diagnoses Not on filedocumented in this encounter Additional Health Concerns Assessment Noted Time PHQ-9 Depression Total Score: 10 023 3:51 PM EDT documented as of this encounter Care Teams Home Specialist Relationship Specialty Start Date End Date Gemma Mccray MD [address] [place] [address] PCP - General Family Medicine 10/10/20 Ivis Jauregui PharmD [address] [place] [address] Pharmacist Internal Medicine 12/30/24 documented as of this encounter
--- OUTSIDE RECORDS SUMMARY | 2025-10-18 15:04 | XMS_ITS | Encounter Summary ---
Author Organization [facility] Address [address] [place] [address] Care Team Providers Care Bread Jockey Name Role Phone Gemma Mccray MD Primary Care Provider Ivis Jauregui PharmD Unavailable [phone] Encounter Details Date Type Department Care Team (Latest Contact Info) Description 04/16/2021 Abstract [facility] CONVERSIONS Dental, Provider, DDS Social [...] on filedocumented in this encounter Care Teams Bread Jockey Relationship Specialty Start Date End Date Gemma Mccray MD [address] [place] [address] PCP - General Family Medicine 10/10/20 Ivis Jauregui, PharmD [address] [place], [place] [phone] Pharmacist Internal Medicine 12/30/24 documented as of this encounter
--- OUTSIDE RECORDS SUMMARY | 2025-10-18 15:04 | XMS_ITS | Encounter Summary ---
Author Organization [employer] Address [address] [place] [address] Care Team Providers Care Cctv Technician Name Role Phone Gemma Mccray MD Primary Care Provider [phone] Ivis Jauregui PharmD Unavailable [phone] Reason for Visit * Reason Onset Date Comments PCP Appt 04/09/2023 Encounter Details Date Type Department Care Team ([facility] st Contact Info) Description 04/09/2023 Telephone [facility] MEDICINE [address] [place], [place] [phone] Gemma Mccray MD [address] [place] [address] PCP Appt Social History Tobacco Use Types [...] on filedocumented in this encounter Care Teams Cctv Technician Relationship Specialty Start Date End Date Gemma Mccray MD [address] [place], [place] [phone] PCP - General Family Medicine 10/10/20 Ivis Jauregui, PharmD [address] [place] [address] Pharmacist Internal Medicine 12/30/24 documented as of this encounter
--- OUTSIDE RECORDS SUMMARY | 2025-10-18 15:04 | XMS_ITS | Clinical Summary ---
Author Organization [employer] Address [address] [facility] 7t [place] [address] Care Team Providers Care Tar Roofer Name Role Phone Gemma Mccray MD Primary Care Provider Ivis Jauregui PharmD Unavailable [phone] Allergies No known active allergies Medications tamsulosin (Flomax) 0.4 MG 24 hr capsule TAKE 1 CAPSULE BY MOUTH DAILY 30 MINUTES AFTER THE SAME MEAL EVERY DAY 30 capsule 1 023 Active albuterol 108 (90 Base) MCG/ACT inhalerIndicati ons:Shortness of breath Inhale 2 puffs every 6 (six) hours if needed for wheezing. 18 g 11 024 Active Continuous Glucose Residential Framing Carpenter (FreeStyle Agnes 3 Raymond) device 1 each 3 times daily. Use daily as directed for CGM 1 each 025 Active Continuous Glucose Sensor (FreeStyle Agnes 3 Plus Sensor) misc 1 each Once per day. Apply 1 sensor as directed every 15 days for CGM 2 each 025 Active glucose blood (FreeStyle Precision Damon Test) test strip Use to test blood sugar up to 3 times daily, as directed 100 each 025 Active Alcohol Swabs (Alcohol Prep) pads Use as directed prior to insulin injection 4x daily 200 each 025 Active TRUEplus Lancets 33G miscIndications :Type 2 diabetes mellitus with diabetic nephropathy (HCC) [...] nephropathy, with long-term current use of insulin ([facility]),Essential hypertension Take 1 tablet (50 mg) by mouth Once per day. 30 tablet 11 025 2025 Active Icosapent Ethyl (Vascepa) 1 g capsule Take 2 capsules (2 g) by mouth with breakfast and with evening meal. 120 capsule 5 025 Active tadalafil (Cialis) 5 MG tablet TAKE 2 TABLETS BY MOUTH DAILY NEEDED FOR SEXUAL ACTIVITY 025 Active Tirzepatide (Mounjaro) 10 MG/0.5ML solution auto-injector Inject 10 mg under the skin 1 (one) time per week. 2 mL 11 025 Active ketoconazole (NIZOral) 2 % shampoo APPLY TOPICALLY TWICE A WEEK 120 mL 3 025 Active Embecta Pen Needle Dianelys 32G X 4 MM miscIndications :Type 2 diabetes mellitus with hyperglycemia, with long-term current use of insulin ([facility]) USE DIRECTED FOUR TIMES DAILY 100 each 11 025 Active Testosterone 20.25 MG/ACT (1.62%) gel Apply 3 Pump topically Once per day. Alternate shoulders, as directed. 025 Active NovoLOG FLEXPEN 100 UNIT/ML penIndications: Type 2 diabetes mellitus with hyperglycemia, with long-term current use of insulin ([facility]) INJECT 34 UNITS SUBCUTANEOUSLY THREE TIMES DAILY 30 mL 025 Active insulin degludec (Tresiba FlexTouch) 200 UNIT/ML injectionIndica tions:Type 2 diabetes mellitus with hyperglycemia, with long-term current use of insulin ([facility]) INJECT 120 UNITS SUBCUTANEOUSLY ONCE DAILY IN THE MORNING 18 mL 3 025 Active insulin aspart (NovoLOG FLEXPEN) 100 UNIT/ML penIndications: Type 2 diabetes mellitus with hyperglycemia, with long-term current use of insulin ([facility]) INJECT 34 UNITS SUBCUTANEOUSLY THREE TIMES DAILY 30 mL 025 2024 Discontinued insulin degludec (Tresiba FlexTouch) 200 UNIT/ML injectionIndica tions:Type 2 diabetes mellitus with hyperglycemia, with long-term current use of insulin ([facility]) INJECT 120 UNITS SUBCUTANEOUSLY EVERY MORNING 18 mL 025 2024 Discontinued Active Problems Problem Noted Date Diagnosed Date 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 Assessment & Plan (01/19/2025 7:38 AM EST): [...] followup with rheum in 10-14 days at [facility] I will attempt to find neurology note for 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 Will have workup for cancer, needs colon cancer screening Assessment & Plan (03/30/2024 12:51 PM EDT): On prednisone taper for myositis, has labs today and followup with rheum in 10 days at [facility] Will have workup for cancer, needs colon cancer screening Tinea versicolor 10/05/2023 Assessment & Plan (01/19/2025 7:37 AM EST): Rash sounding more consistent with refractory tinea versicolor To wash weekly in ketoconazole shampoo x 2-4 weeks Take fluconazole oral 300mg x 1, then repeat in one week Non-traumatic rhabdomyolysis 07/13/2023 Assessment & Plan (02/29/2024 1:01 PM EDT): Will speak with coding compliance auditor about muscle biopsy results and get back [...] Assessment & Plan (03/09/2023 5:26 AM EDT): probation supervisor Tresibia and Trulicity Sensor not available [...] Assessment & Plan (01/05/2023 6:23 AM EST): probation supervisor medications today, Metformin and Trulicity Restart them Call if blood sugars do not start to decrease to <300 Podiatry appointment stat for L toe, not sure why previous referral have not been filled/coordinated Precordial pain 09/19/2015 Backache 06/03/2012 Depression, recurrent 06/03/2012 Pinguecula 06/03/2012 Pure hypercholesterolemia 06/03/2012 Encounters Date Type Department Care Team Description 09/21/2025 Refill [facility] [address] [place] [address] Ivis Jauregui PharmD Type 2 diabetes mellitus with hyperglycemia, with long-term current use of insulin ([facility]) 09/20/2025 Orders Only [facility] [address] [place] [address] Gemma Mccray MD Type 2 diabetes mellitus with hyperglycemia, with long-term current use of insulin ([facility]) (Primary Dx) 09/19/2025 Telephone [facility] [address] [place] [address] Ivis Jauregui PharmD 09/19/2025 Refill [facility] [address] [place] [address] Alverto Alex PharmD Type 2 diabetes mellitus with hyperglycemia, with long-term current use of insulin ([facility]) 09/19/2025 Orders Only GENERIC EXTERNAL DATA DEPARTMENT Provider, Generic External Data 09/18/2025 Telephone [facility] [address] [place] [address] Gemma Mccray MD Nurse Triage 08/07/2025 Telephone [facility] [address] [place] [address] Gemma Mccray MD 08/06/2025 Refill [facility] [address] [place] [address] Ivis Jauregui PharmD Type 2 diabetes mellitus with hyperglycemia, with long-term current use of insulin ([facility]/HCC) from Last 3 Months Immunizations Immunization Administration [...] Answer Date Recorded Internet Access Q1 Yes 10/08/2025 Internet Access Q2 Not on file 10/08/2025 Sex and Gender Information Value Date Recorded [...] Disability Screening 1975 Diabetes: Foot Exam 02/15/1986 Alcohol/Substance Use Screening 1988 Family Planning (PISQ) 02/15/1991 Depression Monitoring 04/03/2025 10/04/2024, 024 COVID-19 Vaccine ( season) 2025 01/11/2025, 07/25/2022, 08/23/2021, Additional history exists Influenza Vaccine (#1) 2025 , 10/01/2020, 11/08/2019, Additional history exists DTaP/Tdap/Td Vaccines (3 - Td or Tdap) 09/13/2025 09/13/2015, 09/13/2010 Diabetes: Hemoglobin A1C 12/20/2025 025, 07/04/2025, 06/13/2025, Additional history exists Tobacco Screening 01/19/2026 01/19/2025 Lipid Panel 01/27/2026 01/27/2025, 05/31/2021 Zoster Vaccines (1 of 2) 02/15/2026 SDOH Screening 03/03/2026 03/03/2025 Eye Exam 10/10/2026 10/10/2024, 09/30, 10/10/2024, Additional history exists RSV Patients and Patients Aged 60 years or older (1 - 1-dose 75+ series) 02/15/2051 Hepatitis B Vaccines Completed 12/29/2011, 08/01/2011, 06/17/2011 Hepatitis C Screening Completed 11/10/2023 Pneumococcal Vaccine: Pediatrics (0 to 5 Years) [...] Comments TESTOSTERONE, FREE (DIALYSIS) AND TOTAL,MS Routine 09/19/2025 6:56 AM EDT PSA, TOTAL Routine 09/19/2025 6:56 AM EDT HEMOGLOBIN A1C Routine 09/19/2025 6:56 AM EDT CBC Routine 09/19/2025 6:56 AM EDT LIPID PANEL WITH REFLEX TO DIRECT LDL Routine 01/27/2025 8:47 AM EST HEPATITIS PANEL, GENERAL Routine 11/10/2023 12:00 AM EST from Last 3 Months or Most Recently Relevant to Health Maintenance Results * CBC (09/19/2025 6:56 AM EDT) White Blood Count 8.2 4.8 - 10.8 X10*3/uL [facility] Red Blood Count 5.09 4.60 - 5.80 X10*6/uL [facility] Hemoglobin 14.3 14.0 - 18.0 g/dl [facility] Hematocrit 42.2 42.0 - 52.0 % [facility] Mean Corpuscular Volume 82.9 80.0 - 98.0 fL [facility] Mean Corpuscular Hemoglobin 28.1 27.0 - 33.0 pg [facility] Mean Corpuscular HGB Conc 33.9 31.0 - 36.0 g/dl [facility] Red Cell Distribution Width 13.1 11.0 - 16.0 % [facility] Platelet Count 228 160 - 400 X10*3/uL [facility] Mean Platelet Volume 9.6 9.4 - 12.4 fL [facility] NRBC Pct Auto 0.0 0.0 - 0.2 /100WBC [facility] NRBC Abs Auto 0.000 0.0 - 0.012 X10*3/uL [facility] 09/19/2025 6:56 AM EDT 09/19/2025 6:56 AM EDT us Generic External Data Provider LAB BLOOD ORDERAB LES Final Result [facility] [address] [place] [phone] * (ABNORMAL) Testosterone, Free (Dialysis) And Total, MS (09/19/2025 6:56 AM EDT) Testosterone, Total 173(A) 250 - 1100 ng/dL [facility] Comment:For additional infor madai, please refer [email or web address].[email or web address]/faq/[email or web address](This link is being provided for informational/educational purposes only.)This test was developed and its analytical performancecharacteristics have been determined by [facility] [place], [place]. It hasnot been cleared or approved by the U.S. Food and DrugAdministration. This assay has been validated pursuantto the CLIA regulations and is used for clinicalpurposes. Testosterone, Free 45.2 35.0 - 155.0 pg/mL [facility] Comment:This test was develo ped and its analytical performancecharacteristics have been determined by [facility] [place], [place]. It hasnot been cleared or approved by the U.S. Food and DrugAdministration. This assay has been validated pursuantto the CLIA regulations and is used for clinicalpurposes.THIS TEST WAS PERFORMED AT:[id number] [place] [id number] TIMMONS MD,PHD 09/19/2025 6:56 AM EDT 09/19/2025 6:56 AM EDT us Generic External Data Provider LAB BLOOD ORDERAB LES Final Result [facility] [address] [place] [phone] * PSA,Total (09/19/2025 6:56 AM EDT) Prostate Specific Antigen 0.47 <0.05 - 4.0 ng/mL [facility] Comment:PSA methodology: Abb derik Alinity i ChemiluminescentMicroparticle Immunoassay (CMIA) 09/19/2025 6:56 AM EDT 09/19/2025 6:56 AM EDT Generic External Data Provider LAB BLOOD ORDERAB LES Final Result Performing Organization Address [facility] Co de Phone Number [facility] [address] [place] [phone] * (ABNORMAL) Hemoglobin A1c (09/19/2025 6:56 AM EDT) Hemoglobin A1c 8.1(H) <6.0 % [facility] Comment:Hemoglobin A1C Refer ence Range Adults: 4.8 - 6.0 % Non diabetic: < 6.0 % Goal: < 7.0 %Additional Action Suggested: > 8.0 %Note: Hemoglobin A1c results are invalid for patients with abnormal amounts of HbF. Blood transfusions may impact the HbA1c concentration in the patient sample. Estimated Average Glucose 186 mg/dL [facility] Comment:eAG = Estimated ave rage glucose which is %A1C expressed asaverage glucose, using the formula of the G0J-TyzhphcYwsqqvk Glucose study (ADAG), Diabetes Care, Vol.31,#8,Jun. 2007 09/19/2025 6:56 AM EDT 09/19/2025 6:56 AM EDT us Generic External Data Provider LAB BLOOD ORDERAB LES Final Result Performing Organization Address City/[facility]/ZIP Co de Phone Number [facility] [address] [place] [phone] * (ABNORMAL) Lipid Panel with Reflex to Direct LDL (01/27/2025 8:47 AM EST) Triglycerides 231(H) <150 mg/dL [facility] Comment:Desirable Triglyceri de: less than 150 mg/dLBorderline High Triglyceride 150-199 mg/dLHigh Triglyceride: 200-499 mg/dLVery High Triglyceride: greater than or equal to 5OO mg/dL Cholesterol 131 <200 mg/dL [facility] Comment:Desirable Cholestero l: less than 200 mg/dLBorderline High Cholesterol: 200-239 mg/dLHigh Cholesterol: greater than 239 mg/dL LDL Cholesterol Calculated 50 <100 mg/dL [facility] Comment:Desirable LDL: less than 100 mg/dLNear Optimal/Above Optimal LDL: 110- 129 mg/dLBorderline High LDL: 130-159 mg/dLHigh LDL: 160-189 mg/dLVery High LDL: greater than or equal to 190 mg/dL HDL Cholesterol 35(L) >40 mg/dL [facility] Comment:Desirable HDL: great er than 40 mg/dL Note: This HDL assay may give artificially low results in patients with liver disease. 01/27/2025 8:47 AM EST 01/27/2025 11:04 AM EST us Gemma Mccray MD LAB BLOOD ORDERABLES Final Res ult Performing Organization Address [facility] Co de Phone Number [facility] [address] [place] [phone] * Hepatitis Panel, General (11/10/2023 12:00 [...] ORDERAB LES Final Result Performing Organization Address [facility]/ZIP Co de Phone Number [facility] [address] [place] [phone] from Last 3 Months or Most Recently Relevant to Health Maintenance Insurance [facility]ARE < [address] [place] [id number] Care Teams Tar Roofer Relationship Specialty Start Date End Date Gemma Mccray MD [address] [place] [address] PCP - General Family Medicine 10/10/20 Ivis Jauregui PharmD [address] [place] [address] Pharmacist Internal Medicine 12/30/24
--- OUTSIDE RECORDS SUMMARY | 2025-10-18 15:04 | XMS_ITS | Encounter Summary ---
Author Organization [employer] Address [address] [facility] 7t [place] [address] Care Team Providers Care Photonics Engineering Technician Name Role Phone Gemma Mccray MD Primary Care Provider [phone] Ivis Jauregui PharmD Unavailable [phone] Reason for Visit * Reason Comments Med Refill Encounter Details Date Type Department Care Team ([facility] st Contact Info) Description 06/27/2024 Refill [facility] [address] [place], [place] [phone] Gemma Mccray MD [address] [place], [place] [phone] Type 2 diabetes mellitus with hyperglycemia, with long-term current use of insulin ([facility]) Social History Tobacco Use Types [...] documented as of this encounter Care Teams Photonics Engineering Technician Relationship Specialty Start Date End Date Gemma Mccray MD [address] [place] [address] PCP - General Family Medicine 10/10/20 Ivis Jauregui PharmD [address] [place] [address] Pharmacist Internal Medicine 12/30/24 documented as of this encounter
--- OUTSIDE RECORDS SUMMARY | 2025-10-18 15:04 | XMS_ITS | Encounter Summary ---
Author Organization [employer] Address [address] [facility] 7t [place] [address] Care Team Providers Care Professor Of Environmental Studies Name Role Phone Gemma Mccray MD Primary Care Provider [phone] Ivis Jauregui PharmD Unavailable [phone] Reason for Referral * Consultation (Routine) - Authorized Specialty Diagnoses / Procedures Referred By Contac t Referred To Contact Pharmacy Diagnoses Type 2 diabetes mellitus with hyperglycemia, with long-term current use of insulin (HCC) Gemma Mccray MD [address] [place] [phone] Phone: tel: fax: Referral ID Status Reason Start Date Expiration Date Visits Requested Visits Authorized [id number] Authorized Consult and Treat 09/20/2025 09/20/2026 6 6 Encounter Details Date Type Department Care Team (Late st Contact Info) Description 09/20/2025 Orders Only [facility] [address] [place] [address] [phone] Gemma Mccray MD [address] [place] [address] [phone] Type 2 diabetes mellitus with hyperglycemia, with long-term current use of insulin (HCC) (Primary Dx) Social History Tobacco Use Types [...] as of this encounter Plan of Treatment Scheduled Referrals Name Type Priority Associated Diagnoses Orde r Schedule Referral to Pharmacy CDTM Outpatient Referral Routine Type 2 diabetes mellitus with hyperglycemia, with long-term current use of insulin (HCC) Ordered: 09/20/2025 documented as of this encounter Visit Diagnoses Diagnosis Type 2 diabetes mellitus with hyperglycemia, with long-term current use of insulin (HCC)- Primary documented in this encounter Additional Health Concerns Assessment Noted Time PHQ-9 Depression Total Score: 10 024 11:42 AM EST documented as of this encounter Care Teams Professor Of Environmental Studies Relationship Specialty Start Date End Date Gemma Mccray MD [address] [place] [address] PCP - General Family Medicine 10/10/20 Ivis Jauregui, SaulD [address] [place] [address] Pharmacist Internal Medicine 12/30/24 documented as of this encounter
--- OUTSIDE RECORDS SUMMARY | 2025-10-18 15:04 | XMS_ITS | Encounter Summary ---
Author Organization [employer] Address [address] [facility] 7t [place] [address] Care Team Providers Care Software Database Architect Name Role Phone Gemma Mccray MD Primary Care Provider [phone] Ivis Jauregui PharmD Unavailable [phone] Reason for Visit * Reason Onset Date Comments Med Refill 02/05/2023 Encounter Details Date Type Department Care Team (Late st Contact Info) Description 02/05/2023 Refill [facility] [address] [place], [place] [phone] Gemma Mccray MD [address] [place] [address] Social History Tobacco Use Types Packs/Day Years [...] on filedocumented in this encounter Care Teams Software Database Architect Relationship Specialty Start Date End Date Gemma Mccray MD [address] [place] [address] PCP - General Family Medicine 10/10/20 Ivis Jauregui PharmD [address] [place] [address] Pharmacist Internal Medicine 12/30/24 documented as of this encounter
--- OUTSIDE RECORDS SUMMARY | 2025-10-18 15:04 | XMS_ITS | Clinical Summary ---
Author Organization [employer] [facility] ity Address [address] [place] [address] Care Team Providers Care Senior Analyst Market Intelligence Name Role Phone Unavailable Primary Care Provider Unavailabl e Social History Tobacco Use Types Packs/Day Years Used Date Smoking Tobacco: Never Assessed Sex and Gender Information Value Date Recorded Sex Assigned at Not on file Legal Sex Male 10:48 PM EST Gender Identity Not on file Sexual Orientation Not on file Plan of Treatment Health Maintenance Due Date Last Done Comments Colorectal Cancer Screening: Colonoscopy 1976 DTaP,Tdap,and Td Vaccines (1 - Tdap) 02/15/1995 Hepatitis B Vaccines (1 of 3 - 19+ 3-dose series) 02/15/1995 Cholesterol Screening (Lipid Panel) 11/02/2022 HIV Screening 11/02/2022 Hepatitis C Screening 11/02/2022 Social Influencers of Health Screening 11/02/2022 Depression Screening 11/30/2024 COVID-19 Vaccine (1 - 2024-2 6 season) 2025 Influenza Vaccine (#1) 2025 RSV Immunization Adult Patie nts (1 - 1-dose 75+ series) 02/15/2051 HIB Vaccines Aged Out No longer eligi [...]
--- OUTSIDE RECORDS SUMMARY | 2025-10-18 15:04 | XMS_ITS | Encounter Summary ---
Author Organization [employer] Address [address] [facility] 7t [place] [address] Care Team Providers Care Conventional Underwriter Name Role Phone Gemma Mccray MD Primary Care Provider [phone] Ivis Jauregui PharmD Unavailable [phone] Reason for Visit * Reason Comments Med Refill Encounter Details Date Type Department Care Team (Late st Contact Info) Description 02/05/2023 Refill [facility] [address] [place], [place] [phone] Gemma Mccray MD [address] [place], [place] [phone] Type 2 diabetes mellitus with hyperglycemia, with long-term current use of insulin ([facility]) Social History Tobacco Use Types Packs/Day Years [...] hyperglycemia, with long-term current use of insulin ([facility]) documented in this encounter Care Teams Conventional Underwriter Relationship Specialty Start Date End Date Gemma Mccray MD [address] [place], [place] [phone] PCP - General Family Medicine 10/10/20 Ivis Jauregui PharmD [address] [place] [phone] Pharmacist Internal Medicine 12/30/24 documented as of this encounter
--- OUTSIDE RECORDS SUMMARY | 2025-10-18 15:04 | XMS_ITS | Encounter Summary ---
Author Organization [facility] Address [address] [facility] 7t [place] [address] Care Team Providers Care Division Superintendent Name Role Phone Gemma Mccray MD Primary Care Provider [phone] Ivis Jauregui PharmD Unavailable [phone] Reason for Referral * Imaging (Routine) - Closed Specialty Diagnoses / Procedures Referred By Contac t Referred To Contact Radiology Diagnoses Right upper quadrant abdominal pain Procedures CT Abdomen Pelvis w/ and w/o Contrast Gemma Mccray MD [address] [place] [address] Phone: tel: fax: [address] Phone: tel: fax: Referral ID Status Reason Start Date Expiration Date Visits Re quested Visits Authorized [id number] Closed 08/14/2023 08/13/2024 1 1 Encounter Details Date Type Department Care Team (Late st Contact Info) Description 08/14/2023 Orders Only [facility] [address] [place], [place] [phone] Gemma Mccray MD [address] [place], [place] [phone] Right upper quadrant abdominal pain (Primary Dx) [...] AM EDT Narrative 09/22/2023 10:08 AM EDT [address] [address] [address] Scan Report Signed Patient: Laron Riley MR#: [id number] : 1975 Acct:[id number] Age/Sex: 48 / M ADM Date: 09/16/23 Loc: HO.CT Attending Dr: Gemma Mccray MD Ordering Physician: Gemma Mccray Date of Service: 09/16/23 Procedure(s): CT abdomen pelvis wo/w IV con Accession Number(s): [id number] cc: Kamila Sidhu MD; Gemma Mccray EXAMINATION: [...] in OV> 09/22/23 1004 DD/ 1026 TD/TT: [place] Roofer: ROQUE Procedure Note Donotuseinterpreter, Image - 09/22/[address] [address] [address] Scan Report Signed Patient: Laron Riley#: [id number] : 1975Acct:[id number] Age/Sex: 48 / MADM Date: 09/16/23 Loc: HO.CT Attending Dr: Gemma Mccray MD Ordering Physician: Gemma Mccray Date of Service: 09/16/23 Procedure(s): CT abdomen pelvis wo/w IV con Accession Number(s): [id number] cc: Kamila Sidhu MD; Gemma Mccray EXAMINATION: [...] in OV> 09/22/23 1004 DD/ 1026 TD/TT: [place]um Roofer: ROQUE us Gemma Mccray MD IMG CT PROCEDURES Final Result * BI US Breast Complete Right (09/03/2023 3:38 PM EDT) Anatomical Region Laterality Modality Breast Right Ultrasound 09/03/2023 3:38 PM EDT Narrative 09/03/2023 5:37 PM EDT [address] [place] [address] Ultrasound Report Signed Patient: Laron Riley MR#: [id number] : 1975 Acct:[id number] Age/Sex: 48 / M ADM Date: 09/03/23 Loc: HO.MAMMO Attending Dr: Kamila Sidhu MD Ordering Physician: Kamila Sidhu MD Date of Service: 09/03/23 Procedure(s): US breast RT limited mamm only Accession Number(s): [id number] cc: Kamila Sidhu MD EXAMINATION: MM DIAGNOSTIC [...] in OV> 09/03/23 1733 DD/ 1538 TD/TT: [place]um Roofer: Procedure Note Donotuseinterpreter, Image - 09/03/2023 [facility] [address] [place], [place] [address] Ultrasound Report Signed Patient: Laron Riley#: [id number] : 1975Acct:[id number] Age/Sex: 48 / MADM Date: 09/03/23 Loc: HO.MAMMO Attending Dr: Kamila Sidhu MD Ordering Physician: Kamila Sidhu MD Date of Service: 09/03/23 Procedure(s): US breast RT limited mamm only Accession Number(s): [id number] cc: Kamila Sidhu MD EXAMINATION: MM DIAGNOSTIC [...] in OV> 09/03/23 173 DD/ 1538 TD/TT: [place]um Roofer: us Kamila Sidhu MD IMG US PROCEDURES Final Result * BI Mammogram Diagnostic Tomosynthesis Bilateral (09/03/2023 3:10 PM EDT) Anatomical Region Laterality Modality Breast Bilateral Mammography 09/03/2023 3:10 PM EDT Narrative 09/03/2023 5:37 PM EDT [place] [facility] [address] [place], [place] [address] Mammography Report Signed Patient: Laron Riley MR#: [id number] : 1975 Acct:[id number] Age/Sex: 48 / M ADM Date: 09/03/23 Loc: HO.MAMMO Attending Dr: Kamila Sidhu MD Ordering Physician: Kamila Sidhu MD Results: 2Be nign Findings Date of Service: 09/03/23 Follow Up: 1 Year From Orig ina Mammogram Procedure(s): MM tomosynthesis diagnostic BI Accession Number(s): [id number] cc: Kamila Sidhu MD EXAMINATION: MM DIAGNOSTIC [...] by Samm Yu MD in OV> 09/03/23 4515 DD/ 1510 TD/TT: [place] Roofer: Procedure Note Donotuseinterpreter, Image - 09/03/2023 [facility] [address] [place], [place] [address] Mammography Report Signed Patient: Laron RileyMR#: [id number] : 1975Acct:[id number] Age/Sex: 48 / MADM Date: 09/03/23 Loc: HO.MAMMO Attending Dr: Kamila Sidhu MD Ordering Physician: Kamila Sidhu MDResults: 2Be nign Findings Date of Service: 09/03/23Follow Up: 1 Year From Orig ina Mammogram Procedure(s): MM tomosynthesis diagnostic BI Accession Number(s): [id number] cc: Kamila Sidhu MD EXAMINATION: MM DIAGNOSTIC [...] in OV> 09/03/23 1733 DD/ 1510 TD/TT: Gypsum Roofer: us Kamila Sidhu MD IMG BI PROCEDURES Final Result documented in this encounter Visit Diagnoses Diagnosis Right upper quadrant abdominal pain- Primary documented in this encounter Additional Health Concerns Assessment Noted Time PHQ-9 Depression Total Score: 10 023 3:51 PM EDT documented as of this encounter Care Teams Division Superintendent Relationship Specialty Start Date End Date Gemma Mccray MD [address] [place] [address] PCP - General Family Medicine 10/10/20 Ivis Jauregui PharmD [address] [place] [address] Pharmacist Internal Medicine 12/30/24 documented as of this encounter
--- OUTSIDE RECORDS SUMMARY | 2025-10-18 15:04 | XMS_ITS | Encounter Summary ---
Author Organization [facility] Address [address] [facility] 7[address] [place] [address] Care Team Providers Care Warehouse Receiving Supervisor Name Role Phone Gemma Mccray MD Primary Care Provider [phone] Ivis Jauregui PharmD Unavailable [phone] Encounter Details Date Type Department Care Team (Late st Contact Info) Description 07/16/2023 Orders Only [facility] [address] [place], [place] [phone] Gemma Mccray MD [address] [place], [place] [phone] Social History Tobacco Use Types Packs/Day Years [...] Screen Urine Not Detected Not Detect [facility] Comment:Opiate cut-off is 30 0 ng/mL.Positive results are unconfirmed and should not be used fornon-medical purposes. Barbiturates, Urine Not Detected Not Detect [facility] Comment:Barbiturate cut-off is 200 ng/mL.Positive results are unconfirmed and should not be used fornon-medical purposes. Phencyclidine Screen Urine Not Detected Not Detect [facility] Comment:Phencyclidine cut-of f is 25 ng/mL.Positive results are unconfirmed and should not be used fornon-medical purposes. Amphetamine Screen Urine Not Detected Not Detect [facility] Comment:Amphetamine cut-off is 1000 ng/mL.Positive results are unconfirmed and should not be used fornon-medical purposes. Benzodiazepines Screen Urine Not Detected Not Detect [facility] Comment:Benzodiazepine cut-o ff is 200 ng/mL.Positive results are unconfirmed and should not be used fornon-medical purposes. Cocaine Screen Urine Not Detected Not Detect [facility] Comment:Cocaine cut-off is 3 00 ng/mL.Positive results are unconfirmed and should not be used fornon-medical purposes. Cannabinoid Screen Urine POSITIVE(A) Not Detect [facility] Comment:Cannabinoid cut-off is 50 ng/mL.Positive results are unconfirmed and should not be used fornon-medical purposes. FENTANYL URINE Not Detected Not Detect [facility] Comment:Fentanyl cut-off is 1 ng/mL.Positive results are unconfirmed and should not be used fornon-medical purposes. 07/16/2023 3:30 PM EDT 07/16/2023 3:32 PM EDT [facility] External Provider LAB URI NE ORDERABLES Final Result [facility] [address] [place] [phone] * (ABNORMAL) Urinalysis, Complete, with Reflex to Culture (07/16/2023 3:30 PM EDT) Color Urine Dark Yellow [facility] Appearance Urine Clear [facility] PH 6.0 5.0 - 9.0 [facility] Glucose Urine UA Negative Negative mg/dL [facility] Urine Blood Negative Negative [facility] Specific [place] - Urine >=1.030(H) 1.005 - 1.025 [facility] Urine Protein 100 (2+)(A) Neg-Trace mg/dL [facility] Urine Ketones 40 Negative mg/dL [facility] Nitrite Urine Negative Negative [facility] Leukocyte Esterase Urine Negative Negative [facility] RBC Urine 0-2 0 - 2 /HPF [facility] Urine WBC 0-5 0 - 5 /HPF [facility] Urine Squamous Epithelial Cell 0-2 0 - 2 /HPF [facility] Urine Bacteria None Seen None Seen [facility] Hyaline Casts, Urine 0-2 0 - 2 /LPF [facility] 07/16/2023 3:30 PM EDT 07/16/2023 3:32 PM EDT Narrative [facility] - 07/16/2023 3:47 PM EDT [id number], Clean Catch us [facility] External Provider LAB URI NE ORDERABLES Final Result [facility] [address] [place] [address] [phone] * Volatiles (07/16/2023 11:41 AM EDT) Alcohol, Methyl NONE DETECTED [facility] Comment:Reportable Limit: 5 mg/dLThis test was developed and its analytical performancecharacteristics have been determined by [employer]. It has not been cleared or approved by theFDA. This assay has been validated pursuant to the CLIAregulations and is used for clinical purposes. Alcohol, Ethyl NONE DETECTED NONE DETECTED mg/dL [facility] Comment:100 mg/dL = 0.100 g% (g/dL)Reportable Limit: 10 mg/dLThis test was developed and its analytical performancecharacteristics have been determined by [employer]. It has not been cleared or approved by theFDA. This assay has been validated pursuant to the CLIAregulations and is used for clinical purposes. Alcohol, Ethyl NONE DETECTED NONE DETECTED g/dL(%) [facility] Comment:Reportable limit: 0. 010 g/dLThis test was developed and its analytical performancecharacteristics have been determined by [employer]. It has not been cleared or approved by theFDA. This assay has been validated pursuant to the CLIAregulations and is used for clinical purposes. ACETONE NONE DETECTED NONE DETECTED mg/dL [facility] Comment:Reportable Limit: 5 mg/dLThis test was developed and its analytical performancecharacteristics have been determined by [employer]. It has not been cleared or approved by theFDA. This assay has been validated pursuant to the CLIAregulations and is used for clinical purposes. Alcohol, Isopropyl NONE DETECTED NONE DETECTED mg/dL [facility] Comment:Reportable Limit: 5 mg/dLThis test was developed and its analytical performancecharacteristics have been determined by [employer]. It has not been cleared or approved by theFDA. This assay has been validated pursuant to the CLIAregulations and is used for clinical purposes. Volatile Analysis Performed On: WHOLE BLOOD [facility] Comment:THIS TEST WAS PERFOR MED AT:[employer] [place] [phone] BOWERS MD 07/16/2023 11:4 1 AM EDT 07/16/2023 11:46 AM EDT [facility] External Provider LAB BLO OD ORDERABLES Final Result [facility] [address] [place] [address] [phone] documented in this encounter Visit Diagnoses Not on filedocumented in this encounter Additional Health Concerns Assessment Noted Time PHQ-9 Depression Total Score: 10 023 3:51 PM EDT documented as of this encounter Care Teams Warehouse Receiving Supervisor Relationship Specialty Start Date End Date Gemma Mccray MD [address] [place] [address] PCP - General Family Medicine 10/10/20 Ivis Jauregui PharmD [address] [place] [address] Pharmacist Internal Medicine 12/30/24 documented as of this encounter
== END 2025-10-18 08:50 | disposition home or self-care (01) ==
LOC: HO.HUSH 07:25
PROVIDERS: PCP General Practice; Visit Provider Nurse Practitioner Family
DX: E11.69 Type 2 diabetes mellitus with other specified complication (principal); N52.1 Erectile dysfunction due to diseases classified elsewhere; R68.82 Decreased libido; E29.1 Testicular hypofunction
CPT/HCPCS: 99213; G2211